=== PATIENT | female | born 1945 | race Caucasian/White ===

== ENCOUNTER 2022-06-25 10:30 | Outpatient (RCR) | payer MEDICARE, SELFPAY ==
--- NOTE | 2022-03-19 10:55 | HP.PTEVAL_ITS ---
Patient's Visit Information QAMAR FRY is a 76 year old F referred to Physical Therapy by FRANCISCO J SELLERS with a diagnosis of Imbalance, neuropathy. Date of Evaluation: 03/19/22 Physical Therapist: Gabriel Molina, RADHAT, OCS, CSCS - Visit Plan Frequency: 3x /Week Duration: 4-6 Weeks Plan: 3x/week for 4-6 weeks for. strengthening of LE mat to chair to HEP then standing to HEP. gait training and balance training and transition training, mat and stance, has wh walker and gait trianing with thsi is appropriate but may be able to gain confidence by doing some without (therapist help needed) - Subjective Dtr present and does the talking most of it.Diagnosed with neuropathy recently and has diabetes. Doctor calls her lack of effort. Fell two years ago and started balance problems...fell BW down 4 steps and hurt shoulder adn layed around 4 weeks recovering and does not care to get up and go anymore. Everybody else does work for her. Dtr does everything for her. Dtr is medical staff director outcomes analyst. Has wh walker but needs help in the bathroom due to shoulder dysfunction. afraid to stadn up without holding on since she fell. Dtr feels fear and anxciety has caused sedentary and weakness which has effected her mobility. No pain. Sleeps well. In bed for 12 hours. 40 minutes take to go bathroom and walks with walker slowly on her own. Has no necessary steps at home except two to enter adn exit which she uses her dtrs arm. Dtr or gra nddaughter always with her. Enjoys working puzzles and watching TV. Has electric recliner lift chair. Pt verbalizes wanting to walk to get to nondenominational and get snacks from kitchen. Doesn't get own snacks. Dtr admittedlyand pt agrees that she is just lazy. - Objective Pushed back to therapy by dtr in WC. Slumped in to WC using arms and back for support, can sit up when asked but it is not her default. She can scoot. Sche can sit to stand using UE sowly but I. She can stand when asked without UE assist but tends to be fearful reaching for something. Can take a few steps without AD but short steps and hesitant and CGA. Using wh walker can ambulate short steps mod I 50 feet today, is hunched over and tends to be far from walker until cued but can stand up and speed up when requested safely. Stand to sit I but tends to plop and avoid using UE. Bed trasnfer is slow but I, VC needed to scoot and roll, happy to be in first position she assumes. Bed to sit slow but I. LE AROM WFL, tightness in gastroc and HS. weakness in LE at 3+ hip and knee testing and 4- ankle testing. reflexes 1/3 patella and achilles. Sensation WNL to gross light touch. Pt laughs often without reason and realizes she is doing it but cannot stop. inappropriately. Also admits she refuses to do things and is lazy but can't understand or articulate why. - Balance/Special Test Scores Lower Extremity Functional Score: 9 - Goals Goal 1:: All trasnitions at home done I without assist Goal Time Frame: 4-6 Weeks Goal 2:: Pt able to ambualte with wh walker in and out of therapy mod I without fatigue Goal Time Frame: 4-6 Weeks Goal 3:: LEFS score 40/80 Goal Time Frame: 4-6 Weeks Goal 4:: Dtr report 50% improvement in overall activity level. Goal Time Frame: 4-6 Weeks Goal 5:: I approp HEP for strength/mobility Goal Time Frame: 4-6 Weeks - Rehabilitation Potential Physical Therapy Diagnosis: imbalance, fear, cognition limitng mobility at home Rehabilitation Potential: Fair - Anticipated Interventions Patient/Client Instruction: Educate patient on: Condition, Plan of Care For the Purpose of:: To improve muscle performance and motor function, To increase tolerance to activity/condition/position Therapeutic Exercise to Include: Strength training, Flexibilty training, Gait and locomotor training For the Purpose of:: To improve muscle performance and motor function, To increase tolerance to activity/condition/position, To improve gait and locomotor functions Thank you for the opportunity to evaluate your patient. For Medicare and Medicare HMO plans, please review the plan of care and approve it. It will need to be FAXED BACK to us at [phone] for Medicare purposes. For Medicare only, by signing this I certify the plan of care. Please let me know if there are questions or concerns regarding this plan of care. Physician Signature: Date:
--- NOTE | 2022-04-24 14:31 | HP.PTREVAL ---
FRANCISCO J GUY, It has been my pleasure to treat QAMAR FRY over the last 12 visits for Imbalance, neuropathy. Please see the progress note below for an update on the physical therapy plan of care! Subjective: Granddaughter helps answer home based questions. Feels better becasue we have made her exercise. Not doing anything at home. Granddaughter says she is not doing them unless she stands right with her and makes her do them. Family makes her walk dishes to sink. Otherwise spends day in her chair. Not ding her home ex regularly. Grd dtr says she will get up and go to bathroom now vs going in her diaper. Complains a lot less about taking dishes. Objective/Function: Granddaughter present today and helps her with LEFS. Walking with wh walker needing supervision as her steps get short and dragged and she lets wh walker get too far away from her. Can correct but only temporarily. Unable to self correct without cues. Tends to sit in chair with feet too far away. +8 on LEFS, nearly twice what it was. Exit chair one try without UE, slow to begin ambulating and can follow instructions but forgets quickly. 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 Plan Plan: 2x/week x 4 for. 1. Get I with HEP which she is noncompliant with.(current exercises plus standing hips, weight shifts) give pics and do them in therapy just ass she will at home. 2/ Lots of walking and steps as safety allows Balance/Gait/Functional tests - Balance/Special Test Scores Lower Extremity Functional Score: 17 Goals Goal 1:: All trasnitions at home done I without assist Goal Time Frame: 4-6 Weeks Goal Progress: Goal Met Goal 2:: Pt able to ambualte with wh walker in and out of therapy mod I without fatigue Goal Time Frame: 4-6 Weeks Goal Progress: supervision needed Goal 3:: LEFS score 40/80 Goal Time Frame: 4-6 Weeks Goal Progress: Progressing Goal 4:: Dtr report 50% improvement in overall activity level. Goal Time Frame: 4-6 Weeks Goal Progress: grddtr 50% Goal 5:: I approp HEP for strength/mobility Goal Time Frame: 4-6 Weeks Goal Progress: noncompliant. Anticipated Interventions Patient/Client Instruction: Educate patient on: Condition, Plan of Care For the Purpose of:: To improve muscle performance and motor function, To increase tolerance to activity/condition/position Therapeutic Exercise to Include: Strength training, Flexibilty training, Gait and locomotor training For the Purpose of:: To improve muscle performance and motor function, To increase tolerance to activity/condition/position, To improve gait and locomotor functions Please do not hesitate to contact me at [phone] by phone or if you have questions or concerns regarding this new plan of care! Sincerely, Gabriel Molina, DPT, OCS, CSCS
--- NOTE | 2022-05-27 11:03 | HP.PTREVAL ---
FRANCISCO J GUY, It has been my pleasure to treat QAMAR FRY over the last 19 visits for Imbalance, neuropathy. Please see the progress note below for an update on the physical therapy plan of care! Subjective: Getting better. Got a new walker. Dtr says she is moving faster. Putting in more effort. Doing exercises at home in room. Will put ballerina bar in room. Wants to do exercises at home. Will do exercises at home 3x/week to daily. Went to [employer] last night and stood alone whch does not happen. Objective/Function: TUG. 30 sec sit to stand. gait: SBA without AD today for 2 LOB, using wh walker into and out of PT still tending to get too far away form walker but no LOB. Trasnfer I chair. Compliance with HEp will be the issue. Appropriate to f/u in one month for funcitonal check and HEP. Fair prognosis to continue improvement toward goal. Plan Plan: f/u 3-4 weeks to check TUG, 30 sec sit to stand and gait and patients compliance with ex. HEP Balance/Gait/Functional tests - Balance/Special Test Scores Lower Extremity Functional Score: 13 TUG Test Time Seconds: 20 30 Second Chair Rise Test Seconds: 5 Goals Goal 1:: All trasnitions at home done I without assist Goal Time Frame: 4-6 Weeks Goal Progress: Goal Met Goal 2:: Pt able to ambualte with wh walker in and out of therapy mod I without fatigue Goal Time Frame: 4-6 Weeks Goal Progress: Goal Met Goal 3:: LEFS score 40/80 Goal Time Frame: 4-6 Weeks Goal Progress: Progressing Goal 4:: Dtr report 50% improvement in overall activity level. Goal Time Frame: 4-6 Weeks Goal Progress: grddtr 50% Goal 5:: I approp HEP for strength/mobility Goal Time Frame: 4-6 Weeks Goal Progress: Goal Met Anticipated Interventions Patient/Client Instruction: Educate patient on: Condition, Plan of Care For the Purpose of:: To improve muscle performance and motor function, To increase tolerance to activity/condition/position Therapeutic Exercise to Include: Strength training, Flexibilty training, Gait and locomotor training For the Purpose of:: To improve muscle performance and motor function, To increase tolerance to activity/condition/position, To improve gait and locomotor functions Please do not hesitate to contact me at [phone] by phone or if you have questions or concerns regarding this new plan of care! Sincerely, Gabriel Molina, DPT, OCS, CSCS
--- NOTE | 2022-06-25 11:01 | HP.PTDCSUM ---
It has been my pleasure to treat QAMAR FRY referred by FRANCISCO J GUY, with the diagnosis of Imbalance, neuropathy for a total of 20 visit(s). Discharge Date: Please see the following information for a summary of their discharge status. Subjective: Doing ex 3x/week. Dtr says walking good at home this morning. Long bar put in at home for exercises. No falls. I can walk now. Still can do exdrcises at home. No pain. getting where she needs to at home on her own. % Improvement: 30 Objective/Function: Safe ambulating with wh walker but needs it for safety, not safe with ambulating without it. Trasnfers I with UE today. Steps:two rails reciprocal up 6 and down with R only. Goal 1:: All trasnitions at home done I without assist Goal Progress: Goal Met Goal 2:: Pt able to ambualte with wh walker in and out of therapy mod I without fatigue Goal Progress: Goal Met Goal 3:: LEFS score 40/80 Goal Progress: Progressing Goal 4:: Dtr report 50% improvement in overall activity level. Goal Progress: Progressing Goal 5:: I approp HEP for strength/mobility Goal Progress: Goal Met Plan: f/u 3-4 weeks to check TUG, 30 sec sit to stand and gait and patients compliance with ex. HEP If there are questions or concerns regarding this patient's physical therapy, please feel free to call me at [phone]. Thank you for the referral of this patient. Sincerely, Gabriel Molina, DPT, OCS, CSCS Balance/Gait/Functional tests - Balance/Special Test Scores Functional Gait Assessment Score: 13 % Disability: 56.6700 Lower Extremity Functional Score: 13 TUG Test Time Seconds: 20 30 Second Chair Rise Test Seconds: 5
== END 2022-06-25 12:34 | disposition home or self-care (01) ==
LOC: PT 10:30
DX: E11.40 Type 2 diabetes mellitus with diabetic neuropathy, unspecified (principal)
CPT/HCPCS: 97110; 97116; 97162; 97164; 97530

== ENCOUNTER → 2023-01-11 | Outpatient (CLI) | payer MEDICARE, SELFPAY ==
--- NOTE | 2023-01-11 09:11 | MRI_ITS ---
HISTORY: COGNITIVE IMPAIRMENT, GAIT CHANGES, INCONTINENCE. TECHNIQUE: Multiplanar and multisequence MR images of the brain were obtained without contrast. 290 images. COMPARISON: None. FINDINGS: BRAIN PARENCHYMA: Multiple foci and small zones of increased T2 FLAIR signal in the bilateral cerebral white matter. No abnormal focus of restricted diffusion. No acute intracranial hemorrhage identified. CSF SPACES: Moderate volume loss. No significant midline shift or other mass effect.No extra-axial fluid collection. VASCULAR SYSTEM: Major intracranial flow voids are maintained. PARANASAL SINUSES AND MASTOID AIR CELLS: No significant air fluid levels. ORBITS: Bilateral lens resections. MRI/Brain without Contrast IMPRESSION: Moderate chronic involutional and white matter changes. No evidence for acute infarct. Electronically Signed: Kinza Bain MD at 15:06 EDT ,
== END | disposition home or self-care (01) ==
DX: G31.84 Mild cognitive impairment of uncertain or unknown etiology (principal)
CPT/HCPCS: 70551

== ENCOUNTER 2023-01-21 19:50 | Emergency (ER) | payer MEDICARE, SELFPAY ==
[2023-01-21 19:52] VITALS: BP 109/53; PULSE 82; RESP 15; TEMP 36.5; O2SAT 96
[2023-01-21 20:09] VITALS: TEMP 36.7
[2023-01-21 20:15] VITALS: BMI 73.4
--- NOTE | 2023-01-21 20:27 | EX.ED.DYSGE1 ---
HPI History of Present Illness Chief Complaint: Complaint Informant: patient and family Narrative Narrative: Patient presents with daughter for evaluation of possible UTI. She has been complaining of lower abdominal pain. Patient has Alzheimer's and is concerned that she may still have some remnant of her appendix left after she had appendicitis. Daughter states this occurred when she was 7 years old. Daughter did note that the patient has had strong odor to her urine with slight discoloration. She notes that her mother does not drink much during the day. She is concerned that she may have a UTI causing the symptoms. [facility] Medical History (Updated 01/21/23 @ 23:[address] Venita Osei MD) Alzheimer disease Cardiac murmur Diabetes mellitus Neuropathy Home Medications citalopram 20 mg tablet 10 mg PO DAILY 01/21/23 [History Last Taken Unknown] famotidine 20 mg tablet 20 mg PO DAILY PRN 01/21/23 [History Last Taken Unknown] hydrochlorothiazide 12.5 mg tablet 12.5 mg PO DAILY 01/21/23 [History Last Taken Unknown] levothyroxine 50 mcg tablet 50 mcg PO DAILY 01/21/23 [History Last Taken Unknown] lisinopril 2.5 mg tablet 2.5 mg PO DAILY 01/21/23 [History Last Taken Unknown] memantine 10 mg tablet 5 mg PO BID 01/21/23 [History Last Taken Unknown] metformin 850 mg tablet 850 mg PO BID 01/21/23 [History Last Taken Unknown] metoprolol succinate 25 mg tablet,extended release 24 hr 25 mg PO DAILY 01/21/23 [History Last Taken Unknown] pravastatin 20 mg tablet 20 mg PO QHS 01/21/23 [History Last Taken Unknown] raloxifene 60 mg tablet 60 mg PO DAILY 01/21/23 [History Last Taken Unknown] Allergy/AdvReac Type Severity Reaction Status Date / Time IV dye Allergy Intermediate Hives Uncoded 01/21/23 23:04 Family History Other Breast cancer Surgical History (Updated 01/21/23 @ 20:[address] Venita Osei MD) History of hysterectomy Hx of appendectomy Social History Smoking Status: Never smoker ROS ROS ED Constitutional Constitutional ED: Denies chills or fever(s) Eyes Eyes: Denies change in vision or discharge from eye(s) ENT ENT ED: Denies discharge from eye(s), rhinorrhea or sore throat Cardiovascular Cardiovascular: Denies chest pain Respiratory/Chest Respiratory/Chest: Denies cough or dyspnea Gastrointestinal Gastrointestinal: Reports abdominal pain, nausea and vomiting; Denies diarrhea Musculoskeletal Musculoskeletal: Denies back pain or extremity pain Integumentary Denies Abrasions or rash Neurologic Neurologic: Denies headache(s) or weakness Psychiatric Psychiatric: Denies anxiety or depression Allergic/Immunologic Allergic/Immunologic ED: Denies lip swelling or urticaria EXAM Physical Exam Const Vital Signs: 01/21/23 19:52 01/21/23 20:09 01/21/23 21:39 Temperature 97.7 F L 98.1 F 98.1 F Temperature Source Temporal Temporal Oral Pulse Rate 82 78 Respiratory Rate 15 16 Blood Pressure 109/53 L 133/60 H Blood Pressure Mean 71 84 Pulse Ox 96 97 Oxygen Delivery Method Room Air Room Air 01/21/23 23:05 Temperature Temperature Source Pulse Rate 85 Respiratory Rate 18 Blood Pressure 133/80 H Blood Pressure Mean 97 Pulse Ox 95 Oxygen Delivery Method Room Air Positive well nourished and well developed General Appearance ED: well developed HEENT Reports moist mucous membranes Eyes EOMs intact bilaterally Neck no lymphadenopathy Chest Wall inspection of chest normal and palpation of chest normal Resp normal respiratory effort and clear to auscultation bilaterally Cardio regular rate and regular rhythm GI GI Narrative: Diffuse tenderness of the lower abdomen. No guarding or rebound. Extremity normal to inspection Neuro Neuro Narrative: Patient alert and in no acute distress. Moves all extremities. Psych mental status grossly normal Skin no rashes or lesions noted MDM MDM MDM Narrative Medical decision making narrative: Patient is given IV fluids. Labwork obtained to evaluate for leukocytosis, anemia, and electrolyte derangement. Urinalysis obtained to evaluate for infection/hematuria. History & Record Review Discussion w/independent historian: Patient and Family Lab Data Attestation: I reviewed the patient's lab results. Labs: Laboratory Results - last 24 hr 01/21/23 01/21/23 20:40 21:31 WBC 10.1 RBC 4.07 L Hgb 11.9 L Hct 37.1 MCV 91.2 MCH 29.2 MCHC 32.1 RDW Std Deviation 42.5 RDW Coeff of Buzz 12.8 Plt Count 290 MPV 9.8 Immature Gran % (Auto) 0.300 Neut % (Auto) 62.3 Lymph % (Auto) 22.5 Banner % (Auto) 9.2 Eos % (Auto) 5.0 Baso % (Auto) 0.7 Absolute Neuts (auto) 6.3 Absolute Lymphs (auto) 2.27 Nucleated RBC % 0 Sodium 139 Potassium 4.6 Chloride 107 Carbon Dioxide 26.0 Anion Gap 6 BUN 19 H Creatinine 1.02 Estim Creat Clear Calc 116.49 Est GFR (MDRD) Af Amer 67 Est GFR (MDRD) Non-Af 56 L BUN/Creatinine Ratio 18.6 Glucose 111 H Calcium 8.5 Urine Color Yellow Urine Clarity Clear Urine pH 7.0 Ur Specific [place] 1.010 Urine Protein Negative Urine Glucose (UA) Normal Urine Ketones Negative Urine Occult Blood 10 H Urine Nitrite Negative Urine Bilirubin Negative Urine Urobilinogen Normal Ur Leukocyte Esterase Negative Urine RBC 0-5 SEEN Urine WBC 0 SEEN Ur Squamous Epith Cells 0 SEEN Urine Bacteria 0 SEEN Urine Mucus 0 SEEN Radiography Diagnostic Testing: Clinical Impression(s) from Imaging Studies Abdomen/Pelvis CT 01/21/23 22:28 IMPRESSION: Trace lower pole left hydronephrosis. No obstructing mass or calcification. Electronically Signed: Felisha Fermin MD at 23:19 EDT Reading Location ID and State: [id number] / Tel , Service support , Treatment and Re-Evaluation :: CBC was normal white count at 10.1 with no left shift. Hemoglobin is 11.9. Chemistry studies unremarkable. Glucose is 111. Urinalysis reveals no evidence of infection. Given the patient's moderate abdominal tenderness with no evidence of UTI, CT scan of the abdomen pelvis with IV contrast obtained to evaluate for possible diverticulitis. Upon return from CT patient did develop some hives from the IV contrast and received a dose of IV Benadryl. CT scan of the abdomen pelvis reveals trace lower pole left hydronephrosis. No mass or calcification. No other acute findings noted. On repeat evaluation patient's hives are improving. She is resting comfortably. Test results are discussed with patient as well as daughter at bedside. They will continue to monitor her symptoms at home and try to increase p.o. fluids. Return instructions given. Discharge Plan Triage Chief Complaint: Complaint ED Provider: Venita Osei Dx/Rx/DC Orders Clinical Impression: Abdominal pain Instructions: ED Abdominal Pain Unkn Cause Fem Prescriptions: No Action raloxifene 60 mg tablet 60 mg PO DAILY metoprolol succinate 25 mg tablet extended release 24 hr 25 mg PO DAILY pravastatin 20 mg tablet 20 mg PO QHS metformin 850 mg tablet 850 mg PO BID lisinopril 2.5 mg tablet 2.5 mg PO DAILY citalopram 20 mg tablet 10 mg PO DAILY levothyroxine 50 mcg tablet 50 mcg PO DAILY hydrochlorothiazide 12.5 mg tablet 12.5 mg PO DAILY memantine 10 mg tablet 5 mg PO BID famotidine 20 mg tablet 20 mg PO DAILY PRN Primary Care Provider: MARCOS TORRES Referrals: MARCOS TORRES [Other] - 10-14 Days if not better Disposition Disposition: Home, Self Care
[2023-01-21] MEDS: 0.9% Normal Saline 1,000 ML 1000 ML IV (20:42)
[2023-01-21 20:50] LABS: Absolute Lymphocyte Count 2.27 X10^3/uL (0.83-4.51); Absolute Neutrophil Count 6.3 X10^3/uL (2.0-7.7); Basophil# 0.07 X10^3/uL; Basophil% 0.7 % (0-1); Hematocrit 37.1 % (37-47); Hemoglobin 11.9 g/dL (12.0-15.0); Lymphocyte # 2.27 X10^3/ul (0.83-4.51); Lymphocyte % 22.5 % (19-41); Mean Corp Hgb Conc 32.1 g/dL (32-36); Mean Corpuscular Hgb 29.2 pg (27.0-32.0); Mean Corpuscular Volume 91.2 fL (81-99); Mean Platelet Vol. 9.8 fl (6.2-12.0); Monocyte# 0.93 X10^3/uL; Monocyte% 9.2 % (0-10); NRBC Flagged by Analyzer 0 % (0-5); Neutrophil # 6.27 X10^3/uL (2.7-7.7); Neutrophil % 62.3 % (47-70); Platelet Count 290 K/mm3 (150-450); RBC Distribution Width CV 12.8 % (11.6-14.6); RBC Distribution Width SD 42.5 fl (35.1-43.9); Red Blood Count 4.07 M/mm3 (4.2-5.4); White Blood Count 10.1 K/mm3 (4.4-11.0)
[2023-01-21 21:21] LABS: Anion Gap 6 (5-15); BUN 19 mg/dL (7-18); BUN/Creat Ratio 18.6 RATIO (10-20); Calcium,Total 8.5 mg/dL (8.5-10.1); Chloride 107 mmol/L (98-107); Creatinine, Serum 1.02 mg/dL (0.55-1.02); EST Glomerular Filtration Rate 56 mL/min (>60); Est Glom Filt Rate - Afr Amer 67 mL/min (>60); Estimated Creatinine Clearance 116.49 ml/min; Glucose 111 mg/dL (74-106); Potassium 4.6 mmol/L (3.5-5.1); Sodium Level 139 mmol/L (136-145)
[2023-01-21] MEDS: 0.9% Normal Saline 1,000 ML 150 ML IV (21:33)
[2023-01-21 21:37] LABS: Bacteria 0 SEEN /hpf (None Seen); Mucous, Urine 0 SEEN /hpf (<or=2+); Squamous Epithelial Cells - UA 0 SEEN /hpf (5-10); White Blood Cells 0 SEEN /hpf (0-5)
[2023-01-21 21:39] VITALS: BP 133/60; PULSE 78; RESP 16; TEMP 36.7; O2SAT 97
[2023-01-21 21:43] LABS: Color, Urine Yellow (Yellow); Glucose, Dipstick Normal (Normal); Ketone-Dipstick Negative (Negative); Leukocyte Esterase-Dipstick Negative /ul (Negative); Nitrite-Dipstick Negative (Negative); Occult Blood-Urine 10 /ul (Negative); Protein-Dipstick Negative (Negative); Urine Bilirubin Dipstick Negative (Negative); Urine Clarity Clear (Clear); Urine Urobilinogen Normal (Normal)
[2023-01-21 22:26] LABS: Red Blood Cells-Urine 0-5 SEEN /hpf (0-5)
--- NOTE | 2023-01-21 22:28 | CT_ITS ---
EXAM: CT ABDOMEN AND PELVIS WITH INTRAVENOUS CONTRAST CLINICAL INDICATION: lower abdominal pain TECHNIQUE: Helically acquired images were obtained of the abdomen and pelvis with intravenous contrast. This CT exam was performed using one or more of the following dose reduction techniques: automated exposure control, adjustment of the mA and/or kV according to patient size, and/or use of iterative reconstruction technique. CONTRAST: IV 100mL [id number] COMPARISON: No relevant prior studies available. FINDINGS: LOWER THORAX: Unremarkable. Lung bases are clear. No cardiomegaly. No significant pericardial effusion. ABDOMEN: LIVER: Unremarkable. Homogeneous. No focal mass. GALLBLADDER AND BILE DUCTS: Unremarkable. No calcified gallstones. No gallbladder distention or wall edema. No intra- or extrahepatic biliary ductal dilation. PANCREAS: Unremarkable. No focal cystic or solid mass. SPLEEN: Unremarkable. Normal size without focal cystic or solid mass. ADRENALS: Unremarkable. No nodules. KIDNEYS AND URETERS: Trace hydronephrosis of the left lower pole. Ureters are normal in course and caliber. No ureteral stones. STOMACH AND BOWEL: Diverticulosis. No acute diverticulitis. No stomach or bowel distention. No focal inflammatory change. PELVIS: APPENDIX: No evidence of acute appendicitis. BLADDER: Unremarkable. REPRODUCTIVE: Unremarkable as visualized. No mass. ABDOMEN and PELVIS: INTRAPERITONEAL SPACE: Unremarkable. No ascites or other fluid collection. No free air. BONES/JOINTS: L1 compression fracture, age indeterminate. Mild chronic loss of height of the L4 vertebra. Mild lumbar dextroscoliosis. No suspicious lytic or blastic abnormality. SOFT TISSUES: Unremarkable. No discrete abdominal or pelvic wall hernia. VASCULATURE: Unremarkable. Abdominal aorta is normal in caliber. LYMPH NODES: Unremarkable. No enlarged lymph nodes.
[2023-01-21] MEDS: DiphenhydrAMINE 50 MG/ML Syringe 25 MG IV (23:03)
--- NOTE | 2023-01-21 23:04 | ED.RN ---
MD was notified of hives, redness after contrast. order for benadryl and given.
[2023-01-21 23:05] VITALS: BP 133/80; PULSE 85; RESP 18; O2SAT 95
== END 2023-01-21 23:55 | disposition home or self-care (01) ==
PROVIDERS: Emergency Provider Emergency Medicine; Visit Provider Emergency Medicine
DX: R10.9 Unspecified abdominal pain (principal); G30.9 Alzheimer's disease, unspecified; E11.40 Type 2 diabetes mellitus with diabetic neuropathy, unspecified; Z79.899 Other long term (current) drug therapy; Z79.84 Long term (current) use of oral hypoglycemic drugs; Z90.710 Acquired absence of both cervix and uterus; Z90.49 Acquired absence of other specified parts of digestive tract
CPT/HCPCS: 74177; 80048; 81001; 85025; 96361; 96374; 99285; J7030; P9612; Q9967; A4216

== ENCOUNTER 2023-11-21 16:55 | Inpatient (IN) | payer MEDICARE, SELFPAY ==
[2023-11-21] VITALS (14 sets, daily range): BP systolic 104–137; BP diastolic 50–97; PULSE 95–120; RESP 16–30; TEMP 36.3–37.4; O2SAT 88–97; BMI 29.5
--- NOTE | 2023-11-21 17:12 | EKG12_ITS ---
Test Reason : Blood Pressure : / mmHG Vent. Rate : 102 BPM Atrial Rate : 000 BPM P-R Int : 000 ms QRS Dur : 066 ms QT Int : 330 ms P-R-T Axes : 000 -06 030 degrees QTc Int : 430 ms SINUS TACHYCARDIA Abnormal ECG Confirmed by JOESPH MARSHALL, JUANPABLO ([id number]), scientific publications editor DEBORAH MENDEZ ([id number]) on 11/24/2023 6:49:20 AM Referred By: Confirmed By:JUANPABLO PINK MD
--- NOTE | 2023-11-21 17:14 | EDS_ITS ---
HPI History of Present Illness Chief Complaint: Shortness of Breath Narrative Narrative: History and physical is limited secondary to dementia. Per patient's daughter, last night, patient began having shortness of breath and wheezing with occasional cough. No fevers or chills. They deny that she has past medical history of COPD or CHF, she is never been a smoker. She does have history of dementia and cognitive decline to the point where she does not remember how to walk, hence she is in a wheelchair. Daughter relates history that she did have a vomiting episode 2 days ago when she was trying to administer her inhaler because the patient does not quite know how to inhale. This morning, when patient awoke, all day she has been having difficulty breathing and audible wheezing. [facility] Medical History (Updated 11/21/23 @ 19:36 by Emerson Courtney MD) Hypothyroidism Anxiety and depression HLD (hyperlipidemia) HTN (hypertension) CKD (chronic kidney disease) Vitamin deficiency GERD (gastroesophageal reflux disease) Cardiac murmur Neuropathy Alzheimer disease Diabetes mellitus Home Medications ?Medication ?Instructions ?Recorded ?Last Taken ?Type citalopram 20 mg tablet 10 mg PO DAILY 01/21/23 11/20/23 History hydrochlorothiazide 12.5 mg tablet 12.5 mg PO DAILY 01/21/23 11/20/23 History levothyroxine 50 mcg tablet 50 mcg PO DAILY 01/21/23 11/20/23 History lisinopril 2.5 mg tablet 2.5 mg PO DAILY 01/21/23 11/20/23 History memantine 10 mg tablet 5 mg PO BID 01/21/23 11/20/23 History metformin 850 mg tablet 850 mg PO BID 01/21/23 11/20/23 History metoprolol succinate 25 mg 25 mg PO DAILY 01/21/23 11/20/23 History tablet,extended release 24 hr pravastatin 20 mg tablet 20 mg PO QHS 01/21/23 11/20/23 History raloxifene 60 mg tablet 60 mg PO DAILY 01/21/23 11/20/23 History famotidine 20 mg tablet 20 mg PO DAILY PRN #90 tabs 10/29/23 11/20/23 Rx Allergy/AdvReac Type Severity Reaction Status Date / Time Iodinated Contrast Media Allergy Intermediate Hives Verified 11/21/23 16:56 strawberry Allergy Intermediate hives Verified 11/21/23 16:56 Family History Father Diabetes Myocardial infarction Mother Breast cancer Surgical History History of hysterectomy Hx of appendectomy Social History household members: children housing: house current occupational status: retired Smoking Status: Never smoker alcohol intake: never substance use type: does not use what type of physical activity do you participate in: none seatbelt use: always do you feel safe at home: Yes ROS ROS ED ROS Narrative Limited secondary to dementia. Majority of review of systems obtained through daughter. Constitutional: No fever, no chills. HEENT: No sore throat. No neck pain. No loss of vision. No rhinorrhea. Cardiovascular: No chest pain. No palpitations. No pedal edema. Respiratory: Positive occasional cough, positive wheezing and increasing shortness of breath. Abdominal: No abdominal pain. No nausea. No vomiting currently. Genitourinary: No dysuria. No hematuria. Musculoskeletal: No myalgias. No arthralgias. Neurologic: No headaches. No dizziness. No lightheadedness. Skin: No rash. No change in color. Psychiatric: No depression. No anxiety. EXAM Physical Exam Narrative Exam Narrative: Afebrile. Temperature of 99.2 ?F, vital signs noted. HEENT: Normocephalic. Atraumatic. PERRL, EOMI. Neck soft and supple. No point tenderness or step off. Cardiovascular: Positive tachycardia no murmurs, rubs, or gallops appreciated. Respiratory: Mild tachypnea. Audible wheezing bilaterally. Gastrointestinal: Abdomen soft, nontender, with normoactive bowel sounds. No rebound or guarding. Neurological: Awake. Alert. Intermittently follows commands. At baseline per daughter. Skin: No rash. Normal color. No pallor. Musculoskeletal: No pedal edema. Const Vital Signs: 11/21/23 16:56 11/21/23 17:00 11/21/23 17:17 Temperature 99.2 F H 99.2 F H Temperature Source Temporal Temporal Pulse Rate 107 H 107 H Respiratory Rate 24 H 24 H Respiratory Effort Respiratory Depth Respiratory Pattern Blood Pressure 132/82 H 132/82 H Blood Pressure Mean 98 98 Pulse Ox 90 90 88 Oxygen Delivery Method Room Air Room Air Room Air Oxygen Flow Rate (L/min) 11/21/23 17:20 11/21/23 17:21 11/21/23 17:27 Temperature Temperature Source Pulse Rate 95 Respiratory Rate 16 Respiratory Effort Short of Breath Short of Breath Respiratory Depth Shallow Respiratory Pattern Tachypnea Tachypnea Normal Blood Pressure Blood Pressure Mean Pulse Ox Oxygen Delivery Method Nasal Cannula Oxygen Flow Rate (L/min) 2 11/21/23 18:00 11/21/23 19:00 11/21/23 19:20 Temperature 98.7 F 98.8 F 97.4 F L Temperature Source Oral Temporal Temporal Pulse Rate 110 H 109 H 106 H Respiratory Rate 25 H 25 H 29 H Respiratory Effort Respiratory Depth Respiratory Pattern Blood Pressure 131/97 H 137/78 H 137/85 H Blood Pressure Mean 108 97 102 Pulse Ox 95 95 88 Oxygen Delivery Method Nasal Cannula Nasal Cannula Room Air Oxygen Flow Rate (L/min) 2 2 11/21/23 19:33 Temperature 98.1 F Temperature Source Pulse Rate 106 H Respiratory Rate 22 H Respiratory Effort Respiratory Depth Respiratory Pattern Blood Pressure 131/82 H Blood Pressure Mean 98 Pulse Ox 94 Oxygen Delivery Method Oxygen Flow Rate (L/min) MDM MDM MDM Narrative Medical decision making narrative: In the differential diagnosis is viral syndrome versus COPD exacerbation versus aspiration pneumonia versus bacterial pneumonia. I have lower suspicion for CHF. She was administered a DuoNeb aerosolized treatment. I reviewed her laboratory work and she has slightly elevated white count of 12.6 which I think is nonspecific, hemoglobin normal at 12.3, hematocrit 37.6, platelet count normal at 283. Electrolyte panel shows chloride elevated at 108 which I think is also nonspecific, BUN slightly elevated 19 with a normal creatinine of 0.87, glucose is elevated at 170 but she has normal anion gap of 7. Lactic acid is normal at 1.1 so I doubt sepsis. She is meeting SIRS criteria with her tachycardia and elevated white count. Review of her CMP on further examination reveals ALT low at 12. High-sensitivity troponin is 6. EKG obtained and interpreted by myself independently as normal sinus rhythm at 102 without ectopy or acute ST changes. No STEMI. While her BNP is slightly elevated at 261, I do not feel this is the cause of her wheezing. Urinalysis obtained, and is negative for infection on review. Her daughter is concerned because previously when they tested it, it was negative, and a few days later she came back with a UTI. Chest x-ray 1 view interpreted by myself independently shows no evidence of pneumonia or consolidation, no pneumothorax. I reviewed the radiology report which confirms my independent interpretation. Respiratory swabs are negative for COVID, influenza, and RSV. Upon repeat examination, she is more awake and alert, and there is no audible wheezing upon repeat examination at approximately 1910. However, she has periods when she will dip back into the high 80s/87% on room air. She does not wear oxygen at home. Given her borderline hypoxia/alternating with hypoxia, I will discuss the patient with the hospitalist for observation. Antibiotics were deferred for pneumonia. Disposition is assigned to observation in stable condition. History & Record Review Discussion w/independent historian: Family and Unable to obtain (From patient secondary to dementia) Lab Data Attestation: I reviewed the patient's lab results. Labs: Laboratory Results - last 24 hr 11/21/23 11/21/23 17:15 18:35 WBC 12.6 H RBC 4.16 L Hgb 12.3 Hct 37.6 MCV 90.4 MCH 29.6 MCHC 32.7 RDW Std Deviation 41.1 RDW Coeff of Buzz 12.4 Plt Count 283 MPV 9.7 Immature Gran % (Auto) 0.400 Neut % (Auto) 85.0 H Lymph % (Auto) 7.1 L [place] % (Auto) 6.6 Eos % (Auto) 0.5 Baso % (Auto) 0.4 Absolute Neuts (auto) 10.7 H Absolute Lymphs (auto) 0.89 Nucleated RBC % 0 Sodium 136 Potassium 4.4 Chloride 108 H Carbon Dioxide 21.0 Anion Gap 7 BUN 19 H Creatinine 0.87 Estim Creat Clear Calc 43.82 Est GFR (MDRD) Af Amer 81 Est GFR (MDRD) Non-Af 67 BUN/Creatinine Ratio 21.8 H Glucose 170 H Lactic Acid 1.1 Calcium 8.7 Total Bilirubin 0.50 AST 16 ALT 12 L Alkaline Phosphatase 74 Troponin I High Sens 6 B-Natriuretic Peptide 261.3 H Total Protein 7.2 Albumin 3.3 Globulin 3.9 Albumin/Globulin Ratio 0.8 L Urine Color Yellow Urine Clarity Clear Urine pH 6.5 Ur Specific [place] 1.010 Urine Protein 15 H Urine Glucose (UA) Normal Urine Ketones 5 H Urine Occult Blood Negative Urine Nitrite Negative Urine Bilirubin Negative Urine Urobilinogen Normal Ur Leukocyte Esterase Negative Urine RBC 0 SEEN Urine WBC 0 SEEN Ur Squamous Epith Cells 0 SEEN Urine Bacteria 0 SEEN Urine Mucus 0 SEEN Radiography Chest X-Ray - ED: 1 View and Read by ED Physician Diagnostic Testing: Clinical Impression(s) from Imaging Studies Chest X-Ray 11/21/23 17:55 IMPRESSION: No radiographic evidence of acute cardiopulmonary disease. Electronically Signed: Albin Singh MD at 18:19 EDT , Discharge Plan Dx/Rx/DC Orders Clinical Impression: Bilateral wheezing, Bronchospasm, Hypoxia Disposition Disposition: Acute Care [facility]
[2023-11-21] MEDS: Ipratropium/Albuterol Sulfate 3 ML AMPUL.NEB INHALATION ×2 (17:27→19:43)
[2023-11-21 17:31] LABS: Absolute Lymphocyte Count 0.89 X10^3/uL (0.83-4.51); Absolute Neutrophil Count 10.7 X10^3/uL (2.0-7.7); Basophil# 0.05 X10^3/uL; Basophil% 0.4 % (0-1); Eosinophil# 0.06 X10^3/uL; Eosinophils% 0.5 % (0-5); Hematocrit 37.6 % (37-47); Hemoglobin 12.3 g/dL (12.0-15.0); Lymphocyte # 0.89 X10^3/ul (0.83-4.51); Lymphocyte % 7.1 % (19-41); Mean Corp Hgb Conc 32.7 g/dL (32-36); Mean Corpuscular Hgb 29.6 pg (27.0-32.0); Mean Corpuscular Volume 90.4 fL (81-99); Mean Platelet Vol. 9.7 fl (6.2-12.0); Monocyte# 0.83 X10^3/uL; Monocyte% 6.6 % (0-10); NRBC Flagged by Analyzer 0 % (0-5); Neutrophil # 10.74 X10^3/uL (2.7-7.7); Platelet Count 283 K/mm3 (150-450); RBC Distribution Width CV 12.4 % (11.6-14.6); RBC Distribution Width SD 41.1 fl (35.1-43.9); Red Blood Count 4.16 M/mm3 (4.2-5.4); White Blood Count 12.6 K/mm3 (4.4-11.0)
--- NOTE | 2023-11-21 17:55 | RAD_ITS ---
INDICATION: Shortness of Breath EXAMINATION/TECHNIQUE: X-RAY - XR Chest 1 View COMPARISON: None. FINDINGS: LINES/DEVICES: None. LUNGS: Linear subsegmental atelectasis in the lower lungs. No consolidation, edema or effusion. No pneumothorax. MEDIASTINUM AND CARDIOVASCULAR STRUCTURES: Cardiac silhouette not enlarged. BONES AND SOFT TISSUES: Unremarkable. RAD/Chest 1 View (Portable) IMPRESSION: No radiographic evidence of acute cardiopulmonary disease. Electronically Signed: Albin Singh MD at 18:19 EDT ,
[2023-11-21 17:58] LABS: BNP,B-Type NATRIURETIC PEPTIDE 261.3 pg/mL (0-100)
[2023-11-21 18:01] LABS: ALB/GLOB Ratio 0.8 RATIO (0.9-2.4); AST(SGOT) 16 U/L (15-37); Alanine Aminotransfer ALT/SGPT 12 U/L (13-56); Albumin, Serum 3.3 g/dL (3.2-5.0); Alkaline Phosphatase 74 U/L (45-117); Anion Gap 7 (5-15); BUN 19 mg/dL (7-18); BUN/Creat Ratio 21.8 RATIO (10-20); Calcium,Total 8.7 mg/dL (8.5-10.1); Chloride 108 mmol/L (98-107); Creatinine, Serum 0.87 mg/dL (0.55-1.02); EST Glomerular Filtration Rate 67 mL/min (>60); Est Glom Filt Rate - Afr Amer 81 mL/min (>60); Estimated Creatinine Clearance 43.82 ml/min; Globulin 3.9 g/dL (2.2-4.2); Glucose 170 mg/dL (74-106); Potassium 4.4 mmol/L (3.5-5.1); Protein, Total 7.2 g/dL (6.4-8.2); Sodium Level 136 mmol/L (136-145); Troponin-I HS 6 pg/mL (3.0-54.0)
[2023-11-21 18:02] LABS: Lactic Acid 1.1 mmol/L (0.4-1.9)
[2023-11-21 18:38] LABS: Bacteria 0 SEEN /hpf (None Seen); Mucous, Urine 0 SEEN /hpf (<or=2+); Red Blood Cells-Urine 0 SEEN /hpf (0-5); Squamous Epithelial Cells - UA 0 SEEN /hpf (5-10); White Blood Cells 0 SEEN /hpf (0-5)
[2023-11-21 18:42] LABS: Color, Urine Yellow (Yellow); Glucose, Dipstick Normal (Normal); Ketone-Dipstick 5 mg/dl (Negative); Leukocyte Esterase-Dipstick Negative /ul (Negative); Nitrite-Dipstick Negative (Negative); Occult Blood-Urine Negative /ul (Negative); Protein-Dipstick 15 mg/dl (Negative); Urine Bilirubin Dipstick Negative (Negative); Urine Clarity Clear (Clear); Urine Urobilinogen Normal (Normal); Urine pH 6.5 (5.0 - 8.0)
--- NOTE | 2023-11-21 19:33 | PCM.HP.STD ---
HPI - General General Date of Admission: 11/21/23 Date of Service: 11/21/23 Chief Complaint: Dyspnea, cough, wheezing. HPI Narrative The patient is an 78 y/o F w/ PMHx: Anxiety and Depression, CKD unclear exact stage possibly II versus III, GERD, Diabetes mellitus type II, Alzheimer's disease with dementia unclear exact extent and unclear behavioral disturbance history noted to be wheelchair-bound secondary to debility with confusion with attempts to ambulate, Chronic neuropathy, HTN, HLD, Hypothyroidism who presents to the [facility] ED on 11/21/23 with history of shortness of breath and wheezing starting the evening prior with occasional nonproductive cough with no recent fevers or chills and no specific history of COPD, asthma or heart failure and no history of tobacco use in addition to nausea and emesis 2 days prior while she was attempting to use an inhaler worsening upon awakening today prompting family bring her in for evaluation. Patient daughter who is present notes that her daughter has also been sick with similar symptoms and there are several young children in the home as well. Daughter does report that she has previously been evaluated for aspiration. Workup in the ED included T99.2, heart rate 107, BP 132/82, respiratory rate 24, 98% on room air however patient did eventually desaturate down to 87% with most recent repeat vitals T98.8, heart rate 109, BP 137/78, respiratory rate 25, 95% on 2 L nasal cannula, CBC with WBC 12.6, human 12.3, MCV 90.4, platelet 283 with left shift, CMP with chloride 108, BUN/creatinine 19/0.87, GFR 67, glucose 170, BNP 261.3, troponin 6, hepatic profile not marked appearing, lactic acid 1.1, chest x-ray with no acute cardiopulmonary findings, SARS COVID/influenza/RSV PCR negative. In the ED patient administered DuoNeb therapy. [facility] Medical History (Updated 11/21/23 @ 19:36 by Emerson Courtney MD) Hypothyroidism Anxiety and depression HLD (hyperlipidemia) HTN (hypertension) CKD (chronic kidney disease) Vitamin deficiency GERD (gastroesophageal reflux disease) Cardiac murmur Neuropathy Alzheimer disease Diabetes mellitus Home Medications ?Medication ?Instructions ?Recorded ?Last Taken ?Type citalopram 20 mg tablet 10 mg PO DAILY 01/21/23 11/20/23 History hydrochlorothiazide 12.5 mg tablet 12.5 mg PO DAILY 01/21/23 11/20/23 History levothyroxine 50 mcg tablet 50 mcg PO DAILY 01/21/23 11/20/23 History lisinopril 2.5 mg tablet 2.5 mg PO DAILY 01/21/23 11/20/23 History memantine 10 mg tablet 5 mg PO BID 01/21/23 11/20/23 History metformin 850 mg tablet 850 mg PO BID 01/21/23 11/20/23 History metoprolol succinate 25 mg 25 mg PO DAILY 01/21/23 11/20/23 History tablet,extended release 24 hr pravastatin 20 mg tablet 20 mg PO QHS 01/21/23 11/20/23 History raloxifene 60 mg tablet 60 mg PO DAILY 01/21/23 11/20/23 History famotidine 20 mg tablet 20 mg PO DAILY PRN #90 tabs 10/29/23 11/20/23 Rx Allergy/AdvReac Type Severity Reaction Status Date / Time Iodinated Contrast Media Allergy Intermediate Hives Verified 11/21/23 16:56 strawberry Allergy Intermediate hives Verified 11/21/23 16:56 Family History Father Diabetes Myocardial infarction Mother Breast cancer Surgical History History of hysterectomy Hx of appendectomy Social History household members: children housing: house current occupational status: retired Smoking Status: Never smoker alcohol intake: never substance use type: does not use what type of physical activity do you participate in: none seatbelt use: always do you feel safe at home: Yes ROS ROS Narrative Admission Review of Systems: CONSTITUTIONAL: No weight loss, fever, chills, + weakness or fatigue but does have low-grade temperatures in the ED. HEENT: Eyes: No visual loss, blurred vision, double vision or yellow sclerae. Ears, Nose, Throat: No hearing loss, sneezing, congestion, runny nose or sore throat. SKIN: No rash or itching, lesions, wounds. CARDIOVASCULAR: No chest pain, chest pressure or chest discomfort, palpitations, edema, orthopnea, syncopal events. RESPIRATORY: + Dyspnea, cough without productive sputum, wheezing. No hemoptysis. GASTROINTESTINAL: + Mild decreased appetite, nausea and emesis. No diarrhea, abdominal pain, melena, BRBPR. GENITOURINARY: No dysuria, frequency, urgency or retention. NEUROLOGICAL: + Chronic underlying Alzheimer's disease with memory impairment. No headache, dizziness, syncope, paralysis, ataxia, numbness or tingling in the extremities, focal weakness, change in bowel or bladder control, seizure. MUSCULOSKELETAL: + muscle, back pain, joint pain or stiffness. HEMATOLOGIC: No anemia. + Easy bleeding/bruising. LYMPHATICS: No enlarged nodes. No history of splenectomy. PSYCHIATRIC: + History of anxiety and depression. ENDOCRINOLOGIC: No reports of sweating, cold or heat intolerance. No polyuria or polydipsia. ALLERGIES: + History of hives. Vital Signs Vital Signs Vital Signs: 11/21/23 16:56 11/21/23 17:00 11/21/23 17:17 Temperature 99.2 F H 99.2 F H Temperature Source Temporal Temporal Pulse Rate 107 H 107 H Respiratory Rate 24 H 24 H Respiratory Effort Respiratory Depth Respiratory Pattern Blood Pressure 132/82 H 132/82 H Blood Pressure Mean 98 98 Pulse Ox 90 90 88 Oxygen Delivery Method Room Air Room Air Room Air Oxygen Flow Rate (L/min) 11/21/23 17:20 11/21/23 17:21 11/21/23 17:27 Temperature Temperature Source Pulse Rate 95 Respiratory Rate 16 Respiratory Effort Short of Breath Short of Breath Respiratory Depth Shallow Respiratory Pattern Tachypnea Tachypnea Normal Blood Pressure Blood Pressure Mean Pulse Ox Oxygen Delivery Method Nasal Cannula Oxygen Flow Rate (L/min) 2 11/21/23 18:00 11/21/23 19:00 11/21/23 19:20 Temperature 98.7 F 98.8 F 97.4 F L Temperature Source Oral Temporal Temporal Pulse Rate 110 H 109 H 106 H Respiratory Rate 25 H 25 H 29 H Respiratory Effort Respiratory Depth Respiratory Pattern Blood Pressure 131/97 H 137/78 H 137/85 H Blood Pressure Mean 108 97 102 Pulse Ox 95 95 88 Oxygen Delivery Method Nasal Cannula Nasal Cannula Room Air Oxygen Flow Rate (L/min) 2 2 Weight Weight: 146 lb 2.664 oz Body Mass Index (BMI) 29.5 Physical Exam Narrative Physical Examination: General: Awake, alert, oriented to self and family family notes she is at her baseline status with underlying Alzheimer's disease with dementia, remains cooperative, seated upright in ED bed. Skin: Normal color, normal turgor, no icterus, no cyanosis except occasional staged ecchymoses, mild intertrigo at folds. HEENT: AT/NC, EOMI, PERRLA, mildly dry MM, no carotid bruits or JVD noted. Lungs: Diminished, greater bases, mildly increased respiratory rate but no distress, mildly rhonchorous and wheezing throughout lung razo. Heart: Mildly tachycardic with regular rhythm; no gallop, rub audible. Abdomen: Soft, NTTP, ND, mildly hyperactive BS, no appreciated HSM. Extremities: No cyanosis, clubbing, or edema. Neurological: Patient awake, alert, oriented as noted, cognitive function decreased baseline with underlying Alzheimer's disease with dementia, currently per family she has baseline intact; pupils equally reactive to light and accommodation, cranial nerves grossly normal, moving all 4 extremities, no focal deficits, strength moderately to severely globally decreased secondary to acute presentation complaints Psychiatric: Affect appears mildly fatigued, ill-appearing, occasionally laughing, not extremely interactive with conversation which is baseline with her underlying dementia, no acute evidence of depressive or anxiety feelings but does have underlying history. Results Lab / Micro Data 11/21/23 17:15 11/21/23 17:15 Labs: Laboratory Results - last 24 hr 11/21/23 17:15: WBC 12.6 H, RBC 4.16 L, Hgb 12.3, Hct 37.6, MCV 90.4, MCH 29.6, MCHC 32.7, RDW Std Deviation 41.1, RDW Coeff of Buzz 12.4, Plt Count 283, MPV 9.7, Immature Gran % (Auto) 0.400, Neut % (Auto) 85.0 H, Lymph % (Auto) 7.1 L, [place] % (Auto) 6.6, Eos % (Auto) 0.5, Baso % (Auto) 0.4, Absolute Neuts (auto) 10.7 H, Absolute Lymphs (auto) 0.89, Nucleated RBC % 0, Sodium 136, Potassium 4.4, Chloride 108 H, Carbon Dioxide 21.0, Anion Gap 7, BUN 19 H, Creatinine 0.87, Estim Creat Clear Calc 43.82, Est GFR (MDRD) Af Amer 81, Est GFR (MDRD) Non-Af 67, BUN/Creatinine Ratio 21.8 H, Glucose 170 H, Lactic Acid 1.1, Calcium 8.7, Total Bilirubin 0.50, AST 16, ALT 12 L, Alkaline Phosphatase 74, Troponin I High Sens 6, B-Natriuretic Peptide 261.3 H, Total Protein 7.2, Albumin 3.3, Globulin 3.9, Albumin/Globulin Ratio 0.8 L 11/21/23 18:35: Urine Color Yellow, Urine Clarity Clear, Urine pH 6.5, Ur Specific [place] 1.010, Urine Protein 15 H, Urine Glucose (UA) Normal, Urine Ketones 5 H, Urine Occult Blood Negative, Urine Nitrite Negative, Urine Bilirubin Negative, Urine Urobilinogen Normal, Ur Leukocyte Esterase Negative, Urine RBC 0 SEEN, Urine WBC 0 SEEN, Ur Squamous Epith Cells 0 SEEN, Urine Bacteria 0 SEEN, Urine Mucus 0 SEEN Micro: Microbiology 11/21/23 17:15 Mucosa - Nose SARS-CoV-2, Influenza & RSV (PCR) - Final Imaging Radiology Impression Chest X-Ray 11/21/23 17:55 IMPRESSION: No radiographic evidence of acute cardiopulmonary disease. Electronically Signed: Albin Singh MD at 18:19 EDT Reading Location ID and State: [facility] / [place] Tel , Service support , Assessment & Plan Assessment/Plan (1) Viral syndrome: PLAN: Plan The patient is an 78 y/o F w/ PMHx: Anxiety and Depression, CKD unclear exact stage possibly II versus III, GERD, Diabetes mellitus type II, Alzheimer's disease with dementia unclear exact extent and unclear behavioral disturbance history noted to be wheelchair-bound secondary to debility with confusion with attempts to ambulate, Chronic neuropathy, HTN, HLD, Hypothyroidism who presents to the [facility] ED on 11/21/23 with history of shortness of breath and wheezing starting the evening prior with occasional nonproductive cough with no recent fevers or chills and no specific history of COPD, asthma or heart failure and no history of tobacco use in addition to nausea and emesis 2 days prior while she was attempting to use an inhaler worsening upon awakening today prompting family bring her in for evaluation. #1. Suspected acute viral syndrome, bronchitis with acute bronchospasms with acute hypoxia associated: CXR w/ chronic changes, CBC on admission w/ no marked WC elevation but left shift present. Will admit to MS, maintain on oxygen with wean as tolerated to room air, continue ATC budesonide, PRN albuterol, IV methylprednisolone, HOB, IS parameters, will obtain sputum Cx, respiratory viral panel, procalcitonin, will hold on immediately abx therapy but low threshold to add if appropriate. Will repeat CXR in AM following judicious hydration given possible aspiration given bouts of N/V to be cautious. ST/PT/OT/case management consulted for discharge planning. #2. Alzheimer's disease with dementia unclear exact extent and unclear behavioral disturbance history: Complicates presentation, wheelchair-bound, will maintain on patient home memantine regimen, maintain on fall precautions, PT/OT/case management consulted for discharge planning. #3. Chronic Kidney Disease Stage possibly stage II versus stage III, unclear as only 2 comparison points: Admission BUN/Cr 19/0.87, GFR 67, baseline renal function noted previously 1.02 however it is a single point 01/21/2023, 01/21/2023 GFR 56 thus again unclear if stage II or stage III, repeat BMP in AM to assist in further elucidating. #4. Diabetes mellitus type II with chronic neuropathy: Hold oral home regimen, will maintain on ADA diet, accu checks w/ ISS. #5. Hypertension: Continue home regimen including metoprolol, lisinopril, hydrochlorothiazide, PRN hydralazine. #6. Hyperlipidemia: We will continue patient on statin therapy. #7. Anxiety and depression: Will continue patient on citalopram regimen. #8. Hypothyroidism: We will continue patient home levothyroxine regimen. #9. GERD: We will continue patient home famotidine, as needed Mylanta for dyspepsia. #10. DVT prophylaxis: Lovenox. #11. CODE status: Patient ZENAIDA is her daughter who is present and her daughter notes that she does have a will specifically detailing end-of-life decisions. Discussed CODE status at length including difference between FULL code, DNR-CCA and DNR-CC status. Following discussions about the differences in these status, requested Full Code status. Per discussions with daughter there are is a specific parameter where if patient needs any type of long-term support for duration of time of 2 months that at that time family would likely withdraw care but otherwise they want all aggressive measures taken. Advanced Care Planning Face to Face Time: 16 minutes. Charges/Coding Visit Charges Inpatient E&M: 51139 Init Hosp L3 Procedures Hospitalists Procedures: 68494 Advncd Care Plan 30 Min
[2023-11-21 20:25] LABS: Procalcitonin 0.07 ng/mL (0.00-0.09)
[2023-11-21 21:42] LABS: Bedside Glucose 152 mg/dL (74-106)
[2023-11-21] MEDS: 0.9% Normal Saline (1000mL) 1,000 ML 100 ML IV (22:00)
[2023-11-21] MEDS: 0.9% Saline Lock 10 ML Syringe IV (22:00)
[2023-11-21] MEDS: Memantine Hydrochloride 5 MG Tablet PO (22:32)
[2023-11-21] MEDS: Pravastatin 20 MG Tablet PO (22:32)
[2023-11-21] MEDS: Insulin Lispro 100 UNIT/ML INSULN.PEN SC (22:33)
[2023-11-21] MEDS: Nystatin Powder 15gm Bottle 1 APPLIC TOPICAL (22:36)
[2023-11-21] MEDS: Albuterol 2.5 MG/3 ML VIAL.NEB. INHALATION (23:10)
[2023-11-21] MEDS: Budesonide Respules 0.5 MG/2 ML AMPUL.NEB. INHALATION (23:10)
[2023-11-21] MEDS: MethylPREDNISolone 125 MG/2 ML Vial IV (23:44)
[2023-11-22] VITALS (10 sets, daily range): BP systolic 88–124; BP diastolic 40–65; PULSE 84–104; RESP 16–24; TEMP 36.7–37; O2SAT 91–96; BMI 29.5
--- NOTE | 2023-11-22 05:55 | RAD_ITS ---
HISTORY: Dyspnea, cough. TECHNIQUE: XR Chest 1 View. COMPARISON: Prior day. FINDINGS: LINES/TUBES: None. CARDIOMEDIASTINAL BORDERS: Stable. LUNGS: Faint opacities in the right upper lobe. PLEURA: No pleural effusion or pneumothorax. RAD/Chest 1 View (Portable) IMPRESSION: Mild right upper lobe infection or inflammation. Electronically Signed: Kinza Bain MD at 8:30 EDT ,
[2023-11-22] MEDS: Levothyroxine 50 MCG Tablet PO (05:57)
[2023-11-22] MEDS: Insulin Lispro 100 UNIT/ML INSULN.PEN SC ×4 (05:57→21:03)
[2023-11-22 06:08] LABS: Absolute Lymphocyte Count 0.39 X10^3/uL (0.83-4.51); Absolute Neutrophil Count 7.9 X10^3/uL (2.0-7.7); Basophil# 0.01 X10^3/uL; Basophil% 0.1 % (0-1); Hematocrit 33.4 % (37-47); Hemoglobin 10.9 g/dL (12.0-15.0); Lymphocyte # 0.39 X10^3/ul (0.83-4.51); Lymphocyte % 4.6 % (19-41); Mean Corp Hgb Conc 32.6 g/dL (32-36); Mean Corpuscular Hgb 29.8 pg (27.0-32.0); Mean Corpuscular Volume 91.3 fL (81-99); Mean Platelet Vol. 9.9 fl (6.2-12.0); Monocyte% 2.4 % (0-10); NRBC Flagged by Analyzer 0 % (0-5); Neutrophil # 7.89 X10^3/uL (2.7-7.7); Neutrophil % 92.7 % (47-70); POSITIVE DIFFERENTIAL YES; Platelet Count 246 K/mm3 (150-450); RBC Distribution Width CV 12.8 % (11.6-14.6); RBC Distribution Width SD 43.1 fl (35.1-43.9); Red Blood Count 3.66 M/mm3 (4.2-5.4); White Blood Count 8.5 K/mm3 (4.4-11.0)
[2023-11-22 06:28] LABS: Bedside Glucose 229 mg/dL (74-106)
[2023-11-22 06:38] LABS: ALB/GLOB Ratio 0.7 RATIO (0.9-2.4); AST(SGOT) 16 U/L (15-37); Alanine Aminotransfer ALT/SGPT 14 U/L (13-56); Albumin, Serum 2.7 g/dL (3.2-5.0); Alkaline Phosphatase 62 U/L (45-117); Anion Gap 8 (5-15); BUN 20 mg/dL (7-18); Calcium,Total 8.1 mg/dL (8.5-10.1); Chloride 109 mmol/L (98-107); EST Glomerular Filtration Rate 57 mL/min (>60); Est Glom Filt Rate - Afr Amer 69 mL/min (>60); Globulin 3.9 g/dL (2.2-4.2); Glucose 249 mg/dL (74-106); Potassium 4.4 mmol/L (3.5-5.1); Protein, Total 6.6 g/dL (6.4-8.2); Sodium Level 137 mmol/L (136-145)
[2023-11-22] MEDS: Budesonide Respules 0.5 MG/2 ML AMPUL.NEB. INHALATION ×2 (07:10→19:22)
[2023-11-22] MEDS: Memantine Hydrochloride 5 MG Tablet PO ×2 (08:19→21:02)
[2023-11-22] MEDS: Famotidine 20 MG Tablet PO (08:20)
[2023-11-22] MEDS: hydroCHLOROthiazide 12.5mg 12.5 MG PO (08:20)
[2023-11-22] MEDS: Enoxaparin 40 MG/0.4 ML Syringe SC (08:20)
[2023-11-22] MEDS: Nystatin Powder 15gm Bottle 1 APPLIC TOPICAL ×2 (08:20→21:02)
[2023-11-22] MEDS: Raloxifene HCl 60 MG Tablet PO (08:21)
[2023-11-22] MEDS: Metoprolol(XL)Succ 25 MG Tablet PO (08:21)
[2023-11-22] MEDS: Citalopram 10 MG Tablet PO (08:22)
[2023-11-22] MEDS: Menthol/Lanolin/Calamine/Znox 113 GM Tube 1 APPLIC TOPICAL ×2 (08:22→21:02)
[2023-11-22] MEDS: Lisinopril 2.5 MG Tablet PO (08:22)
--- NOTE | 2023-11-22 08:56 | PCM.PN.HOSP ---
Subjective Subjective Chronic dementia, breathing well on 2 L nasal cannula Objective Data Objective Data Vital Signs: Vital Signs Temp Pulse Resp BP Pulse Ox O2 Del Method O2 Flow Rate 98.6 F 94 20 H 124/65 H 93 Nasal Cannula 2 11/22/23 04:25 11/22/23 08:21 11/22/23 07:12 11/22/23 04:25 11/22/23 07:12 11/22/23 07:12 11/22/23 07:12 Oxygen Flow Rate (L/min) 2 Oxygen Delivery Method Nasal Cannula Weight: 141 lb 5.061 oz Body Mass Index (BMI) 29.5 Intake & Output: Intake and Output for Last 24 Hours 11/21/23 11/22/23 11/23/23 03:59 03:59 03:59 Intake Total 800 / 800 Output Total 100 / 100 Balance 700 / 700 Lab / Micro Data 11/22/23 05:41 11/22/23 05:41 Labs: Laboratory Results - last 24 hr 11/21/23 17:15: WBC 12.6 H, RBC 4.16 L, Hgb 12.3, Hct 37.6, MCV 90.4, MCH 29.6, MCHC 32.7, RDW Std Deviation 41.1, RDW Coeff of Buzz 12.4, Plt Count 283, MPV 9.7, Immature Gran % (Auto) 0.400, Neut % (Auto) 85.0 H, Lymph % (Auto) 7.1 L, [place] % (Auto) 6.6, Eos % (Auto) 0.5, Baso % (Auto) 0.4, Absolute Neuts (auto) 10.7 H, Absolute Lymphs (auto) 0.89, Nucleated RBC % 0, Sodium 136, Potassium 4.4, Chloride 108 H, Carbon Dioxide 21.0, Anion Gap 7, BUN 19 H, Creatinine 0.87, Estim Creat Clear Calc 43.82, Est GFR (MDRD) Af Amer 81, Est GFR (MDRD) Non-Af 67, BUN/Creatinine Ratio 21.8 H, Glucose 170 H, Lactic Acid 1.1, Calcium 8.7, Total Bilirubin 0.50, AST 16, ALT 12 L, Alkaline Phosphatase 74, Troponin I High Sens 6, B-Natriuretic Peptide 261.3 H, Total Protein 7.2, Albumin 3.3, Globulin 3.9, Albumin/Globulin Ratio 0.8 L 11/21/23 18:35: Urine Color Yellow, Urine Clarity Clear, Urine pH 6.5, Ur Specific [place] 1.010, Urine Protein 15 H, Urine Glucose (UA) Normal, Urine Ketones 5 H, Urine Occult Blood Negative, Urine Nitrite Negative, Urine Bilirubin Negative, Urine Urobilinogen Normal, Ur Leukocyte Esterase Negative, Urine RBC 0 SEEN, Urine WBC 0 SEEN, Ur Squamous Epith Cells 0 SEEN, Urine Bacteria 0 SEEN, Urine Mucus 0 SEEN 11/21/23 19:51: Procalcitonin 0.07 11/21/23 21:20: POC Glucose 152 H 11/22/23 05:41: WBC 8.5, RBC 3.66 L, Hgb 10.9 L, Hct 33.4 L, MCV 91.3, MCH 29.8, MCHC 32.6, RDW Std Deviation 43.1, RDW Coeff of Buzz 12.8, Plt Count 246, MPV 9.9, Immature Gran % (Auto) 0.200, Neut % (Auto) 92.7 H, Lymph % (Auto) 4.6 L, [place] % (Auto) 2.4, Eos % (Auto) 0.0, Baso % (Auto) 0.1, Absolute Neuts (auto) 7.9 H, Absolute Lymphs (auto) 0.39 L, Nucleated RBC % 0, Sodium 137, Potassium 4.4, Chloride 109 H, Carbon Dioxide 20.0 L, Anion Gap 8, BUN 20 H, Creatinine 1.00, Estim Creat Clear Calc 37.50, Est GFR (MDRD) Af Amer 69, Est GFR (MDRD) Non-Af 57 L, BUN/Creatinine Ratio 20.0, Glucose 249 H, Calcium 8.1 L, Total Bilirubin 0.30, AST 16, ALT 14, Alkaline Phosphatase 62, Total Protein 6.6, Albumin 2.7 L, Globulin 3.9, Albumin/Globulin Ratio 0.7 L 11/22/23 05:55: POC Glucose 229 H Micro: Microbiology 11/21/23 00:00 Mucosa - Nasopharyngeal Respiratory Panel (PCR) - Final Rhinovirus 11/21/23 17:15 Mucosa - Nose SARS-CoV-2, Influenza & RSV (PCR) - Final Radiography Diagnostic Testing: Radiology Impression Chest X-Ray 11/21/23 17:55 IMPRESSION: No radiographic evidence of acute cardiopulmonary disease. Electronically Signed: Albin Singh MD at 18:19 EDT , Chest X-Ray 11/22/23 05:55 IMPRESSION: Mild right upper lobe infection or inflammation. Electronically Signed: Kinza Bain MD at 8:30 EDT , Physical Exam Narrative General: Alert, Oriented x1, Cooperative, No apparent distress HEENT: Atraumatic, PERRLA, EOMI, Normocephalic Oral: Moist Mucosa Neck: Supple, No JVD Lungs: Diminished, Normal air movement, No rhonchi, wheeze, No rales Cardiovascular: Regular rate, Regular Rhythm, Normal S1, Normal S2, No murmurs Abdomen: Soft, Non Tender, Non-Distended, No Hepato-splenomegaly Extremities: No edema, Capillary Refill Less than 3 Seconds Skin: No rashes, No breakdown Musculoskeletal: No Tenderness to Palpation of Joints or Extremities Neurological: No focal neurological deficits, Motor Exam 5/5 strength throughout, Sensory exam intact to light touch and pain Psych/Mental Status: Normal Affect, Appropriate Assessment & Plan Assessment/Plan (1) Viral syndrome: PLAN: Plan 1. Viral bronchitis secondary to rhinovirus with hypoxia ? Chest x-ray with chronic changes ? Continue with 2 L nasal cannula ? Will transition IV Solu-Medrol to p.o. prednisone to help minimize fluctuations in blood sugar ? I did have a 20-minute discussion with family on advance care planning given her dementia and her respiratory status in terms of differences between hospice care versus palliative care 2. Essential HTN/HLD ? Blood pressure stable ? Can resume her home medications ? We will monitor make adjustments as necessary 3. DM2 with neuropathy ? Hold her home medications ? Sliding scale insulin ? Accu-Cheks ACHS ? We will monitor and make adjustments as necessary 4. Alzheimer's dementia/anxiety/depression ? Stable?continue with her home medications 5. Hypothyroidism ? Stable ? Continue with Synthroid 6. GERD ? Stable ? Continue with her famotidine DVT: Lovenox. Charges/Coding Visit Charges Inpatient E&M: 51900 Subs Hosp L2
--- NOTE | 2023-11-22 09:53 | CASEMGMT ---
KEVIN GOMEZ Assessment: Face to Face with pt for initial transition planning/care coordination assessment. KEVIN GOMEZ introduced self and role at [facility], daughter Monica in chair at bedside and voices understanding and consents to assessment. Pt is A&O x1, resting in bed. Care providers, pharmacy, and demographics verified/updated. Admitting Dx: viral bronchitis w bronchospams PCP: Dr. Flavio Barajas Specialists: none [facility]erred [facility] Insurance: [facility] Prescription Benefit: yes LNOK: Daughter Monica Sauceda [phone] Living Arrangements: Pt lives at home with daughter. Home is single story with 2 steps to enter. Daughter reports that they wheel her up/down the steps when needed to go to appointments. Daughter provides the needed transportation. Pt is dependent in all care needs with the exception of feeding herself. Daughter reports pt has 24/7 support from either the daughter or the pts grandchildren. Daughter reports on rare occasions pt is left home, alone, for no more than an hour, and is not left with any solid foods within reach. Daughter reports that sometimes pt is able to assist in transferring from bed/chair to w/c but sometimes she is not and they just lift her. Transportation: Pt is dependent in transportation. Daughter provides any needed transportation. DME: W/C, grab bars, shower chair, lift chair HHC/SNF: Previous had [facility] for PT/OT[facility]ST however daughter reports this was no longer covered by insurance nor beneficial due to pts cognitive status, pt was unable to participate/follow directions. No SNF. Daughter states no concerns with going home at time of dc. Daughter states no further concerns/needs. CM to follow. Advised pt to ask CM if any further question/concerns/needs arise, voices understanding. Pt Goal: Home Plan: Home with no skilled needs. Family may benefit from having additional equipment in the home in the future, such as a hospital bed and jarrod lift. Daughter did mention that they may consider pall med in the future as well. Daughter aware that this is something CM can send a referral over for if they decide prior to DC. Jesusita Reese MSN, RN, CCM
[2023-11-22] MEDS: predniSONE 20 MG Tablet 40 MG PO (11:22)
[2023-11-22 12:00] LABS: Bedside Glucose 267 mg/dL (74-106)
[2023-11-22 16:49] LABS: Bedside Glucose 191 mg/dL (74-106)
[2023-11-22] MEDS: Pravastatin 20 MG Tablet PO (21:02)
[2023-11-22 23:20] LABS: Bedside Glucose 239 mg/dL (74-106)
[2023-11-23 03:51] VITALS: BP 113/55; PULSE 73; RESP 18; TEMP 36.6; O2SAT 94
[2023-11-23 04:38] VITALS: BMI 29.5
[2023-11-23] MEDS: Levothyroxine 50 MCG Tablet PO (06:36)
[2023-11-23] MEDS: Insulin Lispro 100 UNIT/ML INSULN.PEN SC ×2 (06:36→11:53)
[2023-11-23 06:48] VITALS: PULSE 88; RESP 20; O2SAT 93
[2023-11-23] MEDS: Budesonide Respules 0.5 MG/2 ML AMPUL.NEB. INHALATION (06:48)
[2023-11-23 07:01] LABS: Bedside Glucose 154 mg/dL (74-106)
--- NOTE | 2023-11-23 08:26 | DCINST_ITS ---
Discharge Instructions Diet Discharge Diet: Low fat / Low cholesterol Activity Discharge Activity: Return to Normal Activity Dressing / Incision Call your doctor if you observe: Fever of 101 or Higher, Shortness of breath, Dizziness, Fainting spells, Swelling in the ankles, Chest pain and Increased palpitations (irregular heartbeat) Follow Up Care Test Results: Test results from this visit will be discussed in further detail at your follow- up appointment, if applicable. Discharge Plan Admission Admit Date/Time: 11/21/23 19:35 Attending Provider: Suraj Cain Primary Care Provider: Flavio Barajas Consulting Providers: Nisa Wheeler Discharge Orders/Prescriptions Prescriptions: New albuterol sulfate 2.5 mg /3 mL (0.083 %) Solution For Nebulization 2.5 mg inhalation Q2H PRN PRN (Reason: Dyspnea, wheezing) 30 Days Qty: 90 0RF prednisone 20 mg Tablet 40 mg PO BREAKFAST 7 Days Qty: 14 0RF Continued famotidine 20 mg tablet 20 mg PO DAILY PRN Qty: 90 1RF raloxifene 60 mg tablet 60 mg PO DAILY metoprolol succinate 25 mg tablet extended release 24 hr 25 mg PO DAILY pravastatin 20 mg tablet 20 mg PO QHS metformin 850 mg tablet 850 mg PO BID lisinopril 2.5 mg tablet 2.5 mg PO DAILY citalopram 20 mg tablet 10 mg PO DAILY levothyroxine 50 mcg tablet 50 mcg PO DAILY hydrochlorothiazide 12.5 mg tablet 12.5 mg PO DAILY memantine 10 mg tablet 5 mg PO BID Referrals / Follow Up: Flavio Barajas DO [Primary Care Provider] - Within 1 Week Disposition Disposition (needs filled in before D/C Order can be placed): Home, Self Care
[2023-11-23 08:50] VITALS: BP 116/54; PULSE 69; RESP 18; TEMP 36.7; O2SAT 97
[2023-11-23 09:00] VITALS: O2SAT 94
[2023-11-23 09:02] VITALS: PULSE 69
[2023-11-23] MEDS: Menthol/Lanolin/Calamine/Znox 113 GM Tube 1 APPLIC TOPICAL (09:02)
[2023-11-23] MEDS: Famotidine 20 MG Tablet PO (09:02)
[2023-11-23] MEDS: predniSONE 20 MG Tablet 40 MG PO (09:02)
[2023-11-23] MEDS: Metoprolol(XL)Succ 25 MG Tablet PO (09:02)
[2023-11-23] MEDS: Lisinopril 2.5 MG Tablet PO (09:02)
[2023-11-23] MEDS: hydroCHLOROthiazide 12.5mg 12.5 MG PO (09:03)
[2023-11-23] MEDS: Enoxaparin 40 MG/0.4 ML Syringe SC (09:03)
[2023-11-23] MEDS: Nystatin Powder 15gm Bottle 1 APPLIC TOPICAL (09:04)
[2023-11-23] MEDS: Raloxifene HCl 60 MG Tablet PO (09:05)
[2023-11-23] MEDS: Citalopram 10 MG Tablet PO (09:05)
[2023-11-23] MEDS: Memantine Hydrochloride 5 MG Tablet PO (09:06)
[2023-11-23 11:44] VITALS: O2SAT 94
[2023-11-23 12:14] LABS: Bedside Glucose 213 mg/dL (74-106)
--- NOTE | 2023-11-23 14:40 | PCM.DC.SUM ---
Providers Date of Admission: 11/21/23 Primary Care Physician: Dr. Flavio Barajas, DO Reason For Visit: VIRAL BRONCHITIS W/ BRONCHOSPASMS Diagnosis Discharge Diagnosis (1) Viral syndrome: Status: Acute Code(s): B34.9 - Viral infection, unspecified Medications at Discharge Home Medications citalopram 20 mg tablet 10 mg PO DAILY anxiety 01/21/23 hydrochlorothiazide 12.5 mg tablet 12.5 mg PO DAILY waterpill 01/21/23 levothyroxine 50 mcg tablet 50 mcg PO DAILY thyroid 01/21/23 lisinopril 2.5 mg tablet 2.5 mg PO DAILY bp 01/21/23 memantine 10 mg tablet 5 mg PO BID memory/cognitive 01/21/23 metformin 850 mg tablet 850 mg PO BID diabetes 01/21/23 metoprolol succinate 25 mg tablet,extended release 24 hr 25 mg PO DAILY heart 01/21/23 pravastatin 20 mg tablet 20 mg PO QHS cholesterol 01/21/23 raloxifene 60 mg tablet 60 mg PO DAILY hx of hyter 01/21/23 famotidine 20 mg tablet 20 mg PO DAILY PRN heartburn #90 tabs 10/29/23 albuterol sulfate 2.5 mg/3 mL (0.083 %) solution for nebulization 2.5 mg (3 mL) inhalation Q2H PRN PRN Dyspnea, wheezing 30 days #90 mL 11/23/23 prednisone 20 mg tablet 40 mg (2 x 20 mg) PO BREAKFAST 7 days #14 tabs 11/23/23 Hospital Course Operations None Procedures None Summary of Care Provided Minutes Spent on Discharge: 33 Hospital Course: Per HPI: The patient is an 78 y/o F w/ PMHx: Anxiety and Depression, CKD unclear exact stage possibly II versus III, GERD, Diabetes mellitus type II, Alzheimer's disease with dementia unclear exact extent and unclear behavioral disturbance history noted to be wheelchair-bound secondary to debility with confusion with attempts to ambulate, Chronic neuropathy, HTN, HLD, Hypothyroidism who presents to the [facility] ED on 11/21/23 with history of shortness of breath and wheezing starting the evening prior with occasional nonproductive cough with no recent fevers or chills and no specific history of COPD, asthma or heart failure and no history of tobacco use in addition to nausea and emesis 2 days prior while she was attempting to use an inhaler worsening upon awakening today prompting family bring her in for evaluation. Patient daughter who is present notes that her daughter has also been sick with similar symptoms and there are several young children in the home as well. Daughter does report that she has previously been evaluated for aspiration. Workup in the ED included T99.2, heart rate 107, BP 132/82, respiratory rate 24, 98% on room air however patient did eventually desaturate down to 87% with most recent repeat vitals T98.8, heart rate 109, BP 137/78, respiratory rate 25, 95% on 2 L nasal cannula, CBC with WBC 12.6, human 12.3, MCV 90.4, platelet 283 with left shift, CMP with chloride 108, BUN/creatinine 19/0.87, GFR 67, glucose 170, BNP 261.3, troponin 6, hepatic profile not marked appearing, lactic acid 1.1, chest x-ray with no acute cardiopulmonary findings, SARS COVID/influenza/RSV PCR negative. In the ED patient administered DuoNeb therapy. Hospital Course: 1. Viral bronchitis secondary to rhinovirus with hypoxia?78-year-old female with a history of Alzheimer's dementia presented to the hospital with hypoxia as well as increased cough and sputum production. Family states that she does use inhaler on occasion consistent with asthma though she has not had any formal diagnosis. They have had difficulty getting her to use her inhaler because of not understanding how it works anymore. On admission she was started on 2 L nasal cannula and was started on steroids. These were decreased to prednisone 40 mg daily and on the day of discharge her oxygen requirements returned to room air so I discussed with the family the potential for discharge today. They expressed understanding of the risk benefits of taking her home and would like to take her home today. She is not very mobile and they do not want to consider a penitentiary with physical therapy at this time. Will continue with prednisone 40 mg daily for another 7 days and I will give him a prescription for nebulizer and albuterol to help with her respiratory status. 2. Essential hypertension, hyperlipidemia, type 2 diabetes with neuropathy, Alzheimer's dementia, anxiety, depression, hypothyroidism, GERD are all chronic medical conditions which complicate her care. Her home medications were continued where appropriate Physical Exam Narrative General: Alert, Oriented x1, Cooperative, No apparent distress HEENT: Atraumatic, PERRLA, EOMI, Normocephalic Oral: Moist Mucosa Neck: Supple, No JVD Lungs: Diminished, Normal air movement, No rhonchi, wheeze, No rales Cardiovascular: Regular rate, Regular Rhythm, Normal S1, Normal S2, No murmurs Abdomen: Soft, Non Tender, Non-Distended, No Hepato-splenomegaly Extremities: No edema, Capillary Refill Less than 3 Seconds Skin: No rashes, No breakdown Musculoskeletal: No Tenderness to Palpation of Joints or Extremities Neurological: No focal neurological deficits, Motor Exam 5/5 strength throughout, Sensory exam intact to light touch and pain Psych/Mental Status: Normal Affect, Appropriate Weight / BMI Weight Weight: 141 lb 5.061 oz Body Mass Index (BMI) 29.5 ABG / Lab / Microbiology Data 11/22/23 05:41 11/22/23 05:41 Laboratory: Laboratory Results - last 24 hr 11/22/23 16:16: POC Glucose 191 H 11/22/23 21:04: POC Glucose 239 H 11/23/23 06:32: POC Glucose 154 H 11/23/23 11:42: POC Glucose 213 H Microbiology: Microbiology 11/22/23 09:50 Urine, Clean Catch Legionella Antigen - Final 11/22/23 09:50 Urine, Clean Catch Streptococcus pneumoniae Antigen (M - Final 11/21/23 00:00 Mucosa - Nasopharyngeal Respiratory Panel (PCR) - Final Rhinovirus 11/21/23 17:15 Mucosa - Nose SARS-CoV-2, Influenza & RSV (PCR) - Final D/C Instructions Discharge Diet: Low fat / Low cholesterol Call your doctor if you observe: Fever of 101 or Higher, Shortness of breath, Dizziness, Fainting spells, Swelling in the ankles, Chest pain and Increased palpitations (irregular heartbeat) Meaningful Use Info Meaningful Use Meaningful Use Diagnoses (Choose all that apply): None applicable Ischemic Stroke Statin Dosing Therapy Reference: STATIN DOSE THERAPY REFERENCE: * Patients > 75 years receive moderate or high dose statin therapy. * Patients 75 years or YOUNGER should receive HIGH intensity statin dose unless contraindicated. You will be required to document reason for non-treatment if statin daily dose does not meet guidelines. HIGH DOSE STATIN THERAPY DAILY Atorvastatin > than or = to 40 mg Rosuvastatin > than or = to 20 mg Amlodipine + Atorvastatin > than or = to 2.5/40 mg Ezetimibe + Simvastatin 10/80 mg Simvastatin 80mg Discharge Plan Admission Admit Date/Time: 11/21/23 19:35 Attending Provider: Suraj Cain Primary Care Provider: Flavio Barajas Consulting Providers: Nisa Wheeler Discharge Orders/Prescriptions Prescriptions: New albuterol sulfate 2.5 mg /3 mL (0.083 %) Solution For Nebulization 2.5 mg inhalation Q2H PRN PRN (Reason: Dyspnea, wheezing) 30 Days Qty: 90 0RF prednisone 20 mg Tablet 40 mg PO BREAKFAST 7 Days Qty: 14 0RF Continued famotidine 20 mg tablet 20 mg PO DAILY PRN Qty: 90 1RF raloxifene 60 mg tablet 60 mg PO DAILY metoprolol succinate 25 mg tablet extended release 24 hr 25 mg PO DAILY pravastatin 20 mg tablet 20 mg PO QHS metformin 850 mg tablet 850 mg PO BID lisinopril 2.5 mg tablet 2.5 mg PO DAILY citalopram 20 mg tablet 10 mg PO DAILY levothyroxine 50 mcg tablet 50 mcg PO DAILY hydrochlorothiazide 12.5 mg tablet 12.5 mg PO DAILY memantine 10 mg tablet 5 mg PO BID Referrals / Follow Up: Flavio Barajas DO [Primary Care Provider] - Within 1 Week Disposition Disposition (needs filled in before D/C Order can be placed): Home, Self Care Charges/Coding Visit Charges Inpatient E&M: 93368 Disch Hosp >30min
--- NOTE | 2023-11-24 16:50 | CASEMGMT ---
KEVIN GOMEZ NOTE: KEVIN GOMEZ made aware that [facility] requesting new script for nebulizer machine d/t prior script was not written correctly. Dr Cain aware and new script received for same and faxed to [facility] @ [phone]. Call placed to Felisha @ [facility] who verifies she did receive the script and will work on getting the nebulizer ready for pt. She states she will contact pt when it is ready for pick-up. Brannon BREAUXN KEVIN CM
== END 2023-11-23 14:15 | disposition home or self-care (01) | DRG 203 ==
LOC: ED 19:36 → MS3 19:46
PROVIDERS: Admitting Provider Family Medicine; Emergency Provider Emergency Medicine; PCP Family Medicine; Visit Provider Family Medicine
DX: J20.6 Acute bronchitis due to rhinovirus (principal); E03.9 Hypothyroidism, unspecified; E11.22 Type 2 diabetes mellitus with diabetic chronic kidney disease; E11.40 Type 2 diabetes mellitus with diabetic neuropathy, unspecified; F02.80 Dementia in other diseases classified elsewhere, unspecified severity, without behavioral disturbance, psychotic disturbance, mood disturbance, and anxiety; G30.9 Alzheimer's disease, unspecified; F32.A Depression, unspecified; I12.9 Hypertensive chronic kidney disease with stage 1 through stage 4 chronic kidney disease, or unspecified chronic kidney disease; F41.9 Anxiety disorder, unspecified; E78.5 Hyperlipidemia, unspecified; K21.9 Gastro-esophageal reflux disease without esophagitis; N18.2 Chronic kidney disease, stage 2 (mild); Z79.899 Other long term (current) drug therapy; Z99.3 Dependence on wheelchair; Z79.84 Long term (current) use of oral hypoglycemic drugs
CPT/HCPCS: 36415; 71045; 80053; 81001; 82962; 83605; 83880; 84145; 84484; 85025; 87449; 87631; 87633; 92523; 92526; 93005; 94640; 94668; 97163; 97166; 99285; J7030; A4216

== ENCOUNTER 2024-12-28 10:23 | Outpatient (CLI) | payer MEDICARE, SELFPAY ==
[2024-12-28 12:40] LABS: Hematocrit 37.9 % (37-47); Hemoglobin 12.1 g/dL (12.0-15.0); Mean Corp Hgb Conc 31.9 g/dL (32-36); Mean Corpuscular Volume 88.1 fL (81-99); Mean Platelet Vol. 10.3 fl (6.2-12.0); Platelet Count 328 K/mm3 (150-450); RBC Distribution Width CV 14.1 % (11.6-14.6); RBC Distribution Width SD 45.4 fl (35.1-43.9); Red Blood Count 4.30 M/mm3 (4.2-5.4); White Blood Count 9.3 K/mm3 (4.4-11.0)
[2024-12-28 13:25] LABS: AST(SGOT) 17 U/L (<=31); Alanine Aminotransfer ALT/SGPT 6 U/L (<=34); Albumin, Serum 3.9 g/dL (3.4-4.8); Alkaline Phosphatase 73 U/L (35-104); Anion Gap 11 (5-15); BUN 18 mg/dL (4-19); BUN/Creat Ratio 17.8 RATIO (10-20); Calcium,Total 9.1 mg/dL (7.6-11.0); Carbon Dioxide 23.5 mmol/L (21.0-32.0); Chloride 103 mmol/L (98-108); Globulin 3.3 g/dL (2.2-4.2); Glucose 134 mg/dL (70-99); Potassium 3.7 mmol/L (3.3-5.1); Vitamin B12 328 pg/mL (180-914)
[2024-12-31 01:07] LABS: Folate, Hemolysate Test 302.0 ng/mL (Not Estab.); Folate, RBC (Hct) Test 39.6 % (34.0-46.6); Folates, RBC Test 763 ng/mL (>498); Vitamin B1, Thiamine 142.2 nmol/L (66.5-200.0)
[2024-12-31 12:08] LABS: Vitamin D 1,25-Dihydroxy 25.4 pg/mL (24.8-81.5)
== END 2024-12-28 23:59 | disposition home or self-care (01) ==
LOC: MTLAB 10:25
PROVIDERS: PCP Family Medicine; Referring Provider Psychiatry & Neurology Neurology; Visit Provider Psychiatry & Neurology Neurology
DX: G30.9 Alzheimer's disease, unspecified (principal); F02.80 Dementia in other diseases classified elsewhere, unspecified severity, without behavioral disturbance, psychotic disturbance, mood disturbance, and anxiety
CPT/HCPCS: 36415; 80053; 82607; 82652; 82747; 84425; 84443; 85014; 85027

== ENCOUNTER → 2025-02-01 | Outpatient (CLI) | payer MEDICARE, SELFPAY ==
--- OUTSIDE RECORDS SUMMARY | 2025-02-01 07:21 | XMS RPT_ITS | CCD ---
Author Organization [facility] Care Team Providers Care Machine Bander And Cellophaner Helper Name Role Phone MAYELA ALBARADO Attending Unavailable VISHNU MENDOZA Primary Care Unavai MAYELA Duarte Admitting Unavailable Vishnu Mendoza Primary Care Provider Vishnu Mendoza Primary Care Provider Vishnu Mendoza MD Unavailable Magdalene MARSHALL, Sangita Unavailable Marfo, Bless Unavailable Unavailable Yury, Kyerra Unavailable Unavailable Yury, Ani Unavailable Unavailable Gabriela Morejon Unavailable Unavailable Joel MARSHALL, Karol Moncada Unavailable Rose MARSHALL, Carmela Unavailable Vermarci BECERRA, Barbie Unavailable Tall, Berenice Unavailable Unavailable Amara Degroot M Unavailable Unavailable Audelia, Kate Unavailable Unavailable Niyah Atkins Unavailable Unavailable Niyah Quintana Unavailable Unavailable Nurse, Registered Unavailable Unavailable Unavailable Unavailable MD Mendoza William Unavailable [phone] zzNurse, Registered Unavailable Unavailable Refer to, ENT Unavailable Unavailable Vishnu Napier MD Primary Care Provider Unavailable Unavailable Vishnu Napier MD Primary Care Provider Refer to, Cardiology Unavailable Unavailable Vishnu Mendoza MD Unavailab Vishnu Cruz MD Consulting Unavailab Vishnu Fernandez MD Primary Care Provider VISHNU NAPIER Referring Unavailable SABRINA GUY Attending Unavailable VISHNU NAPIER Primary Care Unavailable VISHNU NAPIER Referring Unavailable MALENA, SABRINA P Attending Unavailable VISHNU NAPIER Primary Care Unavailable QUYEN, VISHNU Manley Referring Unavailable MALENA, SABRINA P Attending Unavailable BUVISHNU FRANCOIS Primary Care Unavailable LAYNE LORENA Warner Attending Unavailable BUALESSANDRO, VISHNU Manley Primary Care Unavailable SELF, SELF Referring Unavailable MALENA, SABRINA P Referring Unavailable BUALESSANDRO, VISHNU Manley Primary Care Unavailable MALENA, SABRINA P Attending Unavailable BUALESSANDRO, VISHNU Manley Referring Unavailable BUALESSANDRO, VISHNU Manley Primary Care Unavailable MALENA, SABRINA P Attending Unavailable MALENA, SABRINA P Referring Unavailable BUALESSANDRO, VISHNU Manley Primary Care Unavailable MALENA, SABRINA P Attending Unavailable MARAH GOEL Attending Unavailable BUALESSANDRO, VISHNU Manley Primary Care Unavailable BUALESSANDRO, VISHNU Manley Primary Care Unavailable Karl DURÁN, Dr. Flavio Thornton Primary Care Provider Dr. Flavio Barajas DO Attending Provider [phone] Dr. Flavio Barajas DO Referring Provider Dr. Bakari Alatorre MD Attending Provider Dr. Bakari Alatorre MD Referring Provider Brown, Flavio R Primary Care Unavailable Karl, Flavio R Referring Unavailable Bakari Alatorre Attending Unavailable Brown, Flavio R Referring Unavailable Brown, Flavio R Attending Unavailable Brown, Flavio R Primary Care Unavailable Brown, Flavio R Referring Unavailable Brown, Flavio R Attending Unavailable Brown, Flavio R Primary Care Unavailable Brown, Flavio R Referring Unavailable Karl, Flavio R Attending Unavailable Karl, Flavio R Primary Care Unavailable Bakari Alatorre Attending Unavailable Karl, Flavio R Primary Care Unavailable Bakari Alatorre Referring Unavailable Bakari Alatorre Attending Unavailable Karl, Flavio R Primary Care Unavailable Bakari Alatorre Referring Unavailable Brown, Flavio R Primary Care Unavailable Brown, Flavio R Referring Unavailable Brown, Flavio R Attending Unavailable Allergies Allergy Classification Reported Allergen(s) Allergy Type Date of Onset Reaction(s) Facility (3 sources) strawberry allergenic extract Drug Allergy 5 [facility] (3 sources) Triiodobenzoic Acids Allergy to substance 5 [facility] (1 source) strawberry allergenic extract Drug Allergy 5 [facility] (1 source) Iodinated Contrast Media Drug allergy (disorder) 5 [facility] NEGATED: Highlighted row has been ruled out! (1 source) 9 [facility]; [facility] NEGATED: Highlighted row has been ruled out! (1 source) 9 [facility]; [facility] NEGATED: Highlighted row has been ruled out! (1 source) 9 [facility]; [facility] NEGATED: Highlighted row has been ruled out! (1 source) 9 [facility]; [facility] NEGATED: Highlighted row has been ruled out! (1 source) 9 [facility]; [facility] NEGATED: Highlighted row has been ruled out! (1 source) 9 [facility]; [facility] NEGATED: Highlighted row has been ruled out! (1 source) 9 [facility]; [facility] NEGATED: Highlighted row has been ruled out! (1 source) 9 [facility]; [facility] NEGATED: Highlighted row has been ruled out! (1 source) 9 [facility]; [facility] NEGATED: Highlighted row has been ruled out! (1 source) 9 [facility]; [facility] NEGATED: Highlighted row has been ruled out! (1 source) 9 [facility]; [facility] NEGATED: Highlighted row has been ruled out! (1 source) 9 [facility]; [facility] NEGATED: Highlighted row has been ruled out! (1 source) 9 [facility]; [facility] NEGATED: Highlighted row has been ruled out! (1 source) 9 [facility]; [facility] NEGATED: Highlighted row has been ruled out! (1 source) 9 [facility]; [facility] NEGATED: Highlighted row has been ruled out! (1 source) 9 [facility]; [facility] NEGATED: Highlighted row has been ruled out! (1 source) 9 [facility]; [facility] NEGATED: Highlighted row has been ruled out! (1 source) 9 [facility]; [facility] NEGATED: Highlighted row has been ruled out! (1 source) 9 [facility]; [facility] NEGATED: Highlighted row has been ruled out! (1 source) 9 [facility]; [facility] NEGATED: Highlighted row has been ruled out! (1 source) 9 [facility]; [facility] NEGATED: Highlighted row has been ruled out! (1 source) 9 [facility]; [facility] NEGATED: Highlighted row has been ruled out! (1 source) 9 [facility]; [facility] NEGATED: Highlighted row has been ruled out! (1 source) 9 [facility]; [facility] NEGATED: Highlighted row has been ruled out! (1 source) 9 [facility]; [facility] NEGATED: Highlighted row has been ruled out! (1 source) 9 [facility]; [facility] NEGATED: Highlighted row has been ruled out! (1 source) 9 [facility]; [facility] NEGATED: Highlighted row has been ruled out! (1 source) 9 [facility]; [facility] NEGATED: Highlighted row has been ruled out! (1 source) 9 [facility]; [facility] NEGATED: Highlighted row has been ruled out! (1 source) 9 [facility]; [facility] NEGATED: Highlighted row has been ruled out! (1 source) 9 [facility]; [facility] NEGATED: Highlighted row has been ruled out! (1 source) 9 [facility]; [facility] NEGATED: Highlighted row has been ruled out! (1 source) 9 [facility]; [facility] NEGATED: Highlighted row has been ruled out! (1 source) 9 [facility]; [facility] NEGATED: Highlighted row has been ruled out! (1 source) 9 [facility]; [facility] NEGATED: Highlighted row has been ruled out! (1 source) 9 [facility]; [facility] Medications Current Medications Medication Drug Class(es) Dates Sig (Normalized) Sig (Original) acetaminophen 500 mg oral tablet (2 sources) take 1 tablet by mouth every six hours as needed acetaminophen (TYLENOL) 500 MG tablet Take 500 mg by mouth every 6 (six) hours as needed for pain. 0 Active albuterol 0.83 mg/ml inhalation solution (3 sources) beta2-Adrenergic Agonist Start: 11-23-2023 take 2.5 mg by inhalation every two hours as needed for dyspnea Albuterol Sulfate 2.5 mg /3 mL (0.083 %) Solution For Nebulization Active 2.5 mg INHALATION EVERY 2 HOURS NEEDED as needed for Dyspnea, wheezing 90 30 0 November 23, 2023 12:00am Blood Glucose Test (18 sources) Start: 10-24-2022 Start: 04-05-2022 calcium carbonate 1500 mg / cholecalciferol 0.01 mg oral tablet (20 sources) Vitamin D Start: 04-05-2022 Start: 04-05-2022 take 1 tablet by brendan th twice daily Calcium 600+D High Potency 600-400 MG-UNIT Oral Tablet ; 1 (one) Tablet two times daily for 90 days Quantity: 180 {Tablet} Refills: 1 Ordered: 05-Apr-2022 MD Mendoza William Start: 05-Apr-2022 Start: 09-12-2021 take 1 tablet by brendan th twice daily Calcium 600+D High Potency 600-400 MG-UNIT Oral Tablet ; 1 (one) Tablet two times daily for 90 days Quantity: 180 {Tablet} Refills: 1 Ordered: 12-Sep-2021 MD Mendoza William Start: 12-Sep-2021 Start: 03-08-2021 take 1 tablet by brendan th twice daily Calcium 600+D High Potency 600-400 MG-UNIT Oral Tablet ; 1 (one) Tablet two times daily for 90 days Quantity: 180 {Tablet} Refills: 1 Ordered: 12-Sep-2021 MD Mendoza William Start: 12-Sep-2021 Start: 09-07-2020 take 1 tablet by brendan th twice daily Calcium 600+D High Potency 600-400 MG-UNIT Oral Tablet ; 1 (one) Tablet two times daily for 90 days Quantity: 180 {Tablet} Refills: 1 Ordered: 07-Sep-2020 MD Vishnu Mendoza Start: 07-Sep-2020 Calcium Carbonate / Ergocalciferol (2 sources) Provitamin D2 Compound take 1 tablet by mouth twice daily calcium carbonate-vitamin D2 500 mg(1,250mg) -200 unit tablet Take 1 tablet by mouth 2 (two) times a day. 0 Active cephalexin 500 mg oral capsule (2 sources) Cephalosporin Antibacterial Start : 06-06 End: 06-13 cephALEXin (KEFLEX) capsule 500 mg ciclopirox 7.7 mg/ml topical cream (4 sources) Start : 07-13 End: 01-20 Ciclopirox (Loprox (As Olamine)) 0.77 % cream Active 1 NMA TOPICAL Q12H as needed January 20, 2025 1:57pm 24 hr galantamine hydrobromide 8 mg extended release oral capsule (2 sources) Start : 12-28 take 1 capsule by mouth once daily at breakfast Galantamine 8 mg capsule,ext rel. pellets 24 hr Active 8 mg PO EVERY MORNING 20 10December 28, 2024 12:00am administer with breakfast hydroCHLOROthiazide 25 mg / lisinopril 20 mg oral tablet (2 sources) Thiazide Diuretic, Angiotensin Converting Enzyme Inhibitor take 1 tablet by mouth once daily lisinopril-hydrochloro thiazide (PRINZIDE,ZESTORETIC) 20-25 mg per tablet Take 1 tablet by mouth daily. 0 Active ipratropium bromide 0.042 mg/actuat metered dose nasal spray (8 sources) Anticholinergic Start : 05-06 ipratropium 0.06 % Solution Indications: Vasomotor rhinitis 2 sprays by Nasal route 3 times daily. 15 mL 1 05/06/2022 Active lisinopril 2.5 mg oral tablet (20 sources) Angiotensin Converting Enzyme Inhibitor Start : 12-10 End: 01-20 take 1 tablet by mouth once daily Lisinopril 2.5 mg tablet Active 2.5 mg PO DAILY 90 January 20, 2025 2:15pm for blood pressure Start: 09-08-2020 take 1 tablet by brendan once daily Lisinopril 2.5 MG Oral Tablet ; 1 (one) Tablet daily for 0 days Quantity: 90 {Tablet} Refills: 1 Ordered: 08-Sep-2020 MD Vishnu Mendoza Start: 08-Sep-2020 memantine hydrochloride 10 mg oral tablet (17 sources) J-[id number]-X-aspartate Receptor Antagonist Start: 12-28-2024 take 1 tablet by mouth twice daily Memantine (Namenda) 10 mg tablet Active 10 mg PO TWICE A DAY 180 December 28, 2024 12:00am Start: 01-21-2023 End: 12-28-2024 take 5 mg by mouth twice daily Memantine 10 mg tablet Discontinued 5 mg PO TWICE A DAY 180 July 13, 2024 5:19pm December 28, 2024 1:54pm memory/cognitive Start: 01-21-2023 take 5 mg by mouth t wice daily Memantine Active 5 MG PO TWICE A DAY January 21, 2023 12:00am Start: 01-06-2023 End: 08-08-2023 Memantine 10 MG tablet Indic ations: Mild cognitive impairment 1 bid 180 tablet 08/08/2023 Active Start: 08-23-2022 End: 08-23-2022 Memantine 10 MG tablet Indic ations: Mild cognitive impairment 1/2 daily for 1 week; then 1/2 bid for 1 week; then 1/2 tid for 1 week; then 1 bid 180 tablet 1 08/23/2022 Active metFORMIN hydrochloride 500 mg oral tablet (20 sources) Biguanide Start: 07-13-2024 take 1 tablet by mouth twice daily Metformin 500 mg tablet Active 500 mg PO TWICE A DAY 180 July 13, 2024 5:18pm diabetes Start: 09-08-2020 End: 07-13-2024 take 1 tablet by mouth twice daily Metformin 850 mg tablet Discontinued 850 mg PO TWICE A DAY 180 0 May 18, 2024 10:22am July 13, 2024 5:18pm diabetes metFORMIN (GLUCO PHAGE) 500 MG tablet Take 850 mg by mouth 2 (two) times a day with meals. 0 Active 24 hr metoprolol succinate 2 5 mg extended release oral tablet (20 sources) beta-Adrenergic An Start: 04-05-2022 Start: 03-08-2021 take 0.5 tablet by m outh once daily Metoprolol Succinate ER 25 MG Oral Tablet Extended Release 24 Hour ; 1/2 Tablet daily for 90 days Quantity: 45 {Tablet} Refills: 1 Ordered: 12-Sep-2021 MD Mendoza William Start: 12-Sep-2021 Start: 12-20-2020 take 1 tablet by brendan th once daily Metoprolol Succinate 25 mg tablet extended release 24 hr Active 25 mg PO DAILY January 21, 2023 12:00am heart Start: 09-08-2020 take 0.5 tablet by m outh once daily Metoprolol Succinate ER 25 MG Oral Tablet Extended Release 24 Hour ; 1/2 Tablet daily for 90 days Quantity: 45 {Tablet} Refills: 1 Ordered: 08-Sep-2020 MD Vishnu Mendoza Start: 08-Sep-2020 Completed/Discontinued Medications Medication Drug Class(es) Dates Sig (Normalized) Sig (Original) acyclovir 50 mg/ml topical cream (20 sources) Herpesvirus Nucleoside Analog DNA Polymerase Inhibitor, Herpes Simplex Virus Nucleoside Analog DNA Polymerase Inhibitor, Herpes Zoster Virus Nucleoside Analog DNA Polymerase Inhibitor Start: 12-19-2015 End: 03-05-2017 Start: 12-19-2015 End: 03-05-2017 Zovirax 5 % External Cream ; 1 (one) Cream Cream four times daily, as needed for 0 days Quantity: 1 {Each} Refills: 0 Ordered: 05-Mar-2017 Niyah Quintana Start: 19-Dec-2015 End: 05-Mar-2017 Status: Inactive Comments: Medication taken as needed. Comment on above: Medication taken as needed. alendronic acid 70 mg oral tablet (20 sources) Bisphosphonate Start: 10-12-19 15 End: 04-18-20 15 Comment on above: Please instruc in us e; this is replacing Evista amoxicillin 500 mg oral capsule (3 sources) Penicillin-class Antibacterial Start: 11-25-19 End: 12-29-19 take 1 capsule by mouth three times daily Amoxicillin 500 mg capsule Discontinued 500 mg PO THREE TIMES A DAY 30 0 November 24, 2024 12:00am December 28, 2024 9:03am Barium Sulfate (VARIBAR THIN LIQUID) 40 % 50-600 mL (1 source) Start: 05-20-20 End: 05-20-20 Barium Sulfate (VARIBAR THIN LIQUID) 40 % 50-600 mL betamethasone 0.5 mg/ml topical cream (20 sources) Corticosteroid Start: 09-30-19 13 End: 01-18-20 14 Start: 09-29-2012 End: 01-17-2014 BETAMETHASONE DIPROPIONATE, 0.05% (External Cream) ; Apply to affected skin of legs BID for 10 days then discontinue for 0 days Quantity: 30 {Gram(s)} Refills: 0 Ordered: 17-Jan-2014 Start: 29-Sep-2012 End: 17-Jan-2014 Status: Discontinued Start: 09-25-2011 End: 03-30-2012 Start: 09-25-2011 End: 03-30-2012 BETAMETHASONE DIPROPIONATE A UG, 0.05% (External Cream) ; 1 Cream apply to rash on left leg bid for 2 weeks. for 0 days Quantity: 30 {Gram(s)} Refills: 1 Ordered: 30-Mar-2012 MD Sangita Del Castillo Start: 25-Sep-2011 End: 30-Mar-2012 Status: Discontinued BLOOD GLUCOSE MONITOR SYSTEM, w/Device (Kit) (16 sources) Start: 08-04-2015 End: 08-03-2016 BLOOD GLUCOSE MONITOR SYSTEM, w/Device (Kit) ; 1 (one) Kit Kit bid for 365 days Quantity: 1 Kit Refills: 0 Ordered: 06-Aug-2016 Start: 04-Aug-2015 End: 03-Aug-2016 Status: Inactive Comments: [employer] One Touch Comment on above: [employer] One Touch blood-glucose meter (18 sources) Start: 08-04-2015 End: 08-03-2016 brexpiprazole 0.5 mg oral tablet (8 sources) Atypical Antipsychotic Start: 08-25-2024 End: 12-28-2024 take 1 tablet by mouth once daily Brexpiprazole (Rexulti) 0.5 mg tablet Discontinued 0.5 mg PO daily 12 07December 14, 2024 11:07am December 28, 2024 2:07pm Calcium Carbonate (20 sources) Calcium 600 Stat us: Inactive cholecalciferol 0.025 mg ora l capsule (20 sources) Vitamin D D3-1000, 1000UNI T (Oral Capsule) ; (1000 UNIT) Status: Inactive citalopram 20 mg oral tablet (20 sources) Serotonin Reuptake Inhibitor Start: 01-21-2023 End: 12-14-2024 take 10 mg by mouth once daily Citalopram 20 mg tablet Discontinued 10 mg PO DAILY December 24, 2023 4:23pm December 14, 2024 7:47am anxiety Start: 01-21-2023 take 10 mg by mouth once daily Citalopram Active 10 MG PO DAILY January 21, 2023 12:00am Start: 04-05-2022 Start: 03-08-2021 take 1 tablet by brendan th once daily Citalopram Hydrobromide 20 MG Oral Tablet ; 1 (one) Tablet daily for 90 days Quantity: 90 {Tablet} Refills: 1 Ordered: 12-Sep-2021 MD Mendoza William Start: 12-Sep-2021 Start: 11-29-2020 citalopram 10 MG tablet 11/29/2020 Active Start: 09-08-2020 take 1 tablet by brendan th once daily Citalopram Hydrobromide 20 MG Oral Tablet ; 1 (one) Tablet daily for 90 days Quantity: 90 {Tablet} Refills: 1 Ordered: 08-Sep-2020 MD Vishnu Mendoza Start: 08-Sep-2020 clindamycin 10 mg/ml topical lotion (20 sources) Lincosamide Antibacterial Start: 03-30-2013 End: 10-04-2013 Start: 03-30-2013 End: 10-04-2013 CLINDAMYCIN PHOSPHATE, 1% (E xternal Lotion) ; 1 Lotion apply to facial area QD for 0 days Quantity: 1 {Bottle(s)} Refills: 3 Ordered: 30-Mar-2013 Start: 30-Mar-2013 End: 04-Oct-2013 Status: Discontinued diclofenac sodium 15 mg/ml topical solution (20 sources) Nonsteroidal Anti-inflammatory Drug Start: 04-30-2016 End: 03-05-2017 Comment on above: Medication taken as needed. donepezil hydrochloride 10 mg oral tablet (4 sources) Start: 04-25-2022 End: 08-23-2022 donepezil 10 MG tablet Indications: Mild cognitive impairment 1/2 daily for 1 month then 1 daily 30 tablet 4 04/25/2022 08/23/2022 Discontinued famotidine 20 mg oral tablet (20 sources) Histamine-2 Receptor Antagonist Start: 01-21-2023 End: 07-13-2024 take 1 tablet by mouth once daily as needed Famotidine 20 mg tablet Discontinued 20 mg PO DAILY NEEDED 90 0 April 28, 2024 9:07am July 13, 2024 5:20pm heartburn Start: 09-08-2017 End: 2017 Comment on above: stop after 2 mos of therapy hydroCHLOROthiazide 12.5 mg oral tablet (20 sources) Thiazide Diuretic Start: 023 End: 024 take 1 tablet by mouth once daily Hydrochlorothiazide 12.5 mg tablet Discontinued 12.5 mg PO DAILY 90 November 25, 2023 8:12am May 18, 2024 10:23am waterpill Start: 04-05-2022 Start: 03-08-2021 take 1 tablet by brendan th once daily hydroCHLOROthiazide 12.5 MG Oral Tablet ; 1 (one) Tablet daily for 90 days Quantity: 90 {Tablet} Refills: 1 Ordered: 12-Sep-2021 MD Mendoza William Start: 12-Sep-2021 Start: 02-20-2021 take 1 capsule by mo ut once daily hydroCHLOROthiazide 12.5 MG capsule Indications: Essential hypertension, benign TAKE ONE CAPSULE BY MOUTH DAILY 30 capsule 02/20/2021 Active Start: 01-22-2021 take 1 capsule by mo uth once daily hydroCHLOROthiazide 12.5 MG capsule Indications: Essential hypertension, benign TAKE ONE CAPSULE BY MOUTH DAILY 30 capsule 0 01/22/2021 Active Start: 09-08-2020 take 1 tablet by brendan th once daily hydroCHLOROthiazide 12.5 MG Oral Tablet ; 1 (one) Tablet daily for 90 days Quantity: 90 {Tablet} Refills: 1 Ordered: 08-Sep-2020 MD Vishnu Mendoza Start: 08-Sep-2020 hydroCHLOROthiazide 50 mg / triamterene 75 mg oral tablet (20 sources) Potassium-sparing Diuretic, Thiazide Diuretic Start: 05-12-2019 End: 08-12-2019 Start: 05-12-2019 End: 08-12-2019 take 0.5 tablet by mouth once daily Triamterene-HCTZ 75-50 MG Oral Tablet ; 1/2 (one half) Tablet daily for 90 days Quantity: 45 {Tablet} Refills: 1 Ordered: 12-Aug-2019 MD Mendoza William Start: 12-May-2019 End: 12-Aug-2019 Status: Inactive ibuprofen 800 mg oral tablet (4 sources) Nonsteroidal Anti-inflammatory Drug Start: 07-16-2020 End: 05-06-2022 take 1 tablet by mouth every eight hours as needed ibuprofen 800 MG tablet Indications: Follow up Take 1 tablet by mouth every 8 hours as needed. 60 tablet 1 07/16/2020 05/06/2022 Discontinued (Therapy completed) Start: 06-26-2019 End: 07-26-2019 take 1 tablet by mouth every six hours as needed ibuprofen (ADVIL,MOTRIN) 600 MG tablet Take 1 (one) tablet (600 mg total) by mouth every 6 (six) hours as needed for pain . 30 tablet 0 06/26/2019 07/26/2019 Active 1 ml ketorolac tromethamine 30 mg/ml injection (1 source) Nonsteroidal Anti-inflammatory Drug, Cyclooxygenase Inhibitor Start: 06-26-2019 End: 06-26-2019 ketorolac (TORADOL) injection 30 mg lactic acid 50 mg/ml topical lotion (20 sources) Start: 10-16-2015 End: 03-05-2017 Start: 10-16-2015 End: 03-05-2017 Lac-Hydrin Five 5 % External Lotion ; 1 Lotion two times daily, as needed for 90 days Quantity: 180 {Bottle} Refills: 3 Ordered: 05-Mar-2017 Niyah Quintana Start: 16-Oct-2015 End: 05-Mar-2017 Status: Inactive Comments: Medication taken as needed. Written RX handed to patient Comment on above: Medication taken as needed. Written RX handed to patient lancing device (18 sources) Start: 6 End: 7 levothyroxine sodium 0.05 mg oral tablet (20 sources) l-Thyroxine Start: 1 End: 4 take 1 tablet by mouth once daily Levothyroxine 50 mcg tablet Discontinued 50 ug PO DAILY 90 1 December 24, 2023 4:23pm June 11, 2024 12:39pm thyroid Start: 09-08-2020 take 1 tablet by brendan th once daily Levothyroxine Sodium 50 MCG Oral Tablet ; 1 Tablet daily for 90 days Quantity: 90 {Tablet} Refills: 1 Ordered: 08-Sep-2020 MD Vishnu Mendoza Start: 08-Sep-2020 LEVOTHYROXINE SO DIUM (SYNTHROID ORAL) Take by mouth. 0 Active lidocaine 0.05 mg/mg topical ointment (20 sources) Antiarrhythmic, Amide Local Anesthetic Start: 04-30-2016 End: 03-05-2017 Start: 04-30-2016 End: 03-05-2017 Lidocaine 5 % External Ointm ent ; 1 (one) Gram four times daily, as needed for 88 days Quantity: 354.44 {Gram} Refills: 3 Ordered: 05-Mar-2017 Niyah Quintana Start: 30-Apr-2016 End: 05-Mar-2017 Status: Inactive Comments: Medication taken as needed. Comment on above: Medication taken as needed. metroNIDAZOLE 0.0075 mg/mg t opical gel (20 sources) Nitroimidazole Antimicrobial Start: 08-28-2016 End: 03-05-2017 Start: 08-28-2016 End: 03-05-2017 MetroNIDAZOLE 0.75 % Externa l Gel ; 1 Gel two times daily, as needed for 0 days Quantity: 1 {Applicator} Refills: 2 Ordered: 05-Mar-2017 Niyah Quintana Start: 28-Aug-2016 End: 05-Mar-2017 Status: Inactive Comments: Medication taken as needed. End: 01-17-2014 End: 01-17-2014 METROGEL, 0.75% (External Ge l) ; BID (0.75 %) End: 17-Jan-2014 Status: Discontinued Comment on above: Medication taken as needed. minocycline 100 mg oral tablet (20 sources) Tetracycline-class Drug Start: 01-18-20 14 End: 04-18-20 15 One Touch Ultra (18 sources) ONETOUCH ULTRA (Device) (16 sources) ONETOUCH ULTRA (Device) ; BID Status: Inactive phenazopyridine hydrochloride 200 mg oral tablet (20 sources) Start: 11-20-19 End: 03-30-20 pravastatin sodium 20 mg oral tablet (20 sources) HMG-CoA Reductase Inhibitor Start: 12-11-19 End: 04-13-20 take 1 tablet by mouth at bedtime Pravastatin 20 mg tablet Discontinued 20 mg PO AT BEDTIME 90 0 January 15, 2024 5:06pm April 13, 2024 10:06am cholesterol Start: 09-08-2020 take 1 tablet by brendan th once daily at bedtime Pravastatin Sodium 20 MG Oral Tablet ; 1 Tablet qhs for 90 days Quantity: 90 {Tablet} Refills: 1 Ordered: 08-Sep-2020 MD Vishnu Mendoza Start: 08-Sep-2020 predniSONE 20 mg oral tablet (3 sources) Start: 11-23-2023 End: 03-04-2024 take 2 tablets by mouth at breakfast Prednisone 20 mg Tablet Discontinued 40 mg PO WITH BREAKFAST 14 7 0 November 23, 2023 12:00am March 04, 2024 4:22pm Prodigy No Coding (18 sources) Start: 08-28-2016 End: 03-05-2017 raloxifene hydrochloride 60 mg oral tablet (20 sources) Estrogen Agonist/Antagonist Start: 05-14-2010 End: 06-11-2024 take 1 tablet by mouth once daily Raloxifene 60 mg tablet Discontinued 60 mg PO DAILY 90 1 December 24, 2023 4:23pm June 11, 2024 12:39pm hx of hyter sucralfate 1000 mg oral tablet (20 sources) Aluminum Complex Start: 09-08-2017 End: 2017 Comment on above: Medication taken as needed. stop after 2 mos of treatment tetracycline hydrochloride 250 mg oral tablet (20 sources) Tetracycline-class Antimicrobial End: 03-30-2012 traMADol hydrochloride 50 mg oral tablet (20 sources) Opioid Agonist Start: 11-20-2011 End: 03-30-2012 Comment on above: Medication taken as needed. Script written. valACYclovir 1000 mg oral tablet (20 sources) Herpesvirus Nucleoside Analog DNA Polymerase Inhibitor, Herpes Simplex Virus Nucleoside Analog DNA Polymerase Inhibitor, Herpes Zoster Virus Nucleoside Analog DNA Polymerase Inhibitor Start: 09-03-2017 Start: 09-03-2017 ValACYclovir H Cl 1 GM Oral Tablet ; (1 GM) Start: 03-Sep-2017 Status: Inactive Start: 04-17-2010 End: 05-06-2022 take 1 tablet by mouth once daily valacyclovir (VALTREX) 500 MG PO TABS take 1 Tab by mouth daily. 14 Tab 10 04/17/2010 05/06/2022 Discontinued (Therapy completed) Problems Active Problems Problem Classification Problem Date Documented Da te Episodic/Chronic Abdominal pain (20 sources) Abdominal pain, right lower quadrant; Translations: [Abdominal pain] Episodic Administrative/social admission (20 sources) Patient encounter status; Translations: [Counseling, unspecified] 09-07-2020 Episodic Comment on above: had C scope last Dec; good for 10 years Allergic reactions (20 sources) Inflammatory dermatosis; Translations: [Dermatitis, unspecified] 09-07-2020 Episodic Anxiety disorders (20 sources) Generalized anxiety disorder; Translations: [Generalized anxiety disorder] Onset: 1 09-08-2020 Chronic Coronary atherosclerosis and other heart disease (20 sources) Coronary atherosclerosis and other heart disease Delirium, dementia, and amnestic and other cognitive disorders (20 sources) Alzheimer's disease; Translations: [Alzheimer's disease, unspecified] Onset: 3 Chronic Diabetes mellitus with complications (2 sources) Type 2 diabetes mellitus; Translations: [Type 2 diabetes mellitus with diabetic neuropathy, unspecified] Chronic Diabetes mellitus with complications (17 sources) Diabetes mellitus with complications Diabetes mellitus without complication (20 sources) Type 2 diabetes mellitus without complication; Translations: [Type 2 diabetes mellitus without complications] Onset: 5 09-08-2020 Chronic Diabetes mellitus without complication (20 sources) Diabetes mellitus without complication Disorders of lipid metabolism (20 sources) Hypercholesterolemia; Translations: [Pure hypercholesterolemia, unspecified] Onset: 8 09-08-2020 Chronic Comment on above: takes pravastatin 20 mg lipids wnl (02/2017) Disorders of teeth and jaw (1 source) Acquired absence of teeth; Translations: [Complete loss of teeth, unspecified cause, unspecified class] Chronic Esophageal disorders (20 sources) Gastroesophageal reflux disease; Translations: [Gastro-esophageal reflux disease without esophagitis] Chronic Esophageal disorders (2 sources) Esophageal disorders Essential hypertension (20 sources) Essential hypertension; Translations: [Essential (primary) hypertension] 09-08-2020 Chronic Genitourinary symptoms and ill-defined conditions (8 sources) Urinary incontinence; Translations: [Unspecified urinary incontinence] Onset: 5 12-02-2023 Chronic Genitourinary symptoms and ill-defined conditions (20 sources) Urinary frequency Episodic Heart valve disorders (20 sources) Heart murmur; Translations: [Cardiac murmur, unspecified] Onset: 1 09-07-2020 Episodic Immunizations and screening for infectious disease (20 sources) Need for prophylactic vaccination and inoculation against influenza; Translations: [Other specified vaccinations against streptococcus pneumoniae [pneumococcus]] Episodic Influenza (3 sources) Influenza Episodic Mycoses (6 sources) Onychomycosis; Translations: [Tinea unguium] 07-13-2024 Episodic Nutritional deficiencies (20 sources) Vitamin D deficiency; Translations: [Vitamin D deficiency, unspecified] 09-07-2020 Chronic Open wounds of extremities (20 sources) Injury of lower extremity; Translations: [Unspecified open wound, right lower leg, initial encounter] 09-07-2020 Episodic Osteoporosis (20 sources) Osteoporosis; Translations: [Age-related osteoporosis without current pathological fracture] 09-08-2020 Chronic Comment on above: takes evista 60mg da soto, calcium/vit d 600/400, vit d3 1000vit d 41.4 (02/2017) Other and ill-defined cerebrovascular disease (1 source) Acute ill-defined cerebrovascular disease; Translations: [Other cerebrovascular disease] Onset: 1 02-08-2021 Chronic Other and ill-defined cerebrovascular disease (9 sources) Cerebrovascular disease; Translations: [Other cerebrovascular disease] Onset: 1 02-08-2021 Chronic Other congenital anomalies (3 sources) Disorder of nail; Translations: [Enlarged and hypertrophic nails] 03-04-2024 Chronic Other congenital anomalies (1 source) Enlarged and hypertrophic nails; Translations: [Enlarged and hypertrophic nails] Onset: 4 Chronic Other ear and sense organ disorders (20 sources) Otalgia, right ear; Translations: [Otalgia, unspecified] 09-15-2021 Episodic Other gastrointestinal disorders (5 sources) Dysphagia; Translations: [Dysphagia, unspecified] Episodic Other hereditary and degenerative nervous system conditions (4 sources) Impaired cognition; Translations: [Mild cognitive impairment, so stated] Chronic Other inflammatory condition of skin (20 sources) Rosacea; Translations: [Rosacea, unspecified] 09-07-2020 Chronic Comment on above: takes Minocin prn Other injuries and conditions due to external causes (20 sources) Abrasion; Translations: [Other injury of unspecified body region, initial encounter] Episodic Other lower respiratory disease (4 sources) Wheezing; Translations: [Wheezing] 11-21-2023 Episodic Other lower respiratory disease (3 sources) Hypoxia; Translations: [Hypoxemia] 11-21-2023 Episodic Other lower respiratory disease (1 source) Wheezing; Translations: [Wheezing] Onset: 5 Episodic Other nervous system disorders (2 sources) Disorder of brain; Translations: [Encephalopathy, unspecified] 08-08-2023 Chronic Other nervous system disorders (2 sources) Encephalopathy, unspecified; Translations: [Encephalopathy, unspecified] Onset: 3 Chronic Other nervous system disorders (4 sources) Abnormal gait; Translations: [Unspecified abnormalities of gait and mobility] 12-28-2024 Episodic Other nervous system disorders (1 source) Unspecified abnormalities of gait and mobility; Translations: [Unspecified abnormalities of gait and mobility] Onset: 5 Episodic Other nutritional; endocrine; and metabolic disorders (8 sources) Obese class I; Translations: [Obesity, unspecified] Onset: 2 05-06-2022 Chronic Other nutritional; endocrine; and metabolic disorders (20 sources) Overweight; Translations: [Overweight] 09-07-2020 Episodic Other skin disorders (20 sources) Dry skin; Translations: [Xerosis cutis] 09-07-2020 Episodic Other skin disorders (20 sources) Eruption; Translations: [Rash and other nonspecific skin eruption] 09-07-2020 Episodic Other skin disorders (20 sources) Xeroderma; Translations: [Xerosis cutis] 04-05-2022 Episodic Other upper respiratory disease (1 source) Vasomotor rhinitis; Translations: [Vasomotor rhinitis] Chronic Other upper respiratory disease (3 sources) Bronchospasm; Translations: [Acute bronchospasm] 12-01-2023 Episodic Other upper respiratory infections (20 sources) Upper respiratory infection; Translations: [Acute upper respiratory infection, unspecified] Episodic Residual codes; unclassified (1 source) Obstructive sleep apnea syndrome; Translations: [Obstructive sleep apnea (adult) (pediatric)] Chronic Residual codes; unclassified (20 sources) Edema of lower extremity; Translations: [Localized edema] 09-07-2020 Episodic Residual codes; unclassified (20 sources) Not up to date with immunizations; Translations: [Underimmunization status] 09-07-2020 Episodic Residual codes; unclassified (20 sources) Needs influenza immunization; Translations: [Other specified health status] 09-07-2020 Episodic Residual codes; unclassified (20 sources) Family history of breast cancer; Translations: [Family history of malignant neoplasm of breast] Episodic Screening and history of mental health and substance abuse codes (20 sources) Depression screening negative; Translations: [Encounter for screening for depression] 05-28-2017 Episodic Spondylosis; intervertebral disc disorders; other back problems (4 sources) Sciatica; Translations: [Cervicalgia] Onset: 3 Episodic Thyroid disorders (20 sources) Hypothyroidism; Translations: [Hypothyroidism, unspecified] Onset: 3 09-08-2020 Chronic Unclassified (11 sources) OSTEOPOROSIS OF LUMBAR SPINE Unclassified (13 sources) HYPOTHYROIDISM, ADULT Unclassified (11 sources) HYPERTENSION, ESSENTIAL Unclassified (6 sources) PATIENT OVERWEIGHT (Renamed from OVERWEIGHT) Unclassified (3 sources) HEALTH EDUCATION - Portal Notification (Renamed from ENCOUNTER FOR HEALTH EDUCATION) Unclassified (1 source) CARDIAC MURMUR Unclassified (1 source) DEPRESSION SCREENING NEGATIVE Unclassified (1 source) INFLUENZA VACCINATION ORDERED Unclassified (14 sources) Hypothyroidism, Unspecified - The patient describes this as mild and unchanged. Current treatment includes levothyroxine. By report there is good compliance with treatment, good tolerance of treatment and good symptom control. Note for Unspecified hypothyroidism: tsh 2.9 Unclassified (13 sources) Diabetes Type II, Follow Up - Current treatment includes metformin. Most recent Hgb A1c was done on 03/05/2017 and the result was 6.7 %. Most recent microalbumin was done on 08/28/2016 and the result was mcg/mg Creatinine (100.3). Most recent lipid testing was done on 03/05/2017 and the results included total cholesterol 95 mg/dl, LDL 63 mg/dl and TG 85 mg/dl. Note for Follow up for diabetes type II: fbs less than 140 Unclassified (14 sources) [ADDITIONAL REASON] Hypertension- Follow Up - Note for Hypertension: bp 120/62 Unclassified (15 sources) [ADDITIONAL REASON] Hypothyroidism, Unspecified - Note for Unspecified hypothyroidism: tsh 6.2synthroid was increased from 25 to 50 last visit will check tsh again today Unclassified (14 sources) [ADDITIONAL REASON] positive bruitt vs cardiac murmer - refer to cardio cant tell whether it a bruit or cardiac murmer or both Unclassified (14 sources) Transition into care - The patient is transitioning into care from another physician (Dr. Maldonado) and a summary of care was reviewed. Unclassified (15 sources) [ADDITIONAL REASON] Diabetes Type II- Follow Up - No changes in management were made at the last visit. Current treatment includes metformin. By report there is good compliance with treatment. Symptoms do not include polydipsia, polyuria, increased appetite, fatigue or change in vision. Unclassified (15 sources) [ADDITIONAL REASON] Hypertension- Follow Up - No changes in management were made at the last visit. Symptoms do not include headache, confusion, visual disturbance, dizziness, shortness of breath, chest pain or edema. Recent blood pressure has been mostly < 150/90. Current treatment includes thiazide diuretic and JARED inhibitor. By report there is good compliance with treatment. Unclassified (14 sources) [ADDITIONAL REASON] Hypothyroidism, Unspecified - Onset was gradual year(s) ago. Current treatment includes levothyroxine. By report there is good compliance with treatment. Unclassified (1 source) Hypertension- Follow Up - Note for Hypertension: bp 120/62 Unclassified (2 sources) [ADDITIONAL REASON] Diabetes Type II, Follow Up - Current treatment includes metformin. Most recent Hgb A1c was done on 03/05/2017 and the result was 6.7 %. Most recent microalbumin was done on 08/28/2016 and the result was mcg/mg Creatinine (100.3). Most recent lipid testing was done on 03/05/2017 and the results included total cholesterol 95 mg/dl, LDL 63 mg/dl and TG 85 mg/dl. Note for Follow up for diabetes type II: fbs less than 140 Unclassified (1 source) Hypothyroidism, Unspecified - Onset was gradual year(s) ago. Current treatment includes levothyroxine. By report there is good compliance with treatment. Unclassified (1 source) [ADDITIONAL REASON] Transition into care - The patient is transitioning into care from another physician (Dr. Maldonado) and a summary of care was reviewed. Unclassified (1 source) positive bruitt vs cardiac murmer - refer to cardio cant tell whether it a bruit or cardiac murmer or both Unclassified (1 source) [ADDITIONAL REASON] Hypothyroidism, Unspecified - The patient describes this as mild and unchanged. Current treatment includes levothyroxine. By report there is good compliance with treatment, good tolerance of treatment and good symptom control. Note for Unspecified hypothyroidism: tsh 2.9 Urinary tract infections (3 sources) Cystitis; Translations: [Cystitis, unspecified without hematuria] Onset: 06-06-2023 Episodic Viral infection (20 sources) Herpes zoster without complication; Translations: [Zoster without complications] 09-07-2020 Episodic Past or Other Problems Problem Classification Problem Date Documented Da te Episodic/Chronic Acute cerebrovascular disease (20 sources) Acute cerebrovascular disease Conditions associated with dizziness or vertigo (3 sources) Vertigo; Translations: [Dizziness and giddiness] Onset: 05-28-2023 04-07-2023 Episodic Essential hypertension (6 sources) Essential hypertension Headache; including migraine (20 sources) Headache; including migraine Malaise and fatigue (2 sources) Other malaise; Translations: [Other malaise] Onset: 05-28-2023 Episodic Nutritional deficiencies (4 sources) Vitamin deficiency; Translations: [Vitamin deficiency, unspecified] Onset: 03-04-2024 10-29-2023 Episodic Other gastrointestinal disorders (2 sources) Dysphagia, unspecified; Translations: [Dysphagia, unspecified] Onset: 05-28-2023 Episodic Other nervous system disorders (1 source) Impairment of balance; Translations: [Other abnormalities of gait and mobility] Episodic Unclassified (2 sources) ENCOUNTER FOR SCREENING INVOLVING SOCIAL DETERMINANTS OF HEALTH (SDOH) Unclassified (3 sources) SCREENING FOR DEPRESSION- NEGATIVE (Renamed from SCREENING FOR DEPRESSION) Unclassified (4 sources) ANXIETY, GENERALIZED Unclassified (20 sources) Onset: 06-06-2023 Unclassified (1 source) RASH OF FACE Unclassified (1 source) EDEMA, LEG Unclassified (1 source) LEG WOUND, RIGHT, INITIAL ENCOUNTER Unclassified (3 sources) IMMUNIZATION DEFICIENCY Unclassified (14 sources) MEDICATION REFILL Unclassified (2 sources) FAMILY HISTORY OF BREAST CANCER IN FEMALE Unclassified (1 source) SCREEN FOR COLON CANCER Unclassified (5 sources) HYPERTENSION, BENIGN ESSENTIAL (401.1) Unclassified (5 sources) DM, UNCOMPLICATED, TYPE II (250.00) Unclassified (1 source) PNEUMOCOCCAL (V03.82) Unclassified (1 source) RIGHT LOWER QUADRANT ABDOMINAL PAIN (789.03) Unclassified (1 source) RASH (782.1) Unclassified (12 sources) Hypertension - Follow Up ([facility] Standard Template) - The patient is currently taking thiazide diuretic, JARED inhibitor and beta an for hypertension. Note for Hypertension - Follow Up ([facility] Standard Template): bp 120/82 controlled Unclassified (15 sources) [ADDITIONAL REASON] Hyperthyroidism - Note for Hyperthyroidism: will check tsh Unclassified (13 sources) [ADDITIONAL REASON] b/l leg neuropathy followed by dr sabrina Guy neuropathy Unclassified (15 sources) [ADDITIONAL REASON] Hypertension- Follow Up - Recent blood pressure has been mostly < 111. Current treatment includes thiazide diuretic, JARED inhibitor and beta blockers. Note for Hypertension: bp controlled at 137/79 Unclassified (14 sources) [ADDITIONAL REASON] Hypothyroidism, Unspecified - Note for Unspecified hypothyroidism: will check tsh at c Unclassified (14 sources) [ADDITIONAL REASON] Rosacea - Note for Rosacea: using witch gopal with success Unclassified (14 sources) [ADDITIONAL REASON] Hypertension- Follow Up - Current treatment includes thiazide diuretic and JARED inhibitor. Note for Hypertension: bp controlled at 137/79 Unclassified (15 sources) [ADDITIONAL REASON] Rash - Symptoms are moderate in severity. Note for Rash: located on the face with red MP features Unclassified (15 sources) [ADDITIONAL REASON] Edema of lower extremities - The edema of lower extremities has been occurring for weeks . The course has been decreasing and the severity level is mild. The edema of lower extremities affects both legs. The swelling currently extends to the ankles. The symptoms are relieved by: elevation. There have been no associated symptoms. Note for Edema of lower extremities: will tx supportive for now Unclassified (14 sources) [ADDITIONAL REASON] Hypertension- Follow Up - Note for Hypertension: taken off triamterrene due to SE s now on HCTZ 12.5 bp 120/62 controlled Unclassified (15 sources) [ADDITIONAL REASON] Hypothyroidism, Unspecified - Current treatment includes levothyroxine. Note for Unspecified hypothyroidism: recent tsh 1.9 controled Unclassified (14 sources) Hypothyroidism, Unspecified - The patient describes this as mild and unchanged. Current treatment includes levothyroxine. By report there is good compliance with treatment, good tolerance of treatment and good symptom control. Note for Unspecified hypothyroidism: tsh 1.9 controlled Unclassified (13 sources) Hypothyroidism, Unspecified - The patient describes this as mild and unchanged. Current treatment includes levothyroxine. By report there is good compliance with treatment, good tolerance of treatment and good symptom control. Note for Unspecified hypothyroidism: tsh was 2.9 now 3.6 Unclassified (14 sources) [ADDITIONAL REASON] right calf wound nearly healed - pos hx of tdap < 10years ago Unclassified (13 sources) [ADDITIONAL REASON] Hypertension - The hypertension has been occurring in a continuous pattern for years. The course has been constant. The JNC classification is Stage 1 hypertension - 140-159 or 90-99. Note for Hypertension: bp controlled Unclassified (13 sources) Diabetes Type II, Follow Up - Current treatment includes metformin. Most recent Hgb A1c was done on 03/05/2017 and the result was 6.7 %. Most recent microalbumin was done on 08/28/2016 and the result was mcg/mg Creatinine. Most recent lipid testing was done on 03/05/2017 and the results included total cholesterol 95 mg/dl, LDL 63 mg/dl and TG 85 mg/dl. Note for Follow up for diabetes type II: fbs less than 140 a1c due today Unclassified (15 sources) [ADDITIONAL REASON] Hypertension- Follow Up - Recent blood pressure has been mostly < 140. Current treatment includes JARED inhibitor. By report there is good compliance with treatment and good tolerance of treatment. Unclassified (15 sources) [ADDITIONAL REASON] Hypothyroidism, Unspecified - Note for Unspecified hypothyroidism: tsh 6.2 synthroid was increased from 25 to 50 and tsh was 2.9 last visit will check tsh again today Unclassified (13 sources) [ADDITIONAL REASON] Follow up labs Unclassified (15 sources) Rash - The onset of the rash has been sudden and has been occurring in a persistent pattern for 5 days. The course has been increasing. The rash is characterized as crusty, weeping, raised above the skin and grouped in crops. The rash was first seen on the trunk. It spread to the neck, the trunk, the back and the upper extremity. There has been associated fatigue, itching and pain. Unclassified (15 sources) Cataract - Note for Cataract(s): Patient presents with preadmission testing for right cataract surgery on June 09, 2017, left cataract surgery done in June 2017. 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 Systolic ejection murmur, found incidentally on physical exam, 07/29. Patient denies chest pain or shortness of breath history. Discussed this finding with Dr. Duckworth will have no effect on cataract surgery Unclassified (14 sources) [ADDITIONAL REASON] Rash - The rash has been occurring in a persistent pattern for months. The rash is characterized as red. The rash was first seen on the face. Unclassified (14 sources) [ADDITIONAL REASON] Hyperlipidemia - Initial diagnosis of hyperlipidemia was 1 year(s) ago. The last clinic visit was 3 month(s) ago. No changes in management were made at the last visit. Associated symptoms do not include chest pain, myalgias or nausea. Current treatment includes statins. By report there is good compliance with treatment and good tolerance of treatment. Pertinent medical history includes diabetes and hypertension. Note for Hyperlipidemia: Here for follow up on starting Pravastatin therapy. Doing well with medication. No concerns/issues.Lipid done 09/2013 at goal.UPDATE: See above; ompliant with her medications; no chest pain or SOB Unclassified (12 sources) Diabetes Type II, Follow Up - The last clinic visit was 7 month(s) ago. The patient describes this as mild and improving. Note for Follow up for diabetes type II: She is currently taking Metformin 850 po bid; blood sugars are doing real well; less than 150. No hypoglycemia; no polyuria or polydipisia. No numbness or tingling of her feetRecent eye appt in November was wnl Unclassified (15 sources) Diabetes Type II, Follow Up - The last clinic visit was 7 month(s) ago. The patient describes this as mild and improving. Note for Follow up for diabetes type II: She is currently taking Metformin 850 po bid; blood sugars are doing real well; less than 150. No hypoglycemia; no polyuria or polydipisia. No numbness or tingling of her feet Unclassified (13 sources) Diabetes Type II, Follow Up - The last clinic visit was 3 month(s) ago. No changes in management were made at the last visit. Symptoms do not include polydipsia, polyuria, fatigue or change in vision. Associated symptoms do not include extremity pain or extremity numbness. Current treatment includes metformin. By report there is good compliance with treatment, good tolerance of treatment and good symptom control. Recently diabetes control has been unchanged. Diabetes self management includes exercise and weight loss. Home glucose testing is done twice daily and results include a usual glucose range of fastings: 110-120s; 2 hours pp less than 130s mg/dl. Most recent microalbumin was done on 09/2013 and the result was normal. Most recent lipid testing was done on 09/2013. Risk factors do not include obesity, inactivity or recent weight gain. The following lifestyle modifications have been recommended: diabetic diet and aerobic exercise. Note for Follow up for diabetes type II: Last ophthalmology appt:11/2013Pneumovax- -09/2012.10/04/2013Pati ent doing very well. States most BS less than 125. I know what to eat. Has another eye exam in November 2013.Needs refils. No problems with feet.01/17/2014Patient stays blood sugars doing well. She ran into someone with a door at [employer] yesterday and got a bruise and small skin tear on right arm. Unclassified (15 sources) [ADDITIONAL REASON] Hyperlipidemia - Initial diagnosis of hyperlipidemia was 1 year(s) ago. The last clinic visit was 3 month(s) ago. No changes in management were made at the last visit. Associated symptoms do not include chest pain, myalgias or nausea. Current treatment includes statins. By report there is good compliance with treatment and good tolerance of treatment. Pertinent medical history includes diabetes and hypertension. Note for Hyperlipidemia: Here for follow up on starting Pravastatin therapy. Doing well with medication. No concerns/issues.Lipid done 09/2013 at goal. Unclassified (13 sources) [ADDITIONAL REASON] Laceration - Note for Laceration: Patient has abrasion of skin on forearm just above right elbow that she got when someone ran into her with a door at [employer] yesterday. She had a bandaid but had a worse reaction to the adhesive. Unclassified (15 sources) Diabetes Type II, Follow Up - The last clinic visit was 6 month(s) ago. No changes in management were made at the last visit. Symptoms do not include polydipsia, polyuria, fatigue or change in vision. Associated symptoms do not include extremity pain or extremity numbness. Current treatment includes metformin. By report there is good compliance with treatment, good tolerance of treatment and good symptom control. Recently diabetes control has been unchanged. Diabetes self management includes exercise and weight loss. Home glucose testing is done twice daily and results include a usual glucose range of fastings: 110-120s; 2 hours pp less than 130s mg/dl. Risk factors do not include obesity, inactivity or recent weight gain. The following lifestyle modifications have been recommended: diabetic diet and aerobic exercise. Note for Follow up for diabetes type II: Last ophthalmology appt:Last foot exam 09/2012.Pneumovax--09/22 013.10/04/2013Patient doing very well. States most BS less than 125. I know what to eat. Has another eye exam in November 2013.Needs refils. No problems with feet. Unclassified (15 sources) Diabetes Type II, Follow Up - The last clinic visit was 6 month(s) ago. No changes in management were made at the last visit. Symptoms do not include polydipsia, polyuria, fatigue or change in vision. Associated symptoms do not include extremity pain or extremity numbness. Current treatment includes metformin. By report there is good compliance with treatment, good tolerance of treatment and good symptom control. Recently diabetes control has been unchanged. Diabetes self management includes exercise and weight loss. Home glucose testing is done twice daily and results include a usual glucose range of fastings: 110-120s; 2 hours pp less than 130s mg/dl. Risk factors do not include obesity, inactivity or recent weight gain. The following lifestyle modifications have been recommended: diabetic diet and aerobic exercise. Note for Follow up for diabetes type II: Last ophthalmology appt:Last foot exam 09/2012.Pneumovax--09/22 013. Unclassified (15 sources) Hyperlipidemia - Initial diagnosis of hyperlipidemia was 6 month(s) ago. The last clinic visit was 3 month(s) ago. Management changes made at the last visit include adding Pravastatin. Associated symptoms do not include chest pain, myalgias or nausea. Current treatment includes statins. By report there is good compliance with treatment and good tolerance of treatment. Pertinent medical history includes diabetes and hypertension. Note for Hyperlipidemia: Here for follow up on starting Pravastatin therapy. Doing well with medication. No concerns/issues. Unclassified (14 sources) Diabetes Type II, Follow Up - The last clinic visit was 6 month(s) ago. No changes in management were made at the last visit. Symptoms do not include polydipsia, polyuria, fatigue or change in vision. Associated symptoms do not include extremity pain or extremity numbness. Current treatment includes metformin. By report there is good compliance with treatment, good tolerance of treatment and good symptom control. Recently diabetes control has been unchanged. Diabetes self management includes exercise and weight loss. Home glucose testing is done twice daily and results include a usual glucose range of fastings: 110-120s; 2 hours pp less than 130s mg/dl. Risk factors do not include obesity, inactivity or recent weight gain. The following lifestyle modifications have been recommended: diabetic diet and aerobic exercise. Note for Follow up for diabetes type II: Last ophthalmology appt 02/2012.Last foot exam 09/2011.Dental exam in last 2 months.Pneumovax--nev er received. Unclassified (14 sources) [ADDITIONAL REASON] Cold Symptoms - Symptoms include nasal congestion, runny nose, scratchy throat and dry cough. Onset was 3 day(s) ago. Onset followed exposure at home to someone with upper respiratory symptoms. Associated symptoms include fever (tactile ), while associated symptoms do not include ear pain, vomiting or diarrhea. Note for Cold symptoms: Has been using some OTC cold medicines with some relief. Unclassified (14 sources) Diabetes Type II, Follow Up - The last clinic visit was 6 month(s) ago. No changes in management were made at the last visit. Symptoms do not include polydipsia, polyuria, fatigue or change in vision. Associated symptoms do not include extremity pain or extremity numbness. Current treatment includes metformin. By report there is good compliance with treatment. Recently diabetes control has been unchanged. Diabetes self management includes exercise and weight loss. Home glucose testing is done twice daily and results include a usual glucose range of fastings: 110-120s; 2 hours pp less than 130s mg/dl. Risk factors do not include obesity, inactivity or recent weight gain. The following lifestyle modifications have been recommended: diabetic diet and aerobic exercise. Note for Follow up for diabetes type II: Last ophthalmology appt 02/2012.Last foot exam 09/2011.Dental exam in last 2 months.Pneumovax--nev er received. Unclassified (20 sources) [ADDITIONAL REASON] Hypertension - The last clinic visit was 6 month(s) ago. No changes in management were made at the last visit. Symptoms do not include headache, dizziness or shortness of breath. Associated symptoms do not include chest pain, weakness or edema. Current treatment includes thiazide diuretic. By report there is good compliance with treatment. Risk factors do not include physical inactivity. Unclassified (15 sources) Abdominal Pain, Female - Symptoms include abdominal pain. The pain is located in the right lower quadrant. The patient describes the pain as sharp. Onset was sudden 3 day(s) ago. There is no known event that preceded symptom onset. The symptoms occur constantly. The patient describes this as moderate in severity and worsening. Symptoms are exacerbated by movement, while symptoms are not exacerbated by eating, drinking, fatty foods or dairy products. Symptoms are relieved by nonsteroidal anti-inflammatory drugs (alleve). Associated symptoms do not include fever, hematemesis, melena, bloody stool, dysuria or hematuria. Current treatment includes nonsteroidal anti-inflammatory drugs. Note for Abdominal pain: Increases with bending over and picking up things.No assoc.n/v/f/c/d/const ipation.She has noticed some frequency.She drinks a lot of water.Similar episode in the past with a kidney infection.Radiates up and down the right groin.Some releif with urination.She has some incomplete voiding.She rates her pain as 4/10.She has been using the alleve and advil once a day. Unclassified (13 sources) Diabetes Type II, Follow Up - The last clinic visit was 6 month(s) ago. No changes in management were made at the last visit. Symptoms do not include polydipsia, polyuria, fatigue or change in vision. Associated symptoms do not include extremity pain or extremity numbness. Current treatment includes metformin. By report there is good compliance with treatment. Recently diabetes control has been improving. Diabetes self management includes exercise and weight loss (Has lost weight since last office visit.). Home glucose testing is done once daily and results include a usual glucose range of 2 hours post-prandial 110-120s mg/dl. Unclassified (2 sources) b/l leg neuropathy followed by dr sabrina Guy neuropathy Unclassified (3 sources) [ADDITIONAL REASON] Hypertension - Follow Up ([facility] Standard Template) - The patient is currently taking thiazide diuretic, JARED inhibitor and beta an for hypertension. Note for Hypertension - Follow Up ([facility] Standard Template): bp 120/82 controlled Unclassified (1 source) Rosacea - Note for Rosacea: using witch gopal with success Unclassified (1 source) Hypertension- Follow Up - Current treatment includes thiazide diuretic and JARED inhibitor. Note for Hypertension: bp controlled at 137/79 Unclassified (2 sources) Hypertension - The hypertension has been occurring in a continuous pattern for years. The course has been constant. The JNC classification is Stage 1 hypertension - 140-159 or 90-99. Note for Hypertension: bp controlled Unclassified (2 sources) Follow up labs Unclassified (2 sources) [ADDITIONAL REASON] Diabetes Type II, Follow Up - Current treatment includes metformin. Most recent Hgb A1c was done on 03/05/2017 and the result was 6.7 %. Most recent microalbumin was done on 08/28/2016 and the result was mcg/mg Creatinine. Most recent lipid testing was done on 03/05/2017 and the results included total cholesterol 95 mg/dl, LDL 63 mg/dl and TG 85 mg/dl. Note for Follow up for diabetes type II: fbs less than 140 a1c due today Unclassified (1 source) Rash - The rash has been occurring in a persistent pattern for months. The rash is characterized as red. The rash was first seen on the face. Unclassified (3 sources) [ADDITIONAL REASON] Diabetes Type II, Follow Up - The last clinic visit was 7 month(s) ago. The patient describes this as mild and improving. Note for Follow up for diabetes type II: She is currently taking Metformin 850 po bid; blood sugars are doing real well; less than 150. No hypoglycemia; no polyuria or polydipisia. No numbness or tingling of her feetRecent eye appt in November was wnl Unclassified (2 sources) Laceration - Note for Laceration: Patient has abrasion of skin on forearm just above right elbow that she got when someone ran into her with a door at [employer] yesterday. She had a bandaid but had a worse reaction to the adhesive. Unclassified (2 sources) [ADDITIONAL REASON] Diabetes Type II, Follow Up - The last clinic visit was 3 month(s) ago. No changes in management were made at the last visit. Symptoms do not include polydipsia, polyuria, fatigue or change in vision. Associated symptoms do not include extremity pain or extremity numbness. Current treatment includes metformin. By report there is good compliance with treatment, good tolerance of treatment and good symptom control. Recently diabetes control has been unchanged. Diabetes self management includes exercise and weight loss. Home glucose testing is done twice daily and results include a usual glucose range of fastings: 110-120s; 2 hours pp less than 130s mg/dl. Most recent microalbumin was done on 09/2013 and the result was normal. Most recent lipid testing was done on 09/2013. Risk factors do not include obesity, inactivity or recent weight gain. The following lifestyle modifications have been recommended: diabetic diet and aerobic exercise. Note for Follow up for diabetes type II: Last ophthalmology appt:11/2013Pneumovax- -09/2012.10/04/2013Pati ent doing very well. States most BS less than 125. I know what to eat. Has another eye exam in November 2013.Needs refils. No problems with feet.01/17/2014Patient stays blood sugars doing well. She ran into someone with a door at [employer] yesterday and got a bruise and small skin tear on right arm. Unclassified (1 source) Cold Symptoms - Symptoms include nasal congestion, runny nose, scratchy throat and dry cough. Onset was 3 day(s) ago. Onset followed exposure at home to someone with upper respiratory symptoms. Associated symptoms include fever (tactile ), while associated symptoms do not include ear pain, vomiting or diarrhea. Note for Cold symptoms: Has been using some OTC cold medicines with some relief. Unclassified (1 source) [ADDITIONAL REASON] Diabetes Type II, Follow Up - The last clinic visit was 6 month(s) ago. No changes in management were made at the last visit. Symptoms do not include polydipsia, polyuria, fatigue or change in vision. Associated symptoms do not include extremity pain or extremity numbness. Current treatment includes metformin. By report there is good compliance with treatment, good tolerance of treatment and good symptom control. Recently diabetes control has been unchanged. Diabetes self management includes exercise and weight loss. Home glucose testing is done twice daily and results include a usual glucose range of fastings: 110-120s; 2 hours pp less than 130s mg/dl. Risk factors do not include obesity, inactivity or recent weight gain. The following lifestyle modifications have been recommended: diabetic diet and aerobic exercise. Note for Follow up for diabetes type II: Last ophthalmology appt 02/2012.Last foot exam 09/2011.Dental exam in last 2 months.Pneumovax--nev er received. Unclassified (3 sources) Hypertension - The last clinic visit was 6 month(s) ago. No changes in management were made at the last visit. Symptoms do not include headache, dizziness or shortness of breath. Associated symptoms do not include chest pain, weakness or edema. Current treatment includes thiazide diuretic. By report there is good compliance with treatment. Risk factors do not include physical inactivity. Unclassified (1 source) [ADDITIONAL REASON] Diabetes Type II, Follow Up - The last clinic visit was 6 month(s) ago. No changes in management were made at the last visit. Symptoms do not include polydipsia, polyuria, fatigue or change in vision. Associated symptoms do not include extremity pain or extremity numbness. Current treatment includes metformin. By report there is good compliance with treatment. Recently diabetes control has been unchanged. Diabetes self management includes exercise and weight loss. Home glucose testing is done twice daily and results include a usual glucose range of fastings: 110-120s; 2 hours pp less than 130s mg/dl. Risk factors do not include obesity, inactivity or recent weight gain. The following lifestyle modifications have been recommended: diabetic diet and aerobic exercise. Note for Follow up for diabetes type II: Last ophthalmology appt 02/2012.Last foot exam 09/2011.Dental exam in last 2 months.Pneumovax--nev er received. Unclassified (2 sources) [ADDITIONAL REASON] Diabetes Type II, Follow Up - The last clinic visit was 6 month(s) ago. No changes in management were made at the last visit. Symptoms do not include polydipsia, polyuria, fatigue or change in vision. Associated symptoms do not include extremity pain or extremity numbness. Current treatment includes metformin. By report there is good compliance with treatment. Recently diabetes control has been improving. Diabetes self management includes exercise and weight loss (Has lost weight since last office visit.). Home glucose testing is done once daily and results include a usual glucose range of 2 hours post-prandial 110-120s mg/dl. Unclassified (1 source) [ADDITIONAL REASON] Hypothyroidism, Unspecified - The patient describes this as mild and unchanged. Current treatment includes levothyroxine. By report there is good compliance with treatment, good tolerance of treatment and good symptom control. Note for Unspecified hypothyroidism: tsh 1.9 controlled Unclassified (2 sources) [ADDITIONAL REASON] Hypothyroidism, Unspecified - The patient describes this as mild and unchanged. Current treatment includes levothyroxine. By report there is good compliance with treatment, good tolerance of treatment and good symptom control. Note for Unspecified hypothyroidism: tsh was 2.9 now 3.6 Unclassified (1 source) right calf wound nearly healed - pos hx of tdap < 10years ago Unclassified (1 source) Hypothyroidism, Unspecified - Note for Unspecified hypothyroidism: will check tsh at rtc Unclassified (1 source) Hypertension- Follow Up - Note for Hypertension: taken off triamterrene due to SE s now on HCTZ 12.5 bp 120/62 controlled Unclassified (1 source) Hyperlipidemia - Initial diagnosis of hyperlipidemia was 1 year(s) ago. The last clinic visit was 3 month(s) ago. No changes in management were made at the last visit. Associated symptoms do not include chest pain, myalgias or nausea. Current treatment includes statins. By report there is good compliance with treatment and good tolerance of treatment. Pertinent medical history includes diabetes and hypertension. Note for Hyperlipidemia: Here for follow up on starting Pravastatin therapy. Doing well with medication. No concerns/issues.Lipid done 09/2013 at goal.UPDATE: See above; ompliant with her medications; no chest pain or SOB Unclassified (18 sources) 06-23-2014 Results Test Name Value Interpretation Reference Range Facility Internal Medicine Office Vis jennifer 01-20-2025 Internal Medicine Office Visit [facility] [address] [place], [place] [address] OFFICE VISIT Date of Service: 01/20/25 MR#: [id number] Acct: [id number] Name: QAMAR BOSWELL Rep #: [id number] : 1945 Provider: Dr. Flavio Thornton Br own, DO Age/Sex: 79/F Location: [facility] Status: Signed Intake Vital Signs 10/12/24 14:54 Height 4 ft 10 in Weight: 134 lb BMI 28.0 BP 122/64 H Blood Pressure Location Lt radial Position Sitting Respiration 16 Pulse 63 Pulse Source Monitor Temp 96.1 F L Temp Source Temporal Pulse Oximetry (%) 94 Oxygen Delivery Method room air Intake Visit Reasons: 3 M FU Chief Complaint: Recheck. 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 Accompanied by: Daughter Is patient in pain?: No Allergies Iodinated Contrast Media Allergy (Intermediate, Verified 01/20/25 13:46) Hives strawberry Allergy (Intermediate, Verified 01/20/25 13:46) hives Medications ???Medication ???Instructions ???Recorded ???Confirmed ???Type metoprolol succinate 25 mg 25 mg PO DAILY heart 01/21/2312/23 History tablet,extended release 24 hr albuterol sulfate 2.5 mg/3 mL 2.5 mg (3 mL) inhalation Q2H PRN 0 11/23/23 01/20/25 Rx (0.083 %) solution for nebulization PRN Dyspnea, wheezing 30 days # 90 mL pravastatin 20 mg tablet 20 mg PO QHS for cholesterol #90 1 01/20/25 Rx TABLETS hydrochlorothiazide 12.5 mg tablet 12.5 mg PO DAILY waterpill #90 t abs 05/18/24 01/20/25 Rx levothyroxine 50 mcg tablet 50 mcg PO DAILY for disorder of 01/20/25 Rx thyroid gland #90 TABLETS raloxifene 60 mg tablet 60 mg PO DAILY #90 TABLETS 4 01/20/25 Rx famotidine 20 mg tablet 20 mg PO DAILY PRN heartburn #90 0 07/13/24 01/20/25 Rx tabs metformin 500 mg tablet 500 mg PO BID diabetes #180 tabs 0 07/13/24 01/20/25 Rx citalopram 20 mg tablet 10 mg (1/2 x 20 mg) PO DAILY 12/1401/20/25 Rx anxiety #90 tabs brexpiprazole 0.5 mg tablet 0.5 mg PO QDAY #30 tabs 12/28/24 0 01/20/25 Rx (Rexulti) galantamine 8 mg 24 hr 8 mg PO QAM #30 caps 12/28/2412/23 Rx capsule,extended release memantine 10 mg tablet (Namenda) 10 mg PO BID #180 tabs 12/28/24 Rx ciclopirox 0.77 % topical cream 1 applic topical Q12H PRN 01/20/25 History (Loprox (as olamine)) lisinopril 2.5 mg tablet 2.5 mg PO DAILY for blood pressure 01/20/25 01/20/25 Rx #90 TABLETS Have you fallen in the past year?: No Nurse's Note: lisinopril needs refilled. Pt has had more wheezing recently, was concerned about pneumonia nebulizer helps. Has not been sick. Pt's daughter wondering about a paula lift as daughter has Herniated discs and caregiving w? lifting has been causing issues. PFS Medical History Hypothyroidism Anxiety and depression HLD (hyperlipidemia) HTN (hypertension) CKD (chronic kidney disease) Vitamin deficiency GERD (gastroesophageal reflux disease) Cardiac murmur Neuropathy Alzheimer disease Diabetes mellitus Surgical History History of hysterectomy Hx of appendectomy Family History Father Diabetes Myocardial infarction Mother Breast cancer Social History household members: children housing: house current occupational status: retired Smoking Status: Never smoker alcohol intake: never substance use type: does not use what type of physical activity do you participate in: none seatbelt use: always do you feel safe at home: Yes HPI HPI Chief Complaint: Recheck. Details: QAMAR BOSWELL, is a 79 F who presents to the office today for recheck of her diabetes. She has recently seen a neurologist who agreed with her diagnosis of Alzheimer's dementia. He basically kept the medications the same but started her on a new medication to see if that would delay the progression of her disease. The Rexulti she has been on is stopped most of her wild verbal outbursts and she is quite pleasant to take care of but her daughter is having difficulty lifting and wants a Paula lift. ROS Const Constitutional: No body ache, chills, excessive sweating, fatigue, fever(s), frequent falls, headache(s), snoring, weakness, sleep problems or change in appetite Eyes Eyes: No blurry vision, change in vision, eye pain or Light sensitivity ENT ENT: No abnormal hearing, ear or mastoid pain, tinnitus, nasal congestion, headache(s), neck pain or sore throat Resp Respiratory: No cough, shortness of breath, snoring or wheezing Cardio Cardiology: No chest pain at rest, chest pain with exertion, excessive sweating, shortness of breath, dyspnea (more content not included)... Normal [facility] Folates, RBCon 12-31-2024 Fol.,Hemolysate 302.0 ng/mL Normal Not Estab. [facility] Comment on above: Order Comment: Test( s) [id number]. B1, Whole Blood was developed and its performance characteristics determined by [facility]. It has not been cleared or approved by the Food and Drug Administration. Performed By: #### L 501.9520, L100.0500, L3100.1725, L500.4050, L503.0106, L3300.0960, L3300.8000 #### [facility] [address] [place], [place], [id number] Folate, RBC 763 ng/mL Normal >498 [facility] Comment on above: Order Comment: Test( s) [id number]. B1, Whole Blood was developed and its performance characteristics determined by [facility]. It has not been cleared or approved by the Food and Drug Administration. Performed By: #### L 501.9520, L100.0500, L3100.1725, L500.4050, L503.0106, L3300.0960, L3300.8000 #### [facility] [address] [place], [place], [id number] Hematocrit (Bld) [Volume fraction] 39.6 % Normal 34.0-46.6 [facility] Comment on above: Order Comment: Test( s) [id number]. B1, Whole Blood was developed and its performance characteristics determined by [facility]. It has not been cleared or approved by the Food and Drug Administration. Performed By: #### L 501.9520, L100.0500, L3100.1725, L500.4050, L503.0106, L3300.0960, L3300.8000 #### [facility] [address] [place], [place], [id number] Vitamin B1, Thiamineon 12-31 VIT B1 THIAMINE 142.2 nmol/L Normal 66.5-200.0 [facility] Comment on above: Order Comment: Test( s) [id number]. B1, Whole Bloodwas developed and its performance characteristicsdetermined by [facility]. It has not been cleared or approvedby the Food and Drug Administration. Result Comment: Perf ormed at: [address] [id number] Ripsaw Matcher: Chilo Nazario PhD, Phone: [phone] Performed at: [address] [id number] Ripsaw Matcher: Aisha Lang MD, Phone: [phone] Performed By: #### L 501.9520, L100.0500, L3100.1725, L500.4050, L503.0106, L3300.0960, L3300.8000 ####[facility] [address] [place], [place], [id number] Vitamin D 1,25-Dihydroxyon 0 12-31-2024 VIT D 1,25 DIHY 25.4 pg/mL Normal 24.8-81.5 [facility] Comment on above: Result Comment: Perf ormed at: [address] [id number] Ripsaw Matcher: Aisha Lang MD, Phone: [phone] Performed By: #### L 501.9520, L100.0500, L3100.1725, L500.4050, L503.0106, L3300.0960, L3300.8000 ####[facility] [address] [place], [place], [id number] Anion gap in Serum or Plasma Ordered By: Bakari Alatorre on 12-28-2024 Anion gap [Moles/Vol] 11 mmol/L 5-15 [facility] BUN/creatinine ratioOrdered By: Bakari Alatorre on 12-28-2024 Urea nitrogen/Creatinine [Mass ratio] 17.8 mg/mg 10-20 [facility] Bilirubin, totalOrdered By: Bakari Alatorre on 12-28-2024 Bilirubin [Mass/Vol] 0.33 mg/dL 0.00-1.[address] [facility] CBC-Complete Blood Cnt No Di ffon 12-28-2024 Erythrocyte distribution width (RBC) [Ratio] 14.1 % Normal 11.6-14.6 [facility] Comment on above: Performed By: #### L 501.9520, L100.0500, L3100.1725, L500.4050, L503.0106, L3300.0960, L3300.8000 #### [facility] [address] [place], [address] Hematocrit (Bld) [Volume fraction] 37.9 % Normal 37-47 [facility] Comment on above: Performed By: #### L 501.9520, L100.0500, L3100.1725, L500.4050, L503.0106, L3300.0960, L3300.8000 #### [facility] [address] [place], [address] Hemoglobin (Bld) [Mass/Vol] 12.1 g/dL Normal 12.0-15.0 [facility] Comment on above: Performed By: #### L 501.9520, L100.0500, L3100.1725, L500.4050, L503.0106, L3300.0960, L3300.8000 #### [facility] [address] [place], [address] MCH (RBC) [Entitic mass] 28.1 pg Normal 27.0-32.0 [facility] Comment on above: Performed By: #### L 501.9520, L100.0500, L3100.1725, L500.4050, L503.0106, L3300.0960, L3300.8000 #### [facility] [address] [place], [address] MCHC (RBC) [Mass/Vol] 31.9 g/dL Low 32-36 [facility] Comment on above: Performed By: #### L 501.9520, L100.0500, L3100.1725, L500.4050, L503.0106, L3300.0960, L3300.8000 #### [facility] [address] [place], [address] MCV (RBC) [Entitic vol] 88.1 fL Normal 81-99 [facility] Comment on above: Performed By: #### L 501.9520, L100.0500, L3100.1725, L500.4050, L503.0106, L3300.0960, L3300.8000 #### [facility] [address] [place], [address] Platelet mean volume (Bld) [Entitic vol] 10.3 fL Normal 6.2-12.0 [facility] Comment on above: Performed By: #### L 501.9520, L100.0500, L3100.1725, L500.4050, L503.0106, L3300.0960, L3300.8000 #### [facility] [address] [place], [address] Platelets (Bld) [#/Vol] 328 10*3/uL Normal 150-450 [facility] Comment on above: Performed By: #### L 501.9520, L100.0500, L3100.1725, L500.4050, L503.0106, L3300.0960, L3300.8000 #### [facility] [address] [place], [address] RBC (Bld) [#/Vol] 4.30 10*6/uL Normal 4.2-5.4 [facility] Comment on above: Performed By: #### L 501.9520, L100.0500, L3100.1725, L500.4050, L503.0106, L3300.0960, L3300.8000 #### [facility] [address] [place], [address] RDW SD 45.4 fl High 35.1-43.9 [facility] Comment on above: Performed By: #### L 501.9520, L100.0500, L3100.1725, L500.4050, L503.0106, L3300.0960, L3300.8000 #### [facility] [address] [place], [address] WBC (Bld) [#/Vol] 9.3 10*3/uL Normal 4.4-11.0 [facility] Comment on above: Performed By: #### L 501.9520, L100.0500, L3100.1725, L500.4050, L503.0106, L3300.0960, L3300.8000 #### [facility] [address] [place], [address] Carbon dioxide, total [Moles /volume] in Central venous bloodOrdered By: Bakari Alatorre on 12-28-2024 CO2 [Moles/Vol] 23.5 mmol/L 21.0-32.0 [facility] Chloride assayOrdered By: Ra kraig Alatorre on 12-28-2024 Chloride [Moles/Vol] 103 mmol/L 98-[address] [facility] Comprehensive Metabolic Prof ilon 12-28-2024 Albumin [Mass/Vol] 3.9 g/dL Normal 3.4-4.8 [facility] Comment on above: Performed By: #### L 501.9520, L100.0500, L3100.1725, L500.4050, L503.0106, L3300.0960, L3300.8000 #### [facility] [address] [place], [address] Albumin/Globulin [Mass ratio] 1.2 {ratio} Normal 0.9-2.4 [facility] Comment on above: Performed By: #### L 501.9520, L100.0500, L3100.1725, L500.4050, L503.0106, L3300.0960, L3300.8000 #### [facility] [address] [place], [address] ALK PHOS 73 U/L Normal 35-104 [facility] Comment on above: Performed By: #### L 501.9520, L100.0500, L3100.1725, L500.4050, L503.0106, L3300.0960, L3300.8000 #### [facility] [address] [place], [address] ALT [Catalytic activity/Vol] 6 U/L Normal <=34 [facility] Comment on above: Performed By: #### L 501.9520, L100.0500, L3100.1725, L500.4050, L503.0106, L3300.0960, L3300.8000 #### [facility] [address] [place], [address] AST [Catalytic activity/Vol] 17 U/L Normal <=31 [facility] Comment on above: Performed By: #### L 501.9520, L100.0500, L3100.1725, L500.4050, L503.0106, L3300.0960, L3300.8000 #### [facility] [address] [place], [address] Bilirubin [Mass/Vol] 0.33 mg/dL Normal 0.00-1.[address] [facility] Comment on above: Performed By: #### L 501.9520, L100.0500, L3100.1725, L500.4050, L503.0106, L3300.0960, L3300.8000 #### [facility] [address] [place], [address] BUN/CRE 17.8 RATIO Normal 10-20 [facility] Comment on above: Performed By: #### L 501.9520, L100.0500, L3100.1725, L500.4050, L503.0106, L3300.0960, L3300.8000 #### [facility] [address] [place], [address] Calcium [Mass/Vol] 9.1 mg/dL Normal 7.6-11.0 [facility] Comment on above: Performed By: #### L 501.9520, L100.0500, L3100.1725, L500.4050, L503.0106, L3300.0960, L3300.8000 #### [facility] [address] [place], [address] Chloride [Moles/Vol] 103 mmol/L Normal 98-[address] [facility] Comment on above: Performed By: #### L 501.9520, L100.0500, L3100.1725, L500.4050, L503.0106, L3300.0960, L3300.8000 #### [facility] [address] [place], [address] CO2 [Moles/Vol] 23.5 mmol/L Normal 21.0-32.0 [facility] Comment on above: Performed By: #### L 501.9520, L100.0500, L3100.1725, L500.4050, L503.0106, L3300.0960, L3300.8000 #### [facility] [address] [place], [address] Creatinine [Mass/Vol] 1.02 mg/dL Normal 0.70-1.20 [facility] Comment on above: Performed By: #### L 501.9520, L100.0500, L3100.1725, L500.4050, L503.0106, L3300.0960, L3300.8000 #### [facility] [address] [place], [address] GAP 11 Normal 5-15 [facility] Comment on above: Performed By: #### L 501.9520, L100.0500, L3100.1725, L500.4050, L503.0106, L3300.0960, L3300.8000 #### [facility] [address] [place], [address] GFR/1.73 sq M.predicted among non-blacks MDRD (S/P/Bld) [Vol rate/Area] 55 mL/min/{1.73_m2} Low >60 [facility] Comment on above: Result Comment: mL/m in/1.73m2 CKD-EPI Creatinine Equation (2020) Performed By: #### L 501.9520, L100.0500, L3100.1725, L500.4050, L503.0106, L3300.0960, L3300.8000 #### [facility] [address] [place], [address] Globulin (S) [Mass/Vol] 3.3 g/dL Normal 2.2-4.2 [facility] Comment on above: Performed By: #### L 501.9520, L100.0500, L3100.1725, L500.4050, L503.0106, L3300.0960, L3300.8000 #### [facility] [address] [place], [address] Glucose [Mass/Vol] 134 mg/dL High 70-99 [facility] Comment on above: Performed By: #### L 501.9520, L100.0500, L3100.1725, L500.4050, L503.0106, L3300.0960, L3300.8000 #### [facility] [address] [place], [address] Potassium [Moles/Vol] 3.7 mmol/L Normal 3.3-5.1 [facility] Comment on above: Performed By: #### L 501.9520, L100.0500, L3100.1725, L500.4050, L503.0106, L3300.0960, L3300.8000 #### [facility] [address] [place], [address] Sodium [Moles/Vol] 138 mmol/L Normal 133-145 [facility] Comment on above: Performed By: #### L 501.9520, L100.0500, L3100.1725, L500.4050, L503.0106, L3300.0960, L3300.8000 #### [facility] [address] [place], [address] T PROT 7.2 g/dL Normal 5.9-8.4 [facility] Comment on above: Performed By: #### L 501.9520, L100.0500, L3100.1725, L500.4050, L503.0106, L3300.0960, L3300.8000 #### [facility] [address] [place], [address] Urea nitrogen [Mass/Vol] 18 mg/dL Normal 4-19 [facility] Comment on above: Performed By: #### L 501.9520, L100.0500, L3100.1725, L500.4050, L503.0106, L3300.0960, L3300.8000 #### [facility] [address] [place], [address] Erythrocyte distribution wid th ratioOrdered By: Bakari Alatorre on 12-28-2024 Erythrocyte distribution width (RBC) [Ratio] 14.1 % 11.6-14.6 [facility] Erythrocyte distribution wid th standard deviationOrdered By: Bakari Alatorre on 12-28-2024 Erythrocyte distribution width (RBC) [Ratio] 45.4 fl High 35.1-43.9 [facility] Erythrocyte folate measureme nt with hematocritOrdered By: Bakari Alatorre on 12-28-2024 Hematocrit (Bld) [Volume fraction] 39.6 % 34.0-46.6 [facility] Glomerular filtration rate ( GFR) estimation/1.73 sq m using serum, plasma, or whole bOrdered By: Bakari Alatorre on 12-28-2024 GFR/1.73 sq M.predicted among non-blacks MDRD (S/P/Bld) [Vol rate/Area] 55 mL/min/{1.73_m2} Low >60 [facility] Comment on above: mL/min/1.73m2 CKD-EP I Creatinine Equation (2020) Hematocrit Auto (Bld) [Volum e fraction]Ordered By: Bakari Alatorre on 12-28-2024 Hematocrit (Bld) [Volume fraction] 37.9 % 37-47 [facility] Hemoglobin measurementOrdere d By: Bakari Alatorre on 12-28-2024 Hemoglobin (Bld) [Mass/Vol] 12.1 g/dL 12.0-15.0 [facility] - Chemistry and C hemistry - challengeOrdered By: Bakari Alatorre on 12-28-2024 AST [Catalytic activity/Vol] 17 U/L <32 [facility] MCV (mean corpuscular volume ) determinationOrdered By: Ionia Landry on 12-28-2024 MCV (RBC) [Entitic vol] 88.1 fL 81-99 [facility] Mean corpuscular hemoglobin (MCH) determinationOrdered By: Bakarifiorella Alatorre on 12-28-2024 MCH (RBC) [Entitic mass] 28.1 pg 27.0-32.0 [facility] Mean corpuscular hemoglobin concentration (MCHC) determinationOrdered By: Bakari Alatorre on 12-28-2024 MCHC (RBC) [Mass/Vol] 31.9 g/dL Low 32-36 [facility] Mean platelet volume determi nationOrdered By: Bakarifiorella Alatorre on 12-28-2024 Platelet mean volume (Bld) [Entitic vol] 10.3 fL 6.2-12.0 [facility] Neurology Visit Reporton Neurology Visit Report [facility] [address], [address] [place] [address] OFFICE VISIT Date of Service: 12/28/24 MR#: [id number] Acct: [id number] Name: QAMAR BOSWELL Rep #: [id number] : 1945 Provider: Dr. Bakari madrigal MD Age/Sex: 79/F Location: [facility]. Status: Signed [facility] Chief Complaint: Establish Care Details: History: The patient is in 79-year-old right-handed woman with a past medical history of hypertension, diabetes mellitus, cardiac murmur and dementia who presents for evaluation of her dementia. She is accompanied by her daughter. The patient began to exhibit cognitive decline around 2017 and her cognitive decline has worsened over time. She forgets conversations. Earlier in her course that she had had some driving difficulty and had difficulty managing finances. The patient's daughter now lives with her and the patient requires assistance with essentially all activities of daily living. The patient has exhibited decreased verbal output. She exhibits confusion. She has had auditory and visual hallucinations; these began around 2021. She has had some dysphagia and on evaluation in the past by speech therapy, recommendation for a mechanical soft diet was recommended. She had dizziness in the past. She has generalized weakness. She denies having numbness, vision change, or hearing loss. She has had progressive decline in her mobility. She began using a cane around 2020, then a walker around 2022. Her gait continued to decline and she is now essentially nonambulatory. She requires assistance to arise to a standing position. She has not exhibited agitation. She was evaluated by a neurologist. A trial of donepezil was not well-tolerated (caused gastrointestinal upset and diarrhea). She has been taking memantine; no improvement of her cognitive status has been noted with this medication. Rexulti has been initiated for her hallucinations and this has been of benefit. She has had some neck pain. Past Medical History: As above. There is no history of stroke, seizure, thyroid disease, cancer, hyperlipidemia, or renal disease. Social History: She graduated from high school. There is no history of alcohol abuse, illicit drug use, or tobacco use. Family History: There is no family history of dementia, stroke, seizure, or cerebral aneurysm. Review of Systems: As above. The patient has not had any recent fever, rash, weight change, or chest pain. The patient has anxiety and depression. She is not having sleep disturbance. She has bowel incontinence. She has urinary incontinence. She experiences occasional wheezing. Physical Exam: General: Well-developed, well-nourished female in no acute distress. Neuro: The patient is awake and alert and responds appropriately; she is bradyphrenic; she exhibits a paucity of speech; Mini-Mental status exam score is 20/30 Cranial nerves: PERRL, 2-3mm bilaterally; EOMI; visual razo are full; visual acuity is 20/70 bilaterally; face is symmetrical; tongue is midline; there are no deficits to pinprick Cerebellar system: No nystagmus or dysmetria Deep tendon reflexes: +2 at the brachioradialis bilaterally, biceps bilaterally and knees,, absent at the triceps bilaterally, and nonsustained clonus is noted at the ankles bilaterally,; plantar responses are downward on the left and equivocal on the right Motor: Strength 4+/5 in the foot dorsiflexors bilaterally, 4/5 in the right quadriceps, 5 -/5 in the left quadriceps, 4/5 in the triceps bilaterally, 4 -/5 in the right biceps, 5/5 in the left biceps, 5/5 in the right abductor pollicis brevis and right first dorsal interosseous, 4 -/5 in the left first dorsal interosseous and 4+/5 in the left abductor pollicis brevis; no drift Sensory: There are no deficits to soft touch or pinprick; decreased vibratory sensation is noted in the left foot Gait: Not tested HEENT: Normocephalic; atraumatic; tympanic membranes are clear Neck: No bruits Heart: Regular rhythm and rate Extremities: No cyanosis or edema; dorsalis pedis pulses are +2 bilaterally Supplemental Info Head MRI (01/11/2023): FINDINGS: BRAIN PARENCHYMA: Multiple foci and small zones of increased T2 FLAIR signal in the bilateral cerebral white matter. No abnormal focus of restricted diffusion. No acute intracranial hemorrhage identified. CSF SPACES: Moderate volume loss. No significant midline shift or other mass effect.No extra-axial fluid collection. VASCULAR SYSTEM: Major intracranial flow voids are maintained. PARANASAL SINUSES AND MASTOID AIR CELLS: No significant air fluid levels. ORBITS: Bilateral lens resections. IMPRESSION: Moderate chronic involutional and white matter changes. No evidence for acute infarct. Select images were reviewed on 12/28/2024. Moderately advanced diffuse cerebral atrophy is noted. Moderate bilateral periventricular and subcortical white derek (more content not included)... Normal [facility] Platelet countOrdered By: Ra kraig Alatorre on 12-28-2024 Platelets (Bld) [#/Vol] 328 10*3/uL 150-450 [facility] Potassium measurement (mass/ volume)Ordered By: Bakari Alatorre on 12-28-2024 Potassium (Unsp spec) [Mass/Vol] 3.7 mmol/L 3.3-5.1 [facility] RBC Auto (Bld) [#/Vol]Ordere d By: Bakari Alatorre on 12-28-2024 RBC (Bld) [#/Vol] 4.30 10*6/uL 4.2-5.4 [facility] Serum creatinine measurement (mass/volume)Ordered By: Bakari Alatorre on 12-28-2024 Creatinine [Mass/Vol] 1.02 mg/dL 0.70-1.20 [facility] Serum globulin measurementOr dered By: Bakari Alatorre on 12-28-2024 Globulin (S) [Mass/Vol] 3.3 g/dL 2.2-4.2 [facility] Serum glucose measurement (m ass/volume)Ordered By: Bakari Alatorre on 12-28-2024 Glucose [Mass/Vol] 134 mg/dL High 70-99 [facility] Serum or plasma alanine rocha otransferase (ALT) measurementOrdered By: Bakari Alatorre on 12-28-2024 ALT [Catalytic activity/Vol] 6 U/L <35 [facility] Serum or plasma albumin luis urement (mass/volume)Ordered By: Bakari Alatorre on 12-28-2024 Albumin [Mass/Vol] 3.9 g/dL 3.4-4.8 [facility] Serum or plasma albumin/glob ulin mass ratioOrdered By: Bakari Alatorre 12-28-2024 Albumin/Globulin [Mass ratio] 1.2 {ratio} 0.9-2.4 [facility] Serum or plasma alkaline alek sphatase measurementOrdered By: Bakari Alatorre 12-28-2024 ALP [Catalytic activity/Vol] 73 U/L 35-104 [facility] Serum or plasma calcitriol m easurement (mass/volume)Ordered By: Bakari Alatorre on 12-28-2024 1,25-dihydroxyvitamin D3 [Mass/Vol] 25.4 pg/mL 24.8-81.5 [facility] Comment on above: Performed at: [employer] [address] [id number] Director: Aisha Lang MD, Phone: [phone] Serum or plasma calcium luis urement (mass/volume)Ordered By: Bakari Alatorre on 12-28-2024 Calcium [Mass/Vol] 9.1 mg/dL 7.6-11.0 [facility] Serum or plasma thiamine florencio surement (mass/volume)Ordered By: Bakari Alatorre on 12-28-2024 Thiamine [Mass/Vol] 142.2 nmol/L 66.5-200.0 [facility] Comment on above: Performed at: [employer] [address] [id number] Director: Chilo Nazario PhD, Phone: [phone] at: [facility] [id number] Director: Aisha Lang MD, Phone: [phone] Serum or plasma urea nitroge n measurement (mass/volume)Ordered By: Bakari Alatorre on 12-28-2024 Urea nitrogen [Mass/Vol] 18 mg/dL 4-19 [facility] Sodium levelOrdered By: Louie Alatorre on 12-28-2024 Sodium [Moles/Vol] 138 mmol/L 133-145 [facility] TSH DL <= 0.005 mIU/L QnOrde red By: Bakari Alatorre on 12-28-2024 TSH Qn 9.880 uIU/mL High 0.300-4.20 0 [facility] Thyroid Stim Hormone (TSH)on 12-28-2024 TSH 9.880 uIU/mL High 0.300-4.20 0 [facility] Comment on above: Performed By: #### L 501.1775, L100.0500, L3100.1725, L500.4050, L503.0106, L3300.0960, L3300.8000 #### [facility] [address] [place], [address] Total proteinOrdered By: Lex Alatorre on 12-28-2024 Protein [Mass/Vol] 7.2 g/dL 5.9-8.4 [facility] Vitamin B12on 12-28-2024 Cobalamin (Vitamin B12) [Mass/Vol] 328 pg/mL Normal 180-914 [facility] Comment on above: Performed By: #### L 501.9520, L100.0500, L3100.1725, L500.4050, L503.0106, L3300.0960, L3300.8000 #### [facility] [address] [place], [address] Vitamin B12 ser/plasOrdered By: Bakari Alatorre on 12-28-2024 Cobalamin (Vitamin B12) [Mass/Vol] 328 pg/mL 180-914 [facility] White blood cell (WBC) count Ordered By: Bakari Alatorre on 12-28-2024 WBC (Bld) [#/Vol] 9.3 10*3/uL 4.4-11.0 [facility] Internal Medicine Office Vis iton 10-12-2024 Internal Medicine Office Visit [facility] [address] [place], [place] [address] OFFICE VISIT Date of Service: 10/12/24 MR#: [id number] Acct: [id number] Name: SHAYLEEANNELIESEQAMAR Solo Rep #: [id number] : 1945 Provider: Dr. Flavio ruff, DO Age/Sex: 78/F Location: [facility] Status: Signed Intake Vital Signs 07/13/24 15:58 10/12/24 14:54 Height 4 ft 10 in 4 ft 10 in Weight: 134 lb 134 lb BMI 28.0 28.0 BP 124/84 H 122/64 H Blood Pressure Location Lt radial Lt radial Position Sitting Sitting Respiration 16 16 Pulse 60 63 Pulse Source Palpation Monitor Temp 97.6 F L 96.1 F L Temp Source Temporal Temporal Pulse Oximetry (%) 94 Oxygen Delivery Method room air Intake Visit Reasons: 3 M FU Chief Complaint: general check up 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 Accompanied by: Daughter Is patient in pain?: No Allergies Iodinated Contrast Media Allergy (Intermediate, Verified 10/12/24 14:51) Hives strawberry Allergy (Intermediate, Verified 10/12/24 14:51) hives Medications ???Medication ???Instructions ???Recorded ???Confirmed ???Type metoprolol succinate 25 mg 25 mg PO DAILY heart 01/21/2309/22 History tablet,extended release 24 hr albuterol sulfate 2.5 mg/3 mL 2.5 mg (3 mL) inhalation Q2H PRN 0 11/23/23 10/12/24 Rx (0.083 %) solution for nebulization PRN Dyspnea, wheezing 30 days # 90 mL citalopram 20 mg tablet 10 mg (1/2 x 20 mg) PO DAILY 12/2310/12/24 Rx anxiety #90 tabs pravastatin 20 mg tablet 20 mg PO QHS for cholesterol #90 1 10/12/24 Rx TABLETS hydrochlorothiazide 12.5 mg tablet 12.5 mg PO DAILY waterpill #90 t abs 05/18/24 10/12/24 Rx lisinopril 2.5 mg tablet 2.5 mg PO DAILY for blood pressure 05/18/24 10/12/24 Rx #90 TABLETS levothyroxine 50 mcg tablet 50 mcg PO DAILY for disorder of 10/12/24 Rx thyroid gland #90 TABLETS raloxifene 60 mg tablet 60 mg PO DAILY #90 TABLETS 4 10/12/24 Rx ciclopirox 0.77 % topical cream 1 applic topical Q12H #15 grams 10/12/24 Rx (Loprox (as olamine)) famotidine 20 mg tablet 20 mg PO DAILY PRN heartburn #90 0 07/13/24 10/12/24 Rx tabs memantine 10 mg tablet 5 mg (1/2 x 10 mg) PO BID 07/13/24 10/12/24 Rx memory/cognitive #180 tabs metformin 500 mg tablet 500 mg PO BID diabetes #180 tabs 0 1/21/25 04/22/25 Rx brexpiprazole 0.5 mg tablet 0.5 mg PO QDAY #20 tabs 08/25/24 0 10/12/24 Rx (Rexulti) Have you fallen in the past year?: No PFSH Medical History Hypothyroidism Anxiety and depression HLD (hyperlipidemia) HTN (hypertension) CKD (chronic kidney disease) Vitamin deficiency GERD (gastroesophageal reflux disease) Cardiac murmur Neuropathy Alzheimer disease Diabetes mellitus Surgical History History of hysterectomy Hx of appendectomy Family History Father Diabetes Myocardial infarction Mother Breast cancer Social History household members: children housing: house current occupational status: retired Smoking Status: Never smoker alcohol intake: never substance use type: does not use what type of physical activity do you participate in: none seatbelt use: always do you feel safe at home: Yes HPI HPI Chief Complaint: general check up Details: QAMAR BOSWELL, is a 78 F who presents to the office today for recheck on her blood sugar and a recheck on her behavioral problems that she was having on her last visit. She was having a lot of problems screaming and yelling at night. She was also having some spontaneous incontinence of stools through the day. Since she has been on the memantine the night screaming is ceased and the stooling during the day has been better. She still is basically nonverbal but seems to be aware of what is going on around her. ROS Const Constitutional: No body ache, excessive sweating, fatigue, fever(s), frequent falls, headache(s), snoring, weakness, weight change, sleep problems or change in appetite Eyes Eyes: No blurry vision, change in vision, eye pain or Light sensitivity ENT ENT: No abnormal hearing, ear or mastoid pain, tinnitus, nasal congestion, headache(s), neck pain or sore throat Resp Respiratory: No cough, shortness of breath, snoring or wheezing Cardio Cardiology: No chest pain at rest, chest pain with exertion, excessive sweating, shortness of breath, dyspnea on exertion, lightheadedness, orthopnea or palpitations Gastro GI: No abdominal pain, change in bowel habits, constipation, cramping, diarrhea, nausea/dyspepsia or vomiting Genitourinary-Female: No burning urination, painful urination, urinary (more content not included)... Normal [facility] - Hematology and Cell countsOrdered By: Flavio Barajas on 10-12-2024 HbA1c (Bld) [Mass fraction] 6.3 % 4.2-6.3 [facility] Internal Medicine Office Vis iton 07-13-2024 Internal Medicine Office Visit [facility] [address] [place] [address] [place] [address] OFFICE VISIT Date of Service: 07/13/24 MR#: [id number] Acct: [id number] Name: QAMAR BOSWELL Rep #: [id number] : 1945 Provider: Dr. Flavio ruff, DO Age/Sex: 78/F Location: [facility] Status: Signed Intake Vital Signs 03/04/24 16:23 07/13/24 15:58 Height 4 ft 10 in 4 ft 10 in Weight: 135 lb 134 lb BMI 28.2 28.0 BP 128/82 H 124/84 H Blood Pressure Location Lt brachial Lt radial Position Sitting Sitting Respiration 14 16 Pulse 88 60 Pulse Source Monitor Palpation Temp 99.5 F H 97.6 F L Temp Source Temporal Temporal Pulse Oximetry (%) 95 Oxygen Delivery Method room air Intake Visit Reasons: 3 M FU Chief Complaint: 3m fu 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 Accompanied by: Daughter Is patient in pain?: No Allergies Iodinated Contrast Media Allergy (Intermediate, Verified 07/13/24 15:49) Hives strawberry Allergy (Intermediate, Verified 07/13/24 15:49) hives Medications ???Medication ???Instructions ???Recorded ???Confirmed ???Type metoprolol succinate 25 mg 25 mg PO DAILY heart 01/21/23 07/13/24 History tablet,extended release 24 hr albuterol sulfate 2.5 mg/3 mL 2.5 mg (3 mL) inhalation Q2H PRN 11/23/23 07/13/24 Rx (0.083 %) solution for nebulization PRN Dyspnea, wheezing 30 days #90 mL citalopram 20 mg tablet 10 mg (1/2 x 20 mg) PO DAILY 12/24/23 07/13/24 Rx anxiety #90 tabs pravastatin 20 mg tablet 20 mg PO QHS for cholesterol #90 04/13/24 07/13/24 Rx TABLETS hydrochlorothiazide 12.5 mg tablet 12.5 mg PO DAILY waterpill #90 tabs 05/18/24 07/13/24 Rx lisinopril 2.5 mg tablet 2.5 mg PO DAILY for blood pressure 05/18/24 07/13/24 Rx #90 TABLETS levothyroxine 50 mcg tablet 50 mcg PO DAILY for disorder of 06/11/24 07/13/24 Rx thyroid gland #90 TABLETS raloxifene 60 mg tablet 60 mg PO DAILY #90 TABLETS 06/11/24 07/13/24 Rx ciclopirox 0.77 % topical cream 1 applic topical Q12H #15 grams 07/13/24 07/13/24 Rx (Loprox (as olamine)) famotidine 20 mg tablet 20 mg PO DAILY PRN heartburn #90 07/13/24 07/13/24 Rx tabs memantine 10 mg tablet 5 mg (1/2 x 10 mg) PO BID 07/13/24 07/13/24 Rx memory/cognitive #180 tabs metformin 500 mg tablet 500 mg PO BID diabetes #180 tabs 07/13/24 07/13/24 Rx Have you fallen in the past year?: No PFSH Medical History Hypothyroidism Anxiety and depression HLD (hyperlipidemia) HTN (hypertension) CKD (chronic kidney disease) Vitamin deficiency GERD (gastroesophageal reflux disease) Cardiac murmur Neuropathy Alzheimer disease Diabetes mellitus Surgical History History of hysterectomy Hx of appendectomy Family History Father Diabetes Myocardial infarction Mother Breast cancer Social History household members: children housing: house current occupational status: retired Smoking Status: Never smoker alcohol intake: never substance use type: does not use what type of physical activity do you participate in: none seatbelt use: always do you feel safe at home: Yes HPI HPI Chief Complaint: 3m fu Details: QAMAR BOSWELL, is a 78 F who presents to the office today for a 3-month follow-up checkup. Her only major concern is a fungal infection of her right thumbnail. ROS Const Constitutional: No body ache, chills, excessive sweating, fatigue, fever(s), frequent falls, headache(s), snoring, weakness, weight change or change in appetite Eyes Eyes: No blurry vision, change in vision, eye pain or Light sensitivity ENT ENT: No abnormal hearing, ear or mastoid pain, tinnitus, nasal congestion, headache(s), neck pain or sore throat Resp Respiratory: No cough, shortness of breath, snoring or wheezing Cardio Cardiology: No chest pain at rest, chest pain with exertion, excessive sweating, dyspnea on exertion, lightheadedness, orthopnea or palpitations Gastro GI: No abdominal pain, change in bowel habits, constipation, cramping, diarrhea, nausea/dyspepsia or vomiting Genitourinary-Female: No burning urination, painful urination, urinary incontinence or urinary frequency Musc Musculoskeletal: No abnormal gait, joint pain, back pain, limited range of motion, muscle weakness, neck pain or numbness Skin Skin: No dry skin, redness, lesions, itchy eyes, rash or wounds Neuro Neurology: No abnormal gait, abnormal hearing, weakness, frequent falls, headache(s), memory loss or numbness Psych Psychiatric: No anxiety, No change in appetite, No depression, No memory loss and No Thoughts of harming yourself/Others Endo Endocrine: No cold intolerance, excess (more content not included)... Normal [facility] Internal Medicine Office Vis iton 03-04-2024 Internal Medicine Office Visit [facility] [address] [place], [place] [address] OFFICE VISIT Date of Service: 03/04/24 MR#: [id number] Acct: [id number] Name: QAMAR BOSWELL Rep #: [id number] : 1945 Provider: Dr. Flavio ruff, DO Age/Sex: 78/F Location: [facility] Status: Signed Intake Vital Signs 11/21/23 20:39 03/04/24 16:23 Height 4 ft 10 in 4 ft 10 in Weight: 135 lb BMI 28.2 BP 128/82 H Blood Pressure Location Lt brachial Position Sitting Respiration 14 Pulse 88 Pulse Source Monitor Temp 99.5 F H Temp Source Temporal Pulse Oximetry (%) 95 Oxygen Delivery Method room air Intake Visit Reasons: 3 M FU Chief Complaint: general check up 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 Is patient in pain?: No Allergies Iodinated Contrast Media Allergy (Intermediate, Verified 03/04/24 16:14) Hives strawberry Allergy (Intermediate, Verified 03/04/24 16:14) hives Medications ???Medication ???Instructions ???Recorded ???Confirmed ???Type memantine 10 mg tablet 5 mg PO BID memory/cognitive 01/21/23 03/04/24 History metoprolol succinate 25 mg 25 mg PO DAILY heart 01/21/23 03/04/24 History tablet,extended release 24 hr famotidine 20 mg tablet 20 mg PO DAILY PRN heartburn #90 10/29/23 03/04/24 Rx tabs albuterol sulfate 2.5 mg/3 mL 2.5 mg (3 mL) inhalation Q2H PRN 11/23/23 03/04/24 Rx (0.083 %) solution for nebulization PRN Dyspnea, wheezing 30 days #90 mL hydrochlorothiazide 12.5 mg tablet 12.5 mg PO DAILY waterpill #90 tabs 11/25/23 03/04/24 Rx lisinopril 2.5 mg tablet 2.5 mg PO DAILY bp #90 tabs 11/25/23 03/04/24 Rx metformin 850 mg tablet 850 mg PO BID diabetes #180 tabs 11/25/23 03/04/24 Rx citalopram 20 mg tablet 10 mg (1/2 x 20 mg) PO DAILY 12/24/23 03/04/24 Rx anxiety #90 tabs levothyroxine 50 mcg tablet 50 mcg PO DAILY thyroid #90 tabs 12/24/23 03/04/24 Rx raloxifene 60 mg tablet 60 mg PO DAILY hx of hyter #90 tabs 12/24/23 03/04/24 Rx pravastatin 20 mg tablet 20 mg PO QHS cholesterol #90 tabs 01/15/24 03/04/24 Rx Have you fallen in the past year?: No Nurse's Note: Wants referral to podiatry as she has a fungal infection and a large big toenail. [facility] Medical History Hypothyroidism Anxiety and depression HLD (hyperlipidemia) HTN (hypertension) CKD (chronic kidney disease) Vitamin deficiency GERD (gastroesophageal reflux disease) Cardiac murmur Neuropathy Alzheimer disease Diabetes mellitus Surgical History History of hysterectomy Hx of appendectomy Family History Father Diabetes Myocardial infarction Mother Breast cancer Social History household members: children housing: house current occupational status: retired Smoking Status: Never smoker alcohol intake: never substance use type: does not use what type of physical activity do you participate in: none seatbelt use: always do you feel safe at home: Yes HPI HPI Chief Complaint: general check up Details: QAMAR BOSWELL, is a 78 F who presents to the office today for a check up on her diabetes. She remains wheelchair confined and although she answers her questions appropriately she has a hard time even holding her head up. Her voice is soft and mumbling. Her daughter is present during the exam and says the neurologist in [place] have not even given her a firm diagnosis further neurologic problem other than that it is terminal. ROS Const Constitutional: No body ache, chills, excessive sweating, fatigue, fever(s), frequent falls, headache(s), snoring, weakness, sleep problems or change in appetite Eyes Eyes: No blurry vision, change in vision, eye pain or Light sensitivity ENT ENT: No abnormal hearing, ear or mastoid pain, tinnitus, nasal congestion, headache(s), neck pain or sore throat Resp Respiratory: No cough, shortness of breath, snoring or wheezing Cardio Cardiology: No chest pain at rest, chest pain with exertion, excessive sweating, shortness of breath, dyspnea on exertion, lightheadedness, orthopnea or palpitations Gastro GI: No abdominal pain, change in bowel habits, constipation, cramping, diarrhea, nausea/dyspepsia or vomiting Genitourinary-Female: No burning urination, painful urination, urinary incontinence, urinary frequency, abnormal vaginal bleeding or pelvic pain Musc Musculoskeletal: No abnormal gait, joint pain, back pain, limited range of motion, neck pain or numbness Skin Skin: No dry skin, redness, lesions, itchy eyes, rash or wounds Neuro Neurology: No abnormal gait, abnormal hearing, weakness, frequent falls, headache(s), memory (more content not included)... Normal [facility] METHYLMALONIC ACIDon 024 METHYLMALONIC ACID 0.41 nmol/mL High <=0.40 [facility] Comment on above: Order Comment: Fax t o [phone] Result Comment: In t his sample, the concentration of methylmalonic acid (MMA) was minimally elevated. As the upper limit of the reference range varies in different laboratories from 0.4 to 0.6 nmol/mL. This finding could be considered normal, especially if the patient does not show other signs of vitamin B12 deficiency. ADDITIONAL INFORMATION This test was developed and its performance characteristics determined by [facility] in a manner consistent with CLIA requirements. This test has not been cleared or approved by the U.S. Food and Drug Administration. Test Performed by: [place] [address] Ripsaw Matcher: Vishnu Lucero M.D. Ph.D.; CLIA# [id number] Performed By: #### Y MMA #### [facility] (DEFAULT) [address] [place] [address] VITAMIN B12on 08-29-2023 Cobalamin (Vitamin B12) [Mass/Vol] 251 pg/mL Normal 211-911 [facility] Comment on above: Order Comment: Fax t o [phone] Result Comment: Test ing of Methylmalonic Acid and Intrinsic Factor Blocking Antibody are recommended if clinical suspicion for pernicious anemia due to B12 deficiency is high for patients with intermediate B12 levels (211 to 400 pg/mL) to rule out spurious heterophile antibodies. Performed By: #### B 12B #### [facility] (DEFAULT) [address] [place] [address] URINALYSISon 06-06-2023 Appearance (U) Cloudy Abnormal Clear [facility] Comment on above: Performed By: #### Y MMA #### [facility] (DEFAULT) [address] [place] [address] Bacteria PRESENT Abnormal ABSENT [facility] Comment on above: Performed By: #### Y MMA #### [facility] (DEFAULT) [address] [place] [address] Blood Urine Small Abnormal Negative [facility] Comment on above: Performed By: #### Y MMA #### [facility] (DEFAULT) [address] [place] [address] Color (U) Yellow Normal Yellow [facility] Comment on above: Performed By: #### Y MMA #### [facility] (DEFAULT) [address] [place] [address] Glucose Ql (U) Negative Normal Negative [facility] Comment on above: Performed By: #### Y MMA #### [facility] (DEFAULT) [address] [place] [address] Ketones Ql (U) Negative Normal Negative [facility] Comment on above: Performed By: #### Y MMA #### [facility] (DEFAULT) [address] [place] [address] Leukocyte esterase Test strip Ql (U) Large Abnormal Negative [facility] Comment on above: Performed By: #### Y MMA #### [facility] (DEFAULT) [address] [place] [address] Nitrites Urine Negative Normal Negative [facility] Comment on above: Performed By: #### Y MMA #### [facility] (DEFAULT) [address] [place] [address] pH (U) 6.0 [pH] Normal 5.0-7.0 [facility] Comment on above: Performed By: #### Y MMA #### [facility] (DEFAULT) [address] [address] Protein Urine 30 mg/dL Abnormal Negative [facility] Comment on above: Performed By: #### Y MMA #### [facility] (DEFAULT) [address] [address] RBC Urine 3-5 Abnormal 0-2 [facility] Comment on above: Performed By: #### Y MMA #### [facility] (DEFAULT) [address] [address] Specific [place] Urine >= Normal 1.001 -1.03 5 [facility] Comment on above: Performed By: #### Y MMA #### [facility] (DEFAULT) [address] [address] Squamous/Epithelial Cells 0-2/hpf Normal 0-2/hpf, 3-5/hpf = 1+ [facility] Comment on above: Performed By: #### Y MMA #### [facility] (DEFAULT) [address] [address] Urobilinogen Urine 0.2 E.U./dL Normal 0.2 E.U/dL, 1.0 E.U/dL [facility] Comment on above: Performed By: #### Y MMA #### [facility] (DEFAULT) [address] [address] WBC LM.HPF (Urine sed) [#/Area] /[HPF] Abnormal 0 - 5 [facility] Comment on above: Performed By: #### Y MMA #### [facility] (DEFAULT) [address] [address] URINALYSISOrdered By: Jillian Garcia on 06-06-2023 Appearance (U) Cloudy Abnormal Clear [facility] Bacteria LM Ql (Urine sed) PRESENT Abnormal ABSENT [facility] Color (U) Yellow Yellow [facility] Epithelial cells.squamous LM Ql (Urine sed) 0-2/hpf 0-2/hpf, 3-5/hpf = 1+ [facility] Glucose Test strip (U) [Mass/Vol] Negative Negative [facility] Interpretation and review of laboratory results Abnormal [facility] Ketones (U) [Mass/Vol] Negative Negative [facility] Leukocyte esterase Test strip Ql (U) Large Abnormal Negative [facility] Nitrite Ql (U) Negative Negative [facility] pH (U) 6.0 [pH] 5.0 - 7.0 [facility] Protein (U) [Mass/Vol] 30 mg/dL Abnormal Negative [facility] RBC (U) [#/Vol] Small Abnormal Negative [facility] RBC LM.HPF (Urine sed) [#/Area] 3-5 Abnormal [facility] Specific gravity (U) [Rel density] 1.001 - 1.035 [facility] Urobilinogen (U) [Mass/Vol] 0.2 E.U./dL 0.2 E.U/dL, 1.0 E.U/dL [facility] WBC LM.HPF (Urine sed) [#/Area] /[HPF] Abnormal [facility] URINE CULTUREon 06-06-2023 Amikacin [Susceptibility] <= Invalid Interpretation Code [facility] Comment on above: Order Comment: For i ndwelling catheters, specimen collection is acceptable on catheter day 1 and 2 only. Bowman top vacutainer. Urine must be to the fill line to process (4mls). If minimum volume, send urine in a yellow top vacutainer tube.For straight cath urines, a cut off of equal or greater than 10,000 CFU/mL is considered significant. Performed By: #### Y MMA #### [facility] [address] [place] [address] Ampicillin [Susceptibility] >=32 Resistant [facility] Comment on above: Order Comment: For i ndwelling catheters, specimen collection is acceptable on catheter day 1 and 2 only. Bowman top vacutainer. Urine must be to the fill line to process (4mls). If minimum volume, send urine in a yellow top vacutainer tube.For straight cath urines, a cut off of equal or greater than 10,000 CFU/mL is considered significant. Performed By: #### Y MMA #### [facility] (DEFAULT) [address] [address] Ampicillin+Sulbactam [Susceptibility] 4 ug/mL Invalid Interpretation Code [facility] Comment on above: Order Comment: For i ndwelling catheters, specimen collection is acceptable on catheter day 1 and 2 only. Bowman top vacutainer. Urine must be to the fill line to process (4mls). If minimum volume, send urine in a yellow top vacutainer tube.For straight cath urines, a cut off of equal or greater than 10,000 CFU/mL is considered significant. Performed By: #### Y MMA #### [facility] (DEFAULT) [address] [address] Cefazolin [Susceptibility] <= Invalid Interpretation Code [facility] Comment on above: Order Comment: For i ndwelling catheters, specimen collection is acceptable on catheter day 1 and 2 only. Bowman top vacutainer. Urine must be to the fill line to process (4mls). If minimum volume, send urine in a yellow top vacutainer tube.For straight cath urines, a cut off of equal or greater than 10,000 CFU/mL is considered significant. Result Comment: Cefa zolin susceptibility results can be inferred to the following oral cephalosporins: cephalexin, cefuroxime, and cefdinir. Performed By: #### Y MMA #### [facility] (DEFAULT) [address] [address] Cefepime [Susceptibility] <= Invalid Interpretation Code [facility] Comment on above: Order Comment: For i ndwelling catheters, specimen collection is acceptable on catheter day 1 and 2 only. Bowman top vacutainer. Urine must be to the fill line to process (4mls). If minimum volume, send urine in a yellow top vacutainer tube.For straight cath urines, a cut off of equal or greater than 10,000 CFU/mL is considered significant. Performed By: #### Y MMA #### [facility] (DEFAULT) [address] [address] Ceftriaxone [Susceptibility] <= Invalid Interpretation Code [facility] Comment on above: Order Comment: For i ndwelling catheters, specimen collection is acceptable on catheter day 1 and 2 only. Bowman top vacutainer. Urine must be to the fill line to process (4mls). If minimum volume, send urine in a yellow top vacutainer tube.For straight cath urines, a cut off of equal or greater than 10,000 CFU/mL is considered significant. Performed By: #### Y MMA #### [facility] (DEFAULT) [address] [address] Ciprofloxacin [Susceptibility] >= Resistant [facility] Comment on above: Order Comment: For i ndwelling catheters, specimen collection is acceptable on catheter day 1 and 2 only. Bowman top vacutainer. Urine must be to the fill line to process (4mls). If minimum volume, send urine in a yellow top vacutainer tube.For straight cath urines, a cut off of equal or greater than 10,000 CFU/mL is considered significant. Performed By: #### Y MMA #### [facility] (DEFAULT) [address] [address] Gentamicin [Susceptibility] <= Invalid Interpretation Code [facility] Comment on above: Order Comment: For i ndwelling catheters, specimen collection is acceptable on catheter day 1 and 2 only. Bowman top vacutainer. Urine must be to the fill line to process (4mls). If minimum volume, send urine in a yellow top vacutainer tube.For straight cath urines, a cut off of equal or greater than 10,000 CFU/mL is considered significant. Performed By: #### Y MMA #### [facility] (DEFAULT) [address] [address] Nitrofurantoin [Susceptibility] <= Invalid Interpretation Code [facility] Comment on above: Order Comment: For i ndwelling catheters, specimen collection is acceptable on catheter day 1 and 2 only. Bowman top vacutainer. Urine must be to the fill line to process (4mls). If minimum volume, send urine in a yellow top vacutainer tube.For straight cath urines, a cut off of equal or greater than 10,000 CFU/mL is considered significant. Performed By: #### Y MMA #### [facility] (DEFAULT) [address] [address] Tobramycin [Susceptibility] <= Invalid Interpretation Code [facility] Comment on above: Order Comment: For i ndwelling catheters, specimen collection is acceptable on catheter day 1 and 2 only. Bowman top vacutainer. Urine must be to the fill line to process (4mls). If minimum volume, send urine in a yellow top vacutainer tube.For straight cath urines, a cut off of equal or greater than 10,000 CFU/mL is considered significant. Performed By: #### Y MMA #### [facility] (DEFAULT) [address] [address] Trimethoprim+Sulfameth oxazole [Susceptibility] <= Invalid Interpretation Code [facility] Comment on above: Order Comment: For i ndwelling catheters, specimen collection is acceptable on catheter day 1 and 2 only. Bowman top vacutainer. Urine must be to the fill line to process (4mls). If minimum volume, send urine in a yellow top vacutainer tube.For straight cath urines, a cut off of equal or greater than 10,000 CFU/mL is considered significant. Performed By: #### Y MMA #### [facility] (DEFAULT) [address] [address] CBC AND ELECTRONIC DIFFon Basophils (Bld) [#/Vol] 0.07 10*3/uL Normal 0.00-0.15 [facility] Comment on above: Performed By: #### L [id number] #### [facility] (DEFAULT) [address] [address] Basophils/100 WBC (Bld) 0.7 % Normal [facility] Comment on above: Performed By: #### L [id number] #### [facility] (DEFAULT) [address] [address] DIFF STATUS Electronic Differential Normal [facility] Comment on above: Performed By: #### L [id number] #### [facility] (DEFAULT) [address] [place] [address] Eosinophils (Bld) [#/Vol] 0.35 10*3/uL Normal 0.00-0.42 [facility] Comment on above: Performed By: #### L [id number] #### [facility] (DEFAULT) [address] [place] [address] Eosinophils/100 WBC (Bld) 3.7 % Normal [facility] Comment on above: Performed By: #### L [id number] #### [facility] (DEFAULT) [address] [address] Hematocrit (Bld) [Volume fraction] 39.8 % Normal 34.9-44.3 [facility] Comment on above: Performed By: #### L [id number] #### [facility] (DEFAULT) [address] [place] [address] Hemoglobin (Bld) [Mass/Vol] 12.6 g/dL Normal 11.4-15.2 [facility] Comment on above: Performed By: #### L [id number] #### [facility] (DEFAULT) [address] [address] Immature Grans % 0.3 % Normal [facility] [place] Comment on above: Performed By: #### L [id number] #### [facility] (DEFAULT) [address] [place] [address] Immature Grans Absolute < Normal <=0.08 [facility] Comment on above: Performed By: #### L [id number] #### [facility] (DEFAULT) [address] [address] Lymphocytes (Bld) [#/Vol] 2.48 10*3/uL Normal 1.16-3.51 [facility] Comment on above: Performed By: #### L [id number] #### [facility] (DEFAULT) [address] [place] [address] Lymphocytes/100 WBC (Bld) 26.3 % Normal [facility] Comment on above: Performed By: #### L [id number] #### [facility] (DEFAULT) [address] [address] MCV (RBC) [Entitic vol] 91.5 fL Normal 79.6-97.7 [facility] Comment on above: Performed By: #### L [id number] #### [facility] (DEFAULT) [address] [address] Mean Cell Hgb 29.0 pg Normal 25.9-33.9 [facility] Comment on above: Performed By: #### L [id number] #### [facility] (DEFAULT) [address] [address] Mean Cell Hgb Conc 31.7 g/dL Normal 31.4-35.9 [facility] Comment on above: Performed By: #### L [id number] #### [facility] (DEFAULT) [address] [address] Monocytes (Bld) [#/Vol] 0.98 10*3/uL High 0.22-0.87 [facility] Comment on above: Performed By: #### L [id number] #### [facility] (DEFAULT) [address] [address] Monocytes/100 WBC (Bld) 10.4 % Normal [facility] Comment on above: Performed By: #### L [id number] #### [facility] (DEFAULT) [address] [address] Nucleated RBC 0.0 /100 WBC Normal <=0.2 [facility] Comment on above: Performed By: #### L [id number] #### [facility] (DEFAULT) [address] [address] Platelet mean volume (Bld) [Entitic vol] 10.6 fL Normal 8.5-12.2 [facility] Comment on above: Performed By: #### L [id number] #### [facility] (DEFAULT) [address] [place] [address] Platelets (Bld) [#/Vol] 319 10*3/uL Normal 150-393 [facility] Comment on above: Performed By: #### L [id number] #### [facility] (DEFAULT) [address] [address] RBC (Bld) [#/Vol] 4.35 10*6/uL Normal 3.91-5.04 [facility] Comment on above: Performed By: #### L [id number] #### [facility] (DEFAULT) [address] [place] [address] RBC Distribution 13.1 % Normal 10.8-14.9 [facility] [place] Comment on above: Performed By: #### L [id number] #### [facility] (DEFAULT) [address] [address] Segs + Bands Auto 58.6 % Normal [facility] Comment on above: Performed By: #### L [id number] #### [facility] (DEFAULT) [address] [address] Segs + Bands,Absolute Auto 5.51 K/uL Normal 1.64-7.28 [facility] Comment on above: Performed By: #### L [id number] #### [facility] (DEFAULT) [address] [address] WBC (Bld) [#/Vol] 9.42 10*3/uL Normal 3.99-11.19 [facility] Comment on above: Performed By: #### L [id number] #### [facility] (DEFAULT) [address] [address] COMPREHENSIVE METABOLIC PANE Buck 05-30-2023 Albumin [Mass/Vol] 3.8 g/dL Normal 3.5-5.0 [facility] Comment on above: Performed By: #### C MPN #### [facility] (DEFAULT) [address] [address] ALP [Catalytic activity/Vol] 56 U/L Normal 32-126 [facility] Comment on above: Performed By: #### C MPN #### [facility] (DEFAULT) [address] [place] [address] ALT [Catalytic activity/Vol] 6 U/L Low 9-48 [facility] Comment on above: Performed By: #### C MPN #### [facility] (DEFAULT) [address] [place] [address] Anion gap [Moles/Vol] 15 mmol/L Normal 7-17 [facility] Comment on above: Performed By: #### C MPN #### [facility] (DEFAULT) [address] [place] [address] AST [Catalytic activity/Vol] 14 U/L Normal 10-39 [facility] Comment on above: Performed By: #### C MPN #### [facility] (DEFAULT) [address] [place] [address] Bilirubin [Mass/Vol] 0.3 mg/dL Normal <1.5 [facility] Comment on above: Performed By: #### C MPN #### [facility] (DEFAULT) [address] [place] [address] Calcium [Mass/Vol] 8.9 mg/dL Normal 8.6-10.5 [facility] Comment on above: Performed By: #### C MPN #### [facility] (DEFAULT) [address] [place] [address] Chloride [Moles/Vol] 104 mmol/L Normal 98-108 [facility] Comment on above: Performed By: #### C MPN #### [facility] (DEFAULT) [address] [place] [address] CO2 [Moles/Vol] 26 mmol/L Normal 21-31 [facility] Comment on above: Performed By: #### C MPN #### [facility] (DEFAULT) [address] [place] [address] Creatinine [Mass/Vol] 1.02 mg/dL Normal 0.50-1.20 [facility] Comment on above: Performed By: #### C MPN #### [facility] (DEFAULT) [address] [place] [address] GFR/1.73 sq M.predicted among non-blacks MDRD (S/P/Bld) [Vol rate/Area] 56 mL/min/{1.73_m2} Low >=60 [facility] Comment on above: Result Comment: Repo rted eGFR is based on the CKD-EPI 2020 equation using creatinine, age, and sex. Performed By: #### C MPN #### [facility] (DEFAULT) [address] [place] [address] Glucose [Mass/Vol] 128 mg/dL High 70-99 [facility] Comment on above: Performed By: #### C MPN #### [facility] (DEFAULT) [address] [place] [address] Osmolality [Osmolality] 300 mosm/kg Normal 278-305 [facility] Comment on above: Performed By: #### C MPN #### [facility] (DEFAULT) [address] [place] [address] Potassium [Moles/Vol] 4.4 mmol/L Normal 3.5-5.0 [facility] Comment on above: Performed By: #### C MPN #### [facility] (DEFAULT) [address] [place] [address] Protein [Mass/Vol] 6.7 g/dL Normal 6.4-8.3 [facility] Comment on above: Performed By: #### C MPN #### [facility] (DEFAULT) [address] [address] Sodium [Moles/Vol] 141 mmol/L Normal 135-145 [facility] Comment on above: Performed By: #### C MPN #### [facility] (DEFAULT) [address] [place] [address] Urea nitrogen [Mass/Vol] 22 mg/dL Normal 7-25 [facility] Comment on above: Performed By: #### C MPN #### [facility] (DEFAULT) [address] [address] Urea nitrogen/Creatinine [Mass ratio] 22 mg/mg Normal [facility] Comment on above: Performed By: #### C MPN #### [facility] (DEFAULT) [address] [address] FOLATE, SERUMon 05-30-2023 Folate 13.07 ng/mL Normal >5.38 [facility] Comment on above: Performed By: #### F OLSB, TSH, B12B #### [facility] (DEFAULT) [address] [address] METHYLMALONIC ACIDon 023 METHYLMALONIC ACID 0.53 nmol/mL High <=0.40 [facility] Comment on above: Result Comment: In t his sample, the concentration of methylmalonic acid (MMA) was minimally elevated. As the upper limit of the reference range varies in different laboratories from 0.4 to 0.6 nmol/mL. This finding could be considered normal, especially if the patient does not show other signs of vitamin B12 deficiency. ADDITIONAL INFORMATION This test was developed and its performance characteristics determined by [facility] in a manner consistent with CLIA requirements. This test has not been cleared or approved by the U.S. Food and Drug Administration. Test Performed by: [facility] - [address] [address] Ripsaw Matcher: Vishnu Lucero M.D. Ph.D.; CLIA# [id number] Performed By: #### Y MMA #### [facility] (DEFAULT) [address] [address] TSHon 05-30-2023 TSH 2.911 uIU/mL Normal 0.550-4.78 0 [facility] Comment on above: Performed By: #### F OLSB, TSH, B12B #### [facility] (DEFAULT) [address] [place] [address] URINALYSIS REFLEX TO CULTURE PERFORMABLEon 05-30-2023 Appearance (U) Turbid Abnormal Clear [facility] Comment on above: Performed By: #### U [id number] #### [facility] (DEFAULT) [address] [place] [address] Bacteria PRESENT Abnormal ABSENT [facility] Comment on above: Performed By: #### U [id number] #### [facility] (DEFAULT) [address] [place] [address] Blood Urine Trace Abnormal Negative [facility] Comment on above: Performed By: #### U [id number] #### [facility] (DEFAULT) [address] [place] [address] Color (U) Yellow Normal Yellow [facility] Comment on above: Performed By: #### U [id number] #### [facility] (DEFAULT) [address] [place] [address] Glucose Ql (U) Negative Normal Negative [facility] Comment on above: Performed By: #### U [id number] #### [facility] (DEFAULT) [address] [place] [address] Ketones Ql (U) Trace Abnormal Negative [facility] Comment on above: Performed By: #### U [id number] #### [facility] (DEFAULT) [address] [place] [address] Leukocyte esterase Test strip Ql (U) Large Abnormal Negative [facility] Comment on above: Performed By: #### U [id number] #### [facility] (DEFAULT) [address] [place] [address] Nitrites Urine Negative Normal Negative [facility] Comment on above: Performed By: #### U [id number] #### [facility] (DEFAULT) [address] [place] [address] pH (U) 5.5 [pH] Normal 5.0-7.0 [facility] Comment on above: Performed By: #### U [id number] #### [facility] (DEFAULT) [address] [address] Protein Urine Trace Abnormal Negative [facility] Comment on above: Performed By: #### U [id number] #### [facility] (DEFAULT) [address] [address] RBC Urine 0-2 Normal 0-2 [facility] Comment on above: Performed By: #### U [id number] #### [facility] (DEFAULT) [address] [address] Specific [place] Urine 1.019 Normal 1.001 -1.[address] [place] [address] Comment on above: Performed By: #### U [id number] #### [facility] (DEFAULT) [address] [address] Squamous/Epithelial Cells 0-2/hpf Normal 0-2/hpf, 3-5/hpf = 1+ [facility] Comment on above: Performed By: #### U [id number] #### [facility] (DEFAULT) [address] [address] Urobilinogen Urine 0.2 E.U./dL Normal 0.2 E.U/dL, 1.0 E.U/dL [facility] Comment on above: Performed By: #### U [id number] #### [facility] (DEFAULT) [address] [address] WBC LM.HPF (Urine sed) [#/Area] /[HPF] Abnormal 0 - 5 [facility] Comment on above: Performed By: #### U [id number] #### [facility] (DEFAULT) [address] [address] URINE CULTUREon 05-30-2023 Bacteria identified Cx Nom (U) Normal [facility] Comment on above: Result Comment: Grow th [id number] MICROBESMIXED MICROBES 50,000-100,000 CFU/mL Mixed microbes Multiple bacterial morphotypes present. Suggest appropriate recollection if clinically indicated. Performed By: #### U R #### [facility] (DEFAULT) [address] [place] [address] VITAMIN B12on 05-30-2023 Cobalamin (Vitamin B12) [Mass/Vol] 268 pg/mL Normal 211-911 [facility] Comment on above: Result Comment: Test ing of Methylmalonic Acid and Intrinsic Factor Blocking Antibody are recommended if clinical suspicion for pernicious anemia due to B12 deficiency is high for patients with intermediate B12 levels (211 to 400 pg/mL) to rule out spurious heterophile antibodies. Performed By: #### F OLSB, TSH, B12B #### [facility] (DEFAULT) [address] [place] [address] GENERAL PROCEDUREon 04-07-20 23 Sabrina Guy DO - 04/07/2023 10:15 AM EDT Today's [place] score is 18/30. Eleven months ago it was 21/30. There are episodic memory changes that are amnestic. Semantic memory is intact. There is executive dysfunction. Visual-spatial function is intact. Language is intact although she did not do well generating a word list. [facility] Radiology Study observation (narrative) [facility] Absolute lymphocyte countOrd ered By: Venita Osei on 01-21-2023 Lymphocytes Auto (Unsp spec) [#/Vol] 2.27 10*3/uL 0.83-4.51 [facility] Basophil percentageOrdered B y: Venita Osei on 01-21-2023 Basophil percentage 0 SEEN /hpf 0-[address] [facility] Basophils/100 WBC (Bld) 0.7 % 0-1 [facility] Chloride [Moles/Vol] 107 mmol/L 98-[address] [facility] Eosinophils/100 WBC (Bld) 5.0 % 0-5 [facility] Glucose [Mass/Vol] 111 mg/dL 74-106 [facility] Comment on above: Fasting Glucose resu lt from 100 to 125 mg/dL suggests IMPAIRED HOMEOSTASIS per A.D.A. criteria. Neutrophils (Bld) [#/Vol] 6.3 10*3/uL 2.0-7.7 [facility] Neutrophils/100 WBC (Bld) 62.3 % 47-70 [facility] Potassium [Moles/Vol] 4.6 mmol/L 3.5-5.1 [facility] Sodium [Moles/Vol] 139 mmol/L 136-145 [facility] WBC (Bld) [#/Vol] 10.1 10*3/uL 4.4-11.0 [facility] Bilirubin Test strip Ql (U)O rdered By: Venita Osei on 01-21-2023 Bilirubin Ql (U) Negative Negative [facility] Blood erythrocytes count (nu mber/volume)Ordered By: Venita Osei on 01-21-2023 RBC (Bld) [#/Vol] 4.07 10*6/uL 4.2-5.4 [facility] Blood hemoglobin measurement (mass/volume)Ordered By: Venita Osei on 01-21-2023 Hemoglobin (Bld) [Mass/Vol] 11.9 g/dL 12.0-15.0 [facility] Blood lymphocytes/100 leukoc ytesOrdered By: Venita Osei on 01-21-2023 Lymphocytes/100 WBC (Bld) 22.5 % 19-41 [facility] Blood monocytes/100 leukocyt esOrdered By: Venita Osei on 01-21-2023 Monocytes/100 WBC (Bld) 9.2 % 0-10 [facility] Blood platelet mean volumeOr dered By: Venita Osei on 01-21-2023 Platelet mean volume (Bld) [Entitic vol] 9.8 fL 6.2-12.0 [facility] Determination of erythrocyte mean corpuscular volume (MCV)Ordered By: Venita Osei on 01-21-2023 MCV (RBC) [Entitic vol] 91.2 fL 81-99 [facility] Hematocrit Auto (Bld) [Volum e fraction]Ordered By: Venita Osei on 01-21-2023 Hematocrit (Bld) [Volume fraction] 37.1 % 37-47 [facility] Ketones Test strip Ql (U)Ord ered By: Venita Osei on 01-21-2023 Ketones Ql (U) Negative Negative [facility] - Chemistry and C hemistry - challengeOrdered By: Venita Osei on 01-21-2023 CO2 [Moles/Vol] 26.0 mmol/L 21.0-32.0 [facility] Urea nitrogen/Creatinine [Mass ratio] 18.6 mg/mg 10-20 [facility] - Hematology and Cell countsOrdered By: Venita Osei on 01-21-2023 Erythrocyte distribution width (RBC) [Entitic vol] 42.5 fL 35.1-43.9 [facility] Erythrocyte distribution width (RBC) [Ratio] 12.8 % 11.6-14.6 [facility] Immature granulocytes/100 WBC (Bld) 0.300 % 0.0-0.9 [facility] Comment on above: IG% - Immature Granu locytes (promyelocytes, myelocytes and metamyelocytes) > 1% indicates that a LEFT SHIFT is Present. MCH (RBC) [Entitic mass] 29.2 pg 27.0-32.0 [facility] Nucleated RBC/100 WBC (Bld) [Ratio] 0 % 0-5 [facility] MCHC Auto (RBC) [Mass/Vol]Or dered By: Venita Osei on 01-21-2023 MCHC (RBC) [Mass/Vol] 32.1 g/dL 32-36 [facility] Mucus LM Ql (Urine sed)Order ed By: Venita Osei on 01-21-2023 Mucus Ql (Urine sed) 0 SEEN /hpf [facility] Nitrite Test strip Ql (U)Ord ered By: Venita Osei on 01-21-2023 Nitrite Ql (U) Negative Negative [facility] No Panel InformationOrdered By: Venita Osei on 01-21-2023 Estimated Creatinine Clearance Calc 116.49 ml/min [facility] Estimated GFR (MDRD) Amer 67 mL/min >60 [facility] Comment on above: GFR Calc Estimated GFR (MDRD) Non-Af Amer 56 mL/min >60 [facility] Comment on above: Non- GFR Calc Platelets bldOrdered By: Jayleen Osei on 01-21-2023 Platelets (Bld) [#/Vol] 290 10*3/uL 150-450 [facility] Protein Test strip Ql (U)Ord ered By: Venita Osei on 01-21-2023 Protein Ql (U) Negative Negative [facility] Serum or plasma calcium luis urement (mass/volume)Ordered By: Venita Osei on 01-21-2023 Calcium [Mass/Vol] 8.5 mg/dL 8.5-10.1 [facility] Serum or plasma creatinine m easurement (mass/volume)Ordered By: Venita Osei on 01-21-2023 Creatinine [Mass/Vol] 1.02 mg/dL 0.55-1.02 [facility] Comment on above: The validity of the calculated GFR & GFRAA in patients over 70 years has not been determined. Clinical correlation is essential. Serum or plasma urea nitroge n measurement (mass/volume)Ordered By: Venita Osei on 01-21-2023 Urea nitrogen [Mass/Vol] 19 mg/dL 7-18 [facility] Squamous epithelial cells de tection in urine sediment by light microscopyOrdered By: Venita Osei on 01-21-2023 Epithelial cells.squamous LM Ql (Urine sed) 0 SEEN /hpf 5-10 [facility] Thin prep Papanicolaou smear with manual screeningOrdered By: Venita Osei on 01-21-2023 Thin prep Papanicolaou smear with manual screening 6 5-15 [facility] Urine blood detectionOrdered By: Venita Osei on 01-21-2023 RBC Ql (U) 10 /ul Negative [facility] RBC Ql (U) 0-5 SEEN /hpf 0-5 [facility] Urine clarityOrdered By: Jayleen Osei on 01-21-2023 Clarity (U) Clear Clear [facility] Urine color determinationOrd ered By: Venita Osei on 01-21-2023 Color (U) Yellow Yellow [facility] Urine glucose detectionOrder ed By: Venita Osei on 01-21-2023 Glucose Ql (U) Normal mg/dl Normal [facility] Urine leukocyte esterase det ection by dipstickOrdered By: Venita Osei on 01-21-2023 Leukocyte esterase Test strip Ql (U) Negative Negative [facility] Urine pHOrdered By: Venita Osei on 01-21-2023 pH (U) 7.0 [pH] 5.0 - 8.0 [facility] Urine sediment bacteria coun t by microscopy (number/high power field)Ordered By: Venita Osei on 01-21-2023 Bacteria LM.HPF (Urine sed) [#/Area] 0 /[HPF] None Seen [facility] Urine specific gravity measu rementOrdered By: Venita Osei on 01-21-2023 Specific gravity (U) [Rel density] 1.010 1.002-1.03 0 [facility] Urobilinogen Auto test strip Ql (U)Ordered By: Venita Osei on 01-21-2023 Urobilinogen Ql (U) Normal mg/dl Normal [facility] - Chemistry and C hemistry - challengeon 10-24-2022 Albumin [Mass/Vol] 4.1 g/dL Normal 3.7 - 4.7 g/dL [facility] ALP [Catalytic activity/Vol] 67 U/L Normal 44 - 121 [iU]/L [facility] ALT [Catalytic activity/Vol] 9 U/L Normal 0 - 32 [iU]/L [facility] AST [Catalytic activity/Vol] 17 U/L Normal 0 - 40 [iU]/L [facility] Bilirubin [Mass/Vol] 0.2 mg/dL Normal 0.0 - 1 .2 mg/dL [facility] Bilirubin.direct [Mass/Vol] 0.10 mg/dL Normal 0.00 - 0.40 mg/dL [facility] Calcium [Mass/Vol] 9.4 mg/dL Normal 8.7 - 10. 3 mg/dL [facility] Chloride [Moles/Vol] 103 mmol/L Normal 96 - 10 6 mmol/L [facility] Cholesterol [Mass/Vol] 126 mg/dL Normal 100 - 199 mg/dL [facility] Cholesterol in HDL [Mass/Vol] 57 mg/dL Normal [facility] Cholesterol in LDL [Mass/Vol] 51 mg/dL Normal 0 - 99 mg/dL [facility] Cholesterol in LDL [Mass/Vol] 52 mg/dL Normal 0 - 99 mg/dL [facility] Cholesterol in VLDL [Mass/Vol] 18 mg/dL Normal 5 - 40 mg/dL [facility] CO2 [Moles/Vol] 20 mmol/L Normal 20 - 29 mmol/L [facility] Creatinine [Mass/Vol] 1.09 mg/dL Abnormal 0.57 - 1.00 mg/dL [facility] Glucose [Mass/Vol] 108 mg/dL Abnormal 70 - 99 mg/dL [facility] Glucose [Mass/Vol] 130 mg/dL Abnormal 75 - 105 mg/dL [facility] Potassium [Moles/Vol] 5.1 mmol/L Normal 3.5 - 5.2 mmol/L [facility] Protein [Mass/Vol] 6.8 g/dL Normal 6.0 - 8.5 g/dL [facility] Sodium [Moles/Vol] 139 mmol/L Normal 134 - 144 mmol/L [facility] Triglyceride [Mass/Vol] 96 mg/dL Normal 0 - 149 mg/dL [facility] TSH Qn 5.750 {uIU/mL} Abnormal 0.450 - 4.500 {uIU/mL} [facility] Urea nitrogen [Mass/Vol] 23 mg/dL Normal 8 - 27 mg/dL [facility] Urea nitrogen/Creatinine [Mass ratio] 21 mg/mg Normal 12 - 28 [facility] Laboratory - Hematology and Cell countson 10-24-2022 Basophils (Bld) [#/Vol] 0.1 10*3/uL Normal 0.0 - 0.2 {x10E3/uL} [facility] Basophils/100 WBC (Bld) 1 % Normal [facility] Eosinophils (Bld) [#/Vol] 0.3 10*3/uL Normal 0.0 - 0.4 {x10E3/uL} [facility] Eosinophils/100 WBC (Bld) 3 % Normal [facility] Erythrocyte distribution width (RBC) [Ratio] 12.0 % Normal 11.7 - 15.4 % [facility]; [facility] Hematocrit (Bld) [Volume fraction] 38.6 % Normal 34.0 - 46.6 % [facility] Hemoglobin (Bld) [Mass/Vol] 12.6 g/dL Normal 11.1 - 15.9 g/dL [facility]; [facility] Immature granulocytes (Bld) [#/Vol] 0.0 10*3/uL Normal 0.0 - 0.1 {x10E3/uL} [facility] Immature granulocytes/100 WBC (Bld) 0 % Normal [facility] Lymphocytes (Bld) [#/Vol] 2.1 10*3/uL Normal 0.7 - 3.1 {x10E3/uL} [facility] Lymphocytes/100 WBC (Bld) 23 % Normal [facility] MCH (RBC) [Entitic mass] 30.4 pg Normal 26.6 - 33.0 pg [facility]; [facility] MCHC (RBC) [Mass/Vol] 32.6 g/dL Normal 31.5 - 35.7 g/dL [facility]; [facility] MCV (RBC) [Entitic vol] 93 fL Normal 79 - 97 fL [facility] Monocytes (Bld) [#/Vol] 0.8 10*3/uL Normal 0.1 - 0.9 {x10E3/uL} [facility]; [facility] Monocytes/100 WBC (Bld) 9 % Normal [facility]; [facility] Neutrophils (Bld) [#/Vol] 5.7 10*3/uL Normal 1.4 - 7.0 {x10E3/uL} [facility]; [facility] Neutrophils/100 WBC (Bld) 64 % Normal [facility]; [facility] Platelets (Bld) [#/Vol] 367 10*3/uL Normal 150 - 450 {x10E3/uL} [facility]; [facility] RBC (Bld) [#/Vol] 4.14 10*6/uL Normal 3.77 - 5.28 {x10E6/uL} [facility]; [facility] WBC (Bld) [#/Vol] 8.9 10*3/uL Normal 3.4 - 10.8 {x10E3/uL} [facility]; [facility] No Panel Informationon 10-24 52 mL/min/1.73 Abnormal [facility] RF videography Hypopharynx a nd Esophagus Views W liquid and paste contrast PO during swallowingon 05-20-2022 IMPRESSION: 1. Silent aspiration of thin consistency. Shallow laryngeal vestibular penetration of nectar consistency without aspiration. No penetration or aspiration of pudding or cracker consistencies 2. Oral and pharyngeal phase swallowing impairments as described above. 3. Nonobstructing cricopharyngeal hypertrophy. For additional analysis of the fluoroscopic examination for specific therapeutic recommendations, please see the sub arc operator report of the speech pathologist. Examination performed by MARIO Cruz, under the direct supervision of Jena Daniel M.D., who was immediately available on site during the examination. I personally viewed and interpreted these images and I have reviewed and approved this report. OLOGY EXAM: XR FLUORO ADAMARIS FIED BARIUM SWALLOW WITH SPEECH, 05/20/2022 13:38 PM COMPARISON: No prior studies available for comparison. CLINICAL INDICATIONS: Dysphagia, newly diagnosed alheimer's disease. R13.10:Dysphagia, unspecified type. TECHNIQUE: Multiple barium consistencies (thin, nectar, pudding, and cracker) were administered to evaluate swallow. Lateral videofluoroscopy was performed in conjunction with Speech Pathology. The examination was performed by MARIO Cruz. Fluoroscopy Time: 1.0 minutes. FINDINGS: Oral Phase: There is loss of oral bolus control that prematurely spilled into the pharynx. Multiple dental restorations are present. Pharyngeal Phase: Laryngeal penetration progresses to silent aspiration with thin consistency. There is shallow laryngeal vestibular penetration of nectar with no penetration or aspiration with of pudding or cracker consistencies. There is slight delay initiation and mild discoordination of the pharyngeal swallowing mechanism. There are no significant residuals within the pharynx after the swallow with any of the tested consistencies. Cervical Phase: Functional. There are degenerative changes of the lower cervical spine. A nonobstructing, smooth, round, posterior cervical esophageal wall impression is noted at C4-C5 vertebral body levels. This most likely represents cricopharyngeal hypertrophy. RADIOLOGY Jena Daniel MD - 05/20/2022 EXAM: XR FLUORO MODIFIED BARIUM SWALLOW WITH SPEECH, 05/20/2022 13:38 PM COMPARISON: No prior studies available for comparison. CLINICAL INDICATIONS: Dysphagia, newly diagnosed alheimer's disease. R13.10:Dysphagia, unspecified type. TECHNIQUE: Multiple barium consistencies (thin, nectar, pudding, and cracker) were administered to evaluate swallow. Lateral videofluoroscopy was performed in conjunction with Speech Pathology. The examination was performed by MARIO Cruz. Fluoroscopy Time: 1.0 minutes. FINDINGS: Oral Phase: There is loss of oral bolus control that prematurely spilled into the pharynx. Multiple dental restorations are present. Pharyngeal Phase: Laryngeal penetration progresses to silent aspiration with thin consistency. There is shallow laryngeal vestibular penetration of nectar with no penetration or aspiration with of pudding or cracker consistencies. There is slight delay initiation and mild discoordination of the pharyngeal swallowing mechanism. There are no significant residuals within the pharynx after the swallow with any of the tested consistencies. Cervical Phase: Functional. There are degenerative changes of the lower cervical spine. A nonobstructing, smooth, round, posterior cervical esophageal wall impression is noted at C4-C5 vertebral body levels. This most likely represents cricopharyngeal hypertrophy. IMPRESSION IMPRESSION: 1. Silent aspiration of thin consistency. Shallow laryngeal vestibular penetration of nectar consistency without aspiration. No penetration or aspiration of pudding or cracker consistencies 2. Oral and pharyngeal phase swallowing impairments as described above. 3. Nonobstructing cricopharyngeal hypertrophy. For additional analysis of the fluoroscopic examination for specific therapeutic recommendations, please see the sub arc operator report of the speech pathologist. Examination performed by MARIO Cruz, under the direct supervision of Jena Daniel M.D., who was immediately available on site during the examination. I personally viewed and interpreted these images and I have reviewed and approved this report. [facility] Radiology Study observation (narrative) [facility] RF videography Hypopharynx a nd Esophagus Views W liquid and paste contrast PO during swallowingOrdered By: Jena Daneil on 05-20-2022 [facility] No Panel Informationon 04-09 [facility] Work Phone: [facility] Work Phone: No Panel Informationon 04-06 [facility] Work Phone: Laboratory - Hematology and Cell countson 04-05-2022 HbA1c (Bld) [Mass fraction] 5.9 % Abnormal 4 - 5.6 % [facility] No Panel Informationon 04-05 [facility] Work Phone: [facility] Work Phone: No Panel Informationon 03-26 [facility] Work Phone: METHYLMALONIC ACIDon 022 Methylmalonate [Moles/Vol] 0.29 nmol/mL <=0.40 [facility] Comment on above: ADDITIONAL INFORMATION This test was developed and its performance characteristics determined by [facility] in a manner consistent with CLIA requirements. This test has not been cleared or approved by the U.[place]. Food and Drug Administration. Test Performed by: [facility] - [address] [address] Ripsaw Matcher: Vishnu Lucero M.D. Ph.D.; CLIA# [id number] [facility] No Panel Informationon 12-18 [facility]; [facility] Work Phone: [facility]; [facility] Work Phone: No Panel Informationon 10-25 [facility] Work Phone: [facility] Work Phone: No Panel Informationon 10-23 [facility] Work Phone: No Panel Informationon 10-19 [facility]; [facility] Work Phone: No Panel Informationon 10-12 [facility] Work Phone: No Panel Informationon 10-04 [facility] Work Phone: No Panel Informationon 09-15 [facility] Work Phone: [facility]; [facility] Work Phone: No Panel Informationon 09-13 [facility] Work Phone: Laboratory - Chemistry and C hemistry - challengeon 09-12-2021 Glucose [Mass/Vol] 150 mg/dL Abnormal 75 - 105 mg/dL [facility] Work Phone: Laboratory - Hematology and Cell countson 09-12-2021 HbA1c (Bld) [Mass fraction] 6.0 % Abnormal 4 - 5.6 % [facility]; [facility] Work Phone: No Panel Informationon 09-12 [facility] Work Phone: [facility] Work Phone: Laboratory - Chemistry and C hemistry - challengeon 03-08-2021 Albumin [Mass/Vol] 4.1 g/dL Normal 3.7 - 4.7 g/dL [facility] Work Phone: Comment on above: Performed by: 01 PERFORMED BY: 01 [email or web address] [id number] ALP [Catalytic activity/Vol] 61 U/L Normal 44 - 121 [iU]/L [facility] Work Phone: Comment on above: Performed by: 01 P lease note reference interval change PERFORMED BY: 01 [email or web address] [id number] ALT [Catalytic activity/Vol] 8 U/L Normal 0 - 32 [iU]/L [facility] Work Phone: Comment on above: Performed by: 01 PERFORMED BY: 01 [employer] [id number] AST [Catalytic activity/Vol] 17 U/L Normal 0 - 40 [iU]/L [facility] Work Phone: Comment on above: Performed by: 01 PERFORMED BY: 01 Lab Rachid Sfkjsc2420 [address] RoadDublin [place] [id number] Bilirubin [Mass/Vol] mg/dL Normal 0.0 - 1 .2 mg/dL [facility] Work Phone: Comment on above: Performed by: 01 PERFORMED BY: Lab Rachid Qfdwsr7641 [address] RoadDublin [place] [id number] Bilirubin.direct [Mass/Vol] mg/dL Normal 0.00 - 0.40 mg/dL [facility] Work Phone: Comment on above: Performed by: 01 PERFORMED BY: Lab [employer] Ghdlio4917 [address] RoadDublin [place] [id number] Calcium [Mass/Vol] 9.5 mg/dL Normal 8.7 - 10. 3 mg/dL [facility] Work Phone: Comment on above: Performed by: 01 PERFORMED BY: Lab [employer] Zskmzu6922 [address] RoadDublin [place] [id number] Chloride [Moles/Vol] 101 mmol/L Normal 96 - 10 6 mmol/L [facility] Work Phone: Comment on above: Performed by: 01 PERFORMED BY: Lab [employer] Bvcdwm8563 [address] RoadDublin [place] [id number] Cholesterol [Mass/Vol] 130 mg/dL Normal 100 - 199 mg/dL [facility] Work Phone: Comment on above: Performed by: 01 PERFORMED BY: Lab [employer] Nikibb9965 [address] RoadDublin [place] [id number] Cholesterol in HDL [Mass/Vol] 64 mg/dL Normal [facility] Work Phone: Comment on above: Performed by: 01 PERFORMED BY: Lab [employer] Tiszhi8910 [address] RoadDublin [place] [id number] Cholesterol in LDL [Mass/Vol] 51 mg/dL Normal 0 - 99 mg/dL [facility] Work Phone: Comment on above: Performed by: 01 PERFORMED BY: 01 Lab [employer] Gophby[address] TravelSharkbl[place] [id number] Cholesterol in LDL [Mass/Vol] 53 mg/dL Normal 0 - 99 mg/dL [facility] Work Phone: Comment on above: Performed by: 01 PERFORMED BY: 01 Lab Rachid Dnyeys[address] TravelSharkblin [place] [id number] Cholesterol in VLDL [Mass/Vol] 15 mg/dL Normal 5 - 40 mg/dL [facility] Work Phone: Comment on above: Performed by: 01 PERFORMED BY: Lab [employer] [place] [id number] CO2 [Moles/Vol] 21 mmol/L Normal 20 - 29 mmol/L [facility] Work Phone: Comment on above: Performed by: 01 PERFORMED BY: Lab QuantHouseWfemgg[address] TravelSharkblin [place] [id number] Creatinine [Mass/Vol] 0.91 mg/dL Normal 0.57 - 1.00 mg/dL [facility] Work Phone: Comment on above: Performed by: 01 PERFORMED BY: Lab [employer] TravelSharkblin [place] [id number] GFR/1.73 sq M.predicted among blacks CKD-EPI (S/P/Bld) [Vol rate/Area] 70 mL/min/1.73 Normal [facility] Work Phone: Comment on above: Performed by: 01Kita bcmeena currently reports eGFR in compliance with the current recommendations of the National Kid[employer]. [facility] will update reporting as new guidelines are published from the NKF-ASN Task force. PERFORMED BY: 01 Lab [employer] [facility] [id number] GFR/1.73 sq M.predicted among non-blacks CKD-EPI (S/P/Bld) [Vol rate/Area] 61 mL/min/1.73 Normal [facility] Work Phone: Comment on above: Performed by: 01 PERFORMED BY: [employer]6370 8aweekD[facility] [id number] Glucose [Mass/Vol] 131 mg/dL Abnormal 75 - 105 mg/dL [facility] Work Phone: Glucose [Mass/Vol] 121 mg/dL Abnormal 65 - 99 mg/dL [facility] Work Phone: Comment on above: Performed by: 01 PERFORMED BY: [employer]6370 TistagamesC[facility] [id number] Potassium [Moles/Vol] 4.6 mmol/L Normal 3.5 - 5.2 mmol/L [facility] Work Phone: Comment on above: Performed by: 01 PERFORMED BY: [employer]70 8aweekD[facility] [id number] Protein [Mass/Vol] 6.9 g/dL Normal 6.0 - 8.5 g/dL [facility] Work Phone: Comment on above: Performed by: 01 PERFORMED BY: [employer] [facility] [id number] Sodium [Moles/Vol] 140 mmol/L Normal 134 - 144 mmol/L [facility] Work Phone: Comment on above: Performed by: 01 PERFORMED BY: [employer]70 TistagamesCone [facility] [id number] Triglyceride [Mass/Vol] 75 mg/dL Normal 0 - 149 mg/dL [facility] Work Phone: Comment on above: Performed by: 01 PERFORMED BY: [employer]6[address]weekin [place] [id number] TSH Qn 4.210 {uIU/mL} Normal 0.450 - 4.500 {uIU/mL} [facility] Work Phone: Comment on above: Performed by: 01 PERFORMED BY: [employer]70 8aweekD[facility] [id number] Urea nitrogen [Mass/Vol] 21 mg/dL Normal 8 - 27 mg/dL [facility] Work Phone: Comment on above: Performed by: PERFORMED BY: [employer]70 8aweekD[facility] [id number] Urea nitrogen/Creatinine [Mass ratio] 23 mg/mg Normal 12 - 28 [facility] Work Phone: Comment on above: Performed by: PERFORMED BY: [employer]70 TistagamesC[facility] [id number] Laboratory - Hematology and Cell countson 03-08-2021 Erythrocyte distribution width (RBC) [Ratio] 11.9 % Normal 11.7 - 15.4 % [facility] Work Phone: Comment on above: Performed by: PERFORMED BY: [employer]6370 TistagamesC[facility] [id number] HbA1c (Bld) [Mass fraction] 6.1 % Abnormal 4 - 5.6 % [facility] Work Phone: Hematocrit (Bld) [Volume fraction] 42.4 % Normal 34.0 - 46.6 % [facility] Work Phone: Comment on above: Performed by: PERFORMED BY: [employer]6370 [facility]angWestern [facility] [id number] Hemoglobin (Bld) [Mass/Vol] 13.8 g/dL Normal 11.1 - 15.9 g/dL [facility] Work Phone: Comment on above: Performed by: 01 PERFORMED BY: [employer] [place] [id number] MCH (RBC) [Entitic mass] 29.9 pg Normal 26.6 - 33.0 pg [facility] Work Phone: Comment on above: Performed by: 01 PERFORMED BY: [facility]BoxN[facility] [id number] MCHC (RBC) [Mass/Vol] 32.5 g/dL Normal 31.5 - 35.7 g/dL [facility] Work Phone: Comment on above: Performed by: 01 PERFORMED BY: [facility]BOXD[facility] [id number] MCV (RBC) [Entitic vol] 92 fL Normal 79 - 97 fL [facility] Work Phone: Comment on above: Performed by: PERFORMED BY: [employer]70 8aweekD[facility] [id number] Platelets (Bld) [#/Vol] 364 10*3/uL Normal 150 - 450 {x10E3/uL} [facility] Work Phone: Comment on above: Performed by: 01 PERFORMED BY: [employer]70 8aweekD[facility] [id number] RBC (Bld) [#/Vol] 4.61 10*6/uL Normal 3.77 - 5.28 {x10E6/uL} [facility] Work Phone: Comment on above: Performed by: 01 PERFORMED BY: [employer]6370 8aweekblNorton [facility] [id number] WBC (Bld) [#/Vol] 10.3 10*3/uL Normal 3.4 - 10.8 {x10E3/uL} [facility]; [facility] Work Phone: Comment on above: Performed by: 01 PERFORMED BY: 01 Lab Rachid Rkiucf[address] [place] [id number] FOLATE, SERUMon 02-08-2021 Folate [Mass/Vol] 15.14 ng/mL >5.38 [facility] Interpretation and review of laboratory results Normal [facility] IMMUNOGLOBULIN FREE CHAINSOr dered By: Mari Adams on 02-08-2021 Immunoglobulin light chains.kappa.free (S) [Mass/Vol] 24.9 mg/L 3.9 - 26.0 mg/L [facility] Immunoglobulin light chains.kappa.free/Immu noglobulin light chains.lambda (S) [Mass ratio] 1.35 [facility] Immunoglobulin light chains.lambda.free [Mass/Vol] 18.4 mg/L 6.4 - 22.1 mg/L [facility] Interpretation and review of laboratory results Normal [facility] Undetected antigen e xcess is a rare event but cannot be excluded. If these free light chain results do not agree with other clinical or laboratory findings, or if the sample is from a patient that has previously demonstrated antigen excess, the result must be checked by retesting at a higher sample dilution. Results should always be interpreted in conjunction with other laboratory tests and clinical evidence; any anomalies should be discussed with the testing laboratory. [facility] VITAMIN B12on 02-08-2021 Cobalamin (Vitamin B12) [Mass/Vol] 295 pg/mL 211 - 911 pg/mL [facility] Interpretation and review of laboratory results Normal [facility] No Panel Informationon 12-04 [facility] Work Phone: Laboratory - Chemistry and C hemistry - challengeon 09-07-2020 Glucose [Mass/Vol] 107 mg/dL Abnormal 75 - 105 mg/dL [facility] Work Phone: Laboratory - Hematology and Cell countson 09-07-2020 HbA1c (Bld) [Mass fraction] 6.1 % Abnormal 4 - 5.6 % [facility] Work Phone: Laboratory - Chemistry and C hemistry - challengeon 02-10-2020 Albumin [Mass/Vol] 4.1 g/dL Normal 3.7 - 4.7 g/dL [facility] Work Phone: Comment on above: Performed by: 01 PERFORMED BY: Lab [employer]70 8aweekbl[address] [place] [id number] Albumin DL <= 20 mg/L (U) [Mass/Vol] mg/dL Normal [facility] Work Phone: Comment on above: Performed by: PERFORMED BY: Lab [employer]70 [address] RoadNuvoMedblin [place] [id number] Albumin/Creatinine (U) [Mass ratio] <4 Normal 0 - 29 {mg/g_crea t} [facility] Work Phone: Comment on above: Performed by: Nor mal: 0 - 29 Moderately increased: 30 - 300 Severely increased: >300 Please note reference interval change PERFORMED BY: [email or web address] [place] [id number] Albumin/Globulin [Mass ratio] 1.5 {ratio} Normal 1.2 - 2.2 [facility] Work Phone: Comment on above: Performed by: PERFORMED BY: Lab [employer] TravelSharkbl[place] [id number] ALP [Catalytic activity/Vol] 58 U/L Normal 39 - 117 [iU]/L [facility] Work Phone: Comment on above: Performed by: PERFORMED BY: Lab [employer] TravelSharkbl[place] [id number] ALT [Catalytic activity/Vol] 8 U/L Normal 0 - 32 [iU]/L [facility] Work Phone: Comment on above: Performed by: 01 PERFORMED BY: Lab [employer] RoadRikblin [place] [id number] AST [Catalytic activity/Vol] 18 U/L Normal 0 - 40 [iU]/L [facility] Work Phone: Comment on above: Performed by: 01 PERFORMED BY: Lab [employer] TravelSharkbl[place] [id number] Bilirubin [Mass/Vol] 0.4 mg/dL Normal 0.0 - 1 .2 mg/dL [facility] Work Phone: Comment on above: Performed by: 01 PERFORMED BY: Lab [employer] RoadDublin [place] [id number] Calcium [Mass/Vol] 10.1 mg/dL Normal 8.7 - 10. 3 mg/dL [facility] Work Phone: Comment on above: Performed by: 01 PERFORMED BY: Lab [employer] TravelSharkbl[place] [id number] Chloride [Moles/Vol] 100 mmol/L Normal 96 - 10 6 mmol/L [facility] Work Phone: Comment on above: Performed by: 01 PERFORMED BY: Lab [employer] Clarabridgebl[place] [id number] Cholesterol in LDL [Mass/Vol] 69 mg/dL Normal 0 - 99 mg/dL [facility] Work Phone: Comment on above: Performed by: 01 PERFORMED BY: Lab [employer] TravelSh[address] [id number] CO2 [Moles/Vol] 25 mmol/L Normal 20 - 29 mmol/L [facility] Work Phone: Comment on above: Performed by: 01 PERFORMED BY: [employer] TravelSharkbl[place] [id number] Creatinine (U) [Mass/Vol] 67.2 mg/dL Normal [facility] Work Phone: Comment on above: Performed by: 01 PERFORMED BY: Lab [employer] TravelSharkbl[place] [id number] Creatinine [Mass/Vol] 0.90 mg/dL Normal 0.57 - 1.00 mg/dL [facility]; [facility] Work Phone: Comment on above: Performed by: 01 PERFORMED BY: [employer] TravelSharkbl[place] [id number] GFR/1.73 sq M.predicted among blacks CKD-EPI (S/P/Bld) [Vol rate/Area] 72 mL/min/1.73 Normal [facility] Work Phone: Comment on above: Performed by: 01 PERFORMED BY: Lab [employer] TravelSharkin [place] [id number] GFR/1.73 sq M.predicted among non-blacks CKD-EPI (S/P/Bld) [Vol rate/Area] 62 mL/min/1.73 Normal [facility]; [facility] Work Phone: Comment on above: Performed by: 01 PERFORMED BY: [employer] [place] [id number] Globulin (S) [Mass/Vol] 2.7 g/dL Normal 1.5 - 4.5 g/dL [facility] Work Phone: Comment on above: Performed by: 01 PERFORMED BY: [employer] [place] [id number] Glucose [Mass/Vol] 93 mg/dL Normal 75 - 105 mg/dL [facility] Work Phone: Glucose [Mass/Vol] 108 mg/dL Abnormal 65 - 99 mg/dL [facility] Work Phone: Comment on above: Performed by: 01 PERFORMED BY: [employer]70 bigclix.comin [place] [id number] Potassium [Moles/Vol] 4.5 mmol/L Normal 3.5 - 5.2 mmol/L [facility] Work Phone: Comment on above: Performed by: 01 PERFORMED BY: [employer]70 8aweekblin [place] [id number] Protein [Mass/Vol] 6.8 g/dL Normal 6.0 - 8.5 g/dL [facility] Work Phone: Comment on above: Performed by: 01 PERFORMED BY: [employer]70 8aweekblin [place] [id number] Sodium [Moles/Vol] 139 mmol/L Normal 134 - 144 mmol/L [facility] Work Phone: Comment on above: Performed by: 01 PERFORMED BY: [employer]70 Liang TravelSharkblin [place] [id number] TSH Qn 4.510 {uIU/mL} Abnormal 0.450 - 4.500 {uIU/mL} [facility] Work Phone: Comment on above: Performed by: 01 PERFORMED BY: [employer]6370 Liang TravelSharkblin [place] [id number] Urea nitrogen [Mass/Vol] 24 mg/dL Normal 8 - 27 mg/dL [facility] Work Phone: Comment on above: Performed by: 01 PERFORMED BY: [employer]6370 [address] TravelSharkblin [place] [id number] Urea nitrogen/Creatinine [Mass ratio] 27 mg/mg Normal 12 - 28 [facility] Work Phone: Comment on above: Performed by: 01 PERFORMED BY: Lab Rachid Emzoqh5339 [facility] [id number] Laboratory - Chemistry and C hemistry - challengeon 08-12-2019 Glucose [Mass/Vol] 123 mg/dL Abnormal 75 - 105 mg/dL [facility]; [facility] Work Phone: Laboratory - Hematology and Cell countson 08-12-2019 HbA1c (Bld) [Mass fraction] 6.3 % Abnormal 4 - 5.6 % [facility]; [facility] Work Phone: XR Bone Density DXA Axial Sk replaced by [facility] 05-17-2019 DXA Skeletal system Views for bone density Bone Density Report Name: QAMAR BOSWELL Age: 73 Sex: Female Ethnicity: White Date of : 1945 Indication: postmenopausal; screening for osteoporosis; height loss; hysterectomy; Referring Provider: FRIDAYMIGUELANGEL Study: Bone densitometry was performed. Exam Date: May 17, 2019 Accession number: [id number] Bone Density: Region BMD T-score Z-score Classification AP Spine(L1-L4) 1.069 0.2 2.6 Normal Femoral Neck (Left) 0.724 -1.1 1.0 Osteopenia Total Hip (Left) 0.851 -0.7 1.1 Normal Femoral Neck (Right) 0.717 -1.2 0.9 Osteopenia Total Hip (Right) 0.844 -0.8 1.0 Normal Total Hip Mean 0.848 -0.8 1.1 Normal World Health Organization criteria for BMD impression classify patients as: Normal (T-score at or above -1.0), Osteopenia (T-score between -1.0 and -2.5), or Osteoporosis (T-score at or below -2.5). 10-year Fracture Risk: FRAX not reported because: Treated for osteoporosis Clinical Information Provided by Patient: Is being treated for osteoporosis Has used the following medications: HRT (i.e. estrogen/hormone therapy), Vitamin D, Calcium Has the following medical conditions: Hysterectomy Patient maximum height was 59 Menopause Age: 32 No regular weight bearing exercise Does not regularly consume dairy products Onset of menses at age 8 Number of children 0 Impression: The patient has low bone mass, based on the Right Femoral Neck T-score. Discussion: It is important to ask patients whether they are taking their medications and to encourage continued and appropriate compliance with their osteoporosis therapies to reduce fracture risk. It is also important to review their risk factors and encourage appropriate calcium and vitamin D intakes, exercise, fall prevention and other lifestyle measures. Follow-Up: Consider a repeat BMD and Vertebral Fracture Assessment (VFA) exam in 2 years or sooner if medically necessary, to reassess this patient's status. Reported by: Adi Byers MD on 05/17/2019 3:24:00 PM. FINAL REPORT Dictated By: Adi Byers MD Assigned Physician: Adi Byers MD Reviewed and Electronically Signed By: Adi Byers MD 05/17/2019 15:31 Transcribed by: CARLOTA 05/17/2019 15:25 Technologist: JENNIFER Dailey [facility] Laboratory - Chemistry and C hemistry - challengeon 02-05-2019 Albumin DL <= 20 mg/L (U) [Mass/Vol] 24.2 ug/mL Normal [facility] Work Phone: Comment on above: Performed by: EVERTON PATIENT NOT FASTINGP ERFORMED BY: EVERTON [facility] Etogbo1628 [facility] [id number] Information: SRC:Urine 1ur cup Albumin/Creatinine (U) [Mass ratio] 19.7 {mg/g_creat} Normal 0.0 - 30.0 {mg/g_crea t} [facility]; [facility] Work Phone: Comment on above: Performed by: EVERTON Nor mal: 0.0 - 30.0 Albuminuria: 31.0 - 300.0 Clinical albuminuria: >300.0 PATIENT NOT FASTINGP ERFORMED BY: EVERTON [facility] Iwgmmz8677 Liang ClarabridgeC[facility] [id number] Information: SRC:Urine 1ur cup Creatinine (U) [Mass/Vol] 123.0 mg/dL Normal [facility] Work Phone: Comment on above: Performed by: EVERTON PATIENT NOT FASTINGP ERFORMED BY: EVERTON [facility] Xabhzm8388 Liang TravelSharkDuke [facility] Hospital [id number] Information: SRC:Urine 1ur cup Laboratory - Hematology and Cell countson 02-05-2019 HbA1c (Bld) [Mass fraction] 6.6 % Abnormal 4.8 - 5.6 % [facility] Work Phone: Comment on above: Performed by: EVERTON . P rediabetes: 5.7 - 6.4 Diabetes: >6.4 Glycemic control for adults with diabetes: <7.0 PATIENT NOT FASTINGP ERFORMED BY: EVERTON [facility] Ymrwxb4411 [facility] [id number] Information: 1lav Laboratory - Chemistry and C hemistry - challengeon 08-21-2018 25-hydroxyvitamin D [Mass/Vol] 48.8 ng/mL Normal 30.0 - 100.0 ng/mL [facility] Work Phone: Comment on above: Performed by: Hyun min D deficiency has been defined by the [place] of[place]icine and an Endocrine Society practice guideline as alevel of serum 25-OH vitamin D less than 20 ng/mL (1,2).The Endocrine Society went on to further define vitamin Dinsufficiency as a level between 21 and 29 ng/mL (2).1. IOM ([place] of [employer]). 2010. Dietary reference intakes for calcium and D. [place]: The National Academies Press.2. Padmini MF, Kiera ALMARAZ, Jim DELUNA, et al. Evaluation, treatment, and prevention of vitamin D deficiency: an Endocrine Society clinical practice guideline. JCEM. 2010; 96(7):1911-30. PATIENT NOT FASTINGP ERFORMED BY: EVERTON [facility] Gfrgmt8658 Liang RoadDublin [place] [id number] Albumin [Mass/Vol] 4.3 g/dL Normal 3.5 - 4.8 g/dL [facility] Work Phone: Comment on above: Performed by: EVERTON PATIENT NOT FASTINGP ERFORMED BY: EVERTON [facility] Mmvjia1618 Liang RoadDublin [place] [id number] Albumin DL <= 20 mg/L (U) [Mass/Vol] 3.8 ug/mL Normal [facility] Work Phone: Comment on above: Performed by: EVERTON PATIENT NOT FASTINGP ERFORMED BY: EVERTON [facility] Rtazxp9068 Liang RoadDublin [place] [id number] Albumin/Creatinine (U) [Mass ratio] 4.0 {mg/g_creat} Normal 0.0 - 30.0 {mg/g_crea t} [facility] Work Phone: Comment on above: Performed by: CB Nor mal: 0.0 - 30.0 Albuminuria: 31.0 - 300.0 Clinical albuminuria: >300.0 PATIENT NOT FASTINGP ERFORMED BY: CB [facility] Pcqtfd1218 Liang RoadDublin [place] [id number] Albumin/Globulin [Mass ratio] 1.9 {ratio} Normal 1.2 - 2.2 [facility] Work Phone: Comment on above: Performed by: PATIENT NOT FASTINGP ERFORMED BY: [facility] Ahpflt8851 Liang RoadDublin [place] [id number] ALP [Catalytic activity/Vol] 51 U/L Normal 39 - 117 [iU]/L [facility] Work Phone: Comment on above: Performed by: CB PATIENT NOT FASTINGP ERFORMED BY: [facility] Zrbkcc3365 Liang RoadDublin [place] [id number] ALT [Catalytic activity/Vol] 9 U/L Normal 0 - 32 [iU]/L [facility] Work Phone: Comment on above: Performed by: PATIENT NOT FASTINGP ERFORMED BY: [facility] Tadruf9589 [address] [facility] Hospitalblin [place] [id number] AST [Catalytic activity/Vol] 18 U/L Normal 0 - 40 [iU]/L [facility] Work Phone: Comment on above: Performed by: PATIENT NOT FASTINGP ERFORMED BY: [facility] Gemzjx3704 Liang [facility] [id number] Bilirubin [Mass/Vol] 0.5 mg/dL Normal 0.0 - 1 .2 mg/dL [facility] Work Phone: Comment on above: Performed by: PATIENT NOT FASTINGP ERFORMED BY: [facility] Ybmveo0859 Li[address] [facility] [id number] Calcium [Mass/Vol] 10.2 mg/dL Normal 8.7 - 10. 3 mg/dL [facility] Work Phone: Comment on above: Performed by: PATIENT NOT FASTINGP ERFORMED BY: [facility] Cnhlsk2039 [address] [facility] Hospitalblin [place] [id number] Chloride [Moles/Vol] 99 mmol/L Normal 96 - 10 6 mmol/L [facility] Work Phone: Comment on above: Performed by: PATIENT NOT FASTINGP ERFORMED BY: [facility] Txfvck8610 [facility] [id number] Cholesterol in LDL [Mass/Vol] 59 mg/dL Normal 0 - 99 mg/dL [facility] Work Phone: Comment on above: Performed by: CB PATIENT NOT FASTINGP ERFORMED BY: [facility] Hglgkf4818 [facility] [id number] CO2 [Moles/Vol] 23 mmol/L Normal 20 - 29 mmol/L [facility] Work Phone: Comment on above: Performed by: PATIENT NOT FASTINGP ERFORMED BY: [facility] Nxdnvd5346 [facility] [id number] Creatinine (U) [Mass/Vol] 95.4 mg/dL Normal [facility] Work Phone: Comment on above: Performed by: PATIENT NOT FASTINGP ERFORMED BY: [facility] Olwloy4207 [facility] [id number] Creatinine [Mass/Vol] 1.04 mg/dL Abnormal 0.57 - 1.00 mg/dL [facility] Work Phone: Comment on above: Performed by: PATIENT NOT FASTINGP ERFORMED BY: [facility] Aslypz3229 [facility] [id number] GFR/1.73 sq M.predicted among blacks CKD-EPI (S/P/Bld) [Vol rate/Area] 61 mL/min/1.73 Normal [facility] Work Phone: Comment on above: Performed by: PATIENT NOT FASTINGP ERFORMED BY: [facility] Niymgc5533 [facility] [id number] GFR/1.73 sq M.predicted among non-blacks CKD-EPI (S/P/Bld) [Vol rate/Area] 53 mL/min/1.73 Abnormal [facility] Work Phone: Comment on above: Performed by: CB PATIENT NOT FASTINGP ERFORMED BY: [facility] Igxjou3555 Liang RoadDublin [place] [id number] Globulin (S) [Mass/Vol] 2.3 g/dL Normal 1.5 - 4.5 g/dL [facility]; [facility] Work Phone: Comment on above: Performed by: CB PATIENT NOT FASTINGP ERFORMED BY: [facility] Zqaruv1836 Li[address] RoadDublin [place] [id number] Glucose [Mass/Vol] 109 mg/dL Abnormal 75 - 105 mg/dL [facility] Work Phone: Glucose [Mass/Vol] 107 mg/dL Abnormal 65 - 99 mg/dL [facility] Work Phone: Comment on above: Performed by: PATIENT NOT FASTINGP ERFORMED BY: [facility] Lwehot5294 Liang RoadDublin [place] [id number] Potassium [Moles/Vol] 4.3 mmol/L Normal 3.5 - 5.2 mmol/L [facility] Work Phone: Comment on above: Performed by: PATIENT NOT FASTINGP ERFORMED BY: [facility] Yrcehd7570 Li[address] TravelSharkblin [place] [id number] Protein [Mass/Vol] 6.6 g/dL Normal 6.0 - 8.5 g/dL [facility]; [facility] Work Phone: Comment on above: Performed by: PATIENT NOT FASTINGP ERFORMED BY: [facility] Cikjsr4995 Liang RoadDublin [place] [id number] Sodium [Moles/Vol] 137 mmol/L Normal 134 - 144 mmol/L [facility] Work Phone: Comment on above: Performed by: PATIENT NOT FASTINGP ERFORMED BY: [facility] Aoxpte9889 Liang ClarabridgeCone Health [facility] [id number] TSH Qn 1.950 {uIU/mL} Normal 0.450 - 4.500 {uIU/mL} [facility] Work Phone: Comment on above: Performed by: CB PATIENT NOT FASTINGP ERFORMED BY: EVERTON LabCovanesa KellyEiloiw0529 [facility] [id number] Urea nitrogen [Mass/Vol] 24 mg/dL Normal 8 - 27 mg/dL [facility] Work Phone: Comment on above: Performed by: PATIENT NOT FASTINGP ERFORMED BY: LabRachid SaldivarOwikfs1797 [facility] [id number] Urea nitrogen/Creatinine [Mass ratio] 23 mg/mg Normal 12 - 28 [facility] Work Phone: Comment on above: Performed by: PATIENT NOT FASTINGP ERFORMED BY: Dyan Saldivarlin6370 [facility] [id number] Laboratory - Hematology and Cell countson 08-21-2018 Basophils (Bld) [#/Vol] 0.1 10*3/uL Normal 0.0 - 0.2 {x10E3/uL} [facility] Work Phone: Comment on above: Performed by: PATIENT NOT FASTINGP ERFORMED BY: Dyan Saldivarlin6370 [facility] [id number] Information: 1 SST2 lavs 1 urine cup Basophils/100 WBC (Bld) 1 % Normal [facility] Work Phone: Comment on above: Performed by: PATIENT NOT FASTINGP ERFORMED BY: EVERTON LabRachid SaldivarPfruuc9111 [facility] [id number] Information: 1 SST2 lavs 1 urine cup Eosinophils (Bld) [#/Vol] 0.3 10*3/uL Normal 0.0 - 0.4 {x10E3/uL} [facility] Work Phone: Comment on above: Performed by: CB PATIENT NOT FASTINGP ERFORMED BY: EVERTON Kelly6370 Li[address] TravelSharkin [place] [id number] Information: 1 SST2 lavs 1 urine cup Eosinophils/100 WBC (Bld) 3 % Normal [facility]; [facility] Work Phone: Comment on above: Performed by: CB PATIENT NOT FASTINGP ERFORMED BY: EVERTON LabRachid Kelly6370 [address] TravelSharkin [place] [id number] Information: 1 SST2 lavs 1 urine cup Erythrocyte distribution width (RBC) [Ratio] 12.8 % Normal 12.3 - 15.4 % [facility] Work Phone: Comment on above: Performed by: CB PATIENT NOT FASTINGP ERFORMED BY: EVERTON Kelly6370 Li[address] TravelSharkDuke [facility] Hospital [id number] Information: 1 SST2 lavs 1 urine cup HbA1c (Bld) [Mass fraction] 6.2 % Normal 4.6 - 7.1 % [facility] Work Phone: HbA1c (Bld) [Mass fraction] 6.4 % Abnormal 4.8 - 5.6 % [facility] Work Phone: Comment on above: Performed by: EVERTON . P rediabetes: 5.7 - 6.4 Diabetes: >6.4 Glycemic control for adults with diabetes: <7.0 PATIENT NOT FASTINGP ERFORMED BY: EVERTON [facility] Fgufyu7888 Li[address] TravelSharkin [place] [id number] Hematocrit (Bld) [Volume fraction] 41.0 % Normal 34.0 - 46.6 % [facility] Work Phone: Comment on above: Performed by: CB PATIENT NOT FASTINGP ERFORMED BY: EVERTON LabCovanesa SaldivarCteazl5345 [address] TravelShark[place] [id number] Information: 1 SST2 lavs 1 urine cup Hemoglobin (Bld) [Mass/Vol] 13.5 g/dL Normal 11.1 - 15.9 g/dL [facility] Work Phone: Comment on above: Performed by: CB PATIENT NOT FASTINGP ERFORMED BY: [facility] Inbkjh9801 Li[address] TravelSharkin [place] [id number] Information: 1 SST2 lavs 1 urine cup Immature granulocytes (Bld) [#/Vol] 0.0 10*3/uL Normal 0.0 - 0.1 {x10E3/uL} [facility] Work Phone: Comment on above: Performed by: CB PATIENT NOT FASTINGP ERFORMED BY: [facility] Fatjbv7444NeediumDuke Raleigh Hospital [id number] Information: 1 SST2 lavs 1 urine cup Immature granulocytes/100 WBC (Bld) 0 % Normal [facility] Work Phone: Comment on above: Performed by: CB PATIENT NOT FASTINGP ERFORMED BY: [facility] Xokyxs6296 8aweekDuke Raleigh Hospital [id number] Information: 1 SST2 lavs 1 urine cup Lymphocytes (Bld) [#/Vol] 2.9 10*3/uL Normal 0.7 - 3.1 {x10E3/uL} [facility] Work Phone: Comment on above: Performed by: CB PATIENT NOT FASTINGP ERFORMED BY: [facility] Layukx3752 Liang TravelSharkDuke Raleigh Hospital [id number] Information: 1 SST2 lavs 1 urine cup Lymphocytes/100 WBC (Bld) 30 % Normal [facility] Work Phone: Comment on above: Performed by: CB PATIENT NOT FASTINGP ERFORMED BY: [facility] Wndfxl6284 Liang TravelSharkDuke Raleigh Hospital [id number] Information: 1 SST2 lavs 1 urine cup MCH (RBC) [Entitic mass] 30.2 pg Normal 26.6 - 33.0 pg [facility] Work Phone: Comment on above: Performed by: CB PATIENT NOT FASTINGP ERFORMED BY: [facility] Uauxoy1778 [facility]angWestern [facility] Medical Center [id number] Information: 1 SST2 lavs 1 urine cup MCHC (RBC) [Mass/Vol] 32.9 g/dL Normal 31.5 - 35.7 g/dL [facility] Work Phone: Comment on above: Performed by: CB PATIENT NOT FASTINGP ERFORMED BY: [facility] Sdiagf7442 [facility] [id number] Information: 1 SST2 lavs 1 urine cup MCV (RBC) [Entitic vol] 92 fL Normal 79 - 97 fL [facility] Work Phone: Comment on above: Performed by: CB PATIENT NOT FASTINGP ERFORMED BY: [facility] Flocations [facility] [id number] Information: 1 SST2 lavs 1 urine cup Monocytes (Bld) [#/Vol] 1.1 10*3/uL Abnormal 0.1 - 0.9 {x10E3/uL} [facility] Work Phone: Comment on above: Performed by: CB PATIENT NOT FASTINGP ERFORMED BY: [facility] Svhgqh4049 [facility] [id number] Information: 1 SST2 lavs 1 urine cup Monocytes/100 WBC (Bld) 12 % Normal [facility] Work Phone: Comment on above: Performed by: CB PATIENT NOT FASTINGP ERFORMED BY: [facility] Pctzby7181 [facility] [id number] Information: 1 SST2 lavs 1 urine cup Neutrophils (Bld) [#/Vol] 5.2 10*3/uL Normal 1.4 - 7.0 {x10E3/uL} [facility]; [facility] Work Phone: Comment on above: Performed by: CB PATIENT NOT FASTINGP ERFORMED BY: CB [facility] Tamhdo6373 8aweekDuke Raleigh Hospital [id number] Information: 1 SST2 lavs 1 urine cup Neutrophils/100 WBC (Bld) 54 % Normal [facility] Work Phone: Comment on above: Performed by: CB PATIENT NOT FASTINGP ERFORMED BY: [facility] Eqlaqu9750 Liang ClarabridgeCone Health Moses [facility] [id number] Information: 1 SST2 lavs 1 urine cup Platelets (Bld) [#/Vol] 341 10*3/uL Normal 150 - 379 {x10E3/uL} [facility] Work Phone: Comment on above: Performed by: CB PATIENT NOT FASTINGP ERFORMED BY: [facility] Tuplbm0061 [facility] [id number] Information: 1 SST2 lavs 1 urine cup RBC (Bld) [#/Vol] 4.47 10*6/uL Normal 3.77 - 5.28 {x10E6/uL} [facility]; [facility] Work Phone: Comment on above: Performed by: CB PATIENT NOT FASTINGP ERFORMED BY: [facility] Qithul2763 [facility] [id number] Information: 1 SST2 lavs 1 urine cup WBC (Bld) [#/Vol] 9.6 10*3/uL Normal 3.4 - 10.8 {x10E3/uL} [facility] Work Phone: Comment on above: Performed by: CB PATIENT NOT FASTINGP ERFORMED BY: [facility] Riymzz5003 Liang ClarabridgeCone Health Moses [facility] [id number] Information: 1 SST2 lavs 1 urine cup Laboratory - Chemistry and C hemistry - challengeon 04-17-2018 Glucose [Mass/Vol] 86 mg/dL Normal 75 - 105 mg/dL [facility] Work Phone: Laboratory - Chemistry and C hemistry - challengeon 01-23-2018 Albumin DL <= 20 mg/L (U) [Mass/Vol] 3.1 ug/mL Normal [facility]; [facility] Work Phone: Comment on above: Performed by: PATIENT NOT FASTINGP ERFORMED BY: [facility] Zieakc2688 Liang RoadDublin [place] [id number] Albumin/Creatinine (U) [Mass ratio] 4.0 {mg/g_creat} Normal 0.0 - 30.0 {mg/g_crea t} [facility] Work Phone: Comment on above: Performed by: PATIENT NOT FASTINGP ERFORMED BY: [facility] Sbgtgz9787 Liang RoadDublin [place] [id number] Cholesterol [Mass/Vol] 144 mg/dL Normal 100 - 199 mg/dL [facility] Work Phone: Comment on above: Performed by: PATIENT NOT FASTINGP ERFORMED BY: [facility] Zphqyr4293 Liang RoadDublin [place] [id number] Cholesterol in HDL [Mass/Vol] 75 mg/dL Normal [facility] Work Phone: Comment on above: Performed by: PATIENT NOT FASTINGP ERFORMED BY: [facility] Vopklt1327 Liang RoadDublin [place] [id number] Cholesterol in LDL [Mass/Vol] 56 mg/dL Normal 0 - 99 mg/dL [facility] Work Phone: Comment on above: Performed by: PATIENT NOT FASTINGP ERFORMED BY: [facility] Gljyzz5221 Liang RoadDublin [place] [id number] Cholesterol in LDL [Mass/Vol] 58 mg/dL Normal 0 - 99 mg/dL [facility] Work Phone: Comment on above: Performed by: CB PATIENT NOT FASTINGP ERFORMED BY: EVERTON LabRachid Kelly6370 Li[address] TravelSharkblin [place] [id number] Cholesterol in VLDL [Mass/Vol] 13 mg/dL Normal 5 - 40 mg/dL [facility] Work Phone: Comment on above: Performed by: CB PATIENT NOT FASTINGP ERFORMED BY: EVERTON LabRachid Kelly6370 [address] [place] [place] [id number] Creatinine (U) [Mass/Vol] 77.3 mg/dL Normal [facility] Work Phone: Comment on above: Performed by: EVERTON PATIENT NOT FASTINGP ERFORMED BY: EVERTON Kelly6370 Liang TravelSharkDuke Raleigh Hospital [id number] Glucose [Mass/Vol] 112 mg/dL Abnormal 75 - 105 mg/dL [facility] Work Phone: Comment on above: fbs Triglyceride [Mass/Vol] 67 mg/dL Normal 0 - 149 mg/dL [facility] Work Phone: Comment on above: Performed by: EVERTON PATIENT NOT FASTINGP ERFORMED BY: EVERTON Kelly6370 [address] TravelSharkDuke Raleigh Hospital [id number] Laboratory - Hematology and Cell countson 01-23-2018 HbA1c (Bld) [Mass fraction] 6.6 % Abnormal 4.8 - 5.6 % [facility] Work Phone: Comment on above: Performed by: EVERTON . P re-diabetes: 5.7 - 6.4 Diabetes: >6.4 Glycemic control for adults with diabetes: <7.0 PATIENT NOT FASTINGP ERFORMED BY: EVERTON LabRachid SaldivarFwstov9368 Liang TravelSharkDuke Raleigh Hospital [id number] Laboratory - Chemistry and C hemistry - challengeon 2017 Albumin [Mass/Vol] 4.1 g/dL Normal 3.5 - 4.8 g/dL [facility]; [facility] Work Phone: Comment on above: Performed by: CB PATIENT NOT FASTINGP ERFORMED BY: CB [facility] Cpeukd7944 Liang RoadCone Health Medcenter [place] Pointin [place] [id number] Information: 1 SST, 1 LAV Albumin/Globulin [Mass ratio] 1.6 {ratio} Normal 1.2 - 2.2 [facility] Work Phone: Comment on above: Performed by: CB PATIENT NOT FASTINGP ERFORMED BY: [facility] Ewwbhi5509 Li[address] [facility] [id number] Information: 1 SST, 1 LAV ALP [Catalytic activity/Vol] 52 U/L Normal 39 - 117 [iU]/L [facility] Work Phone: Comment on above: Performed by: CB PATIENT NOT FASTINGP ERFORMED BY: [facility] Vtcdlm4645 [address] [facility]in [place] [id number] Information: 1 SST, 1 LAV ALT [Catalytic activity/Vol] 10 U/L Normal 0 - 32 [iU]/L [facility] Work Phone: Comment on above: Performed by: CB PATIENT NOT FASTINGP ERFORMED BY: [facility] Kieuca2974 Li[address] [facility] [id number] Information: 1 SST, 1 LAV AST [Catalytic activity/Vol] 19 U/L Normal 0 - 40 [iU]/L [facility] Work Phone: Comment on above: Performed by: CB PATIENT NOT FASTINGP ERFORMED BY: [facility] Wkpyrm7103 Liang [facility] [id number] Information: 1 SST, 1 LAV Bilirubin [Mass/Vol] 0.3 mg/dL Normal 0.0 - 1 .2 mg/dL [facility] Work Phone: Comment on above: Performed by: CB PATIENT NOT FASTINGP ERFORMED BY: CB [facility] Zazbyc8221 [facility] [id number] Information: 1 SST, 1 LAV Calcium [Mass/Vol] 9.5 mg/dL Normal 8.7 - 10. 3 mg/dL [facility] [facility]; [facility] Work Phone: Comment on above: Performed by: CB PATIENT NOT FASTINGP ERFORMED BY: [facility] Iihsfk9975 [facility] [id number] Information: 1 SST, 1 LAV Chloride [Moles/Vol] 99 mmol/L Normal 96 - 10 6 mmol/L [facility] of [facility]; [facility] Work Phone: Comment on above: Performed by: CB PATIENT NOT FASTINGP ERFORMED BY: [facility] Vntvmc2303 [facility] [id number] Information: 1 SST, 1 LAV CO2 [Moles/Vol] 25 mmol/L Normal 18 - 29 mmol/L [facility] of [facility]; [facility] Work Phone: Comment on above: Performed by: CB PATIENT NOT FASTINGP ERFORMED BY: [facility] Jlhhvm2561 [facility] [id number] Information: 1 SST, 1 LAV Creatinine [Mass/Vol] 0.85 mg/dL Normal 0.57 - 1.00 mg/dL [facility] of [facility]; [facility] Work Phone: Comment on above: Performed by: CB PATIENT NOT FASTINGP ERFORMED BY: [facility] Deewft5472 [facility] [id number] Information: 1 SST, 1 LAV GFR/1.73 sq M.predicted among blacks CKD-EPI (S/P/Bld) [Vol rate/Area] 78 mL/min/1.73 Normal [facility] of [facility]; [facility] Work Phone: Comment on above: Performed by: PATIENT NOT FASTINGP ERFORMED BY: [facility] Hmjixm9467 [facility] [id number] Information: 1 SST, 1 LAV GFR/1.73 sq M.predicted among non-blacks CKD-EPI (S/P/Bld) [Vol rate/Area] 68 mL/min/1.73 Normal [facility]; [facility] Work Phone: Comment on above: Performed by: PATIENT NOT FASTINGP ERFORMED BY: [facility] Dycwaw5999 [facility] [id number] Information: 1 SST, 1 LAV Globulin (S) [Mass/Vol] 2.5 g/dL Normal 1.5 - 4.5 g/dL [facility] Work Phone: Comment on above: Performed by: PATIENT NOT FASTINGP ERFORMED BY: [facility] Ivxeds4725 [facility] [id number] Information: 1 SST, 1 LAV Glucose [Mass/Vol] 114 mg/dL Abnormal 65 - 99 mg/dL [facility]; [facility] Work Phone: Comment on above: Performed by: PATIENT NOT FASTINGP ERFORMED BY: [facility] Kkftek9198 [facility] [id number] Information: 1 SST, 1 LAV Potassium [Moles/Vol] 4.9 mmol/L Normal 3.5 - 5.2 mmol/L [facility] Work Phone: Comment on above: Performed by: PATIENT NOT FASTINGP ERFORMED BY: [facility] Wgrgvo6691 [facility] [id number] Information: 1 SST, 1 LAV Protein [Mass/Vol] 6.6 g/dL Normal 6.0 - 8.5 g/dL [facility] Work Phone: Comment on above: Performed by: CB PATIENT NOT FASTINGP ERFORMED BY: CB [facility] Mdfpgv1956 [facility] [id number] Information: 1 SST, 1 LAV Sodium [Moles/Vol] 141 mmol/L Normal 134 - 144 mmol/L [facility]; [facility] Work Phone: Comment on above: Performed by: CB PATIENT NOT FASTINGP ERFORMED BY: CB [facility] Csrsiq2230 [facility] [id number] Information: 1 SST, 1 LAV TSH Qn 3.570 {uIU/mL} Normal 0.450 - 4.500 {uIU/mL} [facility]; [facility] Work Phone: Comment on above: Performed by: CB PATIENT NOT FASTINGP ERFORMED BY: EVERTON [facility] Voeule0427 [facility] [id number] Urea nitrogen [Mass/Vol] 24 mg/dL Normal 8 - 27 mg/dL [facility]; [facility] Work Phone: Comment on above: Performed by: CB PATIENT NOT FASTINGP ERFORMED BY: EVERTON [facility] Raheta9967 [facility] [id number] Information: 1 SST, 1 LAV Urea nitrogen/Creatinine [Mass ratio] 28 mg/mg Normal 12 - 28 [facility] Work Phone: Comment on above: Performed by: CB PATIENT NOT FASTINGP ERFORMED BY: [facility] Znglaw0147 [facility] [id number] Information: 1 SST, 1 LAV Laboratory - Hematology and Cell countson 2017 HbA1c (Bld) [Mass fraction] 6.6 % Abnormal 4.8 - 5.6 % [facility] Work Phone: Comment on above: Performed by: CB . P re-diabetes: 5.7 - 6.4 Diabetes: >6.4 Glycemic control for adults with diabetes: <7.0 PATIENT NOT FASTINGP ERFORMED BY: CB [facility] Cngddf9375 [facility] [id number] Laboratory - Chemistry and C hemistry - challengeon 08-15-2017 TSH Qn 2.920 {uIU/mL} Normal 0.450 - 4.500 {uIU/mL} [facility]; [facility] Work Phone: Comment on above: Performed by: CB PATIENT NOT FASTINGP ERFORMED BY: [facility] Lrmwvx6973 [facility] [id number] Laboratory - Chemistry and C hemistry - challengeon 05-28-2017 Glucose Glucometer (BldC) [Moles/Vol] 116 Normal [facility] Work Phone: Comment on above: rbs Laboratory - Chemistry and C hemistry - challengeon 03-05-2017 25-hydroxyvitamin D [Mass/Vol] 41.4 ng/mL Normal 30.0 - 100.0 ng/mL [facility] Work Phone: Comment on above: Performed by: EVERTONVita min D deficiency has been defined by the [place] of[place] and an Endocrine Society practice guideline as alevel of serum 25-OH vitamin D less than 20 ng/mL (1,2).The Endocrine Society went on to further define vitamin Dinsufficiency as a level between 21 and 29 ng/mL (2).1. IOM ([place] of [employer]). 2010. Dietary reference intakes for calcium and D. [place]: The National Academies Press.2. Padmini MF, Kiera ALMARAZ, Jim DELUNA, et al. Evaluation, treatment, and prevention of vitamin D deficiency: an Endocrine Society clinical practice guideline. JCEM. 2010; 96(7):1911-30. PATIENT NOT FASTINGP ERFORMED BY: [facility] Mqjmpj6525 [facility] [id number] Albumin [Mass/Vol] 4.2 g/dL Normal 3.5 - 4.8 g/dL [facility]; [facility] Work Phone: Comment on above: Performed by: CB PATIENT NOT FASTINGP ERFORMED BY: EVERTON [facility] Pfizgd9606 Liang RoadDublin [place] [id number] Albumin/Globulin [Mass ratio] 1.4 {ratio} Normal 1.2 - 2.2 [facility] Work Phone: Comment on above: Performed by: CB PATIENT NOT FASTINGP ERFORMED BY: EVERTON [facility] Prpjby6276 Liang RoadDublin [place] [id number] ALP [Catalytic activity/Vol] 56 U/L Normal 39 - 117 [iU]/L [facility] of [facility]; [facility] Work Phone: Comment on above: Performed by: PATIENT NOT FASTINGP ERFORMED BY: EVERTON LabRachid Kelly6370 [address]ang RoadDublin [place] [id number] ALT [Catalytic activity/Vol] 13 U/L Normal 0 - 32 [iU]/L [facility]; [facility] Work Phone: Comment on above: Performed by: PATIENT NOT FASTINGP ERFORMED BY: EVERTON LabCovanesa KellyKvemoa9231 Liang RoadDublin [place] [id number] AST [Catalytic activity/Vol] 17 U/L Normal 0 - 40 [iU]/L [facility]; [facility] Work Phone: Comment on above: Performed by: PATIENT NOT FASTINGP ERFORMED BY: EVERTON LabCovanesa KellyEgclno4150 Liang RoadDublin [place] [id number] Bilirubin [Mass/Vol] 0.4 mg/dL Normal 0.0 - 1 .2 mg/dL [facility]; [facility] Work Phone: Comment on above: Performed by: PATIENT NOT FASTINGP ERFORMED BY: EVERTON [facility] Lxpese2603 Liang RoadDublin [place] [id number] Bilirubin Ql (U) Negative Normal [facility]; [facility] Work Phone: Comment on above: Performed by: PATIENT NOT FASTINGP ERFORMED BY: EVERTON [facility] Nclkaf9197 [address] RoadDublin [place] [id number] Calcium [Mass/Vol] 10.1 mg/dL Normal 8.7 - 10. 3 mg/dL [facility] Work Phone: Comment on above: Performed by: PATIENT NOT FASTINGP ERFORMED BY: [facility] Zodbjw4670 [address] RoadDublin [place] [id number] Chloride [Moles/Vol] 97 mmol/L Normal 96 - 10 6 mmol/L [facility] Work Phone: Comment on above: Performed by: PATIENT NOT FASTINGP ERFORMED BY: [facility] Kbrtol7615 [address] RoadDublin [place] [id number] Cholesterol [Mass/Vol] 167 mg/dL Normal 100 - 199 mg/dL [facility] Work Phone: Comment on above: Performed by: PATIENT NOT FASTINGP ERFORMED BY: [facility] Pslhfc0009 [address] RoadDublin [place] [id number] Cholesterol in HDL [Mass/Vol] 95 mg/dL Normal [facility] Work Phone: Comment on above: Performed by: PATIENT NOT FASTINGP ERFORMED BY: [facility] Jggtxy3701 [address] RoadDublin [place] [id number] Cholesterol in LDL [Mass/Vol] 55 mg/dL Normal 0 - 99 mg/dL [facility] Work Phone: Comment on above: Performed by: PATIENT NOT FASTINGP ERFORMED BY: [facility] Gtwzgp4970 [address] RoadDublin [place] [id number] Cholesterol in LDL [Mass/Vol] 63 mg/dL Normal 0 - 99 mg/dL [facility] Work Phone: Comment on above: Performed by: PATIENT NOT FASTINGP ERFORMED BY: [facility] Rdykmw2219 [address] RoadDublin [place] [id number] Cholesterol in VLDL [Mass/Vol] 17 mg/dL Normal 5 - 40 mg/dL [facility] Work Phone: Comment on above: Performed by: CB PATIENT NOT FASTINGP ERFORMED BY: [facility] Whnxow2602 [facility] [id number] CO2 [Moles/Vol] 22 mmol/L Normal 18 - 29 mmol/L [facility] Work Phone: Comment on above: Performed by: PATIENT NOT FASTINGP ERFORMED BY: [facility] Gwvfus2851 [facility] [id number] Creatinine [Mass/Vol] 0.91 mg/dL Normal 0.57 - 1.00 mg/dL [facility] Work Phone: Comment on above: Performed by: PATIENT NOT FASTINGP ERFORMED BY: [facility] Bqwuoc5080 [facility] [id number] Free T4 [Mass/Vol] 1.27 ng/dL Normal 0.82 - 1.77 ng/dL [facility] Work Phone: Comment on above: Performed by: PATIENT NOT FASTINGP ERFORMED BY: [facility] Dnuhig2508 [facility] [id number] GFR/1.73 sq M.predicted among blacks CKD-EPI (S/P/Bld) [Vol rate/Area] 72 mL/min/1.73 Normal [facility] Work Phone: Comment on above: Performed by: PATIENT NOT FASTINGP ERFORMED BY: [facility] Bqdjoo2706 [facility] [id number] GFR/1.73 sq M.predicted among non-blacks CKD-EPI (S/P/Bld) [Vol rate/Area] 63 mL/min/1.73 Normal [facility] Work Phone: Comment on above: Performed by: CB PATIENT NOT FASTINGP ERFORMED BY: CB [facility] Awmxxk7983 [address] RoadDublin [place] [id number] Globulin (S) [Mass/Vol] 2.9 g/dL Normal 1.5 - 4.5 g/dL [facility]; [facility] Work Phone: Comment on above: Performed by: CB PATIENT NOT FASTINGP ERFORMED BY: CB [facility] Banlqv1736 [address] RoadDublin [place] [id number] Glucose [Mass/Vol] 108 mg/dL Abnormal 65 - 99 mg/dL [facility] of [facility]; [facility] Work Phone: Comment on above: Performed by: CB PATIENT NOT FASTINGP ERFORMED BY: [facility] Nbltsx0871 Liang RoadNuvoMedblin [place] [id number] Glucose Ql (U) Negative Normal [facility]; [facility] Work Phone: Comment on above: Performed by: PATIENT NOT FASTINGP ERFORMED BY: [facility] Bptzdc5777 Liang RoadNuvoMedblin [place] [id number] Ketones Ql (U) Negative Normal [facility]; [facility] Work Phone: Comment on above: Performed by: CB PATIENT NOT FASTINGP ERFORMED BY: [facility] Offlsy4630 [address] RoadDublin [place] [id number] pH (U) 5.5 [pH] Normal 5.0 - 7.5 [facility] Work Phone: Comment on above: Performed by: CB PATIENT NOT FASTINGP ERFORMED BY: [facility] Phylzu8622 Liang RoadNuvoMedblin [place] [id number] Potassium [Moles/Vol] 4.5 mmol/L Normal 3.5 - 5.2 mmol/L [facility] Work Phone: Comment on above: Performed by: PATIENT NOT FASTINGP ERFORMED BY: [facility] Ofwgkr9281 [facility] [id number] Protein [Mass/Vol] 7.1 g/dL Normal 6.0 - 8.5 g/dL [facility] Work Phone: Comment on above: Performed by: PATIENT NOT FASTINGP ERFORMED BY: [facility] Wveupk5157 [facility] [id number] Sodium [Moles/Vol] 137 mmol/L Normal 134 - 144 mmol/L [facility] Work Phone: Comment on above: Performed by: PATIENT NOT FASTINGP ERFORMED BY: [facility] Klnuca9889 [facility] [id number] Specific gravity (U) [Rel density] 1.020 Normal 1.005 - 1.030 [facility] Work Phone: Comment on above: Performed by: PATIENT NOT FASTINGP ERFORMED BY: [facility] Sxnodq5960 [facility] [id number] Triglyceride [Mass/Vol] 85 mg/dL Normal 0 - 149 mg/dL [facility] Work Phone: Comment on above: Performed by: PATIENT NOT FASTINGP ERFORMED BY: [facility] Wtlogf3713 [facility] [id number] TSH Qn 6.250 {uIU/mL} Abnormal 0.450 - 4.500 {uIU/mL} [facility] Work Phone: Comment on above: Performed by: PATIENT NOT FASTINGP ERFORMED BY: [facility] Gsjmpa3406 [facility] [id number] Urea nitrogen [Mass/Vol] 22 mg/dL Normal 8 - 27 mg/dL [facility] Work Phone: Comment on above: Performed by: PATIENT NOT FASTINGP ERFORMED BY: [facility] Rqwnbr0071 [facility] [id number] Urea nitrogen/Creatinine [Mass ratio] 24 mg/mg Normal 12 - 28 [facility] Work Phone: Comment on above: Performed by: PATIENT NOT FASTINGP ERFORMED BY: [facility]CoBayshore Community HospitalIuuzsk5398 [facility] [id number] Urobilinogen (U) [Mass/Vol] 0.2 mg/dL Normal 0.2 - 1.0 mg/dL [facility]; [facility] Work Phone: Comment on above: Performed by: PATIENT NOT FASTINGP ERFORMED BY: [facility] Bgsixi9545 [facility] [id number] Laboratory - Hematology and Cell countson 03-05-2017 Basophils (Bld) [#/Vol] 0.0 10*3/uL Normal 0.0 - 0.2 {x10E3/uL} [facility]; [facility] Work Phone: Comment on above: Performed by: PATIENT NOT FASTINGP ERFORMED BY: [facility] Aixldf8333 [facility] [id number] Information: 2sst 2lav 1ua Basophils/100 WBC (Bld) 1 % Normal [facility] Work Phone: Comment on above: Performed by: PATIENT NOT FASTINGP ERFORMED BY: [facility]6370 [facility] [id number] Information: 2sst 2lav 1ua Eosinophils (Bld) [#/Vol] 0.3 10*3/uL Normal 0.0 - 0.4 {x10E3/uL} [facility] Work Phone: Comment on above: Performed by: PATIENT NOT FASTINGP ERFORMED BY: [facility]6370 [facility] [id number] Information: 2sst 2lav 1ua Eosinophils/100 WBC (Bld) 4 % Normal [facility] Work Phone: Comment on above: Performed by: EVERTON PATIENT NOT FASTINGP ERFORMED BY: EVERTON Kelly6370 [facility] [id number] Information: 2sst 2lav 1ua Erythrocyte distribution width (RBC) [Ratio] 13.5 % Normal 12.3 - 15.4 % [facility] Work Phone: Comment on above: Performed by: CB PATIENT NOT FASTINGP ERFORMED BY: EVERTON LabRachid Kelly6370 [facility] [id number] Information: 2sst 2lav 1ua HbA1c (Bld) [Mass fraction] 6.7 % Abnormal 4.8 - 5.6 % [facility] Work Phone: Comment on above: Performed by: EVERTON . P re-diabetes: 5.7 - 6.4 Diabetes: >6.4 Glycemic control for adults with diabetes: <7.0 PATIENT NOT FASTINGP ERFORMED BY: EVERTON LabRachid Kelly6370 [facility] [id number] Hematocrit (Bld) [Volume fraction] 40.1 % Normal 34.0 - 46.6 % [facility] Work Phone: Comment on above: Performed by: CB PATIENT NOT FASTINGP ERFORMED BY: EVERTON [facility] Qtuxos7641 [facility] [id number] Information: 2sst 2lav 1ua Hemoglobin (Bld) [Mass/Vol] 13.6 g/dL Normal 11.1 - 15.9 g/dL [facility] Work Phone: Comment on above: Performed by: EVERTON PATIENT NOT FASTINGP ERFORMED BY: EVERTON LabCovanesa SaldivarNmyyap0307 [facility] [id number] Information: 2sst 2lav 1ua Hemoglobin Ql (U) Negative Normal [facility]; [facility] Work Phone: Comment on above: Performed by: CB PATIENT NOT FASTINGP ERFORMED BY: [facility] Pykwrt0750 [facility] [id number] Immature granulocytes (Bld) [#/Vol] 0.0 10*3/uL Normal 0.0 - 0.1 {x10E3/uL} [facility]; [facility] Work Phone: Comment on above: Performed by: CB PATIENT NOT FASTINGP ERFORMED BY: [facility] Bhmtxy7554 [facility] [id number] Information: 2sst 2lav 1ua Immature granulocytes/100 WBC (Bld) 0 % Normal [facility]; [facility] Work Phone: Comment on above: Performed by: PATIENT NOT FASTINGP ERFORMED BY: [facility] Fivdcf4375 [facility] [id number] Information: 2sst 2lav 1ua Lymphocytes (Bld) [#/Vol] 2.3 10*3/uL Normal 0.7 - 3.1 {x10E3/uL} [facility]; [facility] Work Phone: Comment on above: Performed by: PATIENT NOT FASTINGP ERFORMED BY: [facility] Nzzfkw0804 [facility] [id number] Information: 2sst 2lav 1ua Lymphocytes/100 WBC (Bld) 27 % Normal [facility] Work Phone: Comment on above: Performed by: PATIENT NOT FASTINGP ERFORMED BY: [facility] Pmyezm8336 [facility] [id number] Information: 2sst 2lav 1ua MCH (RBC) [Entitic mass] 29.9 pg Normal 26.6 - 33.0 pg Heart [facility] Work Phone: Comment on above: Performed by: CB PATIENT NOT FASTINGP ERFORMED BY: [facility] Gtsuxg7775 [facility] [id number] Information: 2sst 2lav 1ua MCHC (RBC) [Mass/Vol] 33.9 g/dL Normal 31.5 - 35.7 g/dL [facility]; [facility] Work Phone: Comment on above: Performed by: CB PATIENT NOT FASTINGP ERFORMED BY: [facility] Aahkdk1537 [facility] [id number] Information: 2sst 2lav 1ua MCV (RBC) [Entitic vol] 88 fL Normal 79 - 97 fL [facility] Work Phone: Comment on above: Performed by: CB PATIENT NOT FASTINGP ERFORMED BY: LabCoBayshore Community HospitalDuvrxz4801 [facility] [id number] Information: 2sst 2lav 1ua Monocytes (Bld) [#/Vol] 0.7 10*3/uL Normal 0.1 - 0.9 {x10E3/uL} [facility]; [facility] Work Phone: Comment on above: Performed by: CB PATIENT NOT FASTINGP ERFORMED BY: LabCoBayshore Community HospitalQpjkxg2770 Liang ClarabridgeCone Health [facility] [id number] Information: 2sst 2lav 1ua Monocytes/100 WBC (Bld) 8 % Normal [facility]; [facility] Work Phone: Comment on above: Performed by: CB PATIENT NOT FASTINGP ERFORMED BY: [facility] Qhlbbb2143 [facility] [id number] Information: 2sst 2lav 1ua Neutrophils (Bld) [#/Vol] 5.0 10*3/uL Normal 1.4 - 7.0 {x10E3/uL} [facility]; [facility] Work Phone: Comment on above: Performed by: CB PATIENT NOT FASTINGP ERFORMED BY: [facility] Ykvgqa9656 [facility] [id number] Information: 2sst 2lav 1ua Neutrophils/100 WBC (Bld) 60 % Normal [facility] Work Phone: Comment on above: Performed by: CB PATIENT NOT FASTINGP ERFORMED BY: [facility] Atxtws5200 [facility] [id number] Information: 2sst 2lav 1ua Platelets (Bld) [#/Vol] 335 10*3/uL Normal 150 - 379 {x10E3/uL} [facility] Work Phone: Comment on above: Performed by: CB PATIENT NOT FASTINGP ERFORMED BY: [facility] Ktiavq8266 [facility] [id number] Information: 2sst 2lav 1ua RBC (Bld) [#/Vol] 4.55 10*6/uL Normal 3.77 - 5.28 {x10E6/uL} [facility] Work Phone: Comment on above: Performed by: CB PATIENT NOT FASTINGP ERFORMED BY: Dyan Saldivarlin6370 [facility] [id number] Information: 2sst 2lav 1ua WBC (Bld) [#/Vol] 8.3 10*3/uL Normal 3.4 - 10.8 {x10E3/uL} [facility] Work Phone: Comment on above: Performed by: CB PATIENT NOT FASTINGP ERFORMED BY: [facility] Dqpzjc4661 [facility] [id number] Information: 2sst 2lav 1ua Laboratory - Specimen inform ationon 03-05-2017 Appearance (U) Clear Normal [facility] Work Phone: Comment on above: Performed by: CB PATIENT NOT FASTINGP ERFORMED BY: [facility] Dfpoeb6100 [facility] [id number] Color (U) Yellow Normal [facility] Work Phone: Comment on above: Performed by: EVERTON PATIENT NOT FASTINGP ERFORMED BY: EVERTON Kelly6370 [address] [facility] [place] [id number] Laboratory - Urinalysison Leukocyte esterase Test strip Ql (U) Negative Normal [facility] Work Phone: Comment on above: Performed by: EVERTON PATIENT NOT FASTINGP ERFORMED BY: EVERTON Kelly6370 [address] [facility] [place] [id number] Microscopic observation LM Nom (Urine sed) MICNIP Normal [facility] Work Phone: Comment on above: Performed by: CBMicr oscopic not indicated and not performed. PATIENT NOT FASTINGP ERFORMED BY: EVERTON Kelly6370 [address] RoadDublin [place] [id number] Nitrite Ql (U) Negative Normal [facility] Work Phone: Comment on above: Performed by: EVERTON PATIENT NOT FASTINGP ERFORMED BY: EVERTON Kelly6370 [address] [facility] [place] [id number] Protein Ql (U) Negative Normal [facility] Work Phone: Comment on above: Performed by: EVERTON PATIENT NOT FASTINGP ERFORMED BY: EVERTON Kelly6370 LiangMon Health Medical Centerin [place] [id number] Laboratory - Chemistry and C hemistry - challengeon 08-28-2016 Albumin [Mass/Vol] 4.6 g/dL Normal 3.5 - 4.8 g/dL [facility] Work Phone: Comment on above: PATIENT NOT FASTINGP ERFORMED BY: EVERTON Saldivarlin6370 [address] [facility] [id number] BY: [employer]2250 [facility] [id number] Information: SRC:UR 1sst 1lav 1urine cu p Albumin DL <= 20 mg/L (U) [Mass/Vol] 9.5 ug/mL Normal [facility]; [facility] Work Phone: Comment on above: PATIENT NOT FASTINGP ERFORMED BY: EVERTON WebsupportRachid SaldivarGaykkj1321 8aweekDuke [facility] Hospital [id number] BY: [employer]50 [facility] [id number] Albumin/Creatinine DL <= 20 mg/L (U) [Mass ratio] 9.5 {mg/g_creat} Normal 0.0 - 30.0 {mg/g_crea t} [facility]; [facility] Work Phone: Comment on above: PATIENT NOT FASTINGP ERFORMED BY: EVERTON WebsupportRachid SaldivarXxwpqs5139 [address] [facility] [id number] BY: [employer]2250 [facility] [id number] Albumin/Globulin [Mass ratio] 1.7 {ratio} Normal 1.1 - 2.5 [facility] Work Phone: Comment on above: Effective August the reference interval for A/G Ratio will be changing to: Age Male Female 0 - 7 days 1.1 - 2.3 1.1 - 2.3 8 - 30 days 1.2 - 2.8 1.2 - 2.8 1 - 6 months 1.3 - 3.6 1.3 - 3.6 7 months - 5 years 1.5 - 2.6 1.5 - 2.6 > 5 years 1.2 - 2.2 1.2 - 2.2 PATIENT NOT FASTINGP ERFORMED BY: EVERTON Cobiscorpvanesa ThinknumDuke [facility] Hospital [id number] BY: [employer]2250 [facility] [id number] Information: SRC:UR 1sst 1lav 1urine cu p ALP [Catalytic activity/Vol] 59 U/L Normal 39 - 117 [iU]/L [facility]; [facility] Work Phone: Comment on above: PATIENT NOT FASTINGP ERFORMED BY: EVERTON Dunbar70 Liang ClarabridgeC[facility] [id number] BY: [employer]2250 [facility] [id number] Information: SRC:UR 1sst 1lav 1urine cu p ALT [Catalytic activity/Vol] 14 U/L Normal 0 - 32 [iU]/L [facility]; [facility] Work Phone: Comment on above: PATIENT NOT FASTINGP ERFORMED BY: EVERTON Saldivarlin6370 Liang ClarabridgeC[facility] [id number] BY: BuzzSumo [facility] [id number] Information: SRC:UR 1sst 1lav 1urine cu p AST [Catalytic activity/Vol] 20 U/L Normal 0 - 40 [iU]/L [facility]; [facility] Work Phone: Comment on above: PATIENT NOT FASTINGP ERFORMED BY: EVERTON Saldivarlin6370 [facility] [id number] BY: [employer]50 [facility] [id number] Information: SRC:UR 1sst 1lav 1urine cu p Bilirubin [Mass/Vol] 0.3 mg/dL Normal 0.0 - 1 .2 mg/dL [facility]; [facility] Work Phone: Comment on above: PATIENT NOT FASTINGP ERFORMED BY: EVERTON Dunbar70 Liang ClarabridgeC[facility] [id number] BY: BuzzSumo [facility] [id number] Information: SRC:UR 1sst 1lav 1urine cu p Calcium [Mass/Vol] 9.4 mg/dL Normal 8.7 - 10. 3 mg/dL [facility]; [facility] Work Phone: Comment on above: PATIENT NOT FASTINGP ERFORMED BY: EVERTON Pat [facility] [id number] BY: LITIL LitholinKizziangGifiwarqeiu7823 [facility] [id number] Information: SRC:UR 1sst 1lav 1urine cu p Chloride [Moles/Vol] 97 mmol/L Normal 96 - 10 6 mmol/L [facility] Work Phone: Comment on above: PATIENT NOT FASTINGP ERFORMED BY: EVERTON Dunbar70 [facility] [id number] BY: [employer]2250 [facility] [id number] Information: SRC:UR 1sst 1lav 1urine cu p Cholesterol [Mass/Vol] 167 mg/dL Normal 100 - 199 mg/dL [facility] Work Phone: Comment on above: PATIENT NOT FASTINGP ERFORMED BY: EVERTON Pat [facility] [id number] BY: LITIL LitholinKizziangHnymedhuoqx9493 [facility] [id number] Cholesterol in HDL [Mass/Vol] 91 mg/dL Normal [facility] Work Phone: Comment on above: PATIENT NOT FASTINGP ERFORMED BY: EVERTON Saldivarlin6370 [facility] [id number] BY: LITIL LitholinKizziangRhkvmoemltq3968 [facility] [id number] Cholesterol in LDL [Mass/Vol] 51 mg/dL Normal 0 - 99 mg/dL [facility] Work Phone: Comment on above: PATIENT NOT FASTINGP ERFORMED BY: EVERTON Kelly6370 Liang [facility] [id number] BY: LITIL Litholink Ysnevoweacc1019 [facility] [id number] Cholesterol in LDL [Mass/Vol] 65 mg/dL Normal 0 - 99 mg/dL [facility]; [facility] Work Phone: Comment on above: PATIENT NOT FASTINGP ERFORMED BY: EVERTON Pat Liang [facility] [id number] BY: LITDreamHost LitholinQuidsi Jtesmrxqdlh8042 [facility] [id number] Cholesterol in VLDL [Mass/Vol] 25 mg/dL Normal 5 - 40 mg/dL [facility]; [facility] Work Phone: Comment on above: PATIENT NOT FASTINGP ERFORMED BY: EVERTON Pat [facility]Western [facility] [id number] BY: [employer]2250 [facility] [id number] CO2 [Moles/Vol] 25 mmol/L Normal 18 - 29 mmol/L [facility] Work Phone: Comment on above: PATIENT NOT FASTINGP ERFORMED BY: EVERTON Pat [facility] [id number] BY: [employer]2250 [facility] [id number] Information: SRC:UR 1sst 1lav 1urine cu p Creatinine (U) [Mass/Vol] 100.3 mg/dL Normal [facility]; [facility] Work Phone: Comment on above: PATIENT NOT FASTINGP ERFORMED BY: EVERTON Dunbar70 [facility] [id number] BY: [employer]2250 [facility] [id number] Creatinine [Mass/Vol] 1.07 mg/dL Abnormal 0.57 - 1.00 mg/dL [facility]; [facility] Work Phone: Comment on above: PATIENT NOT FASTINGP ERFORMED BY: EVERTON Kelly6370 Liang TravelSharkDuke [facility] Hospital [id number] BY: [employer]2250 [facility] [id number] Information: SRC:UR 1sst 1lav 1urine cu p GFR/1.73 sq M.predicted among blacks CKD-EPI (S/P/Bld) [Vol rate/Area] 60 mL/min/1.73 Normal [facility] Work Phone: Comment on above: PATIENT NOT FASTINGP ERFORMED BY: EVERTON Saldivarlin6370 LiangLaudvilleDuke Raleigh Hospital [id number] BY: [employer]2250 [facility] [id number] Information: SRC:UR 1sst 1lav 1urine cu p GFR/1.73 sq M.predicted among non-blacks CKD-EPI (S/P/Bld) [Vol rate/Area] 52 mL/min/1.73 Abnormal [facility]; [facility] Work Phone: Comment on above: PATIENT NOT FASTINGP ERFORMED BY: EVERTON Saldivarlin6370 8aweekDuke Raleigh Hospital [id number] BY: [employer]2250 [facility] [id number] Information: SRC:UR 1sst 1lav 1urine cu p Globulin (S) [Mass/Vol] 2.7 g/dL Normal 1.5 - 4.5 g/dL [facility]; [facility] Work Phone: Comment on above: PATIENT NOT FASTINGP ERFORMED BY: EVERTON Saldivarlin6370 8aweekDuke Raleigh Hospital [id number] BY: [employer]2250 [facility] [id number] Information: SRC:UR 1sst 1lav 1urine cu p Glucose [Mass/Vol] 99 mg/dL Normal 65 - 99 mg/dL [facility]; [facility] Work Phone: Comment on above: PATIENT NOT FASTINGP ERFORMED BY: EVERTON Dunbar70 8aweekDuke Raleigh Hospital [id number] BY: [employer]50 [facility] [id number] Information: SRC:UR 1sst 1lav 1urine cu p Glucose Glucometer (BldC) [Moles/Vol] 127 Normal [facility] Work Phone: Potassium [Moles/Vol] 4.0 mmol/L Normal 3.5 - 5.2 mmol/L [facility] Work Phone: Comment on above: PATIENT NOT FASTINGP ERFORMED BY: EVERTON Kelly6370 8aweekDuke Raleigh Hospital [id number] BY: [employer]2250 [facility] [id number] Information: SRC:UR 1sst 1lav 1urine cu p Protein [Mass/Vol] 7.3 g/dL Normal 6.0 - 8.5 g/dL [facility] Work Phone: Comment on above: PATIENT NOT FASTINGP ERFORMED BY: EVERTON Kelly6370 8aweekDuke Raleigh Hospital [id number] BY: [employer]2250 [facility] [id number] Information: SRC:UR 1sst 1lav 1urine cu p Sodium [Moles/Vol] 142 mmol/L Normal 134 - 144 mmol/L [facility] Work Phone: Comment on above: PATIENT NOT FASTINGP ERFORMED BY: EVERTON Kelly6370 8aweekDuke Raleigh Hospital [id number] BY: [employer] LithBRAINREPUBLIC Ncprxmrvdzf5883 [facility] [id number] Information: SRC:UR 1sst 1lav 1urine cu p Triglyceride [Mass/Vol] 126 mg/dL Normal 0 - 149 mg/dL [facility]; [facility] Work Phone: Comment on above: PATIENT NOT FASTINGP ERFORMED BY: EVERTON Kelly6370 Liang ClarabridgeCone Health Moses [facility] [id number] BY: [employer]2250 [facility] [id number] TSH Qn 4.080 {uIU/mL} Normal 0.450 - 4.500 {uIU/mL} [facility]; [facility] Work Phone: Comment on above: PATIENT NOT FASTINGP ERFORMED BY: EVERTON Kelly6370 Liang ClarabridgeCone Health Moses [facility] [id number] BY: [employer]2250 [facility] [id number] Urea nitrogen [Mass/Vol] 26 mg/dL Normal 8 - 27 mg/dL [facility] Work Phone: Comment on above: PATIENT NOT FASTINGP ERFORMED BY: EVERTON Kelly6370 Liang ClarabridgeCone Health [facility] [id number] BY: [employer]2250 [facility] [id number] Information: SRC:UR 1sst 1lav 1urine cu p Urea nitrogen/Creatinine [Mass ratio] 24 mg/mg Normal 11 - 26 [facility] Work Phone: Comment on above: PATIENT NOT FASTINGP ERFORMED BY: EVERTON Saldivarlin6370 [facility]Western [facility] [id number] BY: [employer]2250 [facility] [id number] Information: SRC:UR 1sst 1lav 1urine cu p Laboratory - Hematology and Cell countson 08-28-2016 HbA1c (Bld) [Mass fraction] 6.5 % Abnormal 4.8 - 5.6 % [facility] Work Phone: Comment on above: . Pre-diabetes: 5.7 - 6.4 Diabetes: >6.4 Glycemic control for adults with diabetes: <7.0 PATIENT NOT FASTINGP ERFORMED BY: EVERTON Kelly6370 Liang ClarabridgeCone Health [facility] [id number] BY: [employer]2250 [facility] [id number] Laboratory - Chemistry and C hemistry - challengeon 03-18-2016 Albumin DL <= 20 mg/L (U) [Mass/Vol] 8.1 ug/mL Normal [facility] Work Phone: Comment on above: PATIENT NOT FASTINGP ERFORMED BY: EVERTON Kelly6370 [facility] [id number] Information: 1sst 1 urine cup Albumin/Creatinine DL <= 20 mg/L (U) [Mass ratio] 7.9 {mg/g_creat} Normal 0.0 - 30.0 {mg/g_crea t} [facility] Work Phone: Comment on above: PATIENT NOT FASTINGP ERFORMED BY: EVERTON Kelly6370 [facility] [id number] Information: 1sst 1 urine cup Creatinine (U) [Mass/Vol] 102.0 mg/dL Normal [facility] Work Phone: Comment on above: PATIENT NOT FASTINGP ERFORMED BY: EVERTON Kelly6370 [facility] [id number] Information: 1sst 1 urine cup Glucose Glucometer (BldC) [Moles/Vol] 111 Normal [facility] Work Phone: Comment on above: Fasting TSH Qn 4.150 {uIU/mL} Normal 0.450 - 4.500 {uIU/mL} [facility]; [facility] Work Phone: Comment on above: PATIENT NOT FASTINGP ERFORMED BY: EVERTON Kelly6370 [facility] [id number] Laboratory - Chemistry and C hemistry - challengeon 10-16-2015 Albumin [Mass/Vol] 4.3 g/dL Normal 3.5 - 4.8 g/dL [facility] Work Phone: Comment on above: PATIENT NOT FASTINGP ERFORMED BY: EVERTON LabRachid SaldivarHmrqmt1984 [facility] [id number] Information: 2SST 2LAV Albumin/Globulin [Mass ratio] 1.7 {ratio} Normal 1.1 - 2.5 [facility] Work Phone: Comment on above: PATIENT NOT FASTINGP ERFORMED BY: EVERTON LabLee[facility] Ryqwuo3355 [facility] [id number] Information: 2SST 2LAV ALP [Catalytic activity/Vol] 51 U/L Normal 39 - 117 [iU]/L [facility] Work Phone: Comment on above: PATIENT NOT FASTINGP ERFORMED BY: EVERTON LabLee[facility] Aahtlr4418 [facility] [id number] Information: 2SST 2LAV ALT [Catalytic activity/Vol] 13 U/L Normal 0 - 32 [iU]/L [facility] Work Phone: Comment on above: PATIENT NOT FASTINGP ERFORMED BY: EVERTON LabCo Ycqrei4179 [facility] [id number] Information: 2SST 2LAV AST [Catalytic activity/Vol] 16 U/L Normal 0 - 40 [iU]/L [facility]; [facility] Work Phone: Comment on above: PATIENT NOT FASTINGP ERFORMED BY: EVERTON LabCovanesa KellyDnfbso3750 [facility] [id number] Information: 2SST 2LAV Bilirubin [Mass/Vol] 0.3 mg/dL Normal 0.0 - 1 .2 mg/dL [facility] Work Phone: Comment on above: PATIENT NOT FASTINGP ERFORMED BY: EVERTON [facility] Cynura6421 [facility] [id number] Information: 2SST 2LAV Calcium [Mass/Vol] 10.0 mg/dL Normal 8.7 - 10. 3 mg/dL [facility] Work Phone: Comment on above: PATIENT NOT FASTINGP ERFORMED BY: EVERTON LabRachid Kelly6370 [facility] [id number] Information: 2SST 2LAV Chloride [Moles/Vol] 100 mmol/L Normal 97 - 10 8 mmol/L [facility] Work Phone: Comment on above: PATIENT NOT FASTINGP ERFORMED BY: EVERTON Kelly6370 [facility] [id number] Information: 2SST 2LAV Cholesterol [Mass/Vol] 153 mg/dL Normal 100 - 199 mg/dL [facility] Work Phone: Comment on above: PATIENT NOT FASTINGP ERFORMED BY: EVERTON LabCovanesa SaldivarXhetea3967 [facility] [id number] Cholesterol in HDL [Mass/Vol] 83 mg/dL Normal [facility] Work Phone: Comment on above: According to ATP-III Guidelines, HDL-C >59 mg/dL is considered anegative risk factor for CHD. PATIENT NOT FASTINGP ERFORMED BY: EVERTON LabCovanesa SaldivarHuprbh2735 [facility] [id number] Cholesterol in LDL [Mass/Vol] 57 mg/dL Normal 0 - 99 mg/dL [facility]; [facility] Work Phone: Comment on above: PATIENT NOT FASTINGP ERFORMED BY: EVERTON Kelly6370 [facility]Western [facility] [id number] Cholesterol in LDL [Mass/Vol] 65 mg/dL Normal 0 - 99 mg/dL [facility] Work Phone: Comment on above: PATIENT NOT FASTINGP ERFORMED BY: EVERTON Kelly6370 [facility] [id number] Cholesterol in VLDL [Mass/Vol] 13 mg/dL Normal 5 - 40 mg/dL [facility] Work Phone: Comment on above: PATIENT NOT FASTINGP ERFORMED BY: EVERTON Kelly6370 [facility] [id number] CO2 [Moles/Vol] 22 mmol/L Normal 18 - 29 mmol/L [facility] Work Phone: Comment on above: PATIENT NOT FASTINGP ERFORMED BY: EVERTON Kelly6370 [facility] [id number] Information: 2SST 2LAV Creatinine [Mass/Vol] 0.76 mg/dL Normal 0.57 - 1.00 mg/dL [facility] Work Phone: Comment on above: PATIENT NOT FASTINGP ERFORMED BY: EVERTON LabRachid Kelly6370 [facility] [id number] Information: 2SST 2LAV Free T4 [Mass/Vol] 1.62 ng/dL Normal 0.82 - 1.77 ng/dL [facility] Work Phone: Comment on above: PATIENT NOT FASTINGP ERFORMED BY: EVERTON LabRachid SaldivarCbotfh5279 [facility] [id number] GFR/1.73 sq M.predicted among blacks CKD-EPI (S/P/Bld) [Vol rate/Area] 91 mL/min/1.73 Normal [facility]; [facility] Work Phone: Comment on above: PATIENT NOT FASTINGP ERFORMED BY: EVERTON Pat [facility] [id number] Information: 2SST 2LAV GFR/1.73 sq M.predicted among non-blacks CKD-EPI (S/P/Bld) [Vol rate/Area] 79 mL/min/1.73 Normal [facility] Work Phone: Comment on above: PATIENT NOT FASTINGP ERFORMED BY: EVERTON Kelly6370 [facility] [id number] Information: 2SST 2LAV Globulin (S) [Mass/Vol] 2.6 g/dL Normal 1.5 - 4.5 g/dL [facility] Work Phone: Comment on above: PATIENT NOT FASTINGP ERFORMED BY: EVERTON Kelly6370 [facility] [id number] Information: 2SST 2LAV Glucose [Mass/Vol] 110 mg/dL Abnormal 65 - 99 mg/dL [facility] Work Phone: Comment on above: PATIENT NOT FASTINGP ERFORMED BY: EVERTON Kelly6370 [facility] [id number] Information: 2SST 2LAV Potassium [Moles/Vol] 4.5 mmol/L Normal 3.5 - 5.2 mmol/L [facility] Work Phone: Comment on above: PATIENT NOT FASTINGP ERFORMED BY: EVERTON Saldivarlin6370 [facility] [id number] Information: 2SST 2LAV Protein [Mass/Vol] 6.9 g/dL Normal 6.0 - 8.5 g/dL [facility] Work Phone: Comment on above: PATIENT NOT FASTINGP ERFORMED BY: EVERTON ArlethRachid SaldivarEkgsct7446 [facility] [id number] Information: 2SST 2LAV Sodium [Moles/Vol] 142 mmol/L Normal 134 - 144 mmol/L [facility] Work Phone: Comment on above: PATIENT NOT FASTINGP ERFORMED BY: EVERTON Kelly6370 [facility] [id number] Information: 2SST 2LAV Triglyceride [Mass/Vol] 65 mg/dL Normal 0 - 149 mg/dL [facility] Work Phone: Comment on above: PATIENT NOT FASTINGP ERFORMED BY: EVERTON Saldivarlin6370 [facility] [id number] TSH Qn 4.090 {uIU/mL} Normal 0.450 - 4.500 {uIU/mL} [facility]; [facility] Work Phone: Comment on above: PATIENT NOT FASTINGP ERFORMED BY: EVERTON Saldivarlin6370 [facility] [id number] Urea nitrogen [Mass/Vol] 27 mg/dL Normal 8 - 27 mg/dL [facility] Work Phone: Comment on above: PATIENT NOT FASTINGP ERFORMED BY: EVERTON Kelly6370 [facility] [id number] Information: 2SST 2LAV Urea nitrogen/Creatinine [Mass ratio] 36 mg/mg Abnormal 11 - 26 [facility] Work Phone: Comment on above: PATIENT NOT FASTINGP ERFORMED BY: EVERTON LabRachid SaldivarFyfwhr5561 [facility] [id number] Information: 2SST 2LAV Laboratory - Hematology and Cell countson 10-16-2015 HbA1c (Bld) [Mass fraction] 6.7 % Abnormal 4.8 - 5.6 % [facility] Work Phone: Comment on above: . Pre-diabetes: 5.7 - 6.4 Diabetes: >6.4 Glycemic control for adults with diabetes: <7.0 PATIENT NOT FASTINGP ERFORMED BY: [employer] [facility] Wliocl1441 Liang ClarabridgeRikin [place] [id number] Laboratory - Chemistry and C hemistry - challengeon 04-18-2015 Albumin [Mass/Vol] 4.2 g/dL Normal 3.5 - 4.8 g/dL [facility] Work Phone: Comment on above: PERFORMED BY: [employer] [facility] Rachid Cerhyz0982 8aweekblin [place] [id number] Albumin/Globulin [Mass ratio] 1.5 {ratio} Normal 1.1 - 2.5 [facility] Work Phone: Comment on above: PERFORMED BY: [employer] [facility] Rachid Txcqlx8359 8aweekblin [place] [id number] ALP [Catalytic activity/Vol] 61 U/L Normal 39 - 117 [iU]/L [facility] Work Phone: Comment on above: PERFORMED BY: [employer] [facility] Rachid Txdvlw1618 8aweekblin [place] [id number] ALT [Catalytic activity/Vol] 11 U/L Normal 0 - 32 [iU]/L [facility] Work Phone: Comment on above: PERFORMED BY: [employer] [facility] Rachid Qpvzee8375 Liang TravelSharkin [place] [id number] AST [Catalytic activity/Vol] 21 U/L Normal 0 - 40 [iU]/L [facility] Work Phone: Comment on above: PERFORMED BY: [employer] [facility] Rachid Nxzwcx2153 Li[address] [facility] [place] [id number] Bilirubin [Mass/Vol] 0.4 mg/dL Normal 0.0 - 1 .2 mg/dL [facility] Work Phone: Comment on above: PERFORMED BY: Cardia6370 8aweekblin [place] [id number] Calcium [Mass/Vol] 10.1 mg/dL Normal 8.7 - 10. 3 mg/dL [facility]; [facility] Work Phone: Comment on above: PERFORMED BY: Cardia6370 Liang TravelSharkblin [place] [id number] Chloride [Moles/Vol] 96 mmol/L Abnormal 97 - 10 8 mmol/L [facility]; [facility] Work Phone: Comment on above: PERFORMED BY: [employer]70 8aweekin [place] [id number] CO2 [Moles/Vol] 25 mmol/L Normal 18 - 29 mmol/L [facility]; [facility] Work Phone: Comment on above: PERFORMED BY: Cardia6370 [facility]weekD[facility] [id number] Creatinine [Mass/Vol] 0.85 mg/dL Normal 0.57 - 1.00 mg/dL [facility]; [facility] Work Phone: Comment on above: PERFORMED BY: Cardia6370 8aweekD[facility] [id number] GFR/1.73 sq M.predicted among blacks CKD-EPI (S/P/Bld) [Vol rate/Area] 80 mL/min/1.73 Normal [facility]; [facility] Work Phone: Comment on above: PERFORMED BY: Cardia6370 Liang TravelSharkin [place] [id number] GFR/1.73 sq M.predicted among non-blacks CKD-EPI (S/P/Bld) [Vol rate/Area] 69 mL/min/1.73 Normal [facility]; [facility] Work Phone: Comment on above: PERFORMED BY: [employer]70 8aweekin [place] [id number] Globulin (S) [Mass/Vol] 2.8 g/dL Normal 1.5 - 4.5 g/dL [facility] Work Phone: Comment on above: PERFORMED BY: Cardia6370 8[facility]week[facility] [id number] Glucose [Mass/Vol] 113 mg/dL Abnormal 65 - 99 mg/dL [facility] Work Phone: Comment on above: PERFORMED BY: Cardia6370 8aweekD[facility] [id number] Glucose Glucometer (BldC) [Moles/Vol] 148 Normal [facility] Work Phone: Comment on above: rbs Potassium [Moles/Vol] 4.5 mmol/L Normal 3.5 - 5.2 mmol/L [facility] Work Phone: Comment on above: PERFORMED BY: Cardia6370 8[facility]week[facility] [id number] Protein [Mass/Vol] 7.0 g/dL Normal 6.0 - 8.5 g/dL [facility] Work Phone: Comment on above: PERFORMED BY: Cardia6370 8[facility]weekD[facility] [id number] Sodium [Moles/Vol] 138 mmol/L Normal 134 - 144 mmol/L [facility] Work Phone: Comment on above: PERFORMED BY: Cardia6370 Liang [facility] [id number] TSH Qn 6.310 {uIU/mL} Abnormal 0.450 - 4.500 {uIU/mL} [facility] Work Phone: Comment on above: PERFORMED BY: [employer]70 [facility] [id number] Urea nitrogen [Mass/Vol] 21 mg/dL Normal 8 - 27 mg/dL [facility] Work Phone: Comment on above: PERFORMED BY: Cardia6370 [facility] [id number] Urea nitrogen/Creatinine [Mass ratio] 25 mg/mg Normal 11 - 26 [facility] Work Phone: Comment on above: PERFORMED BY: Cardia6370 8[facility]weekD[facility] [id number] Laboratory - Hematology and Cell countson 04-18-2015 HbA1c (Bld) [Mass fraction] 6.3 % Abnormal 4.8 - 5.6 % [facility] Work Phone: Comment on above: . Pre-diabetes: 5.7 - 6.4 Diabetes: >6.4 Glycemic control for adults with diabetes: <7.0 PERFORMED BY: Cardia6370 8aweekD[facility] [id number] Laboratory - Chemistry and C hemistry - challengeon 10-03-2014 Albumin [Mass/Vol] 4.2 g/dL Normal 3.5 - 4.8 g/dL [facility] Work Phone: Comment on above: PATIENT NOT FASTINGP ERFORMED BY: EVERTON [employer] Hopzgq5015 8aweekD[facility] Hospital [id number] Albumin/Globulin [Mass ratio] 1.5 {ratio} Normal 1.1 - 2.5 [facility] Work Phone: Comment on above: PATIENT NOT FASTINGP ERFORMED BY: SlideJarrp Szsdgm1387 8aweekDuke [facility] Hospital [id number] ALP [Catalytic activity/Vol] 55 U/L Normal 39 - 117 [iU]/L [facility] Work Phone: Comment on above: PATIENT NOT FASTINGP ERFORMED BY: EVERTON [facility] Jryqix1521 Liang RoadDublin [place] [id number] ALT [Catalytic activity/Vol] 9 U/L Normal 0 - 32 [iU]/L [facility] Work Phone: Comment on above: PATIENT NOT FASTINGP ERFORMED BY: EVERTON [facility] Thzzuu1523 Liang RoadDublin [place] [id number] AST [Catalytic activity/Vol] 20 U/L Normal 0 - 40 [iU]/L [facility] Work Phone: Comment on above: PATIENT NOT FASTINGP ERFORMED BY: EVERTON [facility] Nvzbdw9756 [address] Roadblin [place] [id number] Bilirubin [Mass/Vol] 0.4 mg/dL Normal 0.0 - 1 .2 mg/dL [facility] Work Phone: Comment on above: PATIENT NOT FASTINGP ERFORMED BY: [facility] Emitxu1199 [address] RoadDublin [place] [id number] Calcium [Mass/Vol] 9.4 mg/dL Normal 8.7 - 10. 3 mg/dL [facility] Work Phone: Comment on above: PATIENT NOT FASTINGP ERFORMED BY: EV[facility]ON [facility] Ghauhy5378 [address] Roadbl[address] [place] [id number] Chloride [Moles/Vol] 101 mmol/L Normal 97 - 10 8 mmol/L [facility] Work Phone: Comment on above: PATIENT NOT FASTINGP ERFORMED BY: [facility] Jjqcqf1806 [address] RoadDublin [place] [id number] CO2 [Moles/Vol] 22 mmol/L Normal 18 - 29 mmol/L [facility] Work Phone: Comment on above: PATIENT NOT FASTINGP ERFORMED BY: EVERTON [facility] Soukto8539 [address] RoadDublin [place] [id number] Creatinine [Mass/Vol] 0.82 mg/dL Normal 0.57 - 1.00 mg/dL [facility]; [facility] Work Phone: Comment on above: PATIENT NOT FASTINGP ERFORMED BY: EVERTON LabRachid Kelly6370 [facility] [id number] GFR/1.73 sq M.predicted among blacks CKD-EPI (S/P/Bld) [Vol rate/Area] 84 mL/min/1.73 Normal [facility]; [facility] Work Phone: Comment on above: PATIENT NOT FASTINGP ERFORMED BY: EVERTON LabRachid Kelly6370 [facility] [id number] GFR/1.73 sq M.predicted among non-blacks CKD-EPI (S/P/Bld) [Vol rate/Area] 73 mL/min/1.73 Normal [facility]; [facility] Work Phone: Comment on above: PATIENT NOT FASTINGP ERFORMED BY: EVERTON LabRachid Kelly6370 [facility] [id number] Globulin (S) [Mass/Vol] 2.8 g/dL Normal 1.5 - 4.5 g/dL [facility] Work Phone: Comment on above: PATIENT NOT FASTINGP ERFORMED BY: EVERTON LabRachid Kelly6370 [facility] [id number] Glucose [Mass/Vol] 101 mg/dL Abnormal 65 - 99 mg/dL [facility] Work Phone: Comment on above: PATIENT NOT FASTINGP ERFORMED BY: EVERTON LabRachid Kelly6370 [facility] [id number] Potassium [Moles/Vol] 4.5 mmol/L Normal 3.5 - 5.2 mmol/L [facility] Work Phone: Comment on above: PATIENT NOT FASTINGP ERFORMED BY: EVERTON LabRachid SaldivarWrgrag3770 [facility] [id number] Protein [Mass/Vol] 7.0 g/dL Normal 6.0 - 8.5 g/dL [facility] Work Phone: Comment on above: PATIENT NOT FASTINGP ERFORMED BY: [facility] Ckqstc9833 [facility] [id number] Sodium [Moles/Vol] 144 mmol/L Normal 134 - 144 mmol/L [facility] Work Phone: Comment on above: PATIENT NOT FASTINGP ERFORMED BY: [facility] Uoxtsx3647 [facility] [id number] TSH Qn 4.270 {uIU/mL} Normal 0.450 - 4.500 {uIU/mL} [facility] Work Phone: Comment on above: PATIENT NOT FASTINGP ERFORMED BY: [facility] Earjdb3656 [facility] [id number] Urea nitrogen [Mass/Vol] 23 mg/dL Normal 8 - 27 mg/dL [facility] Work Phone: Comment on above: PATIENT NOT FASTINGP ERFORMED BY: [facility] Dqotdf7592 [facility] [id number] Urea nitrogen/Creatinine [Mass ratio] 28 mg/mg Abnormal 11 - 26 [facility] Work Phone: Comment on above: PATIENT NOT FASTINGP ERFORMED BY: [facility] Btcgbb4620 [facility] [id number] Laboratory - Hematology and Cell countson 10-03-2014 HbA1c (Bld) [Mass fraction] 6.3 % Abnormal 4.8 - 5.6 % [facility] Work Phone: Comment on above: . Increased risk for diabetes: 5.7 - 6.4 Diabetes: >6.4 Glycemic control for adults with diabetes: <7.0 PATIENT NOT FASTINGP ERFORMED BY: CB [facility] Bxdxdj4961 [address] [facility] [place] [id number] Laboratory - Chemistry and C hemistry - challengeon 04-21-2014 25-hydroxyvitamin D [Mass/Vol] 44.4 ng/mL Normal 30.0 - 100.0 ng/mL [facility]; [facility] Work Phone: Comment on above: Vitamin D deficiency has been defined by the [place] of[place] and an Endocrine Society practice guideline as alevel of serum 25-OH vitamin D less than 20 ng/mL (1,2).The Endocrine Society went on to further define vitamin Dinsufficiency as a level between 21 and 29 ng/mL (2).1. IOM ([place] of [employer]). 2010. Dietary reference intakes for calcium and D. [place]: The National Academies Press.2. Padmini MF, Kiera ALMARAZ, Jim DELUNA, et al. Evaluation, treatment, and prevention of vitamin D deficiency: an Endocrine Society clinical practice guideline. JCEM. 2010; 96(7):1911-30. PATIENT NOT FASTINGP ERFORMED BY: [facility] Vyivgb0060 [address] [facility] Medical CenterNuvoMedin [place] [id number] Albumin DL <= 20 mg/L (U) [Mass/Vol] 6.7 ug/mL Normal 0.0 - 17.0 ug/mL [facility]; [facility] Work Phone: Comment on above: PATIENT NOT FASTINGP ERFORMED BY: CB [facility] Sdbohx3858 [address] [facility] [id number] TSH Qn 3.080 {uIU/mL} Normal 0.450 - 4.500 {uIU/mL} [facility]; [facility] Work Phone: Comment on above: PATIENT NOT FASTINGP ERFORMED BY: CB [facility] Eiggdy9635 [address] [facility] [place] [id number] Laboratory - Hematology and Cell countson 04-21-2014 Basophils (Bld) [#/Vol] 0.1 10*3/uL Normal 0.0 - 0.2 {x10E3/uL} [facility]; [facility] Work Phone: Comment on above: PATIENT NOT FASTINGP ERFORMED BY: EVERTON LabRachid Kelly6370 [address] [place] [id number] Basophils/100 WBC (Bld) 1 % Normal [facility] Work Phone: Comment on above: PATIENT NOT FASTINGP ERFORMED BY: CB [facility] Nzqbrm5722 [address] [facility]in [place] [id number] Eosinophils (Bld) [#/Vol] 0.2 10*3/uL Normal 0.0 - 0.4 {x10E3/uL} [facility] Work Phone: Comment on above: PATIENT NOT FASTINGP ERFORMED BY: EVERTON LabCovanesa SaldivarChljrg3521 Liang RoadCone Health Med[facility] [place]in [place] [id number] Eosinophils/100 WBC (Bld) 3 % Normal [facility]; [facility] Work Phone: Comment on above: PATIENT NOT FASTINGP ERFORMED BY: EVERTON LabRachid Kelly6370 [address] [facility] [id number] Erythrocyte distribution width (RBC) [Ratio] 14.3 % Normal 12.3 - 15.4 % [facility] Work Phone: Comment on above: PATIENT NOT FASTINGP ERFORMED BY: CB [facility] Hgrxji1249 [address] [facility]in [place] [id number] HbA1c (Bld) [Mass fraction] 6.3 % Abnormal 4.8 - 5.6 % [facility] Work Phone: Comment on above: . Increased risk for diabetes: 5.7 - 6.4 Diabetes: >6.4 Glycemic control for adults with diabetes: <7.0 PATIENT NOT FASTINGP ERFORMED BY: EVERTON [facility] Afavan3924 [address] [facility] [id number] Hematocrit (Bld) [Volume fraction] 39.9 % Normal 34.0 - 46.6 % [facility] Work Phone: Comment on above: PATIENT NOT FASTINGP ERFORMED BY: [facility] Skzscx2434 [facility] [id number] Hemoglobin (Bld) [Mass/Vol] 12.9 g/dL Normal 11.1 - 15.9 g/dL [facility] Work Phone: Comment on above: PATIENT NOT FASTINGP ERFORMED BY: [facility] Svzvog8959 [address] [facility] [id number] Immature granulocytes (Bld) [#/Vol] 0.0 10*3/uL Normal 0.0 - 0.1 {x10E3/uL} [facility] Work Phone: Comment on above: PATIENT NOT FASTINGP ERFORMED BY: [facility] Npyqlx9600 [address] [facility] [id number] Immature granulocytes/100 WBC (Bld) 0 % Normal [facility] Work Phone: Comment on above: PATIENT NOT FASTINGP ERFORMED BY: [facility] Yjftse3509 [address] [facility] [id number] Lymphocytes (Bld) [#/Vol] 2.5 10*3/uL Normal 0.7 - 3.1 {x10E3/uL} [facility] Work Phone: Comment on above: PATIENT NOT FASTINGP ERFORMED BY: CB [facility] Zmxgbn2133 [address] [facility] [id number] Lymphocytes/100 WBC (Bld) 31 % Normal [facility] Work Phone: Comment on above: PATIENT NOT FASTINGP ERFORMED BY: [facility] Rwetbo9582 [address] [facility] [id number] MCH (RBC) [Entitic mass] 27.6 pg Normal 26.6 - 33.0 pg [facility]; [facility] Work Phone: Comment on above: PATIENT NOT FASTINGP ERFORMED BY: CB [facility] Tjrxxa2186 [facility] [id number] MCHC (RBC) [Mass/Vol] 32.3 g/dL Normal 31.5 - 35.7 g/dL [facility] Work Phone: Comment on above: PATIENT NOT FASTINGP ERFORMED BY: CB [facility] Ldobik9830 [facility] [id number] MCV (RBC) [Entitic vol] 85 fL Normal 79 - 97 fL [facility] Work Phone: Comment on above: PATIENT NOT FASTINGP ERFORMED BY: CB [facility] Eatzyb1891 [facility] [id number] Monocytes (Bld) [#/Vol] 0.8 10*3/uL Normal 0.1 - 0.9 {x10E3/uL} [facility] Work Phone: Comment on above: PATIENT NOT FASTINGP ERFORMED BY: CB [facility] Mwyfzs8107 [facility] [id number] Monocytes/100 WBC (Bld) 9 % Normal [facility] Work Phone: Comment on above: PATIENT NOT FASTINGP ERFORMED BY: CB [facility] Hmmmai5354 [facility] [id number] Neutrophils (Bld) [#/Vol] 4.5 10*3/uL Normal 1.4 - 7.0 {x10E3/uL} [facility] Work Phone: Comment on above: PATIENT NOT FASTINGP ERFORMED BY: CB [facility] Yoemdw4011 [address] [facility] [id number] Neutrophils/100 WBC (Bld) 56 % Normal [facility] Work Phone: Comment on above: PATIENT NOT FASTINGP ERFORMED BY: EVERTON LabCovanesa KellyUhikvc0867 [facility] [id number] Platelets (Bld) [#/Vol] 311 10*3/uL Normal 150 - 379 {x10E3/uL} [facility] Work Phone: Comment on above: PATIENT NOT FASTINGP ERFORMED BY: EVERTON [facility] Oozjvk7485 [facility] [id number] RBC (Bld) [#/Vol] 4.67 10*6/uL Normal 3.77 - 5.28 {x10E6/uL} [facility] Work Phone: Comment on above: PATIENT NOT FASTINGP ERFORMED BY: EVERTON [facility] Bmylqq1180 [facility] [id number] WBC (Bld) [#/Vol] 8.1 10*3/uL Normal 3.4 - 10.8 {x10E3/uL} [facility] Work Phone: Comment on above: PATIENT NOT FASTINGP ERFORMED BY: EVERTON LabRachid Kelly6370 [facility] [id number] Laboratory - Chemistry and C hemistry - challengeon 01-17-2014 TSH Qn 3.080 {uIU/mL} Normal 0.450 - 4.500 {uIU/mL} [facility] Work Phone: Comment on above: PATIENT NOT FASTINGP ERFORMED BY: EVERTON LabCovanesa SaldivarOijpdb1417 [facility] [id number] Laboratory - Hematology and Cell countson 01-17-2014 HbA1c (Bld) [Mass fraction] 6.4 % Abnormal 4.8 - 5.6 % [facility] Work Phone: Comment on above: . Increased risk for diabetes: 5.7 - 6.4 Diabetes: >6.4 Glycemic control for adults with diabetes: <7.0 PATIENT NOT FASTINGP ERFORMED BY: EVERTON LabCovanesa SaldivarQsfvvt9879 [address] [facility] [place] [id number] Laboratory - Chemistry and C hemistry - challengeon 10-04-2013 Albumin [Mass/Vol] 4.2 g/dL Normal 3.6 - 4.8 g/dL [facility] Work Phone: Comment on above: PATIENT NOT FASTINGP ERFORMED BY: EVERTON [facility] Rmzlxs1286 [address]bl[address] [place] [id number] Albumin DL <= 20 mg/L (U) [Mass/Vol] 3.8 ug/mL Normal 0.0 - 17.0 ug/mL [facility] Work Phone: Comment on above: PATIENT NOT FASTINGP ERFORMED BY: EVERTON [facility] Gjtpeo8532 [address] [facility] [place] [id number] Albumin/Globulin [Mass ratio] 1.6 {ratio} Normal 1.1 - 2.5 [facility] Work Phone: Comment on above: PATIENT NOT FASTINGP ERFORMED BY: EVERTON [facility] Vaokqi3801 [address]bl[address] [place] [id number] ALP [Catalytic activity/Vol] 53 U/L Normal 39 - 117 [iU]/L [facility] Work Phone: Comment on above: PATIENT NOT FASTINGP ERFORMED BY: CB [facility] Fcpwwh8402 [address] RoadDublin [place] [id number] ALT [Catalytic activity/Vol] 12 U/L Normal 0 - 32 [iU]/L [facility] Work Phone: Comment on above: PATIENT NOT FASTINGP ERFORMED BY: EVERTON [facility] Rcqtcp4447 [address] RoadDublin [place] [id number] AST [Catalytic activity/Vol] 23 U/L Normal 0 - 40 [iU]/L [facility] Work Phone: Comment on above: PATIENT NOT FASTINGP ERFORMED BY: EVERTON LabRachid Kelly6370 [facility] [id number] Bilirubin [Mass/Vol] 0.4 mg/dL Normal 0.0 - 1 .2 mg/dL [facility] Work Phone: Comment on above: PATIENT NOT FASTINGP ERFORMED BY: CB [facility] Afckbt4932 [address] [facility] [id number] Calcium [Mass/Vol] 9.2 mg/dL Normal 8.6 - 10. 2 mg/dL [facility] Work Phone: Comment on above: PATIENT NOT FASTINGP ERFORMED BY: EVERTON LabMarlenvanesa SaldivarVpqvqq1441 [facility] [id number] Chloride [Moles/Vol] 102 mmol/L Normal 97 - 10 8 mmol/L [facility] Work Phone: Comment on above: PATIENT NOT FASTINGP ERFORMED BY: CB LabCovanesa Kuwqah4788 [facility] [id number] Cholesterol [Mass/Vol] 169 mg/dL Normal 100 - 199 mg/dL [facility] Work Phone: Comment on above: PATIENT NOT FASTINGP ERFORMED BY: CB [facility] Yuzdhf6764 [facility] [id number] Cholesterol in HDL [Mass/Vol] 96 mg/dL Normal [facility] Work Phone: Comment on above: According to ATP-III Guidelines, HDL-C >59 mg/dL is considered anegative risk factor for CHD. PATIENT NOT FASTINGP ERFORMED BY: CB [facility] Qazeib5804 [address] [facility] [id number] Cholesterol in LDL [Mass/Vol] 60 mg/dL Normal 0 - 99 mg/dL [facility] Work Phone: Comment on above: PATIENT NOT FASTINGP ERFORMED BY: CB [facility] Ejlrxi6049 [address] RoadDublin [place] [id number] Cholesterol in LDL [Mass/Vol] 67 mg/dL Normal 0 - 99 mg/dL [facility]; [facility] Work Phone: Comment on above: PATIENT NOT FASTINGP ERFORMED BY: CB [facility] Sfwktp6842 [address] RoadDublin [place] [id number] Cholesterol in VLDL [Mass/Vol] 13 mg/dL Normal 5 - 40 mg/dL [facility] Work Phone: Comment on above: PATIENT NOT FASTINGP ERFORMED BY: CB [facility] Sygxun7433 [address] RoadDublin [place] [id number] CO2 [Moles/Vol] 27 mmol/L Normal 19 - 28 mmol/L [facility] Work Phone: Comment on above: PATIENT NOT FASTINGP ERFORMED BY: CB [facility] Dpciio1444 [address] RoadC[facility] [place] [place] [id number] Creatinine [Mass/Vol] 0.76 mg/dL Normal 0.57 - 1.00 mg/dL [facility]; [facility] Work Phone: Comment on above: PATIENT NOT FASTINGP ERFORMED BY: CB [facility] Tptggu0273 [address] Roadbl[address] [place] [id number] GFR/1.73 sq M.predicted among blacks CKD-EPI (S/P/Bld) [Vol rate/Area] 93 mL/min/1.73 Normal [facility]; [facility] Work Phone: Comment on above: PATIENT NOT FASTINGP ERFORMED BY: CB [facility] Cvbuet3184 [address] RoadDublin [place] [id number] GFR/1.73 sq M.predicted among non-blacks CKD-EPI (S/P/Bld) [Vol rate/Area] 80 mL/min/1.73 Normal [facility]; [facility] Work Phone: Comment on above: PATIENT NOT FASTINGP ERFORMED BY: EVERTON LabCovanesa SaldivarYncsby4998 [facility] [id number] Globulin (S) [Mass/Vol] 2.7 g/dL Normal 1.5 - 4.5 g/dL [facility]; [facility] Work Phone: Comment on above: PATIENT NOT FASTINGP ERFORMED BY: CB [facility]dpqim7230 [facility] [place] [id number] Glucose [Mass/Vol] 109 mg/dL Abnormal 65 - 99 mg/dL [facility] Work Phone: Comment on above: PATIENT NOT FASTINGP ERFORMED BY: [facility]ON [facility] Mrpjel2545 [facility] [id number] Potassium [Moles/Vol] 4.3 mmol/L Normal 3.5 - 5.2 mmol/L [facility] Work Phone: Comment on above: PATIENT NOT FASTINGP ERFORMED BY: EVERTON LabCovanesa SaldivarFlipwv2893 [facility] [id number] Protein [Mass/Vol] 6.9 g/dL Normal 6.0 - 8.5 g/dL [facility] Work Phone: Comment on above: PATIENT NOT FASTINGP ERFORMED BY: [facility] Snjswc7261 [facility] [id number] Sodium [Moles/Vol] 141 mmol/L Normal 134 - 144 mmol/L [facility] Work Phone: Comment on above: PATIENT NOT FASTINGP ERFORMED BY: [facility] Armbut0957 [facility] [id number] Triglyceride [Mass/Vol] 67 mg/dL Normal 0 - 149 mg/dL [facility] Work Phone: Comment on above: PATIENT NOT FASTINGP ERFORMED BY: EVERTON [facility] Vqwtel5047 [address] [facility] [place] [id number] TSH Qn 5.220 {uIU/mL} Abnormal 0.450 - 4.500 {uIU/mL} [facility]; [facility] Work Phone: Comment on above: PATIENT NOT FASTINGP ERFORMED BY: CB [facility] Vmkjkh9159 [address] [facility] [id number] Urea nitrogen [Mass/Vol] 26 mg/dL Normal 8 - 27 mg/dL [facility]; [facility] Work Phone: Comment on above: PATIENT NOT FASTINGP ERFORMED BY: EVERTON [facility] Wurtnp4284 [address] [facility] [id number] Urea nitrogen/Creatinine [Mass ratio] 34 mg/mg Abnormal 11 - 26 [facility] Work Phone: Comment on above: PATIENT NOT FASTINGP ERFORMED BY: EVERTON [facility] Cpakzx2408 [facility] [id number] Laboratory - Hematology and Cell countson 10-04-2013 HbA1c (Bld) [Mass fraction] 6.5 % Abnormal 4.8 - 5.6 % [facility]; [facility] Work Phone: Comment on above: . Increased risk for diabetes: 5.7 - 6.4 Diabetes: >6.4 Glycemic control for adults with diabetes: <7.0 PATIENT NOT FASTINGP ERFORMED BY: CB [facility] Fvjkek0828 [facility] [id number] Laboratory - Hematology and Cell countson 03-29-2013 HbA1c (Bld) [Mass fraction] 5.1 % Normal 4.8 - 5.6 % [facility]; [facility] Work Phone: Comment on above: . Increased risk for diabetes: 5.7 - 6.4 Diabetes: >6.4 Glycemic control for adults with diabetes: <7.0 PATIENT NOT FASTINGP ERFORMED BY: EVERTON [facility] Ssozdb8054 [address] [facility] [place] [id number] Laboratory - Chemistry and C hemistry - challengeon 12-29-2012 Cholesterol [Mass/Vol] 173 mg/dL Normal 100 - 199 mg/dL [facility] Work Phone: Comment on above: PATIENT NOT FASTINGP ERFORMED BY: EVERTON [facility] Cknlsd0045 [address] RoadC[facility] Health [facility] [place] [id number]; Much improved. Cholesterol in HDL [Mass/Vol] 104 mg/dL Normal [facility] Work Phone: Comment on above: According to ATP-III Guidelines, HDL-C >59 mg/dL is considered anegative risk factor for CHD. PATIENT NOT FASTINGP ERFORMED BY: EVERTON LabCovanesa Syyhaa6756 [facility] [id number]; Much improved. Cholesterol in LDL [Mass/Vol] 54 mg/dL Normal 0 - 99 mg/dL [facility] Work Phone: Comment on above: PATIENT NOT FASTINGP ERFORMED BY: EVERTON [facility] Xstkfk9567 [address] [facility] [id number]; Much improved. Cholesterol in LDL [Mass/Vol] 65 mg/dL Normal 0 - 99 mg/dL [facility] Work Phone: Comment on above: PATIENT NOT FASTINGP ERFORMED BY: EVERTON [facility] Rryzkl0865 [address] [facility] [place] [id number]; Much improved. Cholesterol in VLDL [Mass/Vol] 15 mg/dL Normal 5 - 40 mg/dL [facility] Work Phone: Comment on above: PATIENT NOT FASTINGP ERFORMED BY: EVERTON [facility] Norzim7537 [address] [facility] [id number]; Much improved. Triglyceride [Mass/Vol] 74 mg/dL Normal 0 - 149 mg/dL [facility] Work Phone: Comment on above: PATIENT NOT FASTINGP ERFORMED BY: CB [facility] Hyixuo6857 [address] Roadblin [place] [id number]; Much improved. Laboratory - Chemistry and C hemistry - challengeon 09-29-2012 Albumin [Mass/Vol] 4.0 g/dL Normal 3.6 - 4.8 g/dL [facility]; [facility] Work Phone: Comment on above: PATIENT NOT FASTINGP ERFORMED BY: CB [facility] Wdhrfo5116 [address] Roadblin [place] [id number] Albumin/Globulin [Mass ratio] 1.6 {ratio} Normal 1.1 - 2.5 [facility] Work Phone: Comment on above: PATIENT NOT FASTINGP ERFORMED BY: CB [facility] Jvcwgj4317 [address] Roadblin [place] [id number] ALP [Catalytic activity/Vol] 57 U/L Normal 25 - 165 [iU]/L [facility]; [facility] Work Phone: Comment on above: PATIENT NOT FASTINGP ERFORMED BY: CB [facility] Senxvj8441 [address] Roadbl[address] [place] [id number] ALT [Catalytic activity/Vol] 11 U/L Normal 0 - 32 [iU]/L [facility] Work Phone: Comment on above: PATIENT NOT FASTINGP ERFORMED BY: CB [facility] Qdaqql9725 [address] RoadDublin [place] [id number] AST [Catalytic activity/Vol] 17 U/L Normal 0 - 40 [iU]/L [facility] Work Phone: Comment on above: PATIENT NOT FASTINGP ERFORMED BY: CB [facility] Zrtcev2077 [address] Roadbl[address] [place] [id number] Bilirubin [Mass/Vol] 0.4 mg/dL Normal 0.0 - 1 .2 mg/dL [facility] Work Phone: Comment on above: PATIENT NOT FASTINGP ERFORMED BY: CB [facility] Xvcfdp1500 [address] [facility] [place] [id number] Calcium [Mass/Vol] 9.0 mg/dL Normal 8.6 - 10. 2 mg/dL [facility] Work Phone: Comment on above: PATIENT NOT FASTINGP ERFORMED BY: CB [facility] Teuyyd1804 [address] [facility] [id number] Chloride [Moles/Vol] 102 mmol/L Normal 97 - 10 8 mmol/L [facility] Work Phone: Comment on above: PATIENT NOT FASTINGP ERFORMED BY: CB [facility] Cfqwzp6789 [address] [facility] [id number] Cholesterol [Mass/Vol] 164 mg/dL Normal 100 - 199 mg/dL [facility] Work Phone: Comment on above: PATIENT NOT FASTINGP ERFORMED BY: CB [facility] Rkiouz0530 [facility]ang[facility] Medical Centerin [place] [id number] Cholesterol in HDL [Mass/Vol] 82 mg/dL Normal [facility] Work Phone: Comment on above: According to ATP-III Guidelines, HDL-C >59 mg/dL is considered anegative risk factor for CHD. PATIENT NOT FASTINGP ERFORMED BY: CB [facility] Grjkou1015 [facility] [id number] Cholesterol in LDL [Mass/Vol] 66 mg/dL Normal 0 - 99 mg/dL [facility] Work Phone: Comment on above: PATIENT NOT FASTINGP ERFORMED BY: CB [facility] Dngmus2699 [facility] [id number] Cholesterol in LDL [Mass/Vol] 80 mg/dL Normal 0 - 99 mg/dL [facility] Work Phone: Comment on above: PATIENT NOT FASTINGP ERFORMED BY: CB [facility] Sondhn5242 [address] [facility] [id number] Cholesterol in VLDL [Mass/Vol] 16 mg/dL Normal 5 - 40 mg/dL [facility]; [facility] Work Phone: Comment on above: PATIENT NOT FASTINGP ERFORMED BY: CB [facility] Qeqpss8540 [address] [facility] [id number] CO2 [Moles/Vol] 22 mmol/L Normal 20 - 32 mmol/L [facility] Work Phone: Comment on above: PATIENT NOT FASTINGP ERFORMED BY: CB [facility] Nekfya2822 [facility] [id number] Creatinine [Mass/Vol] 0.84 mg/dL Normal 0.57 - 1.00 mg/dL [facility]; [facility] Work Phone: Comment on above: PATIENT NOT FASTINGP ERFORMED BY: CB [facility] [id number] [facility] [id number] GFR/1.73 sq M.predicted among blacks CKD-EPI (S/P/Bld) [Vol rate/Area] 83 mL/min/1.73 Normal [facility] Work Phone: Comment on above: PATIENT NOT FASTINGP ERFORMED BY: CB [facility] [id number] [address] [facility] [id number] GFR/1.73 sq M.predicted among non-blacks CKD-EPI (S/P/Bld) [Vol rate/Area] 72 mL/min/1.73 Normal [facility] of [facility]; [facility] Work Phone: Comment on above: PATIENT NOT FASTINGP ERFORMED BY: CB [facility] [id number] [facility] [id number] Globulin (S) [Mass/Vol] 2.5 g/dL Normal 1.5 - 4.5 g/dL [facility] Work Phone: Comment on above: PATIENT NOT FASTINGP ERFORMED BY: EVERTON LabCovanesa [id number] [address] [place] [id number] Glucose [Mass/Vol] 88 mg/dL Normal 65 - 99 mg/dL [facility]; [facility] Work Phone: Comment on above: PATIENT NOT FASTINGP ERFORMED BY: CB [facility] [id number] [address] RoadCone Health Med[facility] [place] [place] [id number] Potassium [Moles/Vol] 3.8 mmol/L Normal 3.5 - 5.2 mmol/L [facility]; [facility] Work Phone: Comment on above: PATIENT NOT FASTINGP ERFORMED BY: EVERTON LabRachid Kelly6[address] [place] [id number] Protein [Mass/Vol] 6.5 g/dL Normal 6.0 - 8.5 g/dL [facility]; [facility] Work Phone: Comment on above: PATIENT NOT FASTINGP ERFORMED BY: EVERTON LabRachid SaldivarSpukno3612 [address] [place] [id number] Sodium [Moles/Vol] 140 mmol/L Normal 134 - 144 mmol/L [facility] Work Phone: Comment on above: PATIENT NOT FASTINGP ERFORMED BY: EVERT[place] LabCovanesa SaldivarIvwnle0459 [address] [facility] [place] [id number] Triglyceride [Mass/Vol] 78 mg/dL Normal 0 - 149 mg/dL [facility] Work Phone: Comment on above: PATIENT NOT FASTINGP ERFORMED BY: EVERT[place] LabRachid SaldivarWhzpea6235 [address] [facility] [place] [id number] Urea nitrogen [Mass/Vol] 17 mg/dL Normal 8 - 27 mg/dL [facility]; [facility] Work Phone: Comment on above: PATIENT NOT FASTINGP ERFORMED BY: EVERTON LabCovanesa SaldivarAktcxh0580 [facility] [id number] Urea nitrogen/Creatinine [Mass ratio] 20 mg/mg Normal - [facility] Work Phone: Comment on above: PATIENT NOT FASTINGP ERFORMED BY: EVERTON Kelly6370 [facility] [id number] Laboratory - Hematology and Cell countson 09-29-2012 HbA1c (Bld) [Mass fraction] 6.5 % Abnormal 4.8 - 5.6 % [facility] Work Phone: Comment on above: . Increased risk for diabetes: 5.7 - 6.4 Diabetes: >6.4 Glycemic control for adults with diabetes: <7.0 PATIENT NOT FASTINGP ERFORMED BY: EVERTON Saldivarlin6370 [facility] [id number] Laboratory - Hematology and Cell countson 03-30-2012 HbA1c (Bld) [Mass fraction] 6.4 % Abnormal 4.8 - 5.6 % [facility] Work Phone: Comment on above: . Increased risk for diabetes: 5.7 - 6.4 Diabetes: >6.4 Glycemic control for adults with diabetes: <7.0 A duplicate report h as been generated due to demographic updates.PATIENT NOT FASTINGPERFORMED BY: EVERTON Saldivarlin6370 [facility] [id number] Laboratory - Chemistry and C hemistry - challengeon 11-20-2011 Bilirubin Ql (U) Negative Normal [facility] Work Phone: Comment on above: PATIENT NOT FASTINGP ERFORMED BY: EVERTON WebsupportRachid SaldivarLohqbj4505 [facility] [id number] Glucose Ql (U) Negative Normal [facility] Work Phone: Comment on above: PATIENT NOT FASTINGP ERFORMED BY: EVERTON Saldivarlin6370 [facility] [id number] Ketones Ql (U) trace Normal [facility]; [facility] Work Phone: Ketones Ql (U) Negative Normal [facility]; [facility] Work Phone: Comment on above: PATIENT NOT FASTINGP ERFORMED BY: EVERTON Kelly6370 [facility] [id number] pH (U) 5.5 [pH] Normal 4.6 - 8.0 [facility] Work Phone: pH (U) 6.0 [pH] Normal 5.0 - 7.5 [facility] Work Phone: Comment on above: PATIENT NOT FASTINGP ERFORMED BY: EVERTON Kelly6370 [facility] [id number] Specific gravity (U) [Rel density] 1.020 Normal 1.001 - 1.035 [facility] Work Phone: Specific gravity (U) [Rel density] 1.019 Normal 1.005 - 1.030 [facility] Work Phone: Comment on above: PATIENT NOT FASTINGP ERFORMED BY: EVERTON Kelly6370 [facility] [id number] Urobilinogen (U) [Mass/Vol] 0.2 mg/dL Normal 0.0 - 1.9 mg/dL [facility]; [facility] Work Phone: Comment on above: PATIENT NOT FASTINGP ERFORMED BY: EVERTON Kelly6370 [facility] [id number] Laboratory - Hematology and Cell countson 11-20-2011 Hemoglobin Ql (U) Negative Normal [facility] o f [facility]; [facility] Work Phone: Comment on above: PATIENT NOT FASTINGP ERFORMED BY: EVERTON Kelly6370 [facility] [id number] Laboratory - Microbiology an d Antimicrobial susceptibilityon 11-20-2011 Bacteria identified Cx Nom (U) Final report Normal [facility] of [facility] Work Phone: Comment on above: PATIENT NOT FASTINGP ERFORMED BY: EVERTON Kelly[address] [place] [id number] Bacteria identified Cx Nom (U) No growth Normal [facility] of [facility] Work Phone: Comment on above: PATIENT NOT FASTINGP ERFORMED BY: EVERTON Kelly6370 [facility] [id number] Laboratory - Specimen inform ationon 11-20-2011 Appearance (U) turbid Normal [facility] Work Phone: Appearance (U) Clear Normal [facility] Work Phone: Comment on above: PATIENT NOT FASTINGP ERFORMED BY: EVERTON Kelly6370 [facility] [id number] Color (U) yellow Normal [facility] of [facility] Work Phone: Comment on above: PATIENT NOT FASTINGP ERFORMED BY: EVERTON Dunbar70 [facility] [id number] Laboratory - Urinalysison Glucose Test strip (U) [Mass/Vol] Negative Normal [facility] of [facility] Work Phone: Leukocyte esterase Test strip Ql (U) trace Normal [facility] Work Phone: Leukocyte esterase Test strip Ql (U) Negative Normal [facility] Work Phone: Comment on above: PATIENT NOT FASTINGP ERFORMED BY: EVERTON Saldivarlin6370 [facility] [place] [id number] Microscopic observation LM Nom (Urine sed) MICRON Normal [facility] of [facility] Work Phone: Comment on above: Microscopic follows if indicated. PATIENT NOT FASTINGP ERFORMED BY: EVERTON [facility] [id number] Liang [facility] [id number] Microscopic observation LM Nom (Urine sed) See below: Normal [facility]; [facility] Work Phone: Comment on above: PATIENT NOT FASTINGP ERFORMED BY: CB [facility] [id number] Liang [facility] [id number] Nitrite Ql (U) Negative Normal [facility] Work Phone: Comment on above: PATIENT NOT FASTINGP ERFORMED BY: EVERTON [facility] [id number] [address] Travel[place] [id number] Protein Ql (U) Negative Normal [facility] Work Phone: Comment on above: PATIENT NOT FASTINGP ERFORMED BY: CB [facility] Cbysud3572 Liang [facility] [id number] Vital Signs Date Time Vital Sign Value Performing Clinician Facility 12-28-2024 08:59-0400 Body temperature 98.4 [degF] Dr. Flavio Barajas DO Work Phone: [facility] 12-28-2024 08:59-0400 Diastolic blood pressure 57 mm[Hg] Dr. Flavio Barajas DO Work Phone: [facility] 12-28-2024 08:59-0400 Heart rate 79 /min Dr. Flavio Barajas DO Work Phone: [facility] 12-28-2024 08:59-0400 Respiratory rate 15 /min Dr. Flavio Barajas DO Work Phone: [facility] 12-28-2024 08:59-0400 SaO2% (BldA) [Mass fraction] 97 % Dr. Flavio Barajas DO Work Phone: [facility] 12-28-2024 08:59-0400 Systolic blood pressure 114 mm[Hg] Dr. Flavio Barajas DO Work Phone: [facility] 10-12-2024 14:54-0400 Body height 147.[address] Flavio Barajas DO Work Phone: [facility] 10-12-2024 14:54-0400 Body mass index (BMI) [Ratio] 28 kg/m2 Dr. Flavio Barajas DO Work Phone: [facility] 10-12-2024 14:54-0400 Body temperature 96.1 [degF] Dr. Flavio Barajas DO Work Phone: [facility] 10-12-2024 14:54-0400 Body weight 60.[address] Flavio Barajas DO Work Phone: [facility] 10-12-2024 14:54-0400 Diastolic blood pressure 64 mm[Hg] Dr. Flavio Barajas DO Work Phone: [facility] 10-12-2024 14:54-0400 Heart rate 63 /min Dr. Flavio Barajas DO Work Phone: [facility] 10-12-2024 14:54-0400 Respiratory rate 16 /min Dr. Flavio Barajas DO Work Phone: [facility] 10-12-2024 14:54-0400 SaO2% (BldA) [Mass fraction] 94 % Dr. Flavio Barajas DO Work Phone: [facility] 10-12-2024 14:54-0400 Systolic blood pressure 122 mm[Hg] Dr. Flavio Barajas DO Work Phone: [facility] 06-06-2023 15:18-0500 Body temperature 98.2 [degF] Marah Goel MD Work Phone: [facility] 06-06-2023 15:09-0500 Diastolic blood pressure 55 mm[Hg] Marah Goel MD Work Phone: [facility] 06-06-2023 15:09-0500 Heart rate 65 /min Marah Goel MD Work Phone: [facility] 06-06-2023 15:09-0500 Respiratory rate 14 /min Marah Goel MD Work Phone: [facility] 06-06-2023 15:09-0500 SaO2% (BldA) [Mass fraction] 96 % Marah Goel MD Work Phone: [facility] 06-06-2023 15:09-0500 Systolic blood pressure 117 mm[Hg] Marah Goel MD Work Phone: [facility] 01-21-2023 23:05-0400 Diastolic blood pressure 80 mm[Hg] [facility] 01-21-2023 23:05-0400 Heart rate 85 /min [facility] 01-21-2023 23:05-0400 Respiratory rate 18 /min [facility] 01-21-2023 23:05-0400 SaO2% (BldA) [Mass fraction] 95 % [facility] 01-21-2023 23:05-0400 Systolic blood pressure 133 mm[Hg] [facility] 01-21-2023 21:39-0400 Body temperature 98.1 [degF] [facility] 01-21-2023 20:15-0400 Body mass index (BMI) [Ratio] 73.4 kg/m2 [facility] 01-21-2023 20:15-0400 Body weight 165 kg [facility] 01-21-2023 20:09-0400 Body height 149.86 cm [facility] 10-24-2022 11:03-0400 Body height 142.24 cm [facility] 10-24-2022 11:03-0400 Body mass index (BMI) [Ratio] 34.53 kg/m2 [facility] 10-24-2022 11:03-0400 Body surface area Derived from formula 1.59 m2 [facility] 10-24-2022 11:03-0400 Body temperature 97.8 [degF] [facility]; [facility] 10-24-2022 11:03-0400 Body weight 69.85 kg [facility]; [facility] 10-24-2022 11:03-0400 Diastolic blood pressure 70 mm[Hg] [facility]; [facility] 10-24-2022 11:03-0400 Heart rate 57 /min [facility]; [facility] 10-24-2022 11:03-0400 Respiratory rate 16 /min [facility]; [facility] 10-24-2022 11:03-0400 SaO2% (BldA) [Mass fraction] 97 % [facility]; [facility] 10-24-2022 11:03-0400 Systolic blood pressure 100 mm[Hg] [facility]; [facility] 06-26-2022 10:05-0500 Body height 144.8 cm Brandon Goodman MD Work Phone: [facility] 06-26-2022 10:05-0500 Body mass index (BMI) [Ratio] 30.3 kg/m2 Brandon Goodman MD Work Phone: [facility] 06-26-2022 10:05-0500 Body weight 63.5 kg Brandon Goodman MD Work Phone: [facility] 06-26-2022 10:05-0500 Heart rate 64 /min Brandon Goodman MD Work Phone: [facility] 06-26-2022 10:05-0500 SaO2% (BldA) [Mass fraction] 95 % Brandon Goodman MD Work Phone: [facility] 05-06-2022 14:06-0500 Body height 144.8 cm Lorena Mcclellan PA-C Work Phone: [facility] 05-06-2022 14:06-0500 Body mass index (BMI) [Ratio] 30.3 kg/m2 Lorena Mcclellan PA-C Work Phone: [facility] 05-06-2022 14:06-0500 Body weight 63.5 kg Lorena Mcclellan PA-C Work Phone: [facility] 05-06-2022 14:06-0500 Heart rate 63 /min Lorena Mcclellan ARLIN-C Work Phone: [facility] 05-06-2022 14:06-0500 SaO2% (BldA) [Mass fraction] 98 % Lorena Mcclellan PA-C Work Phone: [facility] 04-05-2022 11:52-0400 Body height 142.24 cm [facility] Work Phone: 04-05-2022 11:52-0400 Body mass index (BMI) [Ratio] 34.53 kg/m2 [facility] Work Phone: 04-05-2022 11:52-0400 Body surface area Derived from formula 1.59 m2 [facility] Work Phone: 04-05-2022 11:52-0400 Body temperature 98 [degF] [facility] Work Phone: Comment on above: Method: Thermal Scan 04-05-2022 11:52-0400 Body weight 69.85 kg [facility] Work Phone: 04-05-2022 11:52-0400 Diastolic blood pressure 62 mm[Hg] [facility] Work Phone: Comment on above: Patient Position: Sitting; Cuff Location : Left Arm; Cuff Size: Standard 10-14-2022 11:52-0400 Heart rate 78 /[facility] Work Phone: Comment on above: Pattern: Regular 04-05-2022 11:52-0400 Respiratory rate 16 /min [facility] Work Phone: Comment on above: Pattern: Unlabored 04-05-2022 11:52-0400 SaO2% (BldA) [Mass fraction] 98 % [facility]; [facility] Work Phone: Comment on above: Room air 04-05-2022 11:52-0400 Systolic blood pressure 100 mm[Hg] [facility] Work Phone: Comment on above: Patient Position: Sitting; Cuff Location : Left Arm; Cuff Size: Standard 03-05-2022 11:52-0400 Body height 144.8 cm Sabrina Guy DO Work Phone: [facility] 03-05-2022 11:52-0400 Body mass index (BMI) [Ratio] 30.3 kg/m2 Sabrina Guy DO Work Phone: [facility] 03-05-2022 11:52-0400 Body weight 63.5 kg Sabrina Guy DO Work Phone: [facility] 03-05-2022 11:52-0400 Diastolic blood pressure 68 mm[Hg] Sabrina Guy DO Work Phone: [facility] 03-05-2022 11:52-0400 Heart rate 63 /min Sabrina Guy DO Work Phone: [facility] 03-05-2022 11:52-0400 Systolic blood pressure 126 mm[Hg] Sabrina Guy DO Work Phone: [facility] 09-12-2021 13:24-0400 Body height 142.24 cm [facility] Work Phone: 09-12-2021 13:24-0400 Body mass index (BMI) [Ratio] 34.53 kg/m2 [facility] Work Phone: 09-12-2021 13:24-0400 Body surface area Derived from formula 1.59 m2 [facility] Work Phone: 09-12-2021 13:24-0400 Body temperature 97.7 [degF] [facility] Work Phone: Comment on above: Method: Thermal Scan 09-12-2021 13:24-0400 Body weight 69.85 kg [facility] Work Phone: 09-12-2021 13:24-0400 Diastolic blood pressure 66 mm[Hg] [facility] Work Phone: Comment on above: Patient Position: Sitting; Cuff Location : Left Arm; Cuff Size: Standard 09-12-2021 13:24-0400 Heart rate 68 /min [facility] Work Phone: Comment on above: Pattern: Regular 09-12-2021 13:24-0400 Respiratory rate 16 /min [facility] Work Phone: Comment on above: Pattern: Unlabored 09-12-2021 13:24-0400 SaO2% (BldA) [Mass fraction] 98 % [facility] Work Phone: Comment on above: Room air 09-12-2021 13:24-0400 Systolic blood pressure 130 mm[Hg] [facility] Work Phone: Comment on above: Patient Position: Sitting; Cuff Location : Left Arm; Cuff Size: Standard 03-08-2021 15:31-0400 Body height 142.24 cm [facility] Work Phone: 03-08-2021 15:31-0400 Body mass index (BMI) [Ratio] 33.01 kg/m2 [facility] Work Phone: 03-08-2021 15:31-0400 Body surface area Derived from formula 1.56 m2 [facility] Work Phone: 03-08-2021 15:31-0400 Body temperature 97 [degF] [facility] Work Phone: Comment on above: Method: Thermal Scan 03-08-2021 15:31-0400 Body weight 66.79 kg [facility] Work Phone: 03-08-2021 15:31-0400 Diastolic blood pressure 82 mm[Hg] [facility] Work Phone: Comment on above: Patient Position: Sitting; Cuff Location : Left Arm; Cuff Size: Standard 03-08-2021 15:31-0400 Heart rate 75 /min [facility] Work Phone: Comment on above: Pattern: Regular 03-08-2021 15:31-0400 Respiratory rate 16 /min [facility] Work Phone: Comment on above: Pattern: Unlabored 03-08-2021 15:31-0400 SaO2% (BldA) [Mass fraction] 97 % [facility] Work Phone: Comment on above: Room air 03-08-2021 15:31-0400 Systolic blood pressure 120 mm[Hg] [facility] Work Phone: Comment on above: Patient Position: Sitting; Cuff Location : Left Arm; Cuff Size: Standard 09-07-2020 15:55-0400 Body height 142.24 cm [facility] Work Phone: 09-07-2020 15:55-0400 Body mass index (BMI) [Ratio] 32.51 kg/m2 [facility] Work Phone: 09-07-2020 15:55-0400 Body surface area Derived from formula 1.55 m2 [facility] Work Phone: 09-07-2020 15:55-0400 Body temperature 97.1 [degF] [facility] Work Phone: Comment on above: Method: Thermal Scan 09-07-2020 15:55-0400 Body weight 65.77 kg [facility] Work Phone: 09-07-2020 15:55-0400 Diastolic blood pressure 62 mm[Hg] [facility] Work Phone: Comment on above: Patient Position: Sitting; Cuff Location : Left Arm; Cuff Size: Standard 09-07-2020 15:55-0400 Heart rate 69 /min [facility] Work Phone: Comment on above: Pattern: Regular 09-07-2020 15:55-0400 Respiratory rate 16 /min [facility] Work Phone: Comment on above: Pattern: Unlabored 09-07-2020 15:55-0400 SaO2% (BldA) [Mass fraction] 95 % [facility] Work [facility]: Comment on above: Room air 09-07-2020 15:55-0400 Systolic blood pressure 110 mm[Hg] [facility] Work Phone: Comment on above: Patient Position: Sitting; Cuff Location : Left Arm; Cuff Size: Standard 02-10-2020 11:28-0400 Body height 142.24 cm [facility] Work Phone: 02-10-2020 11:28-0400 Body mass index (BMI) [Ratio] 32.56 kg/m2 [facility] Work Phone: 02-10-2020 11:28-0400 Body surface area Derived from formula 1.55 m2 [facility] Work Phone: 02-10-2020 11:28-0400 Body temperature 99.3 [degF] [facility] Work Phone: Comment on above: Method: Thermal Scan 02-10-2020 11:28-0400 Body weight 65.89 kg [facility] Work Phone: 02-10-2020 11:28-0400 Diastolic blood pressure 79 mm[Hg] [facility] Work Phone: Comment on above: Patient Position: Sitting; Cuff Location : Left Arm; Cuff Size: Standard 02-10-2020 11:28-0400 Heart rate 79 /min [facility] Work Phone: Comment on above: Pattern: Regular 02-10-2020 11:28-0400 Respiratory rate 16 /min [facility] Work Phone: Comment on above: Pattern: Unlabored 02-10-2020 11:28-0400 SaO2% (BldA) [Mass fraction] 99 % [facility] Work Phone: Comment on above: Room air 02-10-2020 11:28-0400 Systolic blood pressure 137 mm[Hg] [facility] Work Phone: Comment on above: Patient Position: Sitting; Cuff Location : Left Arm; Cuff Size: Standard 08-12-2019 10:51-0500 Body height 142.24 cm [facility] Work Phone: 08-12-2019 10:51-0500 Body mass index (BMI) [Ratio] 30.1 kg/m2 [facility] Work Phone: 08-12-2019 10:51-0500 Body surface area Derived from formula 1.5 m2 [facility] Work Phone: 08-12-2019 10:51-0500 Body temperature 97.8 [degF] [facility] Work Phone: Comment on above: Method: Oral 08-12-2019 10:51-0500 Body weight 60.9 kg [facility] Work Phone: 08-12-2019 10:51-0500 Diastolic blood pressure 62 mm[Hg] [facility] Work Phone: Comment on above: Patient Position: Sitting; Cuff Location : Left Arm; Cuff Size: Standard 08-12-2019 10:51-0500 Heart rate 66 /min [facility] Work Phone: Comment on above: Pattern: Regular 08-12-2019 10:51-0500 SaO2% (BldA) [Mass fraction] 99 % Ani Cotton [facility] Work Phone: Comment on above: Room air 08-12-2019 10:51-0500 Systolic blood pressure 120 mm[Hg] Ani Cotton [facility] Work Phone: Comment on above: Patient Position: Sitting; Cuff Location : Left Arm; Cuff Size: Standard 06-26-2019 14:38-0500 BMI (Body Mass Index) 27.27 kg/m2 [facility] 06-26-2019 14:38-0500 Body Temperature 98.2 [degF] [facility] 06-26-2019 14:38-0500 Body weight 61.24 kg [facility] 06-26-2019 14:38-0500 BP Diastolic 73 mm[Hg] [facility] 06-26-2019 14:38-0500 BP Systolic 143 mm[Hg] [facility] 06-26-2019 14:38-0500 Height 149.9 cm [facility] 06-26-2019 14:38-0500 Pulse (Heart Rate) 78 /min [facility] 06-26-2019 14:38-0500 Pulse Oximetry 99 % [facility] 06-26-2019 14:38-0500 Respiratory Rate 16 /min [facility] 02-05-2019 09:36-0400 Body height 142.24 cm Amara Degroot [facility] Work Phone: 02-05-2019 09:36-0400 Body mass index (BMI) [Ratio] 31.27 kg/m2 Amara Degroot [facility] Work Phone: 02-05-2019 09:36-0400 Body surface area Derived from formula 1.52 m2 Amara Degroot [facility] Work Phone: 02-05-2019 09:36-0400 Body temperature 98.4 [degF] Amara Degroot [facility]; [facility] Work Phone: Comment on above: Method: Oral 02-05-2019 09:36-0400 Body weight 63.28 kg Amara Degroot [facility] Work Phone: 02-05-2019 09:36-0400 Diastolic blood pressure 69 mm[Hg] Amara Degroot [facility]; [facility] Work Phone: Comment on above: Patient Position: Sitting; Cuff Location : Left Arm; Cuff Size: Standard 02-05-2019 09:36-0400 Heart rate 67 /min Amara Degroot [facility] Work Phone: Comment on above: Pattern: Regular 02-05-2019 09:36-0400 Respiratory rate 15 /min Amara Degroot [facility] Work Phone: Comment on above: Pattern: Unlabored 02-05-2019 09:36-0400 SaO2% (BldA) [Mass fraction] 100 % Amara Degroot [facility] Work Phone: Comment on above: Room air 02-05-2019 09:36-0400 Systolic blood pressure 140 mm[Hg] Amara Degroot [facility] Work Phone: Comment on above: Patient Position: Sitting; Cuff Location : Left Arm; Cuff Size: Standard 08-21-2018 11:38-0500 Body height 142.24 cm [facility] Work Phone: 08-21-2018 11:38-0500 Body mass index (BMI) [Ratio] 30.8 kg/m2 [facility] Work Phone: 08-21-2018 11:38-0500 Body surface area Derived from formula 1.51 m2 [facility] Work Phone: 08-21-2018 11:38-0500 Body temperature 98.2 [degF] Shannon Cotton [facility]; [facility] Work Phone: Comment on above: Method: Oral 08-21-2018 11:38-0500 Body weight 62.31 kg Shannon Cotton [facility]; [facility] Work Phone: 08-21-2018 11:38-0500 Diastolic blood pressure 62 mm[Hg] Shannon Cotton [facility]; [facility] Work Phone: Comment on above: Patient Position: Sitting; Cuff Location : Left Arm; Cuff Size: Standard 08-21-2018 11:38-0500 Heart rate 61 /min Shannon Cotton [facility] Work Phone: Comment on above: Pattern: Regular 08-21-2018 11:38-0500 SaO2% (BldA) [Mass fraction] 100 % Shannon Cotton [facility] Work Phone: Comment on above: Room air 08-21-2018 11:38-0500 Systolic blood pressure 139 mm[Hg] Shannon Cotton [facility]; [facility] Work Phone: Comment on above: Patient Position: Sitting; Cuff Location : Left Arm; Cuff Size: Standard 04-17-2018 12:31-0400 Body height 147.32 cm [facility] Work Phone: 04-17-2018 12:31-0400 Body mass index (BMI) [Ratio] 29.29 kg/m2 [facility] Work Phone: 04-17-2018 12:31-0400 Body surface area Derived from formula 1.57 m2 [facility] Work Phone: 04-17-2018 12:31-0400 Body temperature 98.2 [degF] [facility] Work Phone: Comment on above: Method: Oral 04-17-2018 12:31-0400 Body weight 63.56 kg [facility] Work Phone: 04-17-2018 12:31-0400 Diastolic blood pressure 50 mm[Hg] [facility] Work Phone: Comment on above: Patient Position: Sitting; Cuff Location : Left Arm; Cuff Size: Standard 04-17-2018 12:31-0400 Heart rate 64 /min [facility] Work Phone: Comment on above: Pattern: Regular 04-17-2018 12:31-0400 Respiratory rate 18 /min [facility] Work Phone: Comment on above: Pattern: Unlabored 04-17-2018 12:31-0400 Systolic blood pressure 114 mm[Hg] [facility] Work Phone: Comment on above: Patient Position: Sitting; Cuff Location : Left Arm; Cuff Size: Standard 01-23-2018 10:30-0400 Body height 147.32 cm [facility] Work Phone: 01-23-2018 10:30-0400 Body mass index (BMI) [Ratio] 29.49 kg/m2 [facility] Work Phone: 01-23-2018 10:30-0400 Body surface area Derived from formula 1.57 m2 [facility] Work Phone: 01-23-2018 10:30-0400 Body weight 64.01 [facility] 01-23-2018 10:30-0400 Diastolic blood pressure 57 mm[Hg] Gabriela Morejon [facility]; [facility] Work Phone: Comment on above: Patient Position: Sitting; Cuff Location : Left Arm; Cuff Size: Standard 01-23-2018 10:30-0400 [facility] 73 [facility] Work Phone: Comment on above: Pattern: Regular 01-23-2018 10:30-0400 Respiratory rate 18 /min Gabriela [facility] Work Phone: Comment on above: Pattern: Unlabored 01-23-2018 10:30-0400 Systolic blood pressure 131 mm[Hg] [facility] Comment on above: Patient Position: Sitting; Cuff Location : Left Arm; Cuff Size: Standard 2017 12:08-0400 Body height 147.32 cm Amaraheather Degroot [facility] Work Phone: 2017 12:08-0400 Body mass index (BMI) [Ratio] 29.89 kg/m2 Amaraheather Degroot [facility] Work Phone: 2017 12:08-0400 Body surface area Derived from formula 1.58 m2 Amara Timmy Degroot [facility] Work Phone: 2017 12:08-0400 Body temperature 97.6 [degF] Amara Timmy Mikayla [facility] Work Phone: Comment on above: Method: Oral 2017 12:08-0400 Body weight 64.86 kg Amara Degroot [facility] Work Phone: 2017 12:08-0400 Diastolic blood pressure 69 mm[Hg] Amara Degroot [facility] Work Phone: Comment on above: Patient Position: Sitting; Cuff Location : Left Arm; Cuff Size: Standard 2017 12:08-0400 Heart rate 70 /min Amara Degroot [facility] Work Phone: Comment on above: Pattern: Regular 2017 12:08-0400 Respiratory rate 15 /min Amara Degroot [facility] Work Phone: Comment on above: Pattern: Unlabored 2017 12:08-0400 SaO2% (BldA) [Mass fraction] 99 % Amara Degroot [facility] Work Phone: Comment on above: Room air 2017 12:08-0400 Systolic blood pressure 132 mm[Hg] Amara Degroot [facility] Work Phone: Comment on above: Patient Position: Sitting; Cuff Location : Left Arm; Cuff Size: Standard 09-08-2017 09:06-0400 Body height 147.32 cm Amara Degroot [facility] Work Phone: 09-08-2017 09:06-0400 Body mass index (BMI) [Ratio] 29.89 kg/m2 Amara Degroot [facility] Work Phone: 09-08-2017 09:06-0400 Body surface area Derived from formula 1.58 m2 Amara Degroot [facility] Work Phone: 09-08-2017 09:06-0400 Body temperature 97.5 [degF] Amara Degroot [facility] Work Phone: Comment on above: Method: Oral 09-08-2017 09:06-0400 Body weight 64.86 kg Amara Degroot [facility] Work Phone: 09-08-2017 09:06-0400 Diastolic blood pressure 65 mm[Hg] Amara Degroot [facility]; [facility] Work Phone: Comment on above: Patient Position: Sitting; Cuff Location : Left Arm; Cuff Size: Standard 09-08-2017 09:06-0400 Heart rate 86 /min Amara Degroot [facility]; [facility] Work Phone: Comment on above: Pattern: Regular 09-08-2017 09:06-0400 Respiratory rate 17 /min Amara Degroot [facility] Work Phone: Comment on above: Pattern: Unlabored 09-08-2017 09:06-0400 SaO2% (BldA) [Mass fraction] 97 % Amara Degroot [facility] Work Phone: Comment on above: Room air 09-08-2017 09:06-0400 Systolic blood pressure 141 mm[Hg] Amara Degroot [facility]; [facility] Work Phone: Comment on above: Patient Position: Sitting; Cuff Location : Left Arm; Cuff Size: Standard 08-15-2017 09:26-0500 Body height 147.32 cm Amara Degroot [facility] Work Phone: 08-15-2017 09:26-0500 Body mass index (BMI) [Ratio] 27.8 kg/m2 Amara Degroot [facility] Work Phone: 08-15-2017 09:26-0500 Body surface area Derived from formula 1.53 m2 Amara Degroot [facility] Work Phone: 08-15-2017 09:26-0500 Body temperature 97.9 [degF] Amara Degroot [facility] Work Phone: Comment on above: Method: Oral 08-15-2017 09:26-0500 Body weight 60.33 kg Amara Degroot [facility] Work Phone: 08-15-2017 09:26-0500 Diastolic blood pressure 62 mm[Hg] Amara Degroot [facility] Work Phone: Comment on above: Patient Position: Sitting; Cuff Location : Left Arm; Cuff Size: Standard 08-15-2017 09:26-0500 Heart rate 93 /min Amara Degroot [facility] Work Phone: Comment on above: Pattern: Regular 08-15-2017 09:26-0500 Respiratory rate 16 /min Amara Degroot [facility] Work Phone: Comment on above: Pattern: Unlabored 08-15-2017 09:26-0500 SaO2% (BldA) [Mass fraction] 96 % Amaar Degroot [facility] Work Phone: Comment on above: Room air 08-15-2017 09:26-0500 Systolic blood pressure 120 mm[Hg] Amara Degroot [facility] Work Phone: Comment on above: Patient Position: Sitting; Cuff Location : Left Arm; Cuff Size: Standard 05-28-2017 08:54-0500 Body height 147.32 cm [facility] Work Phone: 05-28-2017 08:54-0500 Body mass index (BMI) [Ratio] 29.52 kg/m2 [facility] Work Phone: 05-28-2017 08:54-0500 Body surface area Derived from formula 1.57 m2 [facility] Work Phone: 05-28-2017 08:54-0500 Body weight 64.07 kg Kate [facility] Work Phone: 05-28-2017 08:54-0500 Diastolic blood pressure 63 mm[Hg] Kate [facility]; [facility] Work Phone: Comment on above: Patient Position: Sitting; Cuff Location : Left Arm; Cuff Size: Standard 05-28-2017 08:54-0500 Heart rate 82 /min [facility] Work Phone: Comment on above: Pattern: Regular 05-28-2017 08:54-0500 Respiratory rate 18 /min [facility] Work Phone: Comment on above: Pattern: Unlabored 05-28-2017 08:54-0500 Systolic blood pressure 131 mm[Hg[facility] Comment on above: Patient Position: Sitting; Cuff Location : Left Arm; Cuff Size: Standard 03-05-2017 11:21-0400 Body height 147.32 cm [facility] Work Phone: 03-05-2017 11:21-0400 Body mass index (BMI) [Ratio] 29.08 kg/m2 [facility] Work Phone: 03-05-2017 11:21-0400 Body surface area Derived from formula 1.56 m2 [facility] Work Phone: 03-05-2017 11:21-0400 Body weight 63.11 kg Niyah Mariano [facility] Work Phone: 03-05-2017 11:21-0400 Diastolic blood pressure 76 mm[Hg] Niyah Quintana [facility] Work Phone: Comment on above: Patient Position: Sitting; Cuff Location : Left Arm; Cuff Size: Standard 03-05-2017 11:21-0400 Heart rate 95 /min Niyahjulia Quintana [facility] Work Phone: Comment on above: Pattern: Regular 03-05-2017 11:21-0400 Respiratory rate 16 /min Niyah Quintana [facility] Work Phone: Comment on above: Pattern: Unlabored 03-05-2017 11:21-0400 SaO2% (BldA) [Mass fraction] 99 % Niyah Mariano [facility] Work Phone: Comment on above: Room air 03-05-2017 11:21-0400 Systolic blood pressure 165 mm[Hg] Niyah Quintana [facility] Work Phone: Comment on above: Patient Position: Sitting; Cuff Location : Left Arm; Cuff Size: Standard 03-18-2016 10:12-0400 Body height 147.32 cm [facility] Work Phone: 03-18-2016 10:12-0400 Body mass index (BMI) [Ratio] 29.68 kg/m2 [facility] Work Phone: 03-18-2016 10:12-0400 Body surface area Derived from formula 1.57 m2 [facility] Work Phone: 03-18-2016 10:12-0400 Body weight 64.41 kg [facility] Work Phone: 03-18-2016 10:12-0400 Diastolic blood pressure 70 mm[Hg] [facility]; [facility] Work Phone: Comment on above: Patient Position: Sitting; Cuff Location : Left Arm; Cuff Size: Standard 03-18-2016 10:12-0400 Heart rate 98 /min [facility]; [facility] Work Phone: Comment on above: Pattern: Regular 03-18-2016 10:12-0400 Respiratory rate 18 /min [facility]; [facility] Work Phone: Comment on above: Pattern: Unlabored 03-18-2016 10:12-0400 Systolic blood pressure 130 mm[Hg] [facility]; [facility] Work Phone: Comment on above: Patient Position: Sitting; Cuff Location : Left Arm; Cuff Size: Standard 10-16-2015 09:55-0400 Body height 147.32 cm Vishnu Mendoza MD Work Phone: [facility] Work Phone: 10-16-2015 09:55-0400 Body mass index (BMI) [Ratio] 28.84 kg/m2 Vishnu Mendoza MD Work Phone: [facility] Work Phone: 10-16-2015 09:55-0400 Body surface area Derived from formula 1.56 m2 Vishnu Mendoza MD Work Phone: [facility] Work Phone: 10-16-2015 09:55-0400 Body temperature 97.1 [degF] Vishnu Mendoza MD Work Phone: [facility] Work Phone: Comment on above: Method: Oral 10-16-2015 09:55-0400 Body weight 62.6 kg Vishnu Mendoza MD Work Phone: [facility]; [facility] Work Phone: 10-16-2015 09:55-0400 Diastolic blood pressure 67 mm[Hg] Vishnu Mendoza MD Work Phone: [facility]; [facility] Work Phone: Comment on above: Patient Position: Sitting; Cuff Location : Left Arm; Cuff Size: Standard 10-16-2015 09:55-0400 Heart rate 95 /min Vishnu Mendoza MD Work Phone: [facility]; [facility] Work Phone: Comment on above: Pattern: Regular 10-16-2015 09:55-0400 Respiratory rate 14 /min Vishnu Mendoza MD Work Phone: [facility] Work Phone: Comment on above: Pattern: Unlabored 10-16-2015 09:55-0400 SaO2% (BldA) [Mass fraction] 97 % Vishnu Mendoza MD Work Phone: [facility]; [facility] Work Phone: Comment on above: Room air 10-16-2015 09:55-0400 Systolic blood pressure 132 mm[Hg] Vishnu Mendoza MD Work Phone: [facility]; [facility] Work Phone: Comment on above: Patient Position: Sitting; Cuff Location : Left Arm; Cuff Size: Standard 04-18-2015 08:04-0400 Body height 147.32 cm [facility]; [facility] Work Phone: Comment on above: RBS 148 04-18-2015 08:04-0400 Body mass index (BMI) [Ratio] 29.68 kg/m2 [facility] Work Phone: Comment on above: RBS 148 04-18-2015 08:04-0400 Body surface area Derived from formula 1.57 m2 [facility] Work Phone: Comment on above: RBS 148 04-18-2015 08:04-0400 Body weight 64.41 kg Kate [facility]; [facility] Work Phone: Comment on above: RBS 148 04-18-2015 08:04-0400 Diastolic blood pressure 77 mm[Hg] [facility]; [facility] Work Phone: Comment on above: Patient Position: Sitting; Cuff Location : Left Arm; Cuff Size: Standard RBS 148 04-18-2015 08:04-0400 Heart rate 89 /min [facility] Work Phone: Comment on above: Pattern: Regular RBS 148 04-18-2015 08:04-0400 Respiratory rate 16 /min [facility]; [facility] Work Phone: Comment on above: Pattern: Unlabored RBS 148 04-18-2015 08:04-0400 Systolic blood pressure 166 mm[Hg] [facility]; [facility] Work Phone: Comment on above: Patient Position: Sitting; Cuff Location : Left Arm; Cuff Size: Standard RBS 148 10-03-2014 10:39-0400 Body height 147.32 cm [facility] Comment on above: RBS 101 10-03-2014 10:39-0400 Body mass index (BMI) [Ratio] 28.42 kg/m2 Darcy [facility] Work Phone: Comment on above: RBS 101 10-03-2014 10:39-0400 Body surface area Derived from formula 1.55 m2 Darcy [facility] Work Phone: Comment on above: RBS 10-03-2014 10:39-0400 Body temperature 98.2 [degF] Darcy Rosarioa [facility]; [facility] Work Phone: Comment on above: Method: Oral RBS 10-03-2014 10:39-0400 Body weight 61.69 kg Darcy Ros[facility]; [facility] Work Phone: Comment on above: RBS 10-03-2014 10:39-0400 Diastolic blood pressure 72 mm[Hg] Darcy Gallegos [facility]; [facility] Work Phone: Comment on above: Patient Position: Sitting; Cuff Location : Right Arm; Cuff Size: Standard RBS 10-03-2014 10:39-0400 Heart rate 68 /min Darcy Rosarioa [facility]; [facility] Work Phone: Comment on above: Pattern: Regular RBS 10-03-2014 10:39-0400 Respiratory rate 16 /min Darcy Gallegos [facility]; [facility] Work Phone: Comment on above: Pattern: Unlabored RBS 10-03-2014 10:39-0400 Systolic blood pressure 132 mm[Hg] Darcy Gallegos [facility]; [facility] Work Phone: Comment on above: Patient Position: Sitting; Cuff Location : Right Arm; Cuff Size: Standard RBS 04-21-2014 11:37-0400 Body height 147.32 cm Darcy Rosarioa [facility]; [facility] Work Phone: Comment on above: RBS 04-21-2014 11:37-0400 Body mass index (BMI) [Ratio] 27.59 kg/m2 Darcy Gallegos [facility] Work Phone: Comment on above: RBS 04-21-2014 11:37-0400 Body surface area Derived from formula 1.53 m2 Darcy Gallegos [facility] Work Phone: Comment on above: RBS 04-21-2014 11:37-0400 Body temperature 98.7 [degF] Darcy Gallegos [facility]; [facility] Work Phone: Comment on above: Method: Oral RBS 04-21-2014 11:37-0400 Body weight 59.88 kg Darcy Gallegos [facility]; [facility] Work Phone: Comment on above: RBS 04-21-2014 11:37-0400 Diastolic blood pressure 60 mm[Hg] Darcy Gallegos [facility]; [facility] Work Phone: Comment on above: Patient Position: Sitting; Cuff Location : Left Arm; Cuff Size: Standard RBS 04-21-2014 11:37-0400 Systolic blood pressure 90 mm[Hg] Darcy Gallegos [facility]; [facility] Work Phone: Comment on above: Patient Position: Sitting; Cuff Location : Left Arm; Cuff Size: Standard RBS 01-17-2014 09:49-0400 Body height 147.32 cm Vishnu Mendoza MD Work Phone: [facility]; [facility] Work Phone: Comment on above: FBS: 01-17-2014 09:49-0400 Body mass index (BMI) [Ratio] 28.01 kg/m2 Vishnu Mendoza MD Work Phone: [facility]; [facility] Work Phone: Comment on above: FBS: 01-17-2014 09:49-0400 Body surface area Derived from formula 1.54 m2 Vishnu Mendoza MD Work Phone: [facility]; [facility] Work Phone: Comment on above: FBS: 01-17-2014 09:49-0400 Body temperature 98.1 [degF] Vishnu Mendoza MD Work Phone: [facility]; [facility] Work Phone: Comment on above: Method: Oral FBS: 01-17-2014 09:49-0400 Body weight 60.78 kg Vishnu Mendoza MD Work Phone: [facility]; [facility] Work Phone: Comment on above: FBS: 01-17-2014 09:49-0400 Diastolic blood pressure 78 mm[Hg] Vishnu Mendoza MD Work Phone: [facility]; [facility] Work Phone: Comment on above: Patient Position: Sitting; Cuff Location : Left Arm; Cuff Size: Standard FBS: 01-17-2014 09:49-0400 Heart rate 71 /min Vishnu Mendoza MD Work Phone: [facility] Work Phone: Comment on above: Pattern: Regular FBS: 01-17-2014 09:49-0400 Respiratory rate 16 /min Vishnu Mendoza MD Work Phone: [facility] Work Phone: Comment on above: Pattern: Unlabored FBS: 01-17-2014 09:49-0400 Systolic blood pressure 122 mm[Hg] Vishnu Mendoza MD Work Phone: [facility]; [facility] Work Phone: Comment on above: Patient Position: Sitting; Cuff Location : Left Arm; Cuff Size: Standard FBS: 10-04-2013 10:00-0400 Body temperature 98.6 [degF] Vishnu Mendoza MD Work Phone: [facility] Work Phone: Comment on above: Method: Oral RBS: 121 10-04-2013 10:00-0400 Body weight 61.69 kg Vishnu Mendoza MD Work Phone: [facility]; [facility] Work Phone: Comment on above: RBS: 121 10-04-2013 10:00-0400 Diastolic blood pressure 76 mm[Hg] Vishnu Mendoza MD Work Phone: [facility]; [facility] Work Phone: Comment on above: Patient Position: Sitting; Cuff Location : Left Arm; Cuff Size: Standard RBS: 121 10-04-2013 10:00-0400 Heart rate 84 /min Vishnu Mendoza MD Work Phone: [facility]; [facility] Work Phone: Comment on above: Pattern: Regular RBS: 121 10-04-2013 10:00-0400 Respiratory rate 16 /min Vishnu Mendoza MD Work Phone: [facility]; [facility] Work Phone: Comment on above: Pattern: Unlabored RBS: 121 10-04-2013 10:00-0400 Systolic blood pressure 120 mm[Hg] Vishnu Mendoza MD Work Phone: [facility]; [facility] Work Phone: Comment on above: Patient Position: Sitting; Cuff Location : Left Arm; Cuff Size: Standard RBS: [facility] 03-29-2013 11:51-0400 Body height 142.24 cm Darcy Gallegos [facility]; [facility] Work Phone: Comment on above: RBS 114 03-29-2013 11:51-0400 Body mass index (BMI) [Ratio] 30.27 kg/m2 Darcy Gallegos [facility] Work Phone: Comment on above: RBS 114 03-29-2013 11:51-0400 Body surface area Derived from formula 1.5 m2 Darcy Gallegos [facility]; [facility] Work Phone: Comment on above: RBS 114 03-29-2013 11:51-0400 Body temperature 97.2 [degF] Darcy Gallegos [facility]; [facility] Work Phone: Comment on above: RBS 114 03-29-2013 11:51-0400 Body weight 61.24 kg Darcy Gallegos [facility]; [facility] Work Phone: Comment on above: RBS 114 03-29-2013 11:51-0400 Diastolic blood pressure 78 mm[Hg] Darcy Gallegos [facility]; [facility] Work Phone: Comment on above: Patient Position: Sitting; Cuff Location : Right Arm; Cuff Size: Standard RBS 114 03-29-2013 11:51-0400 Heart rate 80 /min Darcy Gallegos [facility]; [facility] Work Phone: Comment on above: Pattern: Regular RBS 114 03-29-2013 11:51-0400 Respiratory rate 14 /min Darcy Gallegos [facility]; [facility] Work Phone: Comment on above: Pattern: Unlabored RBS 114 03-29-2013 11:51-0400 Systolic blood pressure 118 mm[Hg] Darcy Gallegos [facility]; [facility] Work Phone: Comment on above: Patient Position: Sitting; Cuff Location : Right Arm; Cuff Size: Standard RBS 114 12-29-2012 10:18-0400 Body height 142.24 cm Vishnu Mendoza MD Work Phone: [facility]; [facility] Work Phone: Comment on above: RBS- 120 12-29-2012 10:18-0400 Body mass index (BMI) [Ratio] 30.04 kg/m2 Vishnu Mendoza MD Work Phone: [facility] Work Phone: Comment on above: RBS- 120 12-29-2012 10:18-0400 Body surface area Derived from formula 1.5 m2 Vishnu Mendoza MD Work Phone: [facility] Work Phone: Comment on above: RBS- 120 12-29-2012 10:18-0400 Body temperature 97.1 [degF] Vishnu Mendoza MD Work Phone: [facility]; [facility] Work Phone: Comment on above: Method: Oral RBS- 120 12-29-2012 10:18-0400 Body weight 60.78 kg Vishnu Mendoza MD Work Phone: [facility]; [facility] Work Phone: Comment on above: RBS- 120 12-29-2012 10:18-0400 Diastolic blood pressure 76 mm[Hg] Vishnu Mendoza MD Work Phone: [facility]; [facility] Work Phone: Comment on above: Patient Position: Sitting; Cuff Location : Left Arm; Cuff Size: Standard RBS- 120 12-29-2012 10:18-0400 Heart rate 80 /min Vishnu Mendoza MD Work Phone: [facility]; [facility] Work Phone: Comment on above: Pattern: Regular RBS- 120 12-29-2012 10:18-0400 Respiratory rate 14 /min Vishnu Mendoza MD Work Phone: [facility]; [facility] Work Phone: Comment on above: Pattern: Unlabored RBS- 120 12-29-2012 10:18-0400 Systolic blood pressure 134 mm[Hg] Vsihnu Mendoza MD Work Phone: [facility]; [facility] Work Phone: Comment on above: Patient Position: Sitting; Cuff Location : Left Arm; Cuff Size: Standard RBS- 120 09-29-2012 10:31-0400 Body height 142.24 cm Jessica Barcenas [facility]; [facility] Work Phone: Comment on above: RBS-110 NO log for blood sugar 09-29-2012 10:31-0400 Body mass index (BMI) [Ratio] 28.7 kg/m2 [facility] Work Phone: Comment on above: RBS-110 NO log for blood sugar 09-29-2012 10:31-0400 Body surface area Derived from formula 1.47 m2 [facility] Work Phone: Comment on above: RBS-110 NO log for blood sugar 09-29-2012 10:31-0400 Body temperature 97.8 [degF] [facility] Work Phone: Comment on above: Method: Oral RBS-110 NO log for b lood sugar 09-29-2012 10:31-0400 Body weight 58.06 kg [facility] Work Phone: Comment on above: RBS-110 NO log for blood sugar 09-29-2012 10:31-0400 Diastolic blood pressure 86 mm[Hg] [facility] Work Phone: Comment on above: Patient Position: Sitting; Cuff Location : Left Arm; Cuff Size: Standard RBS-110 NO log for b lood sugar 09-29-2012 10:31-0400 Heart rate 64 /min [facility] Work Phone: Comment on above: Pattern: Regular RBS-110 NO log for b lood sugar 09-29-2012 10:31-0400 Respiratory rate 14 /min [facility] Work Phone: Comment on above: Pattern: Unlabored RBS-110 NO log for b lood sugar 09-29-2012 10:31-0400 SaO2% (BldA) [Mass fraction] 99 % [facility] Work Phone: Comment on above: Room air RBS-110 NO log for b lood sugar 09-29-2012 10:31-0400 Systolic blood pressure 129 mm[Hg] Jessica Barcenas [facility]; [facility] Work Phone: Comment on above: Patient Position: Sitting; Cuff Location : Left Arm; Cuff Size: Standard RBS-110 NO log for b lood sugar 03-30-2012 10:04-0400 Body height 142.24 cm Vishnu Mendoza MD Work Phone: [facility]; [facility] Work Phone: Comment on above: RBS 100 03-30-2012 10:04-0400 Body mass index (BMI) [Ratio] 29.37 kg/m2 Vishnu Mendoza MD Work Phone: [facility]; [facility] Work Phone: Comment on above: RBS 100 03-30-2012 10:04-0400 Body surface area Derived from formula 1.48 m2 Vishnu Mendoza MD Work Phone: [facility]; [facility] Work Phone: Comment on above: RBS 100 03-30-2012 10:04-0400 Body temperature 98.4 [degF] Vishnu Mendoza MD Work Phone: [facility]; [facility] Work Phone: Comment on above: RBS 100 03-30-2012 10:04-0400 Body weight 59.42 kg Vishnu Mendoza MD Work Phone: [facility]; [facility] Work Phone: Comment on above: RBS 100 03-30-2012 10:04-0400 Diastolic blood pressure 80 mm[Hg] Vishnu Mendoza MD Work Phone: [facility]; [facility] Work Phone: Comment on above: Patient Position: Sitting; Cuff Location : Left Arm; Cuff Size: Standard RBS 100 03-30-2012 10:04-0400 Heart rate 80 /min Vishnu Mendoza MD Work Phone: [facility]; [facility] Work Phone: Comment on above: Pattern: Regular RBS 100 03-30-2012 10:04-0400 Respiratory rate 18 /min Vishnu Mendoza MD Work Phone: [facility]; [facility] Work Phone: Comment on above: Pattern: Unlabored RBS 100 03-30-2012 10:04-0400 Systolic blood pressure 128 mm[Hg] Vishnu Mendoza MD Work Phone: [facility]; [facility] Work Phone: Comment on above: Patient Position: Sitting; Cuff Location : Left Arm; Cuff Size: Standard RBS 100 11-20-2011 11:18-0400 Body height 142.24 cm Vishnu Mendoza MD Work Phone: [facility]; [facility] Work Phone: Comment on above: RBS:154 11-20-2011 11:18-0400 Body mass index (BMI) [Ratio] 29.23 kg/m2 Vishnu Mendoza MD Work Phone: [facility]; [facility] Work Phone: Comment on above: RBS:154 11-20-2011 11:18-0400 Body surface area Derived from formula 1.48 m2 Vishnu Mendoza MD Work Phone: [facility]; [facility] Work Phone: Comment on above: RBS:154 11-20-2011 11:18-0400 Body temperature 98.5 [degF] Vishnu Mendoza MD Work Phone: [facility]; [facility] Work Phone: Comment on above: Method: Oral RBS:154 11-20-2011 11:18-0400 Body weight 59.14 kg Vishnu Mendoza MD Work Phone: [facility]; [facility] Work Phone: Comment on above: RBS:154 11-20-2011 11:18-0400 Diastolic blood pressure 65 mm[Hg] Vishnu Mendoza MD Work Phone: [facility]; [facility] Work Phone: Comment on above: Patient Position: Sitting; Cuff Location : Left Arm; Cuff Size: Standard RBS:154 11-20-2011 11:18-0400 Heart rate 80 /min Vishnu Mendoza MD Work Phone: [facility]; [facility] Work Phone: Comment on above: Pattern: Regular RBS:154 11-20-2011 11:18-0400 Respiratory rate 14 /min Vishnu Mendoza MD Work Phone: [facility]; [facility] Work Phone: Comment on above: Pattern: Unlabored RBS:154 11-20-2011 11:18-0400 Systolic blood pressure 134 mm[Hg] Vishnu Mendoza MD Work Phone: [facility]; [facility] Work Phone: Comment on above: Patient Position: Sitting; Cuff Location : Left Arm; Cuff Size: Standard RBS:154 09-25-2011 10:47-0400 Body height 142.24 cm Sangita Del Castillo MD Work Phone: [facility]; [facility] Work Phone: Comment on above: Weight down about 8.5# 09-25-2011 10:47-0400 Body mass index (BMI) [Ratio] 29.45 kg/m2 Sangita Del Castillo MD Work Phone: [facility]; [facility] Work Phone: Comment on above: Weight down about 8.5# 09-25-2011 10:47-0400 Body surface area Derived from formula 1.49 m2 Sangita Del Castillo MD Work Phone: [facility]; [facility] Work Phone: Comment on above: Weight down about 8.5# 09-25-2011 10:47-0400 Body temperature 98.4 [degF] Sangita Del Castillo MD Work Phone: [facility]; [facility] Work Phone: Comment on above: Method: Oral Weight down about 8. 5# 09-25-2011 10:47-0400 Body weight 59.59 kg Sangita Del Castillo MD Work Phone: [facility]; [facility] Work Phone: Comment on above: Weight down about 8.5# 09-25-2011 10:47-0400 Diastolic blood pressure 82 mm[Hg] Sangita Del Castillo MD Work Phone: [facility]; [facility] Work Phone: Comment on above: Patient Position: Sitting; Cuff Location : Left Arm; Cuff Size: Standard Weight down about 8. 5# 09-25-2011 10:47-0400 Heart rate 84 /min Sangita Del Castillo MD Work Phone: [facility]; [facility] Work Phone: Comment on above: Pattern: Regular Weight down about 8. 5# 09-25-2011 10:47-0400 Respiratory rate 14 /min Sangita Del Castillo MD Work Phone: [facility]; [facility] Work Phone: Comment on above: Pattern: Unlabored Weight down about 8. 5# 09-25-2011 10:47-0400 Systolic blood pressure 126 mm[Hg] Sangita Del Castillo MD Work Phone: [facility]; [facility] Work Phone: Comment on above: Patient Position: Sitting; Cuff Location : Left Arm; Cuff Size: Standard Weight down about 8. 5# Encounters Encounter Date Encounter Type Care Provider Facility Start: 02-01-2025 ambulatory Bakari Dubon y:[facility] Start: 01-20-2025 End: 01-20-[address] Flavio Thornton DO -[facility] Work Phone: Start: 01-20-2025 End: 01-20-[address] Flavio Barajas DO Work Phone: -[facility] Start: 12-28-2024 End: 12-28-[address] Bakari Alatorre MD -[facility] Work Phone: Start: 12-28-2024 End: 12-28-[address] Flavio Barajas DO Work Phone: -[facility] Start: 12-28-2024 End: 12-28-[address] Bakari Alatorre MD -[facility] Work Phone: Start: 12-28-2024 End: 12-28-[address] Flavio Barajas DO Work Phone: -[facility] Start: 10-12-2024 End: 10-12-[address] Flavio Thornton DO -[facility] Work Phone: Start: 10-12-2024 End: 10-12-2024 ambulatory Flavio Barajas Facility:[facility] Start: 07-13-2024 End: 07-13-2024 ambulatory Flavio Barajas Facility:[facility] Start: 03-04-2024 End: 03-04-2024 ambulatory Flavio Barajas Facility:[facility] Start: 09-04-2023 ambulatory VISHNU Dubon y:[facility] Start: 09-04-2023 End: 09-04-2023 Office outpatient visit 25 minutes Sabrina Guy DO Work Phone: [facility]rology [facility] Comment on above: Mild cognitive impai rment (Primary Dx); Encephalopathy Start: 08-29-2023 ambulatory SABRINA GUY Facility: [facility] Start: 08-08-2023 ambulatory VISHNU NAPIER Facilit y:[facility] Start: 08-08-2023 End: 08-08-2023 Office outpatient visit 25 minutes Sabrina Guy DO Work Phone: Neurology [facility] Comment on above: Encephalopathy (Prim earl Dx); Mild cognitive impairment Start: 06-06-2023 End: 06-06-2023 Emergency department patient visit MARAH GOEL Facility:[facility] Start: 06-06-2023 End: 06-06-2023 Emergency department patient visit Marah Goel MD Work Phone: [facility] Start: 05-30-2023 ambulatory SABRINA GUY Facility: [facility] Start: 05-28-2023 ambulatory LORENA MCCLELLAN Facilit y:[facility] Start: 04-07-2023 ambulatory VISHNU NAPIER Facilit y:[facility] Start: 04-07-2023 End: 04-07-2023 Office outpatient visit 25 minutes Sabrina Guy DO Work Phone: Neurology [facility] Comment on above: Vertigo (Primary Dx) ; Mild cognitive impairment Start: 03-19-2023 ambulatory VISHUN NAPIER Facilit y:[facility] Start: 01-21-2023 End: 01-21-2023 Emergency department patient visit [facility] Work Phone: Start: 01-11-2023 End: 01-11-2023 ambulatory [facility] Work Phone: Start: 01-11-2023 End: 01-11-2023 Patient encounter procedure [facility] Work Phone: Start: 01-06-2023 ambulatory VISHNU NAPIER Facilit y:[facility] Start: 10-24-2022 ambulatory Vishnu jefferson MD [facility] Start: 10-24-2022 End: 11-04-2022 Vishnu Mendoza MD Work Phone: [facility] Start: 10-18-2022 Vishnu Mendoza MD Work Phone: [facility] Start: 08-23-2022 End: 08-23-2022 Office outpatient new 45 minutes Faisal Arthur [employer] Work Phone: Neurology [facility] Comment on above: Mild cognitive impai rment (Primary Dx); Type 2 diabetes mellitus with diabetic neuropathy, without long-term current use of insulin; Dysphagia, unspecified type Start: 06-26-2022 End: 06-26-2022 Office outpatient visit 25 minutes Brandon Goodman MD Work Phone: [facility] Comment on above: Dysphagia, unspecifi ed type (Primary Dx); Alzheimer's dementia, unspecified dementia severity, unspecified timing of dementia onset, unspecified whether behavioral, psychotic, or mood disturbance or anxiety; Missing teeth, acquired Start: 06-25-2022 End: 06-25-2022 ambulatory [facility] Work Phone: Start: 06-25-2022 End: 06-25-2022 Discharged Recurring [facility]Physical Therapy Start: 05-20-2022 End: 05-20-2022 Subsequent hospital visit by physician Vishnu Napier MD Work Phone: [facility] Comment on above: Arrived Start: 05-06-2022 End: 05-06-2022 Office consultation new/estab patient 60 min Lorena Mcclellan PA-C Work Phone: [facility] Comment on above: Dysphagia, unspecifi ed type (Primary Dx); Alzheimer's dementia, unspecified dementia severity, unspecified timing of dementia onset, unspecified whether behavioral, psychotic, or mood disturbance or anxiety; Obstructive sleep apnea; Vasomotor rhinitis Start: 04-05-2022 Review Vishnu Mendoza MD Work Phone: [facility] Start: 04-05-2022 End: 04-06-2022 Office outpatient visit 15 minutes Vishnu Mendoza MD Work Phone: [facility] Start: 04-05-2022 End: 04-09-2022 Patient encounter procedure Vishnu Mendoza MD Work Phone: [facility] Start: 04-05-2022 End: 04-09-2022 Vishnu Mendoza MD Work Phone: [facility] Start: 03-05-2022 End: 03-05-2022 Office outpatient visit 25 minutes Sabrina Guy DO Work Phone: [facility] Comment on above: Type 2 diabetes dima itus with diabetic neuropathy, without long-term current use of insulin (Primary Dx); Dysphagia, unspecified type Start: 09-12-2021 Review Vishnu Mendoza MD Work Phone: [facility] Start: 09-12-2021 End: 09-15-2021 Office outpatient visit 25 minutes Vishnu Mendoza MD Work Phone: [facility] Start: 03-08-2021 End: 03-14-2021 Annotation/Addendum Vishnu Mendoza MD Work Phone: [facility] Start: 03-08-2021 End: 03-10-2021 Office outpatient visit 15 minutes Vishnu Mendoza MD Work Phone: [facility] Start: 03-08-2021 End: 03-14-2021 Vishnu Mendoza MD Work Phone: [facility] Start: 02-08-2021 End: 02-08-2021 Office outpatient new 45 minutes Sabrina Guy DO Work Phone: Neurology [facility] Comment on above: Imbalance (Primary D x) Start: 09-07-2020 End: 09-08-2020 Office outpatient visit 15 minutes Vishnu Mendoza MD Work Phone: [facility] Start: 07-13-2020 End: 07-13-2020 Orders Only Lissa Guan Work Phone: [facility] Start: 02-10-2020 End: 02-11-2020 Office outpatient visit 25 minutes Vishnu Mendoza MD Work Phone: [facility] Start: 08-12-2019 End: 08-15-2019 Office outpatient visit 15 minutes Vishnu Mendoza MD Work Phone: [facility] Start: 06-26-2019 End: 06-26-2019 Emergency department patient visit MAYELA ALBARADO [facility] Start: 06-26-2019 End: 06-26-2019 Emergency department patient visit Mayela Albarado Work Phone: [facility] Comment on above: Sciatica of right si de (Primary Dx) Start: 02-05-2019 End: 02-05-2019 Office outpatient visit 15 minutes Vishnu Mendoza MD Work Phone: [facility] Start: 02-05-2019 End: 02-05-2019 Patient encounter procedure Vishnu Mendoza MD Work Phone: [facility] Start: 02-05-2019 End: 02-05-2019 Vishnu Mendoza MD Work Phone: [facility] [place] [facility] Start: 08-21-2018 End: 08-21-2018 Office outpatient visit 15 minutes Vishnu Mendoza MD Work Phone: [facility] Start: 04-17-2018 End: 04-19-2018 Office outpatient visit 15 minutes Vishnu Mendoza MD Work Phone: [facility] Start: 01-23-2018 End: 01-24-2018 Office outpatient visit 15 minutes Vishnu Mendoza MD Work Phone: [facility] Start: 2017 End: 11-08-2017 Office outpatient visit 15 minutes Vishnu Mendoza MD Work Phone: [facility] Start: 09-08-2017 End: 09-10-2017 Office outpatient visit 15 minutes Vishnu Mendoza MD Work Phone: [facility] Start: 08-15-2017 End: 08-15-2017 Office outpatient visit 25 minutes Vishnu Mendoza MD Work Phone: [facility] Start: 05-28-2017 End: 06-04-2017 Office outpatient visit 15 minutes Vishnu Mendoza MD Work Phone: [facility] Start: 03-11-2017 End: 03-11-2017 Phone Interaction Vishnu Mendoza MD Work Phone: [facility] Start: 03-11-2017 End: 03-11-2017 Vishnu Mendoza MD Work Phone: [facility] Start: 03-05-2017 End: 03-10-2017 Office outpatient visit 15 minutes Vishnu Mendoza MD Work Phone: [facility] Start: 09-07-2016 End: 09-07-2016 Annotation/Addendum Vishnu Mendoza MD Work Phone: [facility] Start: 09-07-2016 End: 09-07-2016 Vishnu Mendoza MD Work Phone: [facility] Start: 08-28-2016 End: 08-28-2016 Office outpatient visit 25 minutes Vishnu Mendoza MD Work Phone: [facility] Start: 04-30-2016 End: 04-30-2016 Medication Only Vishnu Mendoza MD Work Phone: [facility] Start: 04-30-2016 End: 04-30-2016 Vishnu Mendoza MD Work Phone: [facility] Start: 03-22-2016 End: 03-22-2016 Medication Only Vishnu Mendoza MD Work Phone: [facility] Start: 03-22-2016 End: 03-22-2016 Vishnu Mendoza MD Work Phone: [facility] Start: 03-18-2016 End: 03-18-2016 Office outpatient visit 25 minutes Vishnu Mendoza MD Work Phone: [facility] Start: 10-16-2015 End: 10-16-2015 Office outpatient visit 25 minutes Vishnu Mendoza MD Work Phone: [facility] Start: 07-03-2015 End: 07-03-2015 Annotation/Addendum Vishnu Mendoza MD Work Phone: [facility] Start: 07-03-2015 End: 07-03-2015 Vishnu Mendoza MD Work Phone: [facility] Start: 05-27-2015 End: 05-27-2015 Annotation/Addendum Vishnu Mendoza MD Work Phone: [facility] Start: 05-27-2015 End: 05-27-2015 Vishnu Mendoza MD Work Phone: [facility] Start: 04-22-2015 End: 04-22-2015 Patient encounter procedure Vishnu Mendoza MD Work Phone: [facility] Start: 04-22-2015 End: 04-22-2015 Vishnu Mendoza MD Work Phone: [facility] Start: 04-18-2015 End: 04-18-2015 Office outpatient visit 25 minutes Vishnu Mendoza MD Work Phone: [facility] Start: 02-07-2015 End: 02-07-2015 Medication Only Vishnu Mendoza MD Work Phone: [facility] Start: 02-07-2015 End: 02-07-2015 Vishnu Mendoza MD Work Phone: [facility] Start: 02-05-2015 End: 02-05-2015 Medication Only Vishnu Mendoza MD Work Phone: [facility] Start: 02-05-2015 End: 02-05-2015 Vishnu Mendoza MD Work Phone: [facility] Start: 10-11-2014 End: 10-11-2014 Medication Only Vishnu Mendoza MD Work Phone: [facility] Start: 10-11-2014 End: 10-11-2014 Vishnu Mendoza MD Work Phone: [facility] Start: 10-03-2014 End: 10-03-2014 Patient encounter procedure Vishnu Mendoza MD Work Phone: [facility] Start: 10-03-2014 End: 10-03-2014 Vishnu Mendoza MD Work Phone: [facility] Start: 04-21-2014 End: 06-23-2014 Office outpatient visit 15 minutes Vishnu Mendoza MD Work Phone: [facility] Start: 01-17-2014 End: 01-17-2014 Office outpatient visit 25 minutes Vishnu Mendoza MD Work Phone: [facility] Start: 10-04-2013 End: 12-31-2013 Office outpatient visit 15 minutes Vishnu Mendoza MD Work Phone: [facility] Start: 03-29-2013 End: 03-29-2013 Office outpatient visit 25 minutes Vishnu Mendoza MD Work Phone: [facility] Start: 12-29-2012 End: 12-29-2012 Office outpatient visit 10 minutes Vishnu Mendoza MD Work Phone: [facility] Start: 09-30-2012 End: 09-30-2012 Annotation/Addendum Vishnu Mendoza MD Work Phone: [facility] Start: 09-30-2012 End: 09-30-2012 Vishnu Mendoza MD Work Phone: [facility] Start: 09-29-2012 End: 09-29-2012 Office outpatient visit 25 minutes Vishnu Mendoza MD Work Phone: [facility] Start: 03-30-2012 End: 03-30-2012 Office outpatient visit 25 minutes Vishnu Mendoza MD Work Phone: [facility] Start: 01-15-2012 End: 01-15-2012 Medication Only Vishnu Mendoza MD Work Phone: [facility] Start: 01-15-2012 End: 01-15-2012 Vishnu Mendoza MD Work Phone: [facility] Start: 11-20-2011 End: 11-20-2011 Office outpatient visit 25 minutes Vishnu Mendoza MD Work Phone: [facility] Start: 09-25-2011 End: 09-25-2011 Office outpatient visit 25 minutes Vishnu Mendoza MD Work Phone: [facility] Start: 08-15-2011 End: 08-15-2011 Patient encounter procedure Vishnu Mendoza MD Work Phone: [facility] Start: 08-15-2011 End: 08-15-2011 Vishnu Mendoza MD Work Phone: [facility] Procedures Date Procedure Procedure Detail Performing Clinician Start: 12-28-2024 Folic acid measureme nt, RBC Dr. Flavio Barajas DO Work Phone: Start: 06-06-2023 Urnls dip stick/tabl et reagent auto microscopy Adrianne Carl PAC Work Phone: Start: 04-07-2023 GENERAL PROCEDURE Sabrina Guy DO Work Phone: Start: 01-21-2023 Computed tomography of abdomen and pelvis with intravenous contrast Start: 01-11-2023 MRI of brain without contrast Start: 10-24-2022 End: 10-24-2022 Scr dep neg, no plan reqd Vishnu Mendoza MD Work Phone: Start: 10-24-2022 End: 10-24-2022 Mental status assessed Vishnu burger MD Work Phone: Start: 05-20-2022 Radiologic exam swal low function contrast study Lorena Mcclellan PA-C Work Phone: Start: 04-09-2022 End: 04-09-2022 Most recent diastolic blood pressure < 80 mm hg Vishnu Mendoza MD Work Phone: Start: 04-09-2022 End: 04-09-2022 Most recent hemoglobin a1c level < 7.0% Vishnu Mendoza MD Work Phone: Start: 04-05-2022 End: 04-05-2022 Scr dep neg, no plan reqd Vishnu Mendoza MD Work Phone: Start: 04-05-2022 End: 04-05-2022 Mental status assessed Vishnu burger MD Work Phone: Start: 09-12-2021 End: 09-12-2021 Pt scrnd tobacco use rcvd tobacco cessation talk Vishnu Mendoza MD Work Phone: Start: 09-12-2021 End: 09-12-2021 Scr dep neg, no plan reqd Vishnu Mendoza MD Work Phone: Start: 09-12-2021 End: 09-12-2021 Alcohol/drug screening Vishnu burger MD Work Phone: Start: 09-12-2021 End: 09-12-2021 Pt-focused hlth risk assmt score doc stnd instrm Vishnu Mendoza MD Work Phone: Start: 03-14-2021 End: 03-14-2021 Most recent diastolic blood pressure < 80 mm hg Vishnu Mendoza MD Work Phone: Start: 03-14-2021 End: 03-14-2021 Most recent hemoglobin a1c level < 7.0% Vishnu Mendoza MD Work Phone: Start: 03-14-2021 End: 03-14-2021 Most recent systolic blood pressure <130 mm hg Vishnu Mendoza MD Work Phone: Start: 03-08-2021 End: 03-08-2021 Collection capillary blood specimen Vishnu Mendoza MD Work Phone: Start: 03-08-2021 End: 03-08-2021 Scr dep neg, no plan reqd Vishnu Mendoza MD Work Phone: Start: 09-08-2020 End: 09-08-2020 3 comp foot exam completed Vishnu Mendoza MD Work Phone: Start: 09-08-2020 End: 09-08-2020 Collection capillary blood specimen Vishnu Mendoza MD Work Phone: Start: 09-08-2020 End: 09-08-2020 Examination of foot Timmy David Work Phone: Start: 09-08-2020 End: 09-08-2020 Most recent diastolic blood pressure < 80 mm hg Vishnu Mendoza MD Work Phone: Start: 09-08-2020 End: 09-08-2020 Most recent hemoglobin a1c level < 7.0% Vishnu Mendoza MD Work Phone: Start: 09-08-2020 End: 09-08-2020 Most recent systolic blood pressure <130 mm hg Vishnu Mendoza MD Work Phone: Start: 09-07-2020 End: 09-07-2020 Mental status assessed Score: 0 [Over the past two weeks, how often have you been bothered by any of the following problems?] Little interest or pleasure in doing things: 0 -not at all; Feeling down, depressed, or hopeless: 0 -not at all Vishnu Mendoza MD Work Phone: Start: 09-07-2020 End: 09-07-2020 Collection capillary blood specimen Vishnu Mendoza MD Work Phone: Start: 09-07-2020 End: 09-07-2020 Scr dep neg, no plan reqd Vishnu Mendoza MD Work Phone: Start: 02-10-2020 End: 02-10-2020 3 comp foot exam completed Vishnu Mendoza MD Work Phone: Start: 02-10-2020 End: 02-10-2020 Collection capillary blood specimen Vishnu Mendoza MD Work Phone: Start: 02-10-2020 End: 02-10-2020 Examination of foot Timmy David Work Phone: Start: 02-10-2020 End: 02-10-2020 Scr dep neg, no plan reqd Vishnu Mendoza MD Work Phone: Start: 02-10-2020 End: 02-10-2020 Mental status assessed Score: 0 [Over the past two weeks, how often have you been bothered by any of the following problems?] Little interest or pleasure in doing things: 0 -not at all; Feeling down, depressed, or hopeless: 0 -not at all Vishnu Mendoza MD Work Phone: Start: 08-12-2019 End: 08-12-2019 3 comp foot exam completed Vishnu Mendoza MD Work Phone: Start: 08-12-2019 End: 08-12-2019 Collection capillary blood specimen Ani Cotton Start: 08-12-2019 End: 08-12-2019 Examination of foot Timmy David Work Phone: Start: 02-05-2019 End: 02-05-2019 Annual Foot Exam (Diabetes) Berenice Tall Comment on above: VERIFIED IN CHART Start: 02-05-2019 End: 02-05-2019 Examination of foot Berenice Tall Comment on above: VERIFIED IN CHART Start: 02-05-2019 End: 02-05-2019 Nutritional counselingnubia MD Work Phone: Start: 08-21-2018 End: 08-21-2018 Depression Screening (Annual) Berenice Tall Comment on above: Normal. VERIFIED IN CHART Start: 08-21-2018 End: 08-21-2018 Nutritional nubia wong MD Work Phone: Start: 04-17-2018 End: 04-28-2018 Collection capillary blood specimen Vishnu Mendoza MD Work Phone: Start: 04-17-2018 End: 04-17-2018 Nutritional counselingnubia MD Work Phone: Start: 01-23-2018 End: 02-18-2018 Collection capillary blood specimen Vishnu Mendoza MD Work Phone: Start: 01-14-2018 End: 01-14-2018 Examination of retina Berenice Tall Comment on above: Within Normal Limits . Start: 2017 End: 2017 Nutritional counselingnubia MD Work Phone: Start: 09-08-2017 End: 09-08-2017 Nutritional counselingnubia MD Work Phone: Start: 08-15-2017 End: 08-15-2017 Nutritional counselingnubia MD Work Phone: Start: 06-02-2017 End: 08-15-2017 Mental status assessed Score: 0 [Over the past two weeks, how often have you been bothered by any of the following problems?] Little interest or pleasure in doing things: 0 -not at all; Feeling down, depressed, or hopeless: 0 -not at all Vishnu Mendoza MD Work Phone: Start: 06-02-2017 End: 06-02-2017 Scr dep neg, no plan reqd Vishnu Mendoza MD Work Phone: Start: 03-11-2017 End: 08-15-2017 Foot examination performed Barbie Fernandez CNP Work Phone: Start: 03-05-2017 End: 03-05-2017 Scr dep neg, no plan reqd Barbie Fernandez CNP Work Phone: Start: 03-05-2017 End: 03-10-2017 Mental status assessed Score: 0 [Over the past 2 weeks, how often have you been bothered by any of the following problems?] Little interest or pleasure in doing things: 0-Not at all ; Feeling down, depressed, or hopeless: 0-Not at all Barbie Fernandez CNP Work Phone: Start: 02-13-2017 End: 02-13-2017 Mammography Berenice Tall Comment on above: Normal. REPEAT ONE Y EAR Normal. Start: 10-16-2015 End: 11-24-2016 Foot examination performed Karol Maldonado MD Work Phone: Start: 10-03-2014 End: 04-05-2017 Foot examination performed Comments: Per referral policy:Finalized without review because referral is over 12 months. On pts next visit, provider will reassess and generate a new referral as needed. 04/05/2017 Karol Maldonado MD Work Phone: Start: 12-27-2013 End: 12-27-2013 Colonoscopy Berenice Tall Comment on above: Normal. Start: 12-27-2013 End: 12-27-2013 Screening colonoscopy Berenice Tall Comment on above: Normal. due as of Appendectomy Berenice Tall Appendectomy Berenice Tall Appendectomy Berenice Tall Appendectomy Berenice Tall Appendectomy Berenice Tall Hysterectomy Berenice Tall Comment on above: with b/l salpingooph erectomy. Hysterectomy Berenice Tall Comment on above: with b/l salpingooph erectomy. Hysterectomy Berenice Tall Comment on above: with b/l salpingooph erectomy. Hysterectomy Berenice Tall Comment on above: with b/l salpingooph erectomy. Hysterectomy Berenice Tall Plan of Treatment Date Care Activity Detail Author Start: 05-30-2024 Potassium [Moles/volume] in Serum or Plasma POTASSIUM [facility] Start: 05-30-2024 Thyroid stimulating hormone measurement TSH [facility] Start: 11-20-2023 End: 11-20-2023 Patient encounter procedure 11/20/2023 11:45 AM EDT Office Visit Neurology [facility] [address] [phone] Sabrina Guy DO [address] [address] [facility] Start: 09-04-2023 End: 09-04-2023 Patient encounter procedure 09/04/2023 11:45 AM EDT Office Visit Neurology [facility] [address] [address] Sabrina Guy DO [address] [address] [facility] Start: 08-08-2023 End: 08-08-2023 Patient encounter procedure 08/08/2023 11:45 AM EST Office Visit Neurology [facility] [address] [phone] Sabrina Guy DO [address] [phone] [facility] Start: 07-10-2023 End: 07-10-2023 Patient encounter procedure 07/10/2023 1:30 PM EST Office Visit [facility] [address] [place] [address] Mikayla Pedraza, Justin [address] [place] [address] [facility] Start: 02-21-2023 COVID-19 VACCINE ( season) COVID-19 VACCINE ( season) [facility] Start: 02-21-2023 Influenza vaccination INFLUENZA VACCINE (#1) [facility] Start: 12-27-2022 End: 12-27-2022 Patient encounter procedure 12/27/2022 Office Visit Neurology Sabrina Guy, DO [address] [address] [facility] Start: 10-24-2022 Hemoglobin glycosylated a1c [facility]; [facility] Start: 10-24-2022 [facility] Start: 09-25-2022 End: 09-25-2022 Patient encounter procedure 09/25/2022 Office Visit Otolaryngology Brandon Goodman MD [address] [facility] [address] [place] [address] [facility] Start: 08-23-2022 End: 08-23-2022 Patient encounter procedure Neurology [facility] Start: 05-20-2022 End: 05-20-2022 ambulatory 05/20/2022 Rehab Services Visit Speech Therapy Vishnu Napier MD [address] [place] [address] Terri Cornell, RJ [address] [place] [address] [place] [id number] Out[facility] Start: 05-20-2022 End: 05-20-2022 Patient encounter procedure 05/20/2022 Appointment Fluoroscopy Vishnu Napier MD [address] [place] [address] [facility] Start: 05-06-2022 End: 05-06-2023 RF videography Hypopharynx and Esophagus Views W liquid and paste contrast PO during swallowing XR FLUORO MODIFIED BARIUM SWALLOW WITH SPEECH Imaging Routine Dysphagia, unspecified type Expected: 05/06/2022, Expires: 05/06/2023 [facility] Comment on above: Expected: 05/06/2022, Expires: Start: 04-25-2022 End: 04-25-2022 Patient encounter procedure 04/25/2022 Office Visit Neurology Sabrina Guy DO [address] [place] [address] [place] [address] Neurology [facility] Start: 04-05-2022 Assay of thyroid stimulating hormone tsh [facility] Work Phone: Start: 04-05-2022 Basic metabolic panel calcium total [facility] Work Phone: Start: 04-05-2022 Blood count complete automated [facility] Work Phone: Start: 04-05-2022 Glucose quantitative blood xcpt reagent strip [facility] Work Phone: Start: 04-05-2022 Hemoglobin glycosylated a1c [facility] Work Phone: Start: 04-05-2022 Hepatic function panel [facility] Work Phone: Start: 04-05-2022 Lipid panel [facility] Work Phone: Start: 04-05-2022 Medical; Adult Follow Up - med refill/ Medical; Adult Follow Up - med refill/ [facility] Start: 05-Apr-2022 11:00 MD Mendoza William Appointment Request [facility] Start: 02-21-2022 Influenza vaccination INFLUENZA VACCINE (#1) [facility] Start: 01-21-2022 Follow-up encounter Medical; Adult Follow Up - Check up [facility] Start: 21-Jan-2022 13:00 MD Mendoza William Appointment Request [facility] Start: 01-10-2022 Potassium [Moles/volume] in Serum or Plasma POTASSIUM [facility] Start: 01-10-2022 Thyroid stimulating hormone measurement TSH [facility] Start: 12-12-2021 Follow-up encounter Medical; Adult Follow Up - f/u [facility] Start: 12-Dec-2021 13:00 MD Mendoza William Appointment Request [facility] Start: 09-12-2021 Mental status assessed [facility]; [facility] Work Phone: Start: 09-12-2021 Hemoglobin glycosylated a1c HEMOGLOBIN GLYCLATED (HGB A1C) - In House ([address]) Start: 12-Sep-2021 13:25 Request [facility]; [facility] Work Phone: Start: 09-12-2021 Follow-up encounter Medical; Adult Follow Up - [facility]/ Rescheduled Appt..BUMPED [facility] Start: 12-Sep-2021 13:00 MD Mendoza William Appointment Request [facility] Start: 03-12-2021 End: 03-12-2021 Patient encounter procedure 03/12/2021 Office Visit Neurology Sabrina Guy, DO [address] [place] [address] [place] [address] Neurology [facility] Start: 03-08-2021 Follow-up encounter Medical; Adult Follow Up - [facility] Start: 08-Mar-2021 15:15 MD Vishnu Mendoza Appointment Request [facility] Start: 03-08-2021 Mental status assessed [facility]; [facility] Work Phone: Start: 02-21-2021 Influenza vaccination INFLUENZA VACCINE (#1) [facility] Start: 02-08-2021 End: 02-08-2022 MONOCLONAL PROT IMMUNO, SERUM [facility] Work Phone: Comment on above: Expected: 02/08/2021, Expires: 2 Start: 02-08-2021 End: 02-08-2022 PARANEOPLASTIC SYNDROME [facility] Comment on above: Expected: 02/08/2021, Expires: 2 Start: 02-08-2021 End: 02-08-2022 VITAMIN E [facility] Comment on above: Expected: 02/08/2021, Expires: 2 Start: 09-08-2020 Glucose quantitative blood xcpt reagent strip [facility] Work Phone: Start: 09-08-2020 Urine albumin quantitative [facility] Work Phone: Start: 02-10-2020 Glucose quantitative blood xcpt reagent strip [facility] Work Phone: Start: 02-10-2020 Hemoglobin glycosylated a1c [facility] Work Phone: Start: 02-05-2019 Foot examination performed [facility] Work Phone: Start: 08-21-2018 Collection capillary blood specimen [facility] Work Phone: Start: 2017 Urine albumin quantitative [facility] Work Phone: Start: 09-29-2013 Pneumococcal vaccination PNEUMOCOCCAL VACCINE SERIES (2 - PCV) [facility] Start: 11-06-2008 Pneumococcal vaccination [facility] Start: 11-06-1993 Zoster vaccine hzv live for subcutaneous use ZOSTER (SHINGLES) VACCINE (1 of 2) [facility] Start: 11-06-1988 Colonoscopy COLORECTAL CANCER SCREENING DISCUSSION [facility] Start: 11-06-1988 Screening for malignant neoplasm of colon COLORECTAL CANCER SCREENING DISCUSSION [facility] Start: 1983 Screening for malignant neoplasm of breast MAMMOGRAM SCREENING DISCUSSION [facility] Start: 1983 Screening mammography MAMMOGRAM SCREENING DISCUSSION [facility] Start: 11-06-1964 Screening for malignant neoplasm of cervix CERVICAL CANCER SCREENING DISCUSSION [facility] Start: 11-06-1962 Third diphtheria, tetanus and acellular pertussis (DTaP) vaccination TDAP (ADULT) [facility] Start: 11-06-1961 Tetanus vaccination TETANUS [facility] Start: 1955 COVID-19 VACCINE (1) COVID-19 VACCINE (1) [facility] Start: 05-09-1944 COVID-19 VACCINE (#1) COVID-19 VACCINE (#1) [facility] Start: 1943 Screening for osteoporosis DEXA SCAN DISCUSSION [facility] Start: 1943 Tetanus vaccination TETANUS [facility] End: 06-06-2023 Bacteria identified in Urine by Culture [facility] Comment on above: One Time for 1 Occurrences starting 05/23 until 06/06/2023 Complete blood count [facility] Comprehensive metabo lic 2000 panel - Serum or Plasma [facility] Cyanocobalamin vitam in b-12 VITAMIN B12 Lab Routine Encephalopathy Ordered: 08/08/2023 [facility] Comment on above: Ordered: 08/08/2023 Folic acid measureme nt, RBC [facility] Laryngoscopy flexibl e diagnostic FL LARYNGOSCOPY FLEXIBLE DIAGNOSTIC FL Charge Routine Dysphagia, unspecified type Ordered: 05/06/2022 [facility] Comment on above: Ordered: 05/06/2022 Laryngoscopy flexibl e diagnostic FL LARYNGOSCOPY FLEXIBLE DIAGNOSTIC FL Charge Routine Dysphagia, unspecified type Alzheimer's dementia, unspecified dementia severity, unspecified timing of dementia onset, unspecified whether behavioral, psychotic, or mood disturbance or anxiety Missing teeth, acquired Ordered: 06/26/2022 [facility] Comment on above: Ordered: 06/26/2022 METHYLMALONIC ACID METHYLMALONIC ACID Lab Routine Type 2 diabetes mellitus with diabetic neuropathy, without long-term current use of insulin Ordered: 03/05/2022 [facility] Comment on above: Ordered: 03/05/2022 METHYLMALONIC ACID METHYLMALONIC ACID Lab Routine Encephalopathy Ordered: 08/08/2023 [facility] Comment on above: Ordered: 08/08/2023 MR Brain WO and W contrast IV [facility] MR Cervical spine [facility] Patient Education ED Abdominal P ain Unkn Cause Fem [facility] Work Phone: Patient referral [facility] Work Phone: Thiamine measurement [facility] Thyroid stimulating hormone measurement [facility] Vitamin B12 measurement [facility] Vitamin B6 measurement [facility] Vitamin D, 1,25-dihydroxy measurement [facility]; [facility] Work Phone: [facility] Work Phone: [facility] Work Phone: Immunizations Immunization Date Immunization Notes Care Provider Graham allen 04-26-2019 influenza, high dose seasonal, preservative-free Vishnu Mendoza MD Work Phone: [facility] Work Phone: 04-26-2019 influenza virus vacc ine, unspecified formulation Sabrina Guy DO Work Phone: [facility] 03-05-2017 influenza virus vacc ine, unspecified formulation Vishnu Mendoza MD Work Phone: [facility]; [facility] Work Phone: 03-05-2017 Immunization Admin Influenza (MEDICARE ONLY) ([id number]) Vishnu Mendoza MD Work Phone: [facility]; [facility] Work Phone: 03-05-2017 Vishnu Mendoza MD Work Phone: [facility]; [facility] Work Phone: 03-05-2017 influenza, seasonal, injectable Vishnu Mendoza MD Work Phone: [facility]; [facility] Work Phone: Comment on above: Site: Left DeltoidVI S Given: * Flu (01/15/11)verified by YONATHAN Anna; pt tolerated escobar malik nrheather 03-18-2016 influenza, seasonal, injectable Vishnu Mendoza MD Work Phone: [facility]; [facility] Work Phone: 03-18-2016 Immunization Admin Influenza (MEDICARE ONLY) (G0008) Vishnu Mendoza MD Work Phone: [facility]; [facility] Work Phone: 03-18-2016 Immunization Admin Influenza (MEDICARE ONLY) ([id number]) Vishnu Mendoza MD Work Phone: [facility]; [facility] Work Phone: 03-18-2016 Vishnu Mendoza MD Work Phone: [facility]; [facility] 04-21-2014 Immunization Admin Influenza (MEDICARE ONLY) ([id number]) Vishnu Mendoza MD Work Phone: [facility]; [facility] Work Phone: 04-21-2014 Vishnu Mendoza MD Work Phone: [facility]; [facility] 04-21-2014 influenza, seasonal, injectable Vishnu Mendoza MD Work Phone: [facility]; [facility] Work Phone: Comment on above: Site: Deltoid (Left) VIS Given: * Influenza (02/08/2014)Pt observed in office for 15 min after administration. 03-29-2013 influenza, seasonal, injectable Vishnu Mendoza MD Work Phone: [facility]; [facility] Work Phone: Comment on above: Site: Deltoid Area ( Left)VIS Given: * Flu (01/15/11) 03-29-2013 influenza, seasonal, injectable, preservative free Vishnu Mendoza MD Work Phone: [facility]; [facility] Work Phone: 03-29-2013 Immunization Admin Single Vac (if no O.V.) ([id number]) Vishnu Mendoza MD Work Phone: [facility]; [facility] Work Phone: 03-29-2013 Vishnu Mendoza MD Work Phone: [facility]; [facility] 09-29-2012 pneumococcal Conjuga te, unspecified formulation Vishnu Mendoza MD Work Phone: [facility]; [facility] Work Phone: Comment on above: Normal. 09-29-2012 pneumococcal polysaccharide vaccine, 23 valent Vishnu Mendoza MD Work Phone: [facility]; [facility] Work Phone: 07-13-2009 novel influenza-H1N1 -09, preservative-free, injectable Vishnu Mendoza MD Work Phone: [facility]; [facility] Work Phone: Payers Date Payer Category Payer Private Health Insurance [id number] Self-pay 2018 Medicare [facility]ICARE [facility] PPO [facility] PPO [id number] 2018-Present [address] [address] [place] [address] [id number] 2016 Medicare [id number] 2016 Medicare [id number] 2016 Medicare C MANAGED [facility] CARE C/AARP/MEDICARE PPO xxxxxxxxx 2016-Present xxxxxxxxx [id number] 2015 Medicare [id number] 2008 Medicare [id number] 2005 Private Health Insurance [id number] 1943 Unknown [id number]. 2.902 1943 Unknown [id number] 2.840.1.709956.3.579. 5.176 1943 Unknown [id number] [id number]. 2.594 1943 Unknown [id number] 2.16.840.1.773165.3.579. 2.594 1943 Unknown [id number] 2.16.840.1.079209.3.579. 2.594 1943 Unknown [id number] 2.16840.1.587615.3.579. 2.594 1943 Unknown [id number] 2.16.840.1.895187.3.579. 2.594 1943 Unknown [id number] [id number]. 2.594 1943 Unknown [id number] 2.16.840.1.522107.3.579. 2.594 1943 Unknown [id number] 2..840.1.258762.3.579. 2.594 1943 Unknown [id number] 2..840.1.045083.3.579. 2.594 Unknown Unknown [id number] 2.16.840.1.050158.3.579. 2.462 Unknown [id number] 2.16.840.1.074859.3.579. 2.462 Unknown [id number] 2.16.840.1.715779.3.579. 2.462 Unknown [id number] 2.16.840.1.173274.3.579. 2.462 Unknown [id number] [id number]. 2.462 Unknown [id number] 2..[id number]. 2.462 Unknown [id number] 2..[id number]. 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 [facility]; [facility] Work Phone: Alcohol use: Alcohol use: ; None. [facility]; [facility] Work Phone: Start: 01-06-2023 End: 09-04-2023 Country of Origin Country of Origin Comments: [facility]; [facility] Work Phone: Comment on above: [place] Current work status/school status: Current work status/school status: ; Retired. [facility]; [facility] Work Phone: Marital status: Marital status: ; . [facility]; [facility] Work Phone: Sexual preference: Sexual prefer ence: ; Heterosexual. [facility]; [facility] Work Phone: Tobacco use: Tobacco use: ; N ever smoker. [facility]; [facility] Work Phone: Start: 1945 Female [facility] Start: 02-11-2021 End: 09-04-2023 Alcohol intake Lifetime non-drinker (finding) [facility] Start: 02-08-2021 History SDOH Alcohol Frequency 1 [facility] Start: 08-13-2022 End: 08-23-2022 Exposure to SARS-CoV-2 (event) Not sure [facility] Start: 06-16-2022 End: 06-26-2022 Exposure to SARS-CoV-2 (event) Unable to assess [facility] Start: 01-21-2023 Tobacco smoking status NHIS Unknown if ever smoked [facility] Start: 01-06-2023 End: 09-04-2023 Tobacco use panel [facility] NEGATED: Highlighted row No Known Social History No Known Social History [facility]; [facility] Work Phone: Medical Equipment Procedure Code Equipment Code Equipment Origin al Text Equipment Identifier Dates [id number] Start: 09-07-2020 Comment on above: One Touch Ultra LANCET DEVICE (Miscellaneous) ; 1 (one) Misc Misc two times daily for 365 days Quantity: 1 {Each} Refills: 0 Ordered: 06-Aug-2016 Start: 04-Aug-2015 End: 03-Aug-2016 Status: Inactive [id number] Start: 08-04-2015 End: 08-03-2016 [id number] Start: 08-04-2015 End: 11-02-2015 Prodigy No Codin g Blood Gluc In Vitro Strip ; 1 (one) Strip daily for 90 days Quantity: 100 {Strip} Refills: 3 Ordered: 05-Mar-2017 Niyah Quintana Start: 28-Aug-2016 End: 05-Mar-2017 Status: Inactive [id number] Start: 08-28-2016 End: 03-05-2017 Clinical Notes 02-08-2021 to 01-20-2025 Note Date & Type Note Facility 01-20-2025 Progress note [facility] 01-20-2025 Progress note Note Date/Time January 20, 2025 2:20pm [facility] [address] [place] [address] [place] [address] OFFICE VISIT Date of Service: 01/20/25 MR#: [id number] Acct: [id number] Name: QAMAR BOSWELL Rep #: [id number] : 1945 Provider: Dr. Doc Barajas DO Age/Sex: 79/F Location: [facility] Status: Signed Intake Vital Signs 10/12/24 14:54 Height 4 ft 10 in Weight: 134 lb BMI 28.0 BP 122/64 H Blood Pressure Location Lt radial Position Sitting Respiration 16 Pulse 63 Pulse Source Monitor Temp 96.1 F L Temp Source Temporal Pulse Oximetry (%) 94 Oxygen Delivery Method room air Intake Visit Reasons: 3 M FU Chief Complaint: Recheck. 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 Accompanied by: Daughter Is patient in pain?: No Allergies Iodinated Contrast Media Allergy (Intermediate, Verified 01/20/25 13:46) Hives strawberry Allergy (Intermediate, Verified 01/20/25 13:46) hives Medications ?Medication ?Instructions ?Recorded ?Confirmed ?Type metoprolol succinate 25 mg 25 mg PO DAILY heart 01/20/25 History tablet,extended release 24 hr albuterol sulfate 2.5 mg/3 mL 2.5 mg (3 mL) inhalation Q2H PRN 11/23/23 01/20/25 Rx (0.083 %) solution for nebulization PRN Dyspnea, wheez ing 30 days #90 mL pravastatin 20 mg tablet 20 mg PO QHS for cholesterol #90 04/13/24 01/20/25 Rx TABLETS hydrochlorothiazide 12.5 mg tablet 12.5 mg PO DAILY jarred riley #90 tabs 05/18/24 01/20/25 Rx levothyroxine 50 mcg tablet 50 mcg PO DAILY for disord er of 06/11/24 01/20/25 Rx thyroid gland #90 TABLETS raloxifene 60 mg tablet 60 mg PO DAILY #90 TABLETS 1 08/12/23 01/20/25 Rx famotidine 20 mg tablet 20 mg PO DAILY PRN heartburn #90 07/13/24 01/20/25 Rx tabs metformin 500 mg tablet 500 mg PO BID diabetes #180 tabs 07/13/24 01/20/25 Rx citalopram 20 mg tablet 10 mg (1/2 x 20 mg) PO DAILY 12/14/24 01/20/25 Rx anxiety #90 tabs brexpiprazole 0.5 mg tablet 0.5 mg PO QDAY #30 tabs 01/20/25 Rx (Rexulti) galantamine 8 mg 24 hr 8 mg PO QAM #30 caps 5 01/20/25 Rx capsule,extended release memantine 10 mg tablet (Namenda) 10 mg PO BID #180 tab s 12/28/24 01/20/25 Rx ciclopirox 0.77 % topical cream 1 applic topical Q12H PRN 01/20/25 History (Loprox (as olamine)) lisinopril 2.5 mg tablet 2.5 mg PO DAILY for blood pr essure 01/20/25 01/20/25 Rx #90 TABLETS Have you fallen in the past year?: No Nurse's Note: lisinopril needs refilled. Pt has had more wheezing recently, was concerned about pneumonia nebulizer helps. Has not been sick. Pt's daughter wondering about a paula lift as daughter has Herniated discs and caregiving w? lifting has been causing issues. [facility] Medical History Hypothyroidism Anxiety and depression HLD (hyperlipidemia) HTN (hypertension) CKD (chronic kidney disease) Vitamin deficiency GERD (gastroesophageal reflux disease) Cardiac murmur Neuropathy Alzheimer disease Diabetes mellitus Surgical History History of hysterectomy Hx of appendectomy Family History Father Diabetes Myocardial infarction Mother Breast cancer Social History household members: children housing: house current occupational status: retired Smoking Status: Never smoker alcohol intake: never substance use type: does not use what type of physical activity do you participate in: none seatbelt use: always do you feel safe at home: Yes HPI HPI Chief Complaint: Recheck. Details: QAMAR BOSWELL, is a 79 F who presents to the office today for recheck of her diabetes. She has recently seen a neurologist who agreed with her diagnosis of Alzheimer's dementia. He basically kept the medications the same but started her on a new medication to see if that would delay the progression of her disease. The Rexulti she has been on is stopped most of her wild verbal outbursts and she is quite pleasant to take care of but her daughter is having difficulty lifting and wants a Paula lift. ROS Const Constitutional: No body ache, chills, excessive sweating, fatigue, fever(s), frequent falls, headache(s), snoring, weakness, sleep problems or change in appetite Eyes Eyes: No blurry vision, change in vision, eye pain or Light sensitivity ENT ENT: No abnormal hearing, ear or mastoid pain, tinnitus, nasal congestion, headache(s), neck pain or sore throat Resp Respiratory: No cough, shortness of breath, snoring or wheezing Cardio Cardiology: No chest pain at rest, chest pain with exertion, excessive sweating,shortness of breath, dyspnea on exertion, lightheadedness, orthopnea or palpitations Gastro GI: No abdominal pain, change in bowel habits, constipation, cramping, diarrhea,nausea/dyspepsia or vomiting Genitourinary-Female: No burning urination, painful urination, urinary incontinence, urinary frequency, abnormal vaginal bleeding or pelvic pain Musc Musculoskeletal: No abnormal gait, joint pain, back pain, limited range of motion, neck pain or numbness Skin Skin: No dry skin, redness, lesions, itchy eyes, rash or wounds Neuro Neurology: No abnormal gait, abnormal hearing, weakness, frequent falls, headache(s), memory loss or numbness Psych Psychiatric: No anxiety, No change in appetite, No depression, No memory loss and No Thoughts of harming yourself/Others Endo Endocrine: No cold intolerance, excessive sweating, fatigue, flushing, heat intolerance, increased thirst/drinking or increased hunger Aller/Imm Allergy/Immunologic: No itchy eyes, seasonal allergy symptoms, hives or wheezing Nader/Lymp Hematologic/Lymphatic: No easy bleeding, easy bruising, enlarged lymph nodes or other Exam Const General: no acute distress and frail appearing Nutritional Appearance: average body habitus Orientation: not oriented to person, not oriented to place, not oriented to timeand confused Limitations: behavioral limitations and physical limitations (Unable to walk wheelchair confined.) HENMT Head: normal to inspection Ears: hearing grossly normal bilaterally Eyes General: appearance normal, both eyes and all related structures Neck Neck: normal visual inspection Lymphatic: no lymphadenopathy noted Resp Effort & Inspection: normal respiratory effort Auscultation: Bilateral: Clear to Auscultation Cardio Rate: regular rate Rhythm: regular rhythm Heart Sounds: murmur systolic mid and III/ GI Inspection: normal to inspection Musc Musculoskeletal: No joint tenderness Skin General: no rashes or lesions noted Nails: discolored (Obvious fungal infection of her left thumbnail.) Neuro General: patient confused and unable to assess gait Cognition: abnormal cognition Gait: gait assisted Method: wheelchair bound Extrem General: normal to inspection Psych Affect: indifferent Speech and Movement: slurred speech Judgment: poor Results POC A1C POC A1C 6.2 % Last Edit by Scarlett Allan MA on 01/20/25 14:10 Coding Level of Care Code Off vis,est,level 3 Diagnoses Alzheimer disease G30.9; F02.80 Diabetes mellitus E11.9 Bilateral wheezing R06.2 Bladder incontinence R32 Assessment and Plan Assessment and Plan (1) Alzheimer disease: Status: Acute Plan: No change in her neurologic condition. Because she requires lifting to get her out of the wheelchair and nobody in the family has the strength to do that by themselves they have requested a Paula lift. I think that is an excellent idea they just need to let me know who provides her durable medical goods. (2) Diabetes mellitus: Status: Acute Plan: Hemoglobin A1c is 6.2 showing good control. (3) Bilateral wheezing: Status: Acute Plan: Her lungs are clear at this time. (4) Bladder incontinence: Status: Acute Plan: There is been essentially no change in her difficulty with her bladder incontinence. Orders: Orders POC A1C Today E11.9 - Type 2 diabetes mellitus without complications Medications: Refilled lisinopril 2.5 mg PO DAILY 90 TABLETS 2RF for blood pressure Plan Details Follow Up: 3 Months Clinical Quality Measures Falls Risk Screening/Assistive Devices Have you fallen in the past year?: No 01/20/25 1420 <Electronically signed by Flavio silva DO> Date _ Flavio Barajas DO Cosigner Signature: Date (if applicable) CC: ~ [facility] Work Phone: 1(460) 675-462004-22-2025 Evaluation note* Diagnosis Onset Date Resolution Status Admit Date Alzheimer disease acute September 222024 2:49pm Bladder incontinence acute Apri l 2024 2:49pm Diabetes mellitus acute September 222024 2:49pm Onychomycosis acute October 12, 2024 2:49pm Dementia acute December 28, 2024 9:01am [facility] Work Phone: 1(705) 663-593004-22-2025 Evaluation note* Diagnosis Onset Date Resolution Status Admit Date Alzheimer disease acute September 222024 2:49pm Bladder incontinence acute Apri l 2024 2:49pm Diabetes mellitus acute September 222024 2:49pm Onychomycosis acute October 12, 2024 2:49pm Abnormal gait acute December 28, 2 025 9:01am Dementia acute December 28, 2024 9:01am [facility] Work Phone: 1(274) 359-570504-22-2025 Evaluation note* Diagnosis Onset Date Resolution Status Admit Date Alzheimer disease acute September 222024 2:49pm Bladder incontinence acute Apri l 2024 2:49pm Diabetes mellitus acute September 222024 2:49pm Onychomycosis acute October 12, 2024 2:49pm Abnormal gait acute December 28, 2 025 9:01am Dementia acute December 28, 2024 9:01am Alzheimer disease acute January 202024 1:29pm Bilateral wheezing acute December 232024 1:29pm Bladder incontinence acute January 20, 2025 1:29pm Diabetes mellitus acute January 202024 1:29pm [facility] Work Phone: 1(828) 146-387903-14-2024 History of Present illness Narrative* Sabrina Guy, - 09/04/2023 11:45 AM EDT Chief Complaint: Follow-up HPI:Kehinde Pelaez is accompanied by her granddaughter. She does not perceive significant decline since the last visit. Hallucinations have improved. Although she wears an adult diaper, she was able to tell her granddaughter when she needs to use the restroom. Gait has not substantially changed. PMHx: has a past medical history of CAD (coronary artery disease), Cardiac murmur, Diabetes mellitus, Essential hypertension, benign, and Thyroid disease. Meds: has a current medication list which includes the following prescription(s): citalopram, hydrochlorothiazide, ipratropium, levothyroxine, lisinopril, memantine, metformin, metoprolol succinate, pravastatin, and raloxifene. Allergies: has No Known Allergies. FMHx: family history includes Breast Cancer in her mother and sister. Soc Hx: reports that she has never smoked. She has never used smokeless tobacco. She reports that she does not drink alcohol and does not use drugs. Objective: Vitals: There were no vitals taken for this visit. Physical Examination: Mental Status: She thought this is October 2022; apathy; appears to be in no apparent distress; diminished thought content in conversation; she does not speak too much; she follows commands of the neurologic exam; no palmomental reflex Cranial Nerves: Pupils are equal and reactive bilaterally, extraocular muscles are intact, facial weakness is absent, spontaneous palatal movement is symmetric, the tongue protrudes in the midline Motor: DTRs symmetric, no long tract signs, no drift. Manual motor testing of the legs is normal Cerebellum: no abnormal rebound, no dysmetria Misc: full visual razo, no nystagmus, normal fine motor control, normal speech, needs help to stand, magnetic gait,No myoclonic jerks or asterixis Diagnostic Tests: MRI last fall showed nonspecific white matter changes. B12 level was low normal with an elevated methylmalonic acid Assessment: ICD-10-CM 1. Mild cognitive impairment G31.84 2. Encephalopathy G93.40 1. Mild cognitive impairment In summary, I met Qamar in 2020 for gait changes. Neuropathy was found. From the beginning, she could not stand without help. This has not changed. Within a short time she was re-evaluated for cognitive changes that included hallucinations. Testing showed mild cognitive impairment with changes suggesting this may have been early Alzheimer's disease. Thus far I have not found evidence of Lewy body dementia to also explain hallucinations. 2. Encephalopathy However, at the end of last year cognition worsened. This tempo was quicker than expected for dementia. She has a history of UTIs. Unfortunately recent urinalysis was unsuccessful. In addition, lab evidence supports a clinically relevant B12 deficiency. Dr. Napier, I need your assistance. Qamar needs treatment for B12 deficiency. Unless you disagree,perhaps parenteral replacement would be most reliable. I also need help excluding an active bladderinfection Future considerations include repeat MRI of the brain to ensure no new strokes and a PET scan to reassess dementia. - Instructions were given to call if current symptoms worsen or new symptoms arise. Voice recognition software was used for this note. I have edited this note but errors may occur Return in about 2 months (around 11/04/2023) for Office. [facility] History of Present illness Narrative* Sabrina Guy DO - 08/08/2023 11:45 AM EST Chief Complaint: Follow-up HPI:Subjective Qamar is accompanied by her granddaughter. In May there was contact regarding cognitive decline. Eventually I potential bladder infectionwas diagnose in her granddaughter thought it was treated. We SF out evidence of B12 deficiency. Shewas on vitamins. Her granddaughter does not perceive significant improvement Dizziness continues. Today they indicate this occurs in orthostatic situations. PMHx: has a past medical history of CAD (coronary artery disease), Cardiac murmur, Diabetes mellitus, Essential hypertension, benign, and Thyroid disease. Meds: has a current medication list which includes the following prescription(s): citalopram, hydrochlorothiazide, ipratropium, levothyroxine, lisinopril, memantine, metformin, metoprolol succinate, pravastatin, and raloxifene. Allergies: has No Known Allergies. FMHx: family history includes Breast Cancer in her mother and sister. Soc Hx: reports that she has never smoked. She has never used smokeless tobacco. She reports that she does not drink alcohol and does not use drugs. Objective: Vitals: There were no vitals taken for this visit. Physical Examination: Mental Status: Jerry does not know the year or month.; mood and affect appropriate; appears to be in no apparent distress; very little verbal output; follows simple commands Cranial Nerves: Pupils are equal and reactive bilaterally, extraocular muscles are intact, facial weakness is absent, spontaneous palatal movement is symmetric, the tongue protrudes in the midline Motor: DTRs symmetric, no long tract signs, no drift. No myoclonic jerks Cerebellum: no abnormal rebound, no dysmetria Misc: full visual razo, no nystagmus, normal fine motor control, normal speech, wheelchair Diagnostic Tests: Discussed above. Otherwise CBC, comprehensive metabolic profile, TSH, and folate were unremarkable from a neurologic standpoint Assessment: ICD-10-CM 1. Encephalopathy G93.40 2. Mild cognitive impairment G31.84 1. Encephalopathy In summary, Qamar first visit was in 2020. There has been slow decline with a decrease in her [place] score by 3 points over 1 year. That is March she was still relatively oriented. It seems there was abrupt decline in May. Workup raises the possibly of a urinary tract infection that they think was treated. Workup also suggest a B12 deficiency. She was on vitamins. - VITAMIN B12 - METHYLMALONIC ACID 2. Mild cognitive impairment As above I refilled: - Memantine 10 MG tablet; 1 bid Dispense: 180 tablet; Refill: 0 She could not tolerate donepezil. PET scan may be helpful. However, despite requests for MRI brain results we have not received them [facility]. We will again attempt. - Instructions were given to call if current symptoms worsen or new symptoms arise. Voice recognition software was used for this note. I have edited this note but errors may occur Return in about 4 weeks (around 09/05/2023). documented in this [facility] Emergency department Note* Marah Goel MD - 06/06/2023 5:45 PM EST HISTORY Qamar Boswell is a 77 y.o. female who presents in order to get a urinalysis. The patient has a history of dementia her daughter has noticed that the patient's urine has been very foul-smelling. They have tried to obtain a clean- catch specimen but given the patient's dementia I and mobility issues, the daughter has not been successful getting that. The patient has had some blood work ordered by the PCP which was obtained so the missing piece of the puzzle is the urinalysis PERTINENT EXAM At the time of evaluation today, the patient is not really answering any questions. She appears in no distress. She has no abdominal tenderness and no CVA tenderness IMPRESSION AND PLAN Results for orders placed or performed during the hospital encounter of 06/06/23 URINALYSIS Result Value Ref Range Color Yellow Yellow Appearance Urine Cloudy (A) Clear Glucose Urine Negative Negative Ketones Urine Negative Negative Specific [place] Urine >=1.030 1.001 - 1.035 Blood Urine Small (A) Negative pH Urine 6.0 5.0 - 7.0 Protein Urine 30 mg/dL (A) Negative Urobilinogen Urine 0.2 E.U./dL 0.2 E.U/dL, 1.0 E.U/dL Nitrites Urine Negative Negative Leukocyte Esterase Large (A) Negative RBC Urine 3-5 (A) 0 - 2 /HPF WBC Urine > 20 (A) 0 - 5 /HPF Squamous/Epithelial Cells 0-2/hpf 0-2/hpf, 3-5/hpf = 1+ Bacteria PRESENT (A) ABSENT Urine was sent for culture. The patient is discharged home on Keflex follow up with the primary care provider Medical Decision Making Problems Addressed: Cystitis: acute illness or injury Dementia with anxiety, unspecified dementia severity, unspecified dementia type: chronic illness orinjury Amount and/or Complexity of Data Reviewed Independent Historian: Details: daughter Labs: ordered. Decision-making details documented in ED Course. Risk Prescription drug management. On 06/06/2023, I saw and evaluated the patient with PRAVIN. I provided a substantive portion of the care for this patient. I personally performed all aspects of the medical decision making for this encounter. I have reviewed and verified this with the PRAVIN so that it accurately reflects our care Marah Goel M.D., [facility] Sewing Machine Adjuster Clinical Professor Of Emergency Medicine Marah Goel MD 06/06/23 5004 * DONNA Devi - 06/06/2023 3:53 PM EST Emergency Department PROVIDER NOTE Qamar Boswell is a 77 y.o. female past medical history Past Medical History: Diagnosis Date CAD (coronary artery disease) Cardiac murmur Diabetes mellitus Essential hypertension, benign Thyroid disease Presenting to the ED with complaints of concern for UTI. Pt being evaluated for alzheimer's dementia by neurology. They have been unable to get a clean specimen. Pts daughter reports her urine has been very concentrated and foul smelling. No hematuria, urgency/frequency. History obtained from pts daughter who is at bedside. REVIEW OF SYSTEMS Unable to fully assess: pt minimally participatory No Known Allergies Current Facility-Administered Medications: cephALEXin (KEFLEX) capsule 500 mg, 500 mg, Oral, Once, DONNA Devi Current Outpatient Medications: citalopram 10 MG tablet, , Disp: , Rfl: hydroCHLOROthiazide 12.5 MG capsule, TAKE ONE CAPSULE BY MOUTH DAILY, Disp: 30 capsule, Rfl: 0 ipratropium 0.06 % Solution, 2 sprays by Nasal route 3 times daily., Disp: 15 mL, Rfl: 1 levothyroxine 50 MCG tablet, 1 tablet., Disp: , Rfl: lisinopril 2.5 MG tablet, , Disp: , Rfl: Memantine 10 MG tablet, 1 bid, Disp: 180 tablet, Rfl: 1 metFORMIN 850 MG tablet, , Disp: , Rfl: metoprolol succinate 25 MG tablet XL, , Disp: , Rfl: pravastatin 20 MG tablet, , Disp: , Rfl: raloxifene (EVISTA) 60 MG PO TABS, take 1 Tab by mouth daily., Disp: 90 Tab, Rfl: 0 cephALEXin 500 MG capsule, Take 1 capsule by mouth every 6 hours for 7 days., Disp: 28 capsule, Rfl: 0 Past Surgical History: Procedure Laterality Date APPENDECTOMY HYSTERECTOMY TONSILLECTOMY Social History Socioeconomic History Marital status: Spouse name: Not on file Number of children: Not on file Years of education: Not on file Highest education level: Not on file Occupational History Not on file Tobacco Use Smoking status: Never Smokeless tobacco: Never Vaping Use Vaping Use: Never used Substance and Sexual Activity Alcohol use: Never Drug use: Never Sexual activity: Not on file Other Topics Concern Not on file Social History Narrative Not on file Social Determinants of Health Financial Resource Strain: Not on file Food Insecurity: Not on file Transportation Needs: Not on file Physical Activity: Not on file Stress: Not on file Social Connections: Not on file Intimate Partner Violence: Not on file Housing Stability: Not on file Physical exam: Constitutional: Vital signs and nursing note are reviewed. The patient is alert. Well-nourished, well-developed, non-diaphoretic, non-distressed. Head: The head is atraumatic and normocephalic. Eyes: No occular discharge. Ears: No visible deformity, external lesions, drainage. Respiratory/chest: The chest is non-tender to palpation. Breathing is unlabored and without accessory muscle use. Lungs clear to auscultation, no respiratory distress. Equal and symmetrical chest rise without retractions. No wheezes or rales. Cardiovascular: regular rate and rhythm. Peripheral pulses palpable. No murmurs, gallops, or rubs. GI: Abdomen soft, non-distended. No abdominal pain to palpation; no rebound, guarding, or mass. Negative lara's sign. No tenderness at mcburney's point. : no CVA tenderness. Musculoskeletal: No tenderness, edema, deformity or decreased ROM. Skin: Warm, dry. No rashes or color change. Moist mucus membranes. Neuro: AAOx3, no focal sensory or motor deficits. GCS 15. ED COURSE AND MDM: Vitals: 06/06/23 1518 BP: Pulse: Resp: Temp: 98.2 F (36.8 C) SpO2: Patient presents to the ED with c/o concern for UTI. They are well appearing, afebrile, and hemodynamically stable. 1. Concern for UTI DDx not limited to: uti v pyelonephritis v dehydration Labs: UA Results for orders placed or performed during the hospital encounter of 06/06/23 URINALYSIS Result Value Ref Range Color Yellow Yellow Appearance Urine Cloudy (A) Clear Glucose Urine Negative Negative Ketones Urine Negative Negative Specific [place] Urine >=1.030 1.001 - 1.035 Blood Urine Small (A) Negative pH Urine 6.0 5.0 - 7.0 Protein Urine 30 mg/dL (A) Negative Urobilinogen Urine 0.2 E.U./dL 0.2 E.U/dL, 1.0 E.U/dL Nitrites Urine Negative Negative Leukocyte Esterase Large (A) Negative RBC Urine 3-5 (A) 0 - 2 /HPF WBC Urine > 20 (A) 0 - 5 /HPF Squamous/Epithelial Cells 0-2/hpf 0-2/hpf, 3-5/hpf = 1+ Bacteria PRESENT (A) ABSENT Pt presents to the ED for evaluation of concern for UTI. Urine positive for large leuk esterase, >20 WBC, bacteria. Pt given dose of keflex in the ED. Urine sent for culture. Pt PPE on assessment: none This provider PPE on assessment: mask, gloves, goggles Medical Decision Making Amount and/or Complexity of Data Reviewed Labs: ordered. Risk Prescription drug management. Plan: discharge. Rx keflex. Follow up with PCP/neurology as scheduled Return precautions given. Discussed any lab results and plan with patient, they verbalized understanding and are in agreement with the plan. Diagnosis: UTI Marah Goel MD was included in all aspects of care including assessment, plan, and diagnosis; Amauri Goel MD was physically present to examine the patient. DONNA Devi 06/06/23 1705 documented in this encounterU [facility] Emergency department Note* Marah Goel MD - 06/06/2023 5:45 PM EST HISTORY Qamar Boswell is a 77 y.o. female who presents in order to get a urinalysis. The patient has a history of dementia her daughter has noticed that the patient's urine has been very foul-smelling. They have tried to obtain a clean- catch specimen but given the patient's dementia I and mobility issues, the daughter has not been successful getting that. The patient has had some blood work ordered by the PCP which was obtained so the missing piece of the puzzle is the urinalysis PERTINENT EXAM At the time of evaluation today, the patient is not really answering any questions. She appears in no distress. She has no abdominal tenderness and no CVA tenderness IMPRESSION AND PLAN Results for orders placed or performed during the hospital encounter of 06/06/23 URINALYSIS Result Value Ref Range Color Yellow Yellow Appearance Urine Cloudy (A) Clear Glucose Urine Negative Negative Ketones Urine Negative Negative Specific [place] Urine >=1.030 1.001 - 1.035 Blood Urine Small (A) Negative pH Urine 6.0 5.0 - 7.0 Protein Urine 30 mg/dL (A) Negative Urobilinogen Urine 0.2 E.U./dL 0.2 E.U/dL, 1.0 E.U/dL Nitrites Urine Negative Negative Leukocyte Esterase Large (A) Negative RBC Urine 3-5 (A) 0 - 2 /HPF WBC Urine > 20 (A) 0 - 5 /HPF Squamous/Epithelial Cells 0-2/hpf 0-2/hpf, 3-5/hpf = 1+ Bacteria PRESENT (A) ABSENT Urine was sent for culture. The patient is discharged home on Keflex follow up with the primary care provider Medical Decision Making Problems Addressed: Cystitis: acute illness or injury Dementia with anxiety, unspecified dementia severity, unspecified dementia type: chronic illness orinjury Amount and/or Complexity of Data Reviewed Independent Historian: Details: daughter Labs: ordered. Decision-making details documented in ED Course. Risk Prescription drug management. On 06/06/2023, I saw and evaluated the patient with PRAVIN. I provided a substantive portion of the care for this patient. I personally performed all aspects of the medical decision making for this encounter. I have reviewed and verified this with the PRAVIN so that it accurately reflects our care Marah Goel M.D., [facility] Sewing Machine Adjuster Clinical Professor Of Emergency Medicine Marah Goel MD 06/06/23 [facility]55 [facility] Emergency department Note* Adrianne Carl, PAC - 06/06/2023 3:53 PM EST Emergency Department PROVIDER NOTE Qamar Boswell is a 77 y.o. female past medical history Past Medical History: Diagnosis Date CAD (coronary artery disease) Cardiac murmur Diabetes mellitus Essential hypertension, benign Thyroid disease Presenting to the ED with complaints of concern for UTI. Pt being evaluated for alzheimer's dementia by neurology. They have been unable to get a clean specimen. Pts daughter reports her urine has been very concentrated and foul smelling. No hematuria, urgency/frequency. History obtained from pts daughter who is at bedside. REVIEW OF SYSTEMS Unable to fully assess: pt minimally participatory No Known Allergies Current Facility-Administered Medications: cephALEXin (KEFLEX) capsule 500 mg, 500 mg, Oral, Once, DONNA Devi Current Outpatient Medications: citalopram 10 MG tablet, , Disp: , Rfl: hydroCHLOROthiazide 12.5 MG capsule, TAKE ONE CAPSULE BY MOUTH DAILY, Disp: 30 capsule, Rfl: 0 ipratropium 0.06 % Solution, 2 sprays by Nasal route 3 times daily., Disp: 15 mL, Rfl: 1 levothyroxine 50 MCG tablet, 1 tablet., Disp: , Rfl: lisinopril 2.5 MG tablet, , Disp: , Rfl: Memantine 10 MG tablet, 1 bid, Disp: 180 tablet, Rfl: 1 metFORMIN 850 MG tablet, , Disp: , Rfl: metoprolol succinate 25 MG tablet XL, , Disp: , Rfl: pravastatin 20 MG tablet, , Disp: , Rfl: raloxifene (EVISTA) 60 MG PO TABS, take 1 Tab by mouth daily., Disp: 90 Tab, Rfl: 0 cephALEXin 500 MG capsule, Take 1 capsule by mouth every 6 hours for 7 days., Disp: 28 capsule, Rfl: 0 Past Surgical History: Procedure Laterality Date APPENDECTOMY HYSTERECTOMY TONSILLECTOMY Social History Socioeconomic History Marital status: Spouse name: Not on file Number of children: Not on file Years of education: Not on file Highest education level: Not on file Occupational History Not on file Tobacco Use Smoking status: Never Smokeless tobacco: Never Vaping Use Vaping Use: Never used Substance and Sexual Activity Alcohol use: Never Drug use: Never Sexual activity: Not on file Other Topics Concern Not on file Social History Narrative Not on file Social Determinants of Health Financial Resource Strain: Not on file Food Insecurity: Not on file Transportation Needs: Not on file Physical Activity: Not on file Stress: Not on file Social Connections: Not on file Intimate Partner Violence: Not on file Housing Stability: Not on file Physical exam: Constitutional: Vital signs and nursing note are reviewed. The patient is alert. Well-nourished, well-developed, non-diaphoretic, non-distressed. Head: The head is atraumatic and normocephalic. Eyes: No occular discharge. Ears: No visible deformity, external lesions, drainage. Respiratory/chest: The chest is non-tender to palpation. Breathing is unlabored and without accessory muscle use. Lungs clear to auscultation, no respiratory distress. Equal and symmetrical chest rise without retractions. No wheezes or rales. Cardiovascular: regular rate and rhythm. Peripheral pulses palpable. No murmurs, gallops, or rubs. GI: Abdomen soft, non-distended. No abdominal pain to palpation; no rebound, guarding, or mass. Negative lara's sign. No tenderness at mcburney's point. : no CVA tenderness. Musculoskeletal: No tenderness, edema, deformity or decreased ROM. Skin: Warm, dry. No rashes or color change. Moist mucus membranes. Neuro: AAOx3, no focal sensory or motor deficits. GCS 15. ED COURSE AND MDM: Vitals: 06/06/23 1518 BP: Pulse: Resp: Temp: 98.2 F (36.8 C) SpO2: Patient presents to the ED with c/o concern for UTI. They are well appearing, afebrile, and hemodynamically stable. 1. Concern for UTI DDx not limited to: uti v pyelonephritis v dehydration Labs: UA Results for orders placed or performed during the hospital encounter of 06/06/23 URINALYSIS Result Value Ref Range Color Yellow Yellow Appearance Urine Cloudy (A) Clear Glucose Urine Negative Negative Ketones Urine Negative Negative Specific [place] Urine >=1.030 1.001 - 1.035 Blood Urine Small (A) Negative pH Urine 6.0 5.0 - 7.0 Protein Urine 30 mg/dL (A) Negative Urobilinogen Urine 0.2 E.U./dL 0.2 E.U/dL, 1.0 E.U/dL Nitrites Urine Negative Negative Leukocyte Esterase Large (A) Negative RBC Urine 3-5 (A) 0 - 2 /HPF WBC Urine > 20 (A) 0 - 5 /HPF Squamous/Epithelial Cells 0-2/hpf 0-2/hpf, 3-5/hpf = 1+ Bacteria PRESENT (A) ABSENT Pt presents to the ED for evaluation of concern for UTI. Urine positive for large leuk esterase, >20 WBC, bacteria. Pt given dose of keflex in the ED. Urine sent for culture. Pt PPE on assessment: none This provider PPE on assessment: mask, gloves, goggles Medical Decision Making Amount and/or Complexity of Data Reviewed Labs: ordered. Risk Prescription drug management. Plan: discharge. Rx keflex. Follow up with PCP/neurology as scheduled Return precautions given. Discussed any lab results and plan with patient, they verbalized understanding and are in agreement with the plan. Diagnosis: UTI Marah Goel MD was included in all aspects of care including assessment, plan, and diagnosis; Amauri Goel MD was physically present to examine the patient. DONNA Devi 06/06/23 1705 [facility]10-16-2023 History of Present illness Narrative* Sabrina Guy, - 04/07/2023 10:15 AM EDT Chief Complaint: No chief complaint on file. HPI:Kehinde Pelaez is accompanied by her daughter today. She developed dizziness in the last week. Her description is consistent with vertigo. This is intermittent and provoked by movement. This is not limited to orthostatic situations. Symptoms last a minute and there are no accompanying inner ear or posterior fossa symptoms. PMHx: has a past medical history of CAD (coronary artery disease), Cardiac murmur, Diabetes mellitus, Essential hypertension, benign, and Thyroid disease. Meds: has a current medication list which includes the following prescription(s): memantine, citalopram, hydrochlorothiazide, ipratropium, levothyroxine, lisinopril, metformin, metoprolol succinate, pravastatin, and raloxifene. Allergies: has No Known Allergies. FMHx: family history includes Breast Cancer in her mother and sister. Soc Hx: reports that she has never smoked. She has never used smokeless tobacco. She reports that she does not drink alcohol and does not use drugs. Objective: Vitals: There were no vitals taken for this visit. Physical Examination: Mental Status: mood and affect appropriate; appears to be in no apparent distress; diminished thought content in conversation; fluency and comprehension intact. Bradyphrenia Cranial Nerves: Pupils are equal and reactive bilaterally, extraocular muscles are intact, facial weakness is absent, spontaneous palatal movement is symmetric, the tongue protrudes in the midline Motor: DTRs symmetric, no long tract signs, no drift Cerebellum: no abnormal rebound, no dysmetria Misc: full visual razo, no nystagmus, normal fine motor control, normal speech, Diagnostic Tests: Review of previous testing shows a normal methylmalonic acid. Her daughter is certain MRI was done.We apparently do not have results. Assessment: ICD-10-CM 1. Vertigo R42 2. Mild cognitive impairment G31.84 1. Mild cognitive impairment With a decline in cognitive testing over the last year I suspect dementia including Alzheimer's. I am reserving final diagnosis until I review MRI of the brain performed in December. We will reach out for results since they were not sent. I refilled: - Memantine 10 MG tablet; 1 bid Dispense: 180 tablet; Refill: 1 She was not able to tolerate donepezil 2. Vertigo She developed vertigo within the last week. It is provoked by movement. This suggests a vestibulopathy or cervicogenic dizziness. Symptoms are not limited to orthostatic situations. - AMB REFERRAL TO VESTIBULAR TESTING - Instructions were given to call if current symptoms worsen or new symptoms arise. Voice recognition software was used for this note. I have edited this note but errors may occur Return in about 4 months (around 08/08/2023). documented in this [facility]10-16-2023 Procedure note* Sabrina Guy DO - 04/07/2023 10:15 AM EDTAssociated Order(s): GENERAL PROCEDURE Today's [place] score is 18/30. Eleven months ago it was 21/30. There are episodic memory changes that are amnestic. Semantic memory is intact. There is executive dysfunction. Visual-spatial function is intact. Language is intact although she did not do well generating a word list. [facility]10-16-2023 Procedure note* Sabrina Guy DO - 04/07/2023 10:15 AM EDTAssociated Order(s): GENERAL PROCEDURE Today's [place] score is 18/30. Eleven months ago it was 21/30. There are episodic memory changes that are amnestic. Semantic memory is intact. There is executive dysfunction. Visual-spatial function is intact. Language is intact although she did not do well generating a word list. [facility] Discharge summary Author Venita Osei [facility] January 21, 2023 11:50pm Note Date/Time January 21, 2023 8:3 0pm [facility] Medical Records Department [address] [place] [address] Emergency Department Summary 01/21/23 MR#: [id number] Acct: [id number] Name: QAMAR BOSWELL Rep #:[id number] : [id number] 77 From: Venita Osei MD PCP: VISHNU MENDOZA Status:REG ER Location: ED HPI History of Present Illness Chief Complaint: Complaint Informant: patient and family Narrative Narrative: Patient presents with daughter for evaluation of possible UTI. She has been complaining of lower abdominal pain. Patient has Alzheimer's and is concerned that she may still have some remnant of her appendix left after she had appendicitis. Daughter states this occurred when she was 7 years old. Daughterdid note that the patient has had strong odor to her urine with slight discoloration. She notes that her mother does not drink much during the day. She is concerned that she may have a UTI causing the symptoms. [facility] Medical History (Updated 01/21/23 @ 23:[address] Venita Osei MD) Alzheimer disease Cardiac murmur Diabetes mellitus Neuropathy Home Medications citalopram 20 mg tablet 10 mg PO DAILY 01/21/23 [History Last Taken Unknown] famotidine 20 mg tablet 20 mg PO DAILY PRN 01/21/23 [History Last Taken Unknown] hydrochlorothiazide 12.5 mg tablet 12.5 mg PO DAILY 01/21/23 [History Last Taken Unknown] levothyroxine 50 mcg tablet 50 mcg PO DAILY 01/21/23 [History Last Taken Unknown] lisinopril 2.5 mg tablet 2.5 mg PO DAILY 01/21/23 [History Last Taken Unknown] memantine 10 mg tablet 5 mg PO BID 01/21/23 [History Last Taken Unknown] metformin 850 mg tablet 850 mg PO BID 01/21/23 [History Last Taken Unknown] metoprolol succinate 25 mg tablet,extended release 24 hr 25 mg PO DAILY 01/21/23[History Last Taken Unknown] pravastatin 20 mg tablet 20 mg PO QHS 01/21/23 [History Last Taken Unknown] raloxifene 60 mg tablet 60 mg PO DAILY 01/21/23 [History Last Taken Unknown] Allergy/AdvReac Type Severity Reaction Status Date / Time IV dye Allergy Intermediate Hives Uncoded 01/21/23 23:04 Family History Other Breast cancer Surgical History (Updated 01/21/23 @ 20:[address] Venita Osei MD) History of hysterectomy Hx of appendectomy Social History Smoking Status: Never smoker ROS ROS ED Constitutional Constitutional ED: Denies chills or fever(s) Eyes Eyes: Denies change in vision or discharge from eye(s) ENT ENT ED: Denies discharge from eye(s), rhinorrhea or sore throat Cardiovascular Cardiovascular: Denies chest pain Respiratory/Chest Respiratory/Chest: Denies cough or dyspnea Gastrointestinal Gastrointestinal: Reports abdominal pain, nausea and vomiting; Denies diarrhea Musculoskeletal Musculoskeletal: Denies back pain or extremity pain Integumentary Denies Abrasions or rash Neurologic Neurologic: Denies headache(s) or weakness Psychiatric Psychiatric: Denies anxiety or depression Allergic/Immunologic Allergic/Immunologic ED: Denies lip swelling or urticaria EXAM Physical Exam Const Vital Signs: 01/21/23 19:52 01/21/23 20:09 01/21/23 21:39 Temperature 97.7 F L 98.1 F 98.1 F Temperature Source Temporal Temporal Oral Pulse Rate 82 78 Respiratory Rate 15 16 Blood Pressure 109/53 L 133/60 H Blood Pressure Mean 71 84 Pulse Ox 96 97 Oxygen Delivery Method Room Air Room Air 01/21/23 23:05 Temperature Temperature Source Pulse Rate 85 Respiratory Rate 18 Blood Pressure 133/80 H Blood Pressure Mean 97 Pulse Ox 95 Oxygen Delivery Method Room Air Positive well nourished and well developed General Appearance ED: well developed HEENT Reports moist mucous membranes Eyes EOMs intact bilaterally Neck no lymphadenopathy Chest Wall inspection of chest normal and palpation of chest normal Resp normal respiratory effort and clear to auscultation bilaterally Cardio regular rate and regular rhythm GI GI Narrative: Diffuse tenderness of the lower abdomen. No guarding or rebound. Extremity normal to inspection Neuro Neuro Narrative: Patient alert and in no acute distress. Moves all extremities. Psych mental status grossly normal Skin no rashes or lesions noted MDM MDM MDM Narrative Medical decision making narrative: Patient is given IV fluids. Labwork obtained to evaluate for leukocytosis, anemia, and electrolyte derangement. Urinalysis obtained to evaluate for infection/hematuria. History & Record Review Discussion w/independent historian: Patient and Family Lab Data Attestation: I reviewed the patient's lab results. Labs: Laboratory Results - last 24 hr 01/21/23 01/21/23 20:40 21:31 WBC 10.1 RBC 4.07 L Hgb 11.9 L Hct 37.1 MCV 91.2 MCH 29.2 MCHC 32.1 RDW Std Deviation 42.5 RDW Coeff of Buzz 12.8 Plt Count 290 MPV 9.8 Immature Gran % (Auto) 0.300 Neut % (Auto) 62.3 Lymph % (Auto) 22.5 [place] % (Auto) 9.2 Eos % (Auto) 5.0 Baso % (Auto) 0.7 Absolute Neuts (auto) 6.3 Absolute Lymphs (auto) 2.27 Nucleated RBC % 0 Sodium 139 Potassium 4.6 Chloride 107 Carbon Dioxide 26.0 Anion Gap 6 BUN 19 H Creatinine 1.02 Estim Creat Clear Calc 116.49 Est GFR (MDRD) Af Amer 67 Est GFR (MDRD) Non-Af 56 L BUN/Creatinine Ratio 18.6 Glucose 111 H Calcium 8.5 Urine Color Yellow Urine Clarity Clear Urine pH 7.0 Ur Specific [place] 1.010 Urine Protein Negative Urine Glucose (UA) Normal Urine Ketones Negative Urine Occult Blood 10 H Urine Nitrite Negative Urine Bilirubin Negative Urine Urobilinogen Normal Ur Leukocyte Esterase Negative Urine RBC 0-5 SEEN Urine WBC 0 SEEN Ur Squamous Epith Cells 0 SEEN Urine Bacteria 0 SEEN Urine Mucus 0 SEEN Radiography Diagnostic Testing: Clinical Impression(s) from Imaging Studies Abdomen/Pelvis CT 01/21/23 22:28 IMPRESSION: Trace lower pole left hydronephrosis. No obstructing mass or calcification. Electronically Signed: Felisha Fermin MD at 23:19 EDT Reading Location ID and State: [id number] / Tel , Service support , Treatment and Re-Evaluation :: CBC was normal white count at 10.1 with no left shift. Hemoglobin is 11.9. Chemistry studies unremarkable. Glucose is 111. Urinalysis reveals no evidenceof infection. Given the patient's moderate abdominal tenderness with no evidence of UTI, CT scan of the abdomen pelvis with IV contrast obtained to evaluate for possible diverticulitis. Upon return from CT patient did develop some hives from the IV contrast and received a dose of IV Benadryl. CT scan of the abdomen pelvis reveals trace lower pole left hydronephrosis. No mass or calcification. No other acute findings noted. On repeat evaluation patient's hives are improving. She is resting comfortably. Test results are discussed with patient as well as daughter at bedside. They will continue to monitor her symptoms at home and try to increase p.o. fluids. Return instructions given. Discharge Plan Triage Chief Complaint: Complaint ED Provider: Venita Osei Dx/Rx/DC Orders Clinical Impression: Abdominal pain Instructions: ED Abdominal Pain Unkn Cause Fem Prescriptions: No Action raloxifene 60 mg tablet 60 mg PO DAILY metoprolol succinate 25 mg tablet extended release 24 hr 25 mg PO DAILY pravastatin 20 mg tablet 20 mg PO QHS metformin 850 mg tablet 850 mg PO BID lisinopril 2.5 mg tablet 2.5 mg PO DAILY citalopram 20 mg tablet 10 mg PO DAILY levothyroxine 50 mcg tablet 50 mcg PO DAILY hydrochlorothiazide 12.5 mg tablet 12.5 mg PO DAILY memantine 10 mg tablet 5 mg PO BID famotidine 20 mg tablet 20 mg PO DAILY PRN Primary Care Provider: VISHNU MENDOZA Referrals: VISHNU MENDOZA [Other] - 10-14 Days if not better Disposition Disposition: Home, Self Care What to do if you have Problems For any increased pain, shortness of breath, bleeding, nausea or vomiting, chestpain, or any unexpected problems, contact your Primary Care Provider. Call [facility] ([phone]) or report to the closest Emergency Room. Call 911 if necessary. 01/21/23 2350 <Electronically signed by Venita Osei MD> Cosigner Signature (if applicable): CC: VISHNU MENDOZA ~ Signed [facility] Work Phone: [phone]) 227-568803-03-2023 History of Present illness Narrative* Faisal [place], IRWIN-PERFORATOR LOADER - 08/23/2022 11:00 AM EST Chief Complaint: Cognitive Impairment The primary encounter diagnosis was Mild cognitive impairment. Diagnoses of Type 2 diabetes mellitus with diabetic neuropathy, without long-term current use of insulin and Dysphagia, unspecified typewere also pertinent to this visit. HPI: Qamar is accompanied today by her daughter Monica. Since her last visit, donepezil was startedand caused GI side effects and worsening of hallucinations. This has since been stopped. Floridalma is delightfully confused at home but has good help. Neuropathy has resulted in falls. These are occurring in orthostatic situations. Usually when getting out of bed and getting to the bathroom. She denies parathesias, but there could be a component ofleg weakness as well. Qamar was doing physical therapy but now does the exercises at home. She can also drag her right foot while walking, but denies any back pain. There is leg weakness and incontinence but this is not new. After falling, Qamar is less willing to move around due to fear. PMHx: has a past medical history of CAD (coronary artery disease), Cardiac murmur, Diabetes mellitus, Essential hypertension, benign, and Thyroid disease. FMHx: family history includes Breast Cancer in her mother and sister. Soc Hx: reports that she has never smoked. She has never used smokeless tobacco. She reports that she does not drink alcohol and does not use drugs. Meds: has a current medication list which includes the following prescription(s): citalopram, hydrochlorothiazide, ipratropium, levothyroxine, lisinopril, metformin, metoprolol succinate, pravastatin, raloxifene, and donepezil. Allergies: has No Known Allergies. Objective: Vitals: There were no vitals taken for this visit. Physical Examination: Mental Status: oriented to person, place, and date; mood and affect appropriate; appears to be in no apparent distress; normal thought content in conversation; fluency and comprehension intact Cranial Nerves: Pupils are equal and reactive bilaterally, extraocular muscles are intact, facial weakness is absent, spontaneous palatal movement is symmetric, the tongue protrudes in the midline Motor: DTRs symmetric but absent distally, no long tract signs, no drift, mildly impaired tap rate of fingers, good blink rate. Cerebellum: no abnormal rebound, no dysmetria Misc: full visual razo, no nystagmus, normal fine motor control, normal speech, normal station and gait including tandem gait Diagnostic Tests: Last testing in 04/2022 : MOCA , MMSE Assessment: ICD-10-CM 1. Mild cognitive impairment G31.84 2. Type 2 diabetes mellitus with diabetic neuropathy, without long-term current use of insulin E11.40 3. Dysphagia, unspecified type R13.10 1. Mild cognitive impairment - It is unfortunate that she had side effects to donepezil, and we will start memantine today. There are some hallucinations, but Qamar is in good care of her family. - She will then return for cognitive testing in April of 2023. - Memantine 10 MG tablet; 1/2 daily for 1 week; then 1/2 bid for 1 week; then 1/2 tid for 1 week; then 1 bid Dispense: 180 tablet; Refill: 1 2. Type 2 diabetes mellitus with diabetic neuropathy, without long-term current use of insulin - Dysesthesias are well controlled, however Qamar is falling. These are consistent with orthostatic situations, however she was unable to tolerate blood pressure readings in the office today. For this reason we cannot confirm if these are related to orthostatic hypotension. - I would like to use the expertise of her PCP Dr. Napier to see if there are any reasonable alternatives to her current blood pressure medications, should she continue to fall. I understand that these may be necessary, especially with her inability to tolerate the blood pressure cuff. - Instructions were given to call if current symptoms worsen or new symptoms arise. Return in about 4 months (around 12/23/2022) for With Dr. Guy. GUSTAVO Bahena My supervising physician, Dr. Sabrina Guy was presented the history and exam and saw the patient independently and is in agreement with the assessment and plan. * Carissa Hartman - 08/23/2022 11:00 AM EST Attempted orthostatic bp today after Qamar was supine for 5 minutes. Unable to tolerate the procedure and it was discontinued. Provider notified. [facility] Instructions* Patient Instructions* SAM Watkins - 08/23/2022 11:00 AM EST Start memantine. [facility] History of Present illness Narrative* Brandon Goodman MD - 06/26/2022 10:20 AM EST . Chief Complaint: No chief complaint on file. HPI: Ms. Boswell is a 76 y.o. female with pmh of dysphagia. Completed MBS on 05/20/2022. Patient has difficulty remembering to cue. Does not use lower partial dentures when swallowing. Eats watermelon lying down while watching tv. Gets impatient while drinking water she states. Does not remember todo small sips. Endorses difficulty with meats and breads. Per ARLIN Mcclellan note on 05/06/2022: HPI: 76 y.o. female with a new diagnosis of mild cognitive impairment vs. Alzheimer's presenting with her daughter to the [facility] Department of Otol[facility]ology for evaluation of dysphagia. Diagnosed with dementia most c/w Alzheimer's a few weeks ago by Dr. Guy, started on donepezil. Dysphagia has been an issue for years. Sometimes happens with food and liquid, but also with saliva. Daughter reports she is strangled by saliva, liquid, or food. Chews with mouth open. Daughter has had to do Heimlich maneuver twice in the last year after an episode with watermelon. During this episode she was not taking in air. Anxiety about going to restaurants. Has some kind of coughing/strangling spell at each meal. Per pt it is uncomfortable to swallow but no localizable pain. Per daughter she isn't drinking enough water due to dysphagia. Voice has gotten quieter with age. Also recently diagnosed with ARNOLD a few weeks ago, CPAP seems to be helping with daytime somnolence. Also complaining of chronic clear rhinorrhea. Always carrying a tissue around. Worse at night sincestarting CPAP. Past Medical History Past Medical History: Diagnosis Date CAD (coronary artery disease) Cardiac murmur Diabetes mellitus Essential hypertension, benign Thyroid disease Past Surgical History Past Surgical History: Procedure Laterality Date APPENDECTOMY HYSTERECTOMY TONSILLECTOMY Social History Social History Socioeconomic History Marital status: Spouse name: Not on file Number of children: Not on file Years of education: Not on file Highest education level: Not on file Occupational History Not on file Tobacco Use Smoking status: Never Smokeless tobacco: Never Vaping Use Vaping Use: Never used Substance and Sexual Activity Alcohol use: Never Drug use: Never Sexual activity: Not on file Other Topics Concern Not on file Social History Narrative Not on file Social Determinants of Health Financial Resource Strain: Not on file Food Insecurity: Not on file Transportation Needs: Not on file Physical Activity: Not on file Stress: Not on file Social Connections: Not on file Intimate Partner Violence: Not on file Housing Stability: Not on file Family History Family History Problem Relation Age of Onset Breast Cancer Mother Breast Cancer Sister Medications: Current Outpatient Medications Medication Sig Dispense Refill citalopram 10 MG tablet donepezil 10 MG tablet 1/2 daily for 1 month then 1 daily 30 tablet 4 hydroCHLOROthiazide 12.5 MG capsule TAKE ONE CAPSULE BY MOUTH DAILY 30 capsule 0 ipratropium 0.06 % Solution 2 sprays by Nasal route 3 times daily. 15 mL 1 levothyroxine 50 MCG tablet 50 mcg. lisinopril 2.5 MG tablet metFORMIN 850 MG tablet metoprolol succinate 25 MG tablet XL pravastatin 20 MG tablet raloxifene (EVISTA) 60 MG PO TABS take 1 Tab by mouth daily. 90 Tab 0 No current facility-administered medications for this visit. Allergies: Patient has no known allergies. Immunizations: There is no immunization history on file for this patient. Review of Systems: ROS as per HPI and PMH. Physical Exam Vital Signs: Smoking Status Never General: Well-developed, well-nourished. No distress. Head and Face Inspection: Normocephalic and atraumatic without mass or lesion Eyes: EOMI ENT External Ear: WNL External nose: No anatomic deformity Internal Nose: Septum intact. Oral cavity: No mass or lesion. Dentition near complete but missing left and right mandibular molar Oropharynx: No mass or lesion. Tonsillar fossa symmetric. Voice: mild roughness Neck Trachea: Midline trachea. Lymphatics: No masses or lymphadenopathy. No palpable thyroid nodules or masses. Respiratory Respiratory effort: Equal inspiration and expiration without stridor Cardiovascular Peripheral Vascular: Warm extremities Neuro: Alert and oriented. Appropriate mood and affect; Cranial nerves II-XII are intact. Has Alzheimer's but know president, year, holiday, and full name easily recalling them. Uses wheelchair. Procedures: .Preoperative diagnosis: Dysphagia. Postoperative diagnosis: Same Procedure: Transnasal Flexible fiberoptic laryngoscopy Anesthesia: AFRIN only Complications: None Condition is stable throughout exam Indications/Consent/Procedure: Transnasal flexible laryngoscopy and nasopharyngoscopy is indicated to assess the patient s laryngeal and pharyngeal symptoms. This was performed transnasally with a distal chip videolaryngoscope. After verbal informed consent and call to order, the patient was positioned and the endoscope was passed transnasally. It was positioned to image the pharynx and larynx. Findings are noted below. The patient tolerated the procedure without complication, The following features were examined Laryngeal and pharyngeal masses, vocal fold range and symmetry of motion, laryngeal mucosal edema, erythema, inflammation, and hydration, vocal fold edema and erythema, salivary pooling, and gross laryngeal sensation. The salient findings were: Minimal .Post-cricoid edema, no laryngeal masses or lesions present, No pooling of secretions in the post-cricoid or pyriform sinuses. Subglottis clear, bilateral vocal folds mobile, mild vocal fold atrophy. Data: Prior records reviewed. 05/20/2022 2:40 PM - Terri Cornell SENIOR POWER PLANT OPERATOR Procedure Note Speech Language Pathology Modified Barium/Video Fluoroscopic Swallow Study Evaluation Note Date of Procedure: 05/20/2022 General Patient Information Name: Qamar Boswell Gender: female Date of : 1945 Referring Physician: Vishnu Napier MD Diagnosis and Associated Codes: ICD-10-CM 1. Dysphagia, unspecified type R13.10 Relevant History: General Information Current method of nutrition: PO Diet grade: Regular Liquid Consistency: Liquid- thin (IDDSI 0) Dentition / Oral Hygiene: Good oral hygiene Patient was positioned : 90 degrees in chair Patient History Comments: Pt is a 76 y.o. patient who presents for VFSS. The patient reports a history of dysphagia to liquids characterized by coughing or sense of liquids sticking*. Pt reports thishas been present for about one year. Pt denies unintentional weight loss or development of chest infections. Additional history per referring: HPI: 76 y.o. female with a new diagnosis of mild cognitive impairment vs. Alzheimer's presenting with her daughter to the [facility] Department of Otolaryngology for evaluation of dysphagia. Diagnosed with dementia most c/w Alzheimer's a few weeks ago by Dr. Guy, started on donepezil. Dysphagia has been an issue for years. Sometimes happens with food and liquid, but also with saliva.Daughter reports she is strangled by saliva, liquid, or food. Chews with mouth open. Daughter hashad to do Heimlich maneuver twice in the last year after an episode with watermelon. During this episode she was not taking in air. Anxiety about going to restaurants. Has some kind of coughing/strangling spell at each meal. Per pt it is uncomfortable to swallow but no localizable pain. Per daughter she isn't drinking enough water due to dysphagia. Voice has gotten quieter with age. Also recentlydiagnosed with ARNOLD a few weeks ago, CPAP seems to be helping with daytime somnolence. ASSESSMENT/PLAN: Dysphagia in the setting of dementia -normal flexible laryngoscopy -recommend modified barium swallow -discussed safe swallow techniques (small bites followed by sips of water) -encouraged hydration (at least 60 oz per day) This study is being completed to further assess oral-pharyngeal swallow biokinematics, relevant pathophysiology and inform treatment and management decisions as appropriate. Status: Outpatient Relevant Prior Studies: N/A Prior dysphagia interventions: N/A Respiratory Status: unassisted Assessment: Consistencies Assessed: This study was conducted in the lateral view. Recording was completed and images are available in PACS and IHIS. Barium viscosities were used and graduated from thin to pudding consistencies. Solid (when administered) is evaluated with carmita cracker and approximately 2 ml barium pudding coating. All consistencies (except initial tsp of thin liquids) were self administered by pt unless otherwise stated. Qamar Boswell was presented with the following barium consistencies: Varibar Thin Barium: teaspoon, single cup drink x1 unrestricted; cued small sip x2 and straw x1 Varibar Justice Barium: straw x1 Varibar Pudding Barium: teaspoon Regular solid contrasted with Varibar Paste Barium: 1/4 cracker Each of the videofluoroscopy swallowing clips underwent analysis which included [id number] analyses of swallowing kinematics to determine pathophysiology based on fluoroscopy capture rate of 30 frames/second. Subjective swallowing events were scored according to the Modified Barium Swallow Impairment Profile (MBSImP). Temporal Swallowing Kinematics Each of the videofluoroscopy swallowing clips underwent objective analyses which included [id number] analyses of swallowing kinematics to determine pathophysiology. All physiological variables that were measured were compared to published normative data with Proposed Clinical Decision Making Points based on Typical vs. Atypical values using ASPEKT Method (Analysis of Swallowing Physiology:Events, Kinematics and Timing) : Montana Bobby & Montana Hunter (2019). Characterizing the flow of thickened barium and non-barium liquid recipes using the IDDSI Flow Test. Dysphagia, 34(1), 73-79. [email or web address].com/article/[email or web address]/[email or web address] Montana Hunter, Olga Brunson, Montana Bobby., Juanita Rolle T., Earlene Rosas, Juan José W. Judy., Ishaan S., Olga Estevez., Cisco Hammond., Earlene Guillory., Jeff, T. S. (2019). Reference values for healthy swallowing across the range from thin to extremely thick liquids. Journal of Speech, Language, and Hearing Research, 62(5), 8467-9353. https:/ /doi.org/10.10448221_ZKABK-K-12-0448 Myke Quiros, Olga Brunson & Montana Hunetr (2020). Variations in Hyoid Kinematics across Liquid Consistencies in Healthy Swallowing. Journal of Speech, Language and Hearing Research, 64(1), 51- 58. https://doi.org/10.42220_JDOHV-32-99942 Frame ranges below are based on fluoroscopy capture rate of 30 frames/second. Specific measures of the following swallow event durations were used during this objective analysisgiven airway invasion during the swallow.: swallow reaction time (SRT) duration of laryngeal vestibule closure (dLVC) Time-to-LVC (time from hyoid burst to LVC) (ms) duration of UES open (DUESO) Swallow Reaction Time (SRT): The time between the head of the bolus passing the ramus of the mandible (bolus head in pharynx) and the first superior and/or anterior burst of motion of the hyoid (hyoid burst). Atypical/Clinician Decision Point (normals): Thin: >400 msec Justice/Mildly thick:>534 msec Pudding : >801 msec Patient: Cup sip thin liquid: 66.6 msec; Straw drink thin liquids: 66.6 msec; Straw drink nectar: 99.9 msec Duration of Laryngeal Vestibule Closure (dLVC): The time between the first frame of laryngeal vestibule closure (LVC) and the first frame of laryngeal vestibule opening (LVO). Atypical/Clinician Decision Point (normals): Thin: <400 msec Justice/Mildly Thick:<400 msec Pudding: <400 msec Patient: Cup sip thin liquid: 399 msec; Straw sip thin liquid: 446.2 msec; Straw sip nectar thick liquid: 532.8 msec Time-to-LVC (time from hyoid burst to LVC) (ms) Atypical/Clinician Decision Point (normals): Thin: >167 msec Justice/Mildly Thick: >200 msec Puree: >167 msec Patient: Cup sip thin liquid: 266.4 msec; Straw drink thin liquid: 199.8 msec; Straw drink nectar liquid: 33.3 msec Oral phase: Oral Phase Lip Closure: WFL, no labial escape Tongue Control During Bolus Hold: cohesive bolus between tongue to palatal seal Bolus Preparation/Mastication: slow prolonged chewing/mashing with complete recollection Bolus Transport/Lingual Motion: delayed initiation of tongue motion Oral Residue: trace residue lining oral structures Location of Oral Residue: tongue Initiation of Pharyngeal Swallow: bolus head at posterior laryngeal surface of epiglottis Pharyngeal Phase: Pharyngeal Phase Soft Palate Elevation: no bolus between soft palate and posterior pharyngeal wall Laryngeal Elevation: complete superior movement of thyroid cartilage with approximation of arytenoids to epiglottic petiole Anterior Hyoid Excursion: complete anterior movement Epiglottic Movement: complete inversion Laryngeal Vestibule Closure-Height of Swallow: complete Pharyngeal Stripping Wave: present - complete Pharyngoesophageal Segment Opening: complete distention and complete duration, no obstruction of flow Tongue Base Retraction: no contrast between tongue base and posterior pharyngeal wall Pharyngeal Residue: complete pharyngeal clearance Airway Events: Airway Events: Penetration / Aspiration Scale (PAS) Thin: 2 - Material enters the airway, remains above the vocal folds and is ejected from the airway,8 - Material enters the airway, passes below the vocal folds, and no effort is made to eject, before swallow, during swallow Liquid- mildly thick (IDDSI 2)/nectar: 1 - Material does not enter the airway Dysphagia- pureed (IDDSI 4): 1 - Material does not enter the airway Regular Solid: 1 - Material does not enter the airway Compensatory Strategies Trialed: Bolus volume change Effectiveness: Effective to eliminate aspiration Strategies Trialed: Strategy: Effectiveness/Response: Small sip thin liquids via cup Effective to eliminate aspiration but not penetration Change liquid viscosity to nectar/mildly thick Effective to eliminate aspiration and penetration VFSS Findings: Oral phase is overall functional. Pharyngeal dysphagia is present with impaired timeto LVC (see above metrics) which results in consistent penetration of thin liquids before the swallow regardless of administration method (PAS=2) with one occurrence of trace aspiration with straw drink thin liquids (PAS=8). There is no known rehab intervention for dLVC timing impairment and thusrecommend the following based on patient preference in the setting of no reported medical dysphagiarelated complications (e.g PNA) but social restrictions (e.g. avoiding restaurants due to coughing): 1. Consider small sips of thin liquids via cup as this was consistently effective to eliminate aspiration but not penetration 2. Consider mildly thick liquids via straw as this was consistently effective to eliminate aspiration and penetration 3. Continue current thin liquids via straw with ongoing consistent oral care to mitigate risk of aspiration PNA For additional analysis of the fluoroscopic examination, please see the radiologist sub arc operator report. Swallow Outcomes EAT-10 Score EAT10 Assessment Tool Score: 19 Functional Oral Intake Scale Functional Oral Intake Scale: Level 7 - Total oral intake with no restrictions RECOMMENDATIONS: Swallow Recommendations Recommended Method of Nutrition: PO Assessment Criteria For Skilled Therapeutic Interventions Met: no significant expected improvement in functional status This study and video were reviewed with Patient and Family member (daughter) with all questions answered. Personal Protective Equipment (PPE) used: Surgical mask worn throughout with eye protection (eye shield). Therapist: Terri Cornell MA, [facility]-SENIOR POWER PLANT OPERATOR [id number] [email or web address] chat Charge: MBS/VFSS Time in: 1315 Time out: 1330 Total Visit Time: 15 minutes Total Treatment Time (skilled, billable minutes): 15 minutes Timed Code Treatment Minutes: 0 minutes Overall SENIOR POWER PLANT OPERATOR Visit Number: 1 Visit(s) Study Result Narrative & Impression EXAM: XR FLUORO MODIFIED BARIUM SWALLOW WITH SPEECH, 05/20/2022 13:38 PM COMPARISON: No prior studies available for comparison. CLINICAL INDICATIONS: Dysphagia, newly diagnosed alheimer's disease. R13.10:Dysphagia, unspecified type. TECHNIQUE: Multiple barium consistencies (thin, nectar, pudding, and cracker) were administered to evaluate swallow. Lateral videofluoroscopy was performed in conjunction with Speech Pathology. The examination was performed by MARIO Cruz. Fluoroscopy Time: 1.0 minutes. FINDINGS: Oral Phase: There is loss of oral bolus control that prematurely spilled into the pharynx. Multiple dental restorations are present. Pharyngeal Phase: Laryngeal penetration progresses to silent aspiration with thin consistency. There is shallow laryngeal vestibular penetration of nectar with no penetration or aspiration with of pudding or cracker consistencies. There is slight delay initiation and mild discoordination of the pharyngeal swallowing mechanism. There are no significant residuals within the pharynx after the swallow with any of the tested consistencies. Cervical Phase: Functional. There are degenerative changes of the lower cervical spine. A nonobstructing, smooth, round, posterior cervical esophageal wall impression is noted at C4-C5 vertebral body levels. This most likely represents cricopharyngeal hypertrophy. IMPRESSION IMPRESSION: 1. Silent aspiration of thin consistency. Shallow laryngeal vestibular penetration of nectar consistency without aspiration. No penetration or aspiration of pudding or cracker consistencies 2. Oral and pharyngeal phase swallowing impairments as described above. 3. Nonobstructing cricopharyngeal hypertrophy. For additional analysis of the fluoroscopic examination for specific therapeutic recommendations, please see the sub arc operator report of the speech pathologist. Examination performed by MARIO Cruz, under the direct supervision of Jena Daniel M.D., who was immediately available on site during the examination. I personally viewed and interpreted these images and I have reviewed and approved this report. Impression/Plan: Ms. Boswell is a 76 y.o. female Scope findings of: Minimal .Post-cricoid edema, no laryngeal masses or lesions present, No pooling of secretions in the post-cricoid or pyriform sinuses. Subglottis clear, bilateral vocal folds mobile, mild vocal fold atrophy. - Had MBS. - Has Alzheimer's but able to answer all questions. Admitted to not wanting to follow SENIOR POWER PLANT OPERATOR recommendations but discussed again with patient and daughter. Will try to sit together at meals. - .Advised to take small bites that are well-chewed and well-moistened. Advised to avoid distractions (I.e. talking, walking, or driving while eating). Advised to sit at the dining table when eating.Advised to separate out or avoid mixed consistencies (cereal and milk, soup with solid bits, etc.).Small sip at a time with mouth hold and intentional swallow. - Wear lower partial dentures at meals. - Follow SENIOR POWER PLANT OPERATOR recs: 1. Consider small sips of thin liquids via cup as this was consistently effective to eliminate aspiration but not penetration 2. Consider mildly thick liquids via straw as this was consistently effective to eliminate aspiration and penetration 3. Continue current thin liquids via straw with ongoing consistent oral care to mitigate risk of aspiration PNA - F/u in 3 months to follow up. No scope anticipated. * Maria Luisa Philip - 06/26/2022 10:20 AM EST R=10 V=3 D=0 C=0 E=18 [facility] History of Present illness Narrative* Nikki Palomares - 05/06/2022 2:00 PM EST Review of Systems Constitutional: Negative for fever, fatigue, night sweats, weight loss, weight gain. Eyes: Negative for glasses, watery/itchy eyes, vision changes, trauma Cardiovascular: Negative for chest pain, irregular pulse Respiratory: Negative for cough, +shortness of breath Neurological: Negative for fainting, facial numbness, headaches. Psychiatric: Negative for depression, anxiety, schizophrenia. Skin: Negative for hives, rash, itchiness, skin lesions Musculoskeletal: Negative for joint pain , muscle pain Gastrointestinal: Negative for heartburn, +dysphagia, nausea, vomiting. Endocrine: Negative for excessive thirst, feeling cooler than others, feeling warmer than others. Lymph/Heme: Negative for swollen glands, bleeding problem HEENT: Negative for ear pain, ear pressure, ear drainage, tinnitus, hearing loss, vertigo, imbalance, sore throat, hoarseness, +snoring, daytime sleepiness, jaw clenching, toothgrinding, post nasal drip, runny nose, sneezing, sinus pain, nasal congestion. * Lorena Mcclellan PA-C - 05/06/2022 2:00 PM EST SUBJECTIVE: Chief Complaint: Chief Complaint Patient presents with Dysphagia Recently diagnosed w Alzheimerjey, having trouble swallowing, chokes on saliva. Also has snoring issues, also on CPAP Referred by: Dr. Guy HPI: 76 y.o. female with a new diagnosis of mild cognitive impairment vs. Alzheimer's presenting with her daughter to the [facility] Department of Otolaryngology for evaluation of dysphagia. Diagnosed with dementia most c/w Alzheimer's a few weeks ago by Dr. Guy, started on donepezil. Dysphagia has been an issue for years. Sometimes happens with food and liquid, but also with saliva.Daughter reports she is strangled by saliva, liquid, or food. Chews with mouth open. Daughter hashad to do Heimlich maneuver twice in the last year after an episode with watermelon. During this episode she was not taking in air. Anxiety about going to restaurants. Has some kind of coughing/strangling spell at each meal. Per pt it is uncomfortable to swallow but no localizable pain. Per daughter she isn't drinking enough water due to dysphagia. Voice has gotten quieter with age. Also recentlydiagnosed with ARNOLD a few weeks ago, CPAP seems to be helping with daytime somnolence. Also complaining of chronic clear rhinorrhea. Always carrying a tissue around. Worse at night sincestarting CPAP. Past Medical/Surgical History She has a past medical history of CAD (coronary artery disease), Cardiac murmur, Diabetes mellitus,Essential hypertension, benign, and Thyroid disease. Her has a past surgical history that includes hysterectomy; tonsillectomy; and appendectomy. Past Family/Social History Her family history includes Breast Cancer in her mother and sister. She reports that she has never smoked. She has never used smokeless tobacco. She reports that she does not drink alcohol and does not use drugs. Medications/Allergies/Immunizations Her current medication(s) include: has a current medication list which includes the following prescription(s): citalopram 10 MG tablet, donepezil 10 MG tablet, hydroCHLOROthiazide 12.5 MG capsule, ibuprofen 800 MG tablet, levothyroxine 50 MCG tablet, lisinopril 2.5 MG tablet, metFORMIN 850 MG tablet, metoprolol succinate 25 MG tablet XL, pravastatin 20 MG tablet, raloxifene (EVISTA) 60 MG PO TABS, and valacyclovir (VALTREX) 500 MG PO TABS. Allergies: Patient has no known allergies. Immunizations: There is no immunization history on file for this patient. Review of Systems: See MA note OBJECTIVE: Physical Exam Vitals: Pulse 63, height 1.448 m (4' 9), weight 63.5 kg (140 lb), SpO2 98 %. General: Well-developed, well-nourished, no apparent distress Communication and Voice: Clear pitch and clarity Neuro/Psych/Balance: Patient oriented to person, place, and time. Appropriate mood and affect. Gaitis intact with no imbalance. Cranial nerves II-XII grossly intact Eyes: Extraocular muscles intact bilaterally. Pupils equal round and reactive to light. No nystagmus. Head and Face: Normocephalic and atraumatic without mass or lesions. Facial skeleton intact withoutbony step-offs or crepitus. Facial mobility symmetric and full bilaterally. Normal facial sensation. Salivary Glands: No salivary gland masses, tenderness or enlargement. Patent ducts. Ear: External ear intact and fully developed bilaterally. NO cerumen impaction. Ear canal patent and skin intact bilaterally. Tympanic membrane intact, clear and mobile bilaterally. Nose/Anterior rhinoscopy: No external scars or anatomic deformity. Septum intact and midline. Mucosa pink and moist. No polyps, or rhinorrhea. No significant inferior turbinate hypertrophy. Oral Cavity: Mucosa pink and moist. Good dentition. No lesions seen or palpated. TMJ: No pain or crepitus to palpation. No trismus. No subluxation. Oropharynx: Mucosa pink and moist. Tonsils absent. No posterior pharynx lymphoid hyperplasia. No lesions seen or palpated. Nasopharynx: No significant adenoid tissue. No masses or lesions with intact mucosa Hypopharynx: Mucosa intact with no lesions or masses seen. Minimal post-cricoid mucosal edema. No significant erythema. No pooling of secretions. Larynx: True vocal cords white, fully mobile and without lesions. Neck: Trachea midline. No masses appreciated. No lymphadenopathy. No thyromegaly. Full range of motion. Nontender. Respiratory: No stridor or stertor. Cardiovascular: No cyanosis. Warm to touch. Procedures PROCEDURE NOTE: Procedure: FLEXIBLE LARYNGOSCOPY Performed by: Lorena Mcclellan PA-C Anesthesia: Topical 4 % lidocaine with afrin INDICATION: dysphagia The bilateral nasal cavity was topically anesthetized and decongested using an aerosolized mixture of 4% lidocaine and Afrin. The flexible laryngoscope was passed along the nasal floor without difficulty. No intranasal lesions were appreciated. The posterior choanae was unobstructed. The eustachiantube orifices were patent bilaterally. No significant adenoid tissue was present. No nasopharyngealmasses or lesions were present. The nasopharyngeal mucosa was pink and intact. The scoped was advanced distally into the oropharynx. There was no base of tongue fullness or obstruction. No vallecularmasses. The tonsils were present and not obstructing the airway. The epiglottis was crisp and in good position allowing for easy visibility of the larynx and hypopharynx. The true vocal cords were white, fully mobile, with normal phase mobility and without any lesions or masses. No inter-arytenoid pachyderma. No significant laryngopharyngeal erythema. No mucus stranding or salivary pooling. The piriform sinuses were clear. Minimal post-cricoid edema. No significant pharyngeal collapse with Coe maneuver. The scope was carefully removed and this completed the procedure. No bleeding was appreciated. The procedure was without complications and well tolerated by the patient. Results reviewed Dr. Guy's notes ASSESSMENT/PLAN: Dysphagia in the setting of dementia -normal flexible laryngoscopy -recommend modified barium swallow -discussed safe swallow techniques (small bites followed by sips of water) -encouraged hydration (at least 60 oz per day) Vasomotor rhinitis -ipratropium 0.06% up to three times daily as needed for rhinorrhea Obstructive sleep apnea -continue CPAP Follow up: I will follow up with results of MBS and next steps- likely swallow therapy Lorena Mcclellan PA-C, [facility] [place] [facility] [address] [place] [address] Office phone: documented in this encounterOSU [facility] History of Present illness Narrative* Sabrina Guy DO - 03/05/2022 11:45 AM EDT Chief Complaint: Follow-up HPI: Qamar is accompanied by her daughter today. Peripheral neuropathy: Dysesthesia is acceptably controlled. She is not had a fall or orthostatic symptoms but she is scared to walk. PMHx: has a past medical history of CAD (coronary artery disease), Cardiac murmur, Diabetes mellitus, Essential hypertension, benign, and Thyroid disease. Meds: has a current medication list which includes the following prescription(s): citalopram, hydrochlorothiazide, ibuprofen, levothyroxine, lisinopril, metformin, metoprolol succinate, pravastatin, raloxifene, and valacyclovir. Allergies: has No Known Allergies. FMHx: family history includes Breast Cancer in her mother and sister. Soc Hx: reports that she has never smoked. She has never used smokeless tobacco. She reports that she does not drink alcohol and does not use drugs. Objective: Vitals: Blood pressure 126/68, pulse 63, height 1.448 m (4' 9), weight 63.5 kg (140 lb). Physical Examination: Mental Status: oriented to person, place, and date; mood and affect appropriate; appears to be in no apparent distress; normal thought content in conversation; fluency and comprehension intact Cranial Nerves: Pupils are equal and reactive bilaterally, extraocular muscles are intact, facial weakness is absent, spontaneous palatal movement is symmetric, the tongue protrudes in the midline Motor: DTRs symmetric, no long tract signs, no drift. Manual motor testing of both legs is normal Cerebellum: no abnormal rebound, no dysmetria Misc: full visual razo, no nystagmus, normal fine motor control, normal speech, normal station and gait except she drags her right leg Diagnostic Tests: I reviewed all labs I ordered. B12 level was low normal but not high enough to rule out B12 deficiency. Assessment: ICD-10-CM 1. Type 2 diabetes mellitus with diabetic neuropathy, without long-term current use of insulin E11.40 2. Dysphagia, unspecified type R13.10 1. Type 2 diabetes mellitus with diabetic neuropathy, without long-term current use of insulin B12 level was not high enough to rule out a concomitant B12 deficiency. Therefore: - METHYLMALONIC ACID For imbalance: - AMB REFERRAL TO PHYSICAL THERAPY 2. Dysphagia, unspecified type Available evidence does not suggest a neurologic etiology. She would like to see ENT: - AMB REFERRAL TO OTOLARYNGOLOGY And she is having cognitive complaints. She will return for cognitive testing - Instructions were given to call if current symptoms worsen or new symptoms arise. Voice recognition software was used for this note. I have edited this note but errors may occur Return for MSE. documented in this encounterU [facility] History of Present illness Narrative* Sabrina Guy DO - 02/08/2021 1:30 PM EDT Chief Complaint: 1. had concerns including Extremity Weakness. HPI: Qamar is accompanied by her daughter today. Gait issues started more than 2 years ago. These have been progressive since a fall 8 months ago. She denies paresthesia or coldness of her feet. She also denies orthostatic symptoms. She feels herlegs are weak but there is no spine pain. There are no prominent myelopathic symptoms. Upper extremity coordination is unaffected. There is no tremor but she taps her fingers when she is nervous. They describe micrographia and hypophonia. Symptoms are severe enough to require at least 1 person assistance for all standing and ambulation.If she is not holding on to something she falls backwards. They also admits choking and fatigue. PMHx: has a past medical history of CAD (coronary artery disease), Cardiac murmur, Diabetes mellitus, Essential hypertension, benign, and Thyroid disease. Meds: has a current medication list which includes the following prescription(s): citalopram, hydrochlorothiazide, ibuprofen, levothyroxine, lisinopril, metformin, metoprolol succinate, pravastatin, raloxifene, and valacyclovir. Allergies: has No Known Allergies. FMHx: family history includes Breast Cancer in her mother and sister. Soc Hx: reports that she has never smoked. She has never used smokeless tobacco. She reports that she does not drink alcohol and does not use drugs. ROS: Ophthalmology: Double vision no ENT: Vertigo no Genitourinary: Incontinence no Neurology: Slurred speech no Difficulty swallowing admits Numbness/ Tingling no Weakness as above Imbalance as above Incoordination no Objective: Vitals: There were no vitals taken for this visit. Physical Examination: Mental Status: oriented to person, place, and date; mood and affect appropriate; appears to be in no apparent distress; normal thought content in conversation; fluency and comprehension intact Cranial Nerves: Pupils are equal and reactive bilaterally, extraocular muscles are intact, facial weakness is absent, the tongue protrudes in the midline Motor: Tone and bulk are normal in the upper and lower extremities. It is unclear if she has generalized weakness or poor effort. DTRs symmetric but absent distally, no long tract signs, no drift. There is no evidence of bradykinesia Sensory: temperature exam is symmetric in a stocking distribution.. Vibratory perception is 1 seconds at the great toes. Heightened pin and temperature sensation Cerebellum: no abnormal rebound, no dysmetria Misc: full visual razo, no nystagmus, normal fine motor control, normal speec. possible jerky pursuits, she cannot stand without assistance-she begins to fall backwards Diagnostic Testing: Assessment: ICD-10-CM 1. Imbalance R26.89 Plan: 1. Imbalance I suspect peripheral neuropathy is going to be the cause. The differential diagnosis includes posterior column disorders. Jerky pursuits raise the possibly of a cerebellar disorder but there are no other cerebellar findings. I will keep an appropriate differential diagnosis in mind. To start with: - FOLATE, SERUM; Future - IMMUNOGLOBULIN FREE CHAINS; Future - MONOCLONAL PROT IMMUNO, SERUM; Future - PROTEIN ELECTROPHORESIS SERUM, WITH REFLEX; Future - PARANEOPLASTIC SYNDROME; Future - VITAMIN B12; Future - VITAMIN E; Future To minimize her risk of fall with harm: - AMB REFERRAL TO PHYSICAL THERAPY She will return for EMG of the legs. As we proceed I will assess the utility of MRI of the brain, etc.. -Instructions were given to call if current symptoms worsen or new symptoms arise. Voice recognition software was used for this note. I have edited this note but errors may occur Return for EMG BLE. documented in this encounterOSU [facility]* Diagnosis Imbalance- Primary Abnormality of gait documented in this encounter [facility]* Diagnosis Type 2 diabetes mellitus with diabetic neuropathy, without long-term current use of insulin- Primary Dysphagia, unspecified type [facility] Diagnosis Dysphagia, unspecified type- Primary Alzheimer's dementia, unspecified dementia severity, unspecified timing of dementia onset, unspecified whether behavioral, psychotic, or mood disturbance or anxiety Obstructive sleep apnea Obstructive sleep apnea (adult) (pediatric) Vasomotor rhinitis Allergic rhinitis, cause unspecified documented in this encounter [facility]* Diagnosis Dysphagia, unspecified type documented in this encounter [facility] noteNo assessment information available [facility] Work Phone: Evaluation note* Diagnosis Dysphagia, unspecified type- Primary Alzheimer's dementia, unspecified dementia severity, unspecified timing of dementia onset, unspecified whether behavioral, psychotic, or mood disturbance or anxiety Missing teeth, acquired Acquired absence of teeth, unspecified documented in this encounter [facility]* Diagnosis Mild cognitive impairment- Primary Mild cognitive impairment, so stated Type 2 diabetes mellitus with diabetic neuropathy, without long-term current use of insulin Dysphagia, unspecified type documented in this encounter [facility] [place] [facility]* Diagnosis Vertigo- Primary Dizziness and giddiness Mild cognitive impairment Mild cognitive impairment, so stated documented in this encounter [facility]* Diagnosis Cystitis- Primary Cystitis, unspecified Dementia with anxiety, unspecified dementia severity, unspecified dementia type documented in this encounter [facility] [place] [facility]* Diagnosis Encephalopathy- Primary Encephalopathy, unspecified Mild cognitive impairment Mild cognitive impairment, so stated documented in this encounter [facility]* Diagnosis Mild cognitive impairment- Primary Mild cognitive impairment, so stated Encephalopathy Encephalopathy, unspecified documented in this encounter [facility] instructions* Attachments The following attachments cannot be sent through Care Everywhere. * Urinary Tract Infections (UTIs) in Women ([facility]) ([place]) documented in this encounterU [facility] CenterReason for referral (narrative)* Consultation (Routine) - New Request Specialty Diagnoses / Procedures Referred By Nicole rodriguez Referred To Contact Otolaryngology Diagnoses Dysphagia, unspecified type Sabrina Guy, [address] [facility] [place] [address] [place] [address] Referral ID Status Reason Start Date Expiration Date V isits Requested Visits Authorized [id number] New Request 03/05/2022 03/30/2023 1 1 * Adjunctive Therapy (Routine) - New Request Specialty Diagnoses / Procedures Referred By Nicole rodriguez Referred To Contact Physical Therapy Diagnoses Type 2 diabetes mellitus with diabetic neuropathy, without long-term current use of insulin Sabrina Guy DO [address] [place] [address] [place] [address] Physical Therapy [facility] [place] [address] [place] [address] [address] [place] [address] Referral ID Status Reason Start Date Expiration Date V isits Requested Visits Authorized [id number] New Request 03/05/2022 03/30/2023 1 1 Scheduling Instructions [facility] [address] [facility] 2[address] [place] [address] Fax [facility]) [address] [place], [place] [address] FAX [facility] [address] [address] FAX Outpatient [facility] [place] [address] [facility] [address] [place] [address] FAX [facility] [address] [place] [address] FAX Physical Therapy at [facility] [address] [place], [place] [address] FAX [facility] [address] [place], [place] [address] FAX Continued on next page Outpatient [facility] Outpatient [facility] [address] [place] [address] FAX [facility] for [facility] (narrative)No reason for referral information availableLodi Memorial [facility] Work Phone: Summary Purpose Family History No Family History Records Found Bipolar Disorder Status:Active Comments:Negati ve Family History Of. Breast Cancer Status:Active Comments:Negativ e Family History Of. Breast cancer Onset:05-Mar-2017 Status:Active Comments:Mother. Colon Cancer Status:Active Comments:Negativ e Family History Of. Coronary Artery Disease Status:Active Comments :Negative Family History Of. Depression Status:Active Comments:Negativ e Family History Of. Diabetes Mellitus Status:Active Comments:Negat nato Family History Of. Hyperlipidemia Status:Active Comments:Negativ e Family History Of. Hypertension Status:Active Comments:Negativ e Family History Of. Ovarian Cancer Status:Active Comments:Negativ e Family History Of. Stroke Status:Active Comments:Negativ e Family History Of. Bipolar Disorder Status:Active Comments:Negati ve Family History Of. Breast cancer Onset:05-Mar-2017 Status:Active Comments:Mother. Breast Cancer Status:Active Comments:Negativ e Family History Of. Colon Cancer Status:Active Comments:Negativ e Family History Of. Coronary Artery Disease Status:Active Comments :Negative Family History Of. Depression Status:Active Comments:Negativ e Family History Of. Diabetes Mellitus Status:Active Comments:Negat nato Family History Of. Hyperlipidemia Status:Active Comments:Negativ e Family History Of. Hypertension Status:Active Comments:Negativ e Family History Of. Ovarian Cancer Status:Active Comments:Negativ e Family History Of. Stroke Status:Active Comments:Negativ e Family History Of. Bipolar Disorder Status:Active Comments:Negati ve Family History Of. Breast Cancer Status:Active Comments:Negativ e Family History Of. Breast cancer Onset:05-Mar-2017 Status:Active Comments:Mother. Colon Cancer Status:Active Comments:Negativ e Family History Of. Coronary Artery Disease Status:Active Comments :Negative Family History Of. Depression Status:Active Comments:Negativ e Family History Of. Diabetes Mellitus Status:Active Comments:Negat nato Family History Of. Hyperlipidemia Status:Active Comments:Negativ e Family History Of. Hypertension Status:Active Comments:Negativ e Family History Of. Ovarian Cancer Status:Active Comments:Negativ e Family History Of. Stroke Status:Active Comments:Negativ e Family History Of. Bipolar Disorder Status:Active Comments:Negati ve Family History Of. Breast Cancer Status:Active Comments:Negativ e Family History Of. Breast cancer Onset:05-Mar-2017 Status:Active Comments:Mother. Colon Cancer Status:Active Comments:Negativ e Family History Of. Coronary Artery Disease Status:Active Comments :Negative Family History Of. Depression Status:Active Comments:Negativ e Family History Of. Diabetes Mellitus Status:Active Comments:Negat nato Family History Of. Hyperlipidemia Status:Active Comments:Negativ e Family History Of. Hypertension Status:Active Comments:Negativ e Family History Of. Ovarian Cancer Status:Active Comments:Negativ e Family History Of. Stroke Status:Active Comments:Negativ e Family History Of. Bipolar Disorder Status:Active Comments:Negati ve Family History Of. Breast Cancer Status:Active Comments:Negativ e Family History Of. Breast cancer Onset:05-Mar-2017 Status:Active Comments:Mother. Colon Cancer Status:Active Comments:Negativ e Family History Of. Coronary Artery Disease Status:Active Comments :Negative Family History Of. Depression Status:Active Comments:Negativ e Family History Of. Diabetes Mellitus Status:Active Comments:Negat nato Family History Of. Hyperlipidemia Status:Active Comments:Negativ e Family History Of. Hypertension Status:Active Comments:Negativ e Family History Of. Ovarian Cancer Status:Active Comments:Negativ e Family History Of. Stroke Status:Active Comments:Negativ e Family History Of. Bipolar Disorder Status:Active Comments:Negati ve Family History Of. Breast Cancer Status:Active Comments:Negativ e Family History Of. Breast cancer Onset:05-Mar-2017 Status:Active Comments:Mother. Colon Cancer Status:Active Comments:Negativ e Family History Of. Coronary Artery Disease Status:Active Comments :Negative Family History Of. Depression Status:Active Comments:Negativ e Family History Of. Diabetes Mellitus Status:Active Comments:Negat nato Family History Of. Hyperlipidemia Status:Active Comments:Negativ e Family History Of. Hypertension Status:Active Comments:Negativ e Family History Of. Ovarian Cancer Status:Active Comments:Negativ e Family History Of. Stroke Status:Active Comments:Negativ e Family History Of. Bipolar Disorder Status:Active Comments:Negati ve Family History Of. Breast Cancer Status:Active Comments:Negativ e Family History Of. Breast cancer Onset:05-Mar-2017 Status:Active Comments:Mother. Colon Cancer Status:Active Comments:Negativ e Family History Of. Coronary Artery Disease Status:Active Comments :Negative Family History Of. Depression Status:Active Comments:Negativ e Family History Of. Diabetes Mellitus Status:Active Comments:Negat nato Family History Of. Hyperlipidemia Status:Active Comments:Negativ e Family History Of. Hypertension Status:Active Comments:Negativ e Family History Of. Ovarian Cancer Status:Active Comments:Negativ e Family History Of. Stroke Status:Active Comments:Negativ e Family History Of. Bipolar Disorder Status:Active Comments:Negati ve Family History Of. Breast Cancer Status:Active Comments:Negativ e Family History Of. Breast cancer Onset:05-Mar-2017 Status:Active Comments:Mother. Colon Cancer Status:Active Comments:Negativ e Family History Of. Coronary Artery Disease Status:Active Comments :Negative Family History Of. Depression Status:Active Comments:Negativ e Family History Of. Diabetes Mellitus Status:Active Comments:Negat nato Family History Of. Hyperlipidemia Status:Active Comments:Negativ e Family History Of. Hypertension Status:Active Comments:Negativ e Family History Of. Ovarian Cancer Status:Active Comments:Negativ e Family History Of. Stroke Status:Active Comments:Negativ e Family History Of. Bipolar Disorder Status:Active Comments:Negati ve Family History Of. Breast Cancer Status:Active Comments:Negativ e Family History Of. Breast cancer Onset:05-Mar-2017 Status:Active Comments:Mother. Colon Cancer Status:Active Comments:Negativ e Family History Of. Coronary Artery Disease Status:Active Comments :Negative Family History Of. Depression Status:Active Comments:Negativ e Family History Of. Diabetes Mellitus Status:Active Comments:Negat nato Family History Of. Hyperlipidemia Status:Active Comments:Negativ e Family History Of. Hypertension Status:Active Comments:Negativ e Family History Of. Ovarian Cancer Status:Active Comments:Negativ e Family History Of. Stroke Status:Active Comments:Negativ e Family History Of. Bipolar Disorder Status:Active Comments:Negati ve Family History Of. Breast Cancer Status:Active Comments:Negativ e Family History Of. Breast cancer Onset:05-Mar-2017 Status:Active Comments:Mother. Colon Cancer Status:Active Comments:Negativ e Family History Of. Coronary Artery Disease Status:Active Comments :Negative Family History Of. Depression Status:Active Comments:Negativ e Family History Of. Diabetes Mellitus Status:Active Comments:Negat nato Family History Of. Hyperlipidemia Status:Active Comments:Negativ e Family History Of. Hypertension Status:Active Comments:Negativ e Family History Of. Ovarian Cancer Status:Active Comments:Negativ e Family History Of. Stroke Status:Active Comments:Negativ e Family History Of. Bipolar Disorder Status:Active Comments:Negati ve Family History Of. Breast Cancer Status:Active Comments:Negativ e Family History Of. Breast cancer Onset:05-Mar-2017 Status:Active Comments:Mother. Colon Cancer Status:Active Comments:Negativ e Family History Of. Coronary Artery Disease Status:Active Comments :Negative Family History Of. Depression Status:Active Comments:Negativ e Family History Of. Diabetes Mellitus Status:Active Comments:Negat nato Family History Of. Hyperlipidemia Status:Active Comments:Negativ e Family History Of. Hypertension Status:Active Comments:Negativ e Family History Of. Ovarian Cancer Status:Active Comments:Negativ e Family History Of. Stroke Status:Active Comments:Negativ e Family History Of. Bipolar Disorder Status:Active Comments:Negati ve Family History Of. Breast Cancer Status:Active Comments:Negativ e Family History Of. Breast cancer Onset:05-Mar-2017 Status:Active Comments:Mother. Colon Cancer Status:Active Comments:Negativ e Family History Of. Coronary Artery Disease Status:Active Comments :Negative Family History Of. Depression Status:Active Comments:Negativ e Family History Of. Diabetes Mellitus Status:Active Comments:Negat nato Family History Of. Hyperlipidemia Status:Active Comments:Negativ e Family History Of. Hypertension Status:Active Comments:Negativ e Family History Of. Ovarian Cancer Status:Active Comments:Negativ e Family History Of. Stroke Status:Active Comments:Negativ e Family History Of. Bipolar Disorder Status:Active Comments:Negati ve Family History Of. Breast Cancer Status:Active Comments:Negativ e Family History Of. Breast cancer Onset:05-Mar-2017 Status:Active Comments:Mother. Colon Cancer Status:Active Comments:Negativ e Family History Of. Coronary Artery Disease Status:Active Comments :Negative Family History Of. Depression Status:Active Comments:Negativ e Family History Of. Diabetes Mellitus Status:Active Comments:Negat nato Family History Of. Hyperlipidemia Status:Active Comments:Negativ e Family History Of. Hypertension Status:Active Comments:Negativ e Family History Of. Ovarian Cancer Status:Active Comments:Negativ e Family History Of. Stroke Status:Active Comments:Negativ e Family History Of. Bipolar Disorder Status:Active Comments:Negati ve Family History Of. Breast cancer Onset:05-Mar-2017 Status:Active Comments:Mother. Breast Cancer Status:Active Comments:Negativ e Family History Of. Colon Cancer Status:Active Comments:Negativ e Family History Of. Coronary Artery Disease Status:Active Comments :Negative Family History Of. Depression Status:Active Comments:Negativ e Family History Of. Diabetes Mellitus Status:Active Comments:Negat nato Family History Of. Hyperlipidemia Status:Active Comments:Negativ e Family History Of. Hypertension Status:Active Comments:Negativ e Family History Of. Ovarian Cancer Status:Active Comments:Negativ e Family History Of. Stroke Status:Active Comments:Negativ e Family History Of. Bipolar Disorder Status:Active Comments:Negati ve Family History Of. Breast cancer Onset:05-Mar-2017 Status:Active Comments:Mother. Breast Cancer Status:Active Comments:Negativ e Family History Of. Colon Cancer Status:Active Comments:Negativ e Family History Of. Coronary Artery Disease Status:Active Comments :Negative Family History Of. Depression Status:Active Comments:Negativ e Family History Of. Diabetes Mellitus Status:Active Comments:Negat nato Family History Of. Hyperlipidemia Status:Active Comments:Negativ e Family History Of. Hypertension Status:Active Comments:Negativ e Family History Of. Ovarian Cancer Status:Active Comments:Negativ e Family History Of. Stroke Status:Active Comments:Negativ e Family History Of. Bipolar Disorder Status:Active Comments:Negati ve Family History Of. Breast cancer Onset:05-Mar-2017 Status:Active Comments:Mother. Breast Cancer Status:Active Comments:Negativ e Family History Of. Colon Cancer Status:Active Comments:Negativ e Family History Of. Coronary Artery Disease Status:Active Comments :Negative Family History Of. Depression Status:Active Comments:Negativ e Family History Of. Diabetes Mellitus Status:Active Comments:Negat nato Family History Of. Hyperlipidemia Status:Active Comments:Negativ e Family History Of. Hypertension Status:Active Comments:Negativ e Family History Of. Ovarian Cancer Status:Active Comments:Negativ e Family History Of. Stroke Status:Active Comments:Negativ e Family History Of. Bipolar Disorder Status:Active Comments:Negati ve Family History Of. Breast cancer Onset:05-Mar-2017 Status:Active Comments:Mother. Breast Cancer Status:Active Comments:Negativ e Family History Of. Colon Cancer Status:Active Comments:Negativ e Family History Of. Coronary Artery Disease Status:Active Comments :Negative Family History Of. Depression Status:Active Comments:Negativ e Family History Of. Diabetes Mellitus Status:Active Comments:Negat nato Family History Of. Hyperlipidemia Status:Active Comments:Negativ e Family History Of. Hypertension Status:Active Comments:Negativ e Family History Of. Ovarian Cancer Status:Active Comments:Negativ e Family History Of. Stroke Status:Active Comments:Negativ e Family History Of. Bipolar Disorder Status:Active Comments:Negati ve Family History Of. Breast cancer Onset:05-Mar-2017 Status:Active Comments:Mother. Breast Cancer Status:Active Comments:Negativ e Family History Of. Colon Cancer Status:Active Comments:Negativ e Family History Of. Coronary Artery Disease Status:Active Comments :Negative Family History Of. Depression Status:Active Comments:Negativ e Family History Of. Diabetes Mellitus Status:Active Comments:Negat nato Family History Of. Hyperlipidemia Status:Active Comments:Negativ e Family History Of. Hypertension Status:Active Comments:Negativ e Family History Of. Ovarian Cancer Status:Active Comments:Negativ e Family History Of. Stroke Status:Active Comments:Negativ e Family History Of. Bipolar Disorder Status:Active Comments:Negati ve Family History Of. Breast cancer Onset:05-Mar-2017 Status:Active Comments:Mother. Breast Cancer Status:Active Comments:Negativ e Family History Of. Colon Cancer Status:Active Comments:Negativ e Family History Of. Coronary Artery Disease Status:Active Comments :Negative Family History Of. Depression Status:Active Comments:Negativ e Family History Of. Diabetes Mellitus Status:Active Comments:Negat nato Family History Of. Hyperlipidemia Status:Active Comments:Negativ e Family History Of. Hypertension Status:Active Comments:Negativ e Family History Of. Ovarian Cancer Status:Active Comments:Negativ e Family History Of. Stroke Status:Active Comments:Negativ e Family History Of. Bipolar Disorder Status:Active Comments:Negati ve Family History Of. Breast cancer Onset:05-Mar-2017 Status:Active Comments:Mother. Breast Cancer Status:Active Comments:Negativ e Family History Of. Colon Cancer Status:Active Comments:Negativ e Family History Of. Coronary Artery Disease Status:Active Comments :Negative Family History Of. Depression Status:Active Comments:Negativ e Family History Of. Diabetes Mellitus Status:Active Comments:Negat nato Family History Of. Hyperlipidemia Status:Active Comments:Negativ e Family History Of. Hypertension Status:Active Comments:Negativ e Family History Of. Ovarian Cancer Status:Active Comments:Negativ e Family History Of. Stroke Status:Active Comments:Negativ e Family History Of. Bipolar Disorder Status:Active Comments:Negati ve Family History Of. Breast cancer Onset:05-Mar-2017 Status:Active Comments:Mother. Breast Cancer Status:Active Comments:Negativ e Family History Of. Colon Cancer Status:Active Comments:Negativ e Family History Of. Coronary Artery Disease Status:Active Comments :Negative Family History Of. Depression Status:Active Comments:Negativ e Family History Of. Diabetes Mellitus Status:Active Comments:Negat nato Family History Of. Hyperlipidemia Status:Active Comments:Negativ e Family History Of. Hypertension Status:Active Comments:Negativ e Family History Of. Ovarian Cancer Status:Active Comments:Negativ e Family History Of. Stroke Status:Active Comments:Negativ e Family History Of. Bipolar Disorder Status:Active Comments:Negati ve Family History Of. Breast cancer Onset:05-Mar-2017 Status:Active Comments:Mother. Breast Cancer Status:Active Comments:Negativ e Family History Of. Colon Cancer Status:Active Comments:Negativ e Family History Of. Coronary Artery Disease Status:Active Comments :Negative Family History Of. Depression Status:Active Comments:Negativ e Family History Of. Diabetes Mellitus Status:Active Comments:Negat nato Family History Of. Hyperlipidemia Status:Active Comments:Negativ e Family History Of. Hypertension Status:Active Comments:Negativ e Family History Of. Ovarian Cancer Status:Active Comments:Negativ e Family History Of. Stroke Status:Active Comments:Negativ e Family History Of. Bipolar Disorder Status:Active Comments:Negati ve Family History Of. Breast cancer Onset:05-Mar-2017 Status:Active Comments:Mother. Breast Cancer Status:Active Comments:Negativ e Family History Of. Colon Cancer Status:Active Comments:Negativ e Family History Of. Coronary Artery Disease Status:Active Comments :Negative Family History Of. Depression Status:Active Comments:Negativ e Family History Of. Diabetes Mellitus Status:Active Comments:Negat nato Family History Of. Hyperlipidemia Status:Active Comments:Negativ e Family History Of. Hypertension Status:Active Comments:Negativ e Family History Of. Ovarian Cancer Status:Active Comments:Negativ e Family History Of. Stroke Status:Active Comments:Negativ e Family History Of. Bipolar Disorder Status:Active Comments:Negati ve Family History Of. Breast cancer Onset:05-Mar-2017 Status:Active Comments:Mother. Breast Cancer Status:Active Comments:Negativ e Family History Of. Colon Cancer Status:Active Comments:Negativ e Family History Of. Coronary Artery Disease Status:Active Comments :Negative Family History Of. Depression Status:Active Comments:Negativ e Family History Of. Diabetes Mellitus Status:Active Comments:Negat nato Family History Of. Hyperlipidemia Status:Active Comments:Negativ e Family History Of. Hypertension Status:Active Comments:Negativ e Family History Of. Ovarian Cancer Status:Active Comments:Negativ e Family History Of. Stroke Status:Active Comments:Negativ e Family History Of. Bipolar Disorder Status:Active Comments:Negati ve Family History Of. Breast cancer Onset:05-Mar-2017 Status:Active Comments:Mother. Breast Cancer Status:Active Comments:Negativ e Family History Of. Colon Cancer Status:Active Comments:Negativ e Family History Of. Coronary Artery Disease Status:Active Comments :Negative Family History Of. Depression Status:Active Comments:Negativ e Family History Of. Diabetes Mellitus Status:Active Comments:Negat nato Family History Of. Hyperlipidemia Status:Active Comments:Negativ e Family History Of. Hypertension Status:Active Comments:Negativ e Family History Of. Ovarian Cancer Status:Active Comments:Negativ e Family History Of. Stroke Status:Active Comments:Negativ e Family History Of. Bipolar Disorder Status:Active Comments:Negati ve Family History Of. Breast cancer Onset:05-Mar-2017 Status:Active Comments:Mother. Breast Cancer Status:Active Comments:Negativ e Family History Of. Colon Cancer Status:Active Comments:Negativ e Family History Of. Coronary Artery Disease Status:Active Comments :Negative Family History Of. Depression Status:Active Comments:Negativ e Family History Of. Diabetes Mellitus Status:Active Comments:Negat nato Family History Of. Hyperlipidemia Status:Active Comments:Negativ e Family History Of. Hypertension Status:Active Comments:Negativ e Family History Of. Ovarian Cancer Status:Active Comments:Negativ e Family History Of. Stroke Status:Active Comments:Negativ e Family History Of. Bipolar Disorder Status:Active Comments:Negati ve Family History Of. Breast cancer Onset:05-Mar-2017 Status:Active Comments:Mother. Breast Cancer Status:Active Comments:Negativ e Family History Of. Colon Cancer Status:Active Comments:Negativ e Family History Of. Coronary Artery Disease Status:Active Comments :Negative Family History Of. Depression Status:Active Comments:Negativ e Family History Of. Diabetes Mellitus Status:Active Comments:Negat nato Family History Of. Hyperlipidemia Status:Active Comments:Negativ e Family History Of. Hypertension Status:Active Comments:Negativ e Family History Of. Ovarian Cancer Status:Active Comments:Negativ e Family History Of. Stroke Status:Active Comments:Negativ e Family History Of. Bipolar Disorder Status:Active Comments:Negati ve Family History Of. Breast Cancer Status:Active Comments:Negativ e Family History Of. Breast cancer Onset:05-Mar-2017 Status:Active Comments:Mother. Colon Cancer Status:Active Comments:Negativ e Family History Of. Coronary Artery Disease Status:Active Comments :Negative Family History Of. Depression Status:Active Comments:Negativ e Family History Of. Diabetes Mellitus Status:Active Comments:Negat nato Family History Of. Hyperlipidemia Status:Active Comments:Negativ e Family History Of. Hypertension Status:Active Comments:Negativ e Family History Of. Ovarian Cancer Status:Active Comments:Negativ e Family History Of. Stroke Status:Active Comments:Negativ e Family History Of. Bipolar Disorder Status:Active Comments:Negati ve Family History Of. Breast Cancer Status:Active Comments:Negativ e Family History Of. Breast cancer Onset:05-Mar-2017 Status:Active Comments:Mother. Colon Cancer Status:Active Comments:Negativ e Family History Of. Coronary Artery Disease Status:Active Comments :Negative Family History Of. Depression Status:Active Comments:Negativ e Family History Of. Diabetes Mellitus Status:Active Comments:Negat nato Family History Of. Hyperlipidemia Status:Active Comments:Negativ e Family History Of. Hypertension Status:Active Comments:Negativ e Family History Of. Ovarian Cancer Status:Active Comments:Negativ e Family History Of. Stroke Status:Active Comments:Negativ e Family History Of. Bipolar Disorder Status:Active Comments:Negati ve Family History Of. Breast Cancer Status:Active Comments:Negativ e Family History Of. Breast cancer Onset:05-Mar-2017 Status:Active Comments:Mother. Colon Cancer Status:Active Comments:Negativ e Family History Of. Coronary Artery Disease Status:Active Comments :Negative Family History Of. Depression Status:Active Comments:Negativ e Family History Of. Diabetes Mellitus Status:Active Comments:Negat nato Family History Of. Hyperlipidemia Status:Active Comments:Negativ e Family History Of. Hypertension Status:Active Comments:Negativ e Family History Of. Ovarian Cancer Status:Active Comments:Negativ e Family History Of. Stroke Status:Active Comments:Negativ e Family History Of. Bipolar Disorder Status:Active Comments:Negati ve Family History Of. Breast Cancer Status:Active Comments:Negativ e Family History Of. Breast cancer Onset:05-Mar-2017 Status:Active Comments:Mother. Colon Cancer Status:Active Comments:Negativ e Family History Of. Coronary Artery Disease Status:Active Comments :Negative Family History Of. Depression Status:Active Comments:Negativ e Family History Of. Diabetes Mellitus Status:Active Comments:Negat nato Family History Of. Hyperlipidemia Status:Active Comments:Negativ e Family History Of. Hypertension Status:Active Comments:Negativ e Family History Of. Ovarian Cancer Status:Active Comments:Negativ e Family History Of. Stroke Status:Active Comments:Negativ e Family History Of. Bipolar Disorder Status:Active Comments:Negati ve Family History Of. Breast Cancer Status:Active Comments:Negativ e Family History Of. Breast cancer Onset:05-Mar-2017 Status:Active Comments:Mother. Colon Cancer Status:Active Comments:Negativ e Family History Of. Coronary Artery Disease Status:Active Comments :Negative Family History Of. Depression Status:Active Comments:Negativ e Family History Of. Diabetes Mellitus Status:Active Comments:Negat nato Family History Of. Hyperlipidemia Status:Active Comments:Negativ e Family History Of. Hypertension Status:Active Comments:Negativ e Family History Of. Ovarian Cancer Status:Active Comments:Negativ e Family History Of. Stroke Status:Active Comments:Negativ e Family History Of. Bipolar Disorder Status:Active Comments:Negati ve Family History Of. Breast Cancer Status:Active Comments:Negativ e Family History Of. Breast cancer Onset:05-Mar-2017 Status:Active Comments:Mother. Colon Cancer Status:Active Comments:Negativ e Family History Of. Coronary Artery Disease Status:Active Comments :Negative Family History Of. Depression Status:Active Comments:Negativ e Family History Of. Diabetes Mellitus Status:Active Comments:Negat nato Family History Of. Hyperlipidemia Status:Active Comments:Negativ e Family History Of. Hypertension Status:Active Comments:Negativ e Family History Of. Ovarian Cancer Status:Active Comments:Negativ e Family History Of. Stroke Status:Active Comments:Negativ e Family History Of. Bipolar Disorder Status:Active Comments:Negati ve Family History Of. Breast Cancer Status:Active Comments:Negativ e Family History Of. Breast cancer Onset:05-Mar-2017 Status:Active Comments:Mother. Colon Cancer Status:Active Comments:Negativ e Family History Of. Coronary Artery Disease Status:Active Comments :Negative Family History Of. Depression Status:Active Comments:Negativ e Family History Of. Diabetes Mellitus Status:Active Comments:Negat nato Family History Of. Hyperlipidemia Status:Active Comments:Negativ e Family History Of. Hypertension Status:Active Comments:Negativ e Family History Of. Ovarian Cancer Status:Active Comments:Negativ e Family History Of. Stroke Status:Active Comments:Negativ e Family History Of. 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 Yes November 21, 2023 8:39pm Discharge Instructions * Attachments The following attachments cannot be sent through Care Everywhere. * Sciatica ([place]) documented in this encounter Assessments Diagnosis Sciatica of right side Reason for Referral Specialty Diagnoses / Procedures Referred By Nicole t Referred To Contact Physical Therapy Diagnoses Imbalance Sabrina Guy, [address] [place] [address] [place] [address] Referral ID Status Reason Start Date Expiration Date V isits Requested Visits Authorized [id number] New Request 02/08/2021 03/05/2022 1 1 Scheduling Instructions [facility] [address] [facility] [place] [address] Fax [facility] (Neck [facility] Therapy) [address] [place], [place] [phone] FAX [facility] [address] [place], [place] [phone] FAX [facility] [address] [place] [address] [facility] [address] [place] [address] FAX [facility] [address] [phone] FAX [facility] [address] [place], [place] [phone] FAX [facility] [address] [place], [place] [address] FAX Specialty Diagnoses / Procedures Referred By Nicole t Referred To Contact Diagnoses Dysphagia, unspecified type Procedures XR FLUORO MODIFIED BARIUM SWALLOW WITH SPEECH Lorena Mcclellan PA-C [address] [place] [address] [address] [place] [address] Referral ID Status Reason Start Date Expiration Date V isits Requested Visits Authorized [id number] New Request 05/06/2022 05/31/2023 2 2 Specialty Diagnoses / Procedures Referred By Nicole t Referred To Contact Diagnoses Dysphagia, unspecified type Lorena Mcclellan PA-C [address] [place] [address] Rd [address] [place] [address] Referral ID Status Reason Start Date Expiration Date V isits Requested Visits Authorized [id number] New Request 05/06/2022 05/31/2023 1 1 Specialty Diagnoses / Procedures Referred By Nicole t Referred To Contact Otolaryngology Diagnoses Mild cognitive impairment Sabrina Guy, DO [address] [place] [phone] Referral ID Status Reason Start Date Expiration Date V isits Requested Visits Authorized [id number] New Request 04/07/2023 05/01/2024 1 1 Chief Complaint and Reason for Visit Chief Complaint NEUROPATHY/PT HAS RX Chief Complaint Mild cognitive impai rment of uncertain or unknown Chief Complaint Mild cognitive impai rment of uncertain or unknown URINARY C/O Chief Complaint Admit Date 3 M FU October 12, 2024 2:4 9pm Alzheimer's December 28, 2024 9:01a m EORDERS December 28, 2024 10:23 am Reason for Visit Admit Date Alzheimer disease October 12, 2024 2:4 9pm Bladder incontinence October 12, 2024 2: 49pm Diabetes mellitus October 12, 2024 2:4 9pm Onychomycosis October 12, 2024 2:4 9pm Dementia December 28, 2024 9:01a m Reason for Visit Admit Date Alzheimer disease October 12, 2024 2:4 9pm Bladder incontinence October 12, 2024 2: 49pm Diabetes mellitus October 12, 2024 2:4 9pm Onychomycosis October 12, 2024 2:4 9pm Abnormal gait December 28, 2024 9:01a m Dementia December 28, 2024 9:01a m Chief Complaint Admit Date 3 M FU October 12, 2024 2:4 9pm Alzheimer's December 28, 2024 9:01a m EORDERS December 28, 2024 10:23 am 3 M FU January 20, 2025 1:29 pm Reason for Visit Admit Date Alzheimer disease October 12, 2024 2:4 9pm Bladder incontinence October 12, 2024 2: 49pm Diabetes mellitus October 12, 2024 2:4 9pm Onychomycosis October 12, 2024 2:4 9pm Abnormal gait December 28, 2024 9:01a m Dementia December 28, 2024 9:01a m Alzheimer disease January 20, 2025 1:29 pm Bilateral wheezing January 20, 2025 1:29 pm Bladder incontinence January 20, 2025 1:2 9pm Diabetes mellitus January 20, 2025 1:29 pm Additional Source Comments INFORMATION SOURCE (unrecogn ized section and content) DATE CREATED AUTHOR 05/18/2019 [facility] DATE CREATED AUTHOR AUTHOR'S ORGANIZ ATION 06/29/2019 [facility] DATE CREATED AUTHOR AUTHOR'S ORGANIZ ATION 10/25/2022 [facility] DATE CREATED AUTHOR AUTHOR'S ORGANIZ ATION 09/04/2023 [facility] DATE CREATED AUTHOR AUTHOR'S ORGANIZ ATION 01/30/2025 [facility] Reason for Visit (unrecogniz ed section and content) Reason Comments Back Pain Sciatica Reason Comments Extremity Weakness Specialty Diagnoses / Procedures Referred By Nicole t Referred To Contact Neurology Diagnoses Balance problem Buoni, Vishnu G, MD [address] [place] [address] Referral ID Status Reason Start Date Expiration Date Visits Re quested Visits Authorized [id number] Closed 01/11/2021 02/05/2022 1 1 Reason Comments Follow-up Reason Comments Dysphagia Recently diagnosed w Alzheimers, having trouble swallowing, chokes on saliva. Also has snoring issues, also on CPAP Specialty Diagnoses / Procedures Referred By Nicole rodriguez Referred To Contact Otolaryngology Diagnoses Dysphagia, unspecified type Sabrina Guy, DO [address] [place] [address] [place] [address] Referral ID Status Reason Start Date Expiration Date Visits Re quested Visits Authorized [id number] Closed 03/05/2022 03/30/2023 1 1 Specialty Diagnoses / Procedures Referred By Nicole rodriguez Referred To Contact Diagnoses Dysphagia, unspecified type Procedures XR FLUORO MODIFIED BARIUM SWALLOW WITH SPEECH Lorena Mcclellan PA-C [address] [facility] [address] [place] [address] Referral ID Status Reason Start Date Expiration Date V isits Requested Visits Authorized [id number] New Request 05/06/2022 05/31/2023 2 2 Reason Comments Dysphagia difficulty swallowin g referred by lorena mcclellan, same since she saw Lorena and did complete therapy. Specialty Diagnoses / Procedures Referred By Nicole rodriguez Referred To Contact Otolaryngology Diagnoses difficulty swallowing referred by lorena mcclellan Procedures RETURN NEW TO DR Campoverde, Self Brandon Goodman MD [address] [place] [address] Referral ID Status Reason Start Date Expiration Date Visits Re quested Visits Authorized [id number] Closed 06/26/2022 07/21/2023 1 1 Reason Comments Cognitive Impairment Reason Comments Memory Loss Reason Comments Bladder Infection Neuro ordered labs o n pt, unable to obtain a clean urine specimen sent her in for that. Concern for infection, and dehydrated Reason Comments Follow-up Mayela Albarado MD - 06/26/2019 3:08 PM Juan Hay RN - 06/26/2019 2:37 PM EST ED Notes (unrecognized secti on and content) ED PROVIDER NOTE [facility] NAME: Qamar Boswell AGE: 73 y.o. : 1945 VISIT DATE: 06/26/2019 CSN: [id number] PCP: Vishnu Mendoza MD Chief Complaint Patient presents with Back Pain Sciatica 73-year-old female presents for evaluation of back pain. She reports for the last 3 days she has had pain that starts in her right low back and buttocks and radiates down her right thigh to her knee. She has been taking Tylenol 4 times per day. She does report that this will briefly relieve the pain. She denies falls or injury. She denies fever or chills. She denies history of back pain or surgeries. She denies fecal or urinary incontinence or retention or leg weakness or numbness Past Medical History: Diagnosis Date Diabetes mellitus (HCC) Disease of thyroid gland Hypertension Past Surgical History: Procedure Laterality Date HYSTERECTOMY History reviewed. No pertinent family history. Social History Socioeconomic History Marital status: Spouse name: Not on file Number of children: Not on file Years of education: Not on file Highest education level: Not on file Occupational History Not on file Social Needs Financial resource strain: Not on file Food insecurity Worry: Not on file Inability: Not on file Transportation needs Medical: Not on file Non-medical: Not on file Tobacco Use Smoking status: Never Smoker Smokeless tobacco: Never Used Substance and Sexual Activity Alcohol use: No Drug use: No Sexual activity: Not on file Lifestyle Physical activity Days per week: Not on file Minutes per session: Not on file Stress: Not on file Relationships Social connections Talks on phone: Not on file Gets together: Not on file Attends buddhist service: Not on file Active member of club or organization: Not on file Attends meetings of clubs or organizations: Not on file Relationship status: Not on file Other Topics Concern Not on file Social History Narrative Not on file Previous Medications Medication Sig acetaminophen (TYLENOL) 500 MG tablet Take 500 mg by mouth every 6 (six) hours as needed for pain. calcium carbonate-vitamin D2 500 mg(1,250mg) -200 unit tablet Take 1 tablet by mouth 2 (two) times a day. LEVOTHYROXINE SODIUM (SYNTHROID ORAL) Take by mouth. lisinopril-hydrochlorothiazide (PRINZIDE,ZESTORETIC) 20-25 mg per tablet Take 1 tablet by mouth daily. metFORMIN (GLUCOPHAGE) 500 MG tablet Take 850 mg by mouth 2 (two) times a day with meals. raloxifene (EVISTA) 60 mg tablet Take 60 mg by mouth daily. No Known Allergies Review of Systems Constitutional: Negative for fatigue and fever. HENT: Negative for rhinorrhea and sore throat. Eyes: Negative for pain and visual disturbance. Respiratory: Negative for cough and shortness of breath. Cardiovascular: Negative for chest pain and leg swelling. Gastrointestinal: Negative for abdominal pain and vomiting. Genitourinary: Negative for dysuria and flank pain. Musculoskeletal: Positive for back pain. Negative for neck pain. Skin: Negative for color change and pallor. Neurological: Negative for dizziness and headaches. Patient Vitals for the past 24 hrs: BP Temp Pulse Resp SpO2 Height Weight 06/26/19 1438 143/73 98.2 F (36.8 C) 78 16 99 % 4' 11 61.2 kg (135 lb) Physical Exam Vitals signs and nursing note reviewed. Constitutional: General: She is not in acute distress. Appearance: She is well-developed. HENT: Head: Normocephalic and atraumatic. Eyes: Conjunctiva/sclera: Conjunctivae normal. Pupils: Pupils are equal, round, and reactive to light. Neck: Musculoskeletal: Normal range of motion and neck supple. Cardiovascular: Rate and Rhythm: Normal rate and regular rhythm. Heart sounds: Normal heart sounds. No murmur. No friction rub. No gallop. Pulmonary: Effort: Pulmonary effort is normal. No respiratory distress. Breath sounds: Normal breath sounds. Abdominal: Palpations: Abdomen is soft. Tenderness: There is no abdominal tenderness. There is no guarding or rebound. Musculoskeletal: General: No swelling, tenderness, deformity or signs of injury. Skin: General: Skin is warm and dry. Capillary Refill: Capillary refill takes less than 2 seconds. Neurological: Mental Status: She is alert and oriented to person, place, and time. Sensory: No sensory deficit. Motor: No weakness. Coordination: Coordination normal. Gait: Gait normal. Psychiatric: Speech: Speech normal. Behavior: Behavior normal. Laboratory & Radiographic Imaging (if done): No results found for this visit on 06/26/19. No orders to display Procedures MDM Number of Diagnoses or Management Options Diagnosis management comments: 73-year-old female presents for evaluation of back pain with sciatic type radiation. She appears uncomfortable. Her vital signs are stable. She does not have risk factors for epidural abscess. She does not have findings or symptoms of cauda equina or cord compression. This does appear to be a new onset of pain for her. Given her age of recommended x-rays to rule out occult fracture or hip involvement. However she has declined imaging at this time. I do believe that this is reasonable as this does appear most consistent with sciatic type back pain. Will avoid steroids given her history of diabetes. She is declined stronger pain medication. Will attempt Toradol for her pain and reassess. Anticipate discharge home with NSAID that she will combine with the Tylenol and follow-up with her primary doctor for further work-up ED Course as of Jun 26 1624 Sat Jun 26, 2019 162 Pain greatly improved and only 3 out of 10. She is still declining further work-up like x-rays. Will discharge with a course of NSAIDs and will continue Tylenol. Close primary physician follow-up [AP] ED Course User Index [AP] Mayela Albarado MD . Clinical Impression: 1. Sciatica of right side ED Disposition ED Disposition Condition Comment Discharge Stable Qamar Boswell discharged to home/self care in stable condition. Follow-up Information 1. Vishnu Mendoza MD. Specialty: Family Medicine [address] [address] Contact information for after-discharge care Follow-up information has not been specified. New Prescriptions ibuprofen (ADVIL,MOTRIN) 600 MG tablet Take 1 (one) tablet (600 mg total) by mouth every 6 (six) hours as needed for pain . Mayela Albarado MD 06/26/19 162 Pt c/o back pain radiating down right leg x 3 days documented in this encounter Care Teams (unrecognized sec tion and content) [employer] Relationship Specialty Start Date End Date Vishnu Napier MD [address] [phone] PCP - General Family Medicine 08/09/19 [employer] Relationship Specialty Start Date End Date Vishnu Napier MD [address] [phone] PCP - General Family Medicine 08/09/19 [employer] Relationship Specialty Start Date End Date Vishnu Napier MD [address] [phone] PCP - General Family Medicine 08/09/19 [employer] Relationship Specialty Start Date End Date Vishnu Napier MD [address] [phone] PCP - General Family Medicine 08/09/19 [employer] Relationship Specialty Start Date End Date Vishnu Napier MD [address] [phone] PCP - General Family Medicine 08/09/19 Team Status: Active Member Role Status [facility] VISHNU MENDOZA Primary Care Provider Active Team Status: Inactive Member Role Status Dates MALENA WONG Attending Provider, Referring Provider Ac QUYEN Palumbo Other Provider Active VISHNUMELISSA Primary Care Provider Active Team Status: Inactive Member Role Status Dates MELISSA RODRÍGUEZ Primary Care Provider Active Dr. Venita Osei MD Emergency Provider Active [employer] Relationship Specialty Start Date End Date Vishnu Napier MD [address] [phone] PCP - General Family Medicine 08/09/19 [employer] Relationship Specialty Start Date End Date Vishnu Napier MD [address] [phone] PCP - General Family Medicine 08/09/19 [employer] Relationship Specialty Start Date End Date Vishnu Napier MD [address] [facility] [address] [place] [phone] PCP - General Family Medicine 08/09/19 [employer] Relationship Specialty Start Date End Date Vishnu Napier MD [address] [facility] [address] [place] [phone] PCP - General Family Medicine 08/09/19 Team Status: Active Member Role/Relationship Status Dates Dr. Flavio Barajas DO Primary Care Provider Active Team Status: Inactive Member Role/Relationship Status Dates Dr. Flavio Barajas DO Primary Care Provider Active Start: October 12, 2024 End: October 12, 2024 Dr. Flavio Barajas DO Attending Provider Active Start: October 12, 2024 End: October 12, 2024 Dr. Flavio Barajas DO Referring Provider Active Start: October 12, 2024 End: October 12, 2024 Team Status: Inactive Member Role/Relationship Status Dates Dr. Flavio Barajas DO Primary Care Provider Active Start: December 28, 2024 End: December 28, 2024 Dr. Flavio Barajas DO Referring Provider Active Start: December 28, 2024 End: December 28, 2024 Dr. Bakari Alatorre MD Attending Provider Active Start: December 28, 2024 End: December 28, 2024 Team Status: Active Member Role/Relationship Status Dates Dr. Flavio Barajas DO Primary Care Provider Active Start: December 28, 2024 Dr. Bakari Alatorre MD Attending Provider Active Start: December 28, 2024 Dr. Bakari Alatorre MD Referring Provider Active Start: December 28, 2024 Team Status: Inactive Member Role/Relationship Status Dates Dr. Flavio Barajas DO Primary Care Provider Active Start: December 28, 2024 End: December 28, 2024 Dr. Bakari Alatorre MD Attending Provider Active Start: December 28, 2024 End: December 28, 2024 Dr. Bakari Alatorre MD Referring Provider Active Start: December 28, 2024 End: December 28, 2024 Team Status: Inactive Member Role/Relationship Status Dates Dr. Flavio Barajas DO Primary Care Provider Active Start: January 20, 2025 End: January 20, 2025 Dr. Flavio Barajas DO Attending Provider Active Start: January 20, 2025 End: January 20, 2025 Dr. Flavio Barajas DO Referring Provider Active Start: January 20, 2025 End: January 20, 2025 Goals (unrecognized section and content) Goals may be documented in a n alternate sectionGoals may be documented in an alternate sectionGoals may be documented in an alternate sectionGoals may be documented in an alternate sectionGoals may be documented in an alternate sectionGoals may be documented in an alternate section Scheduled Active and Recently Administ ered Medications (unrecognized section and content) Medication Order 06/04/2023 06/05/2023 06/06/2023 cephALEXin (KEFLEX) capsule 500 mg (COMPLETED) 500 mg, Oral, ONCE, 1 dose, On Fri06/06/23 at 1730 1737 (Given - Provid er: Chelsea Licona RN) FOR RECORDS PERTAINING TO PATIENTS WHO ARE OR HAVE BEEN ENROLLED IN A CHEMICAL DEPENDENCY/SUBSTANCEABUSE PROGRAM, SOME INFORMATION MAY BE OMITTED. This clinical summary was aggregated from multiple sources. Caution should be exercised in using it in the provision of clinical care. This summary normalizes information from multiple sources, and as a consequence, information in this document may materially change the coding, format and clinical context of patient data. In addition, data may be omitted in some cases. CLINICAL DECISIONS SHOULD BE BASED ON THE PRIMARY CLINICAL RECORDS. [employer] provides no warranty or guarantee of the accuracy or completeness of information in this document.
--- NOTE | 2025-02-01 07:47 | MRI_ITS ---
PROCEDURE: BRAIN W/WO CONTRAST 02/01/2025 REASON FOR EXAM: DEMENTIA, HALLUCINATIONS, GAIT DISORDER TECHNIQUE: BRAIN W/WO CONTRAST Multiplanar and multisequence images were obtained. CONTRAST: 13 cc Clariscan IV COMPARISON: January 11, 2023 FINDINGS: Brain: No mass, hemorrhage or ischemia is seen. No restricted diffusion identified. No extra-axial fluid collection, midline shift or mass effect. T2 prolongation in the periventricular white matter, deep white matter of the frontal and parietal lobes. Ventricles: Moderate volume loss. Major Intracranial Vessels: Flow voids are unremarkable. Sinuses: Clear. Mastoids: Bilateral mastoid effusions. MRI/Brain W/WO Contrast IMPRESSION: 1. No acute intracranial abnormality. 2. Kqusrkib-[id number] chronic microvascular ischemic changes and volume loss. Reading Location: [id number]
--- NOTE | 2025-02-01 07:47 | MRI_ITS ---
PROCEDURE: SPINE CERVICAL (ROUTINE) 02/01/2025 REASON FOR EXAM: GAIT D/O; NECK PAIN; EVAL FOR CERVICAL MYELOPATHY TECHNIQUE: SPINE CERVICAL (ROUTINE) Multiplanar and multisequence images were obtained without IV contrast administration. COMPARISON: None FINDINGS: Vertebrae: Cervical vertebral body heights are preserved. Bone marrow signal is unremarkable. Alignment: Straightened. C3 on C4 spondylolisthesis of 4 mm. Spinal Cord: Cervical spinal cord is of normal size and signal intensities. Structures at the foramen magnum are unremarkable. C2-3: Mild facet hypertrophy. Minimal central disc bulge with partial effacement of the anterior thecal sac. CSF is seen around the cord and there is no central stenosis or exit foraminal narrowing. C3-4: Moderate left facet hypertrophy. Mild right facet hypertrophy. Grade 1 anterolisthesis C3 on C4 of approximately 4 mm. Diffuse disc bulge and disc uncovering. Effacement of the anterior thecal sac with CSF posterior to the cord. No abnormal cord signal. Borderline narrowing left exit foramen mainly from facet hypertrophy. Correlate with C4 radiculopathy. C4-5: Moderate loss of disc height. Diffuse disc osteophyte protrusion and uncinate spurring. Moderate facet hypertrophy. Effacement of the anterior thecal sac. Scant CSF posterior to the cord. Stenosis to 8 mm AP. Bilateral exit foraminal narrowing. Correlate with C5 radiculopathy. C5-6: Severe loss of disc height with disc osteophyte protrusion and uncinate spurring slightly greater on the right side. Mild bilateral facet hypertrophy. Partial effacement anterior thecal sac but there is CSF around the cord and there is no stenosis. Dpjfc-xqirnoy-[id number]-left exit foraminal narrowing. Correlate with right C6 radiculopathy. C6-7: Normal C7-T1: Mild left facet hypertrophy. MRI/Spine Cervical (Routine) IMPRESSION: Multilevel degenerative disc disease greatest at C4/5 and C5/6. See above desc riptions. Grade 1 anterolisthesis C3 on C4. Reading Location: [id number]
== END | disposition home or self-care (01) ==
PROVIDERS: PCP Family Medicine; Referring Provider Psychiatry & Neurology Neurology; Visit Provider Psychiatry & Neurology Neurology
DX: R26.9 Unspecified abnormalities of gait and mobility (principal); F03.90 Unspecified dementia, unspecified severity, without behavioral disturbance, psychotic disturbance, mood disturbance, and anxiety
CPT/HCPCS: 70553; 72141; A9575